=== PATIENT | female | born 1935 | race Caucasian/White ===

== ENCOUNTER 2019-10-08 12:09 | Inpatient (IN) | payer MEDICARE ==
[~2019-10-08] VITALS: Ht 62 cm; Wt 51.6 kg
[2019-10-08] MEDS ORDERED: MEMA10TA57 PO (12:42)
[2019-10-08] MEDS ORDERED: PANT40TA3 PO (12:42)
[2019-10-08] MEDS ORDERED: MELO-170 PO (12:42)
[2019-10-08] MEDS ORDERED: PROP60TA17 PO (12:42)
[2019-10-08] MEDS ORDERED: VENL150T PO (12:42)
[2019-10-08] MEDS ORDERED: CYCL10TA9 PO (12:42)
[2019-10-08] MEDS ORDERED: ASPI-983 PO (12:42)
[2019-10-08] MEDS ORDERED: HYDR-4226 PO (12:42)
[2019-10-08] MEDS ORDERED: TRAM50TA3 PO (12:42)
[2019-10-08] MEDS ORDERED: DCS100C PO (12:42)
[2019-10-08] MEDS ORDERED: LISI-552 PO (12:42)
--- NOTE | 2019-10-08 12:43 | NUR ---
ENTERED MED REC USING THE [facility] DISCHARGE SUMMARY I WILL INTERVIEW THE PT AFTER THE MEDS HAVE BEEN CONTINUED Addendum: 10/11/19 at 1552 by CINDY AYALA CPhT SPOKE WITH THE PT AND WENT THRU THE EXT MED HISTORY TO COMPLETE THE MED REC MEDS THAT ARE NEW TO THE PT (THAT ARE NOW TAKEN REMOVED FROM THE MED REC) ASPIRIN 81MG CYCLOBENZAPRINE 10MG DOCUSATE 100MG NORCO 5/325MG MOBIC 7.5MG PANTOPRAZOLE 40MG TRAMADOL 50MG MEDICATIONS THAT HAVE BEEN ADDED: DICYCLOMINE 10MG- ON THE EXT MED HISTORY IT SAYS " 1 TAB QID" HOWEVER THE PT SAYS SHE JUST TAKES IT BID OTC MEDS THAT HAVE BEEN ADDED: MTV FISH OIL SENNA S TYLENOL
[2019-10-08] MEDS ORDERED: FLEET ENEMA ADULT 1 EA BTL PR PRN (12:45)
[2019-10-08] MEDS ORDERED: guaiFENesin/CODEINE (ROBITUSSIN AC) 10ML UDC PO PRN (12:45)
[2019-10-08] MEDS ORDERED: LACTULOSE SYRUP 10GM/15ML (ENULOSE) 30ML UDC PO PRN (12:45)
[2019-10-08] MEDS ORDERED: ALPRAZolam 0.25 MG (XANAX) TAB PO PRN (12:45)
[2019-10-08] MEDS ORDERED: diphenhydrAMINE 25 MG TAB (BENADRYL) PO PRN (12:45)
[2019-10-08] MEDS ORDERED: LOPERAMIDE 2 MG (IMODIUM) TABLET PO PRN (12:45)
[2019-10-08] MEDS ORDERED: DOCUSATE SODIUM 100 MG (COLACE) CAP PO PRN (12:45)
[2019-10-08] MEDS ORDERED: ONDANSETRON 4 MG (ZOFRAN) ORAL DISSOLVE TAB PO PRN (12:45)
--- NOTE | 2019-10-08 13:10 | NUR ---
Olvinjon Nixon admitted to room 229-1, with an admitting diagnosis of Right Total Knee Replacement, on 10/08/19 from [facility] via private vehicle, accompanied by family. Therapy staff assisted patient from private vehicle. MEME SHIPLEY introduced to surroundings, call light, bed controls, phone, TV, temperature control, lights, meal times, smoking policy, visitor policy, side rail policy, bathrooms and showers. Patient Rights given to patient in the handbook.MEME SHIPLEY verbalizes understanding that [facility] is not responsible for the loss or damage to any personal effects or valuables that are kept in the patients possession during their hospitalization. The following Patient Care Plans were discussed with the Patient and family: Discharge Planning, Impaired Mobility, Falls, Total Knee Replacement. MEME SHIPLEY verbalizes understanding of Interdisciplinary Patient Education. Patient and/or family were informed about the Rapid Response Team and its purpose. Patient received Patient Rights Booklet, which includes Privacy Act Statement and Data Collection Information Summary.
--- NOTE | 2019-10-08 13:36 | Physical Therapy Evaluation ---
PT Evaluation-General Medical Diagnosis Admission Date Oct 08, 2019 at 13:05 Medical Diagnosis: left TKA Onset Date: Oct 06, 2019 Therapy Diagnosis Therapy Diagnosis: Impaired mobility Referral Physician: Dr. Mendiola Reason for Referral: Evaluation/Treatment Medical History Pertinent Medical History: Diverticulitis, GERD, HTN, OA Additional Medical History dementia, burris's palsy, depression, anxiety, anemia, prolapsed rectum Reviewed History: Yes Social History Home: Multilevel (Paiten lives on 1 floor only) Current Living Status: Spouse Entry Into Home: Stairs Without Railing PT Steps Into Home: 2 Patient does not use steps inside home. 2 steps in front of the home with not rail. I step at the back door with no rail. Prior Prior Level of Function SCALE: Activities may be completed with or without assistive devices. 4-Lyrnbnlhlw-fzjzqph completes the activity by him/herself with no assistance from a helper. 5-Set-up or Clean-up Assistance-helper sets up or cleans up; patient completes activity. [place] assists only prior to or following the activity. 4-Supervision or Touching Assistance-helper provides verbal cues and/or touching/steadying and/or contact guard assistance as patient completes activity. Assistance may be provided throughout the activity or intermittently. 3-Partial/Moderate Assistance-helper does LESS THAN HALF the effort. [place] lifts, holds or supports trunk or limbs, but provides less than half the effort. 2-Substantial/Maximal Assistance-helper does MORE THAN HALF the effort. [place] lifts or holds trunk or limbs and provides more than half the effort. 7-Mkpazhezf-omnghh does ALL the effort. Patient does none of the effort to complete the activity. Or, the assistance of 2 or more helpers is required for the patient to complete the activity. If activity was not attempted, code reason: 7-Patient Refused. 9-Not Applicable-not attempted and the patient did not perform the activity before the current illness, exacerbation or injury. 10-Not Attempted due to Environmental Limitations-(lack of equipment, weather restraints, etc.). 88-Not Attempted due to Medical Conditions or Safety Concerns. Bed Mobility: 5 Transfers (B,C,W/C): 5 Gait: 5 Stairs: 4 (SBA) Indoor Mobility (Ambulation): Needed Some Help Stairs: Needed Some Help PT Evaluation-Current Subjective Patient in 8/10 in L knee with all movement. AROM L knee is 17 deg from full extension, and 81 deg of flexion. Pt/Family Goals return to home with spouse. Objective Patient Orientation: Person, Confused (about date of operation), Place, Eyes Open family in room with Patient ROM/Strength Strength Lower Extremities gross strength for 4/5 except for L knee extension was 3/5, left hip flexion was 3/5 and L foot plantar flexion was 3+/5 Sensory Vision: Functional Hearing: Functional Hand Dominance: Right Sensation Right Lower Extremit: Intact Sensation Left Lower Extremity: Impaired (knee down ) Transfers Roll Left to Right (QC): 4 (sba) Sit to Lying (QC): 3 (asisted with less then 50% of help) Lying to Sitting/Side of Bed(Q: 3 Sit to Stand (QC): 4 (CGA) Chair/Izd-xy-Gmewq Xfer(QC): 4 (CGA) Car Transfer (QC): 3 Gait Does the Patient Walk?: Yes Mode of Locomotion: Walk Anticipated Mode of Locomotion: Walk Walk 10 feet (QC): 4 Walk 50 ft with 2 Turns(QC): 4 (CGA) Walk 150 ft (QC): 4 (CGA) Walking 10ft/uneven surface-QC: 4 (CGA) Distance: 150 Gait Assistive Device: FWW Comments/Gait Description Slow, antalgic, but steady, no LOB Wheelchair Training Does the Pt Use a Wheelchair?: No Stairs 1 Step (curb) (QC): 4 (CGA) 4 Steps (QC): 88 12 Steps (QC): 88 Walking Assistive Device: Walker Cues for proper foot placement Balance Sitting Static: Normal Sitting Dynamic: Normal Standing Static: Fair Standing Dynamic: Fair Picking up an Object (QC): 88 Treatment Balance, Gait, strength, transfers, ambulation Assessment/Needs Patient ambulated well but with pain in the L knee. Rehab Potential: Good PT Short Term Goals Short Term Goals Time Frame: Oct 15, 2019 Roll Left & Right: 5 Sit to lyin Lying to sitting on side of be: 4 Sit to stand: 4 (SBA) Chair/rhs-ha-ffukx transfer: 4 (SBA) Car transfer: 4 (SBA) Walk 10 feet: 4 (SBA) Walk 50 feet with two turns: 4 (SBA) Walk 150 feet: 4 (SBA) 1 step (curb): 4 (SBA) PT Derrick Worker Well Service Goals Derrick Worker Well Service Goals PT Group Home Goals Time Frame: Oct 29, 2019 Roll Left & Right (QC): 5 Sit to Lying (QC): 5 Lying-Sitting on Side/Bed(QC): 5 Sit to Stand (QC): 5 Car Transfer (QC): 5 Does the Patient Walk: Yes Walk 10 feet (QC): 5 Walk 50ft with 2 Turns (QC): 5 Walk 150 ft (QC): 5 Walking 10ft on Uneven Surface: 5 1 Step (curb) (QC): 5 4 Steps (QC): 5 PT Plan Problem List Problem List: Activity Tolerance, Functional Strength, Safety, Balance, Gait, Transfer, Bed Mobility, ROM Treatment/Plan Treatment Plan: Continue Plan of Care Treatment Plan: Bed Mobility, Education, Functional Activity Amos, Functional Strength, Group Therapy, Gait, Safety, Therapeutic Exercise, Transfers Treatment Duration: Oct 29, 2019 Frequency: At least 5 of 7 days/Wk (IRF) Estimated Hrs Per Day: 1.5 hours per day Patient and/or Family Agrees t: Yes Safety Risks/Education Patient Education: Gait Training, Transfer Techniques, Steps, Correct Positioning, Disease Process, Safety Issues Teaching Recipient: Patient, Family Teaching Methods: Demonstration, Discussion, Audiovisual Response to Teaching: Verbalize Understanding, Return Demonstration, Reinforcement Needed Discharge Recommendations Plan Patient will perform bed mobility and transfer training, balance and endurance training, functional strengthening, stair training, gait training, and education, to improve functional mobility and independence at home. Therapy Discharge Recommendati: Home & Family Time/GCodes Time In: 1305 Time Out: 1325 Total Billed Treatment Time: 20 Total Billed Treatment 1 visit SHANNA GODINEZ PT Oct 08, 2019 13:36
--- NOTE | 2019-10-08 14:00 | Occupational Therapy Eval ---
OT Evaluation-General/PLF Medical Diagnosis Admission Date Oct 08, 2019 at 13:05 Medical Diagnosis: Right to knee Onset Date: Oct 06, 2019 Therapy Diagnosis Therapy Diagnosis: decreased self care skills Referral Physician: Dr. Mendiola Medical History Pertinent Medical History: Diverticulitis, GERD, HTN, OA Additional Medical History dementia, burris's palsy, depression, anxiety, anemia, prolapsed rectum Current History Pt s/p left TKA Reviewed History: Yes Social History Home: Single Level Current Living Status: Spouse Entry Into Home: Stairs Without Railing Steps Into Home: 2 ADL-Prior Level of Function SCALE: Activities may be completed with or without assistive devices. 4-Jvaxaupeki-ofldirm completes the activity by him/herself with no assistance from a helper. 5-Set-up or Clean-up Assistance-helper sets up or cleans up; patient completes activity. [place] assists only prior to or following the activity. 4-Supervision or Touching Assistance-helper provides verbal cues and/or touching/steadying and/or contact guard assistance as patient completes activity. Assistance may be provided throughout the activity or intermittently. 3-Partial/Moderate Assistance-helper does LESS THAN HALF the effort. [place] lifts, holds or supports trunk or limbs, but provides less than half the effort. 2-Substantial/Maximal Assistance-helper does MORE THAN HALF the effort. [place] lifts or holds trunk or limbs and provides more than half the effort. 9-Sphzppiue-suriph does ALL the effort. Patient does none of the effort to complete the activity. Or, the assistance of 2 or more helpers is required for the patient to complete the activity. If activity was not attempted, code reason: 7-Patient Refused. 9-Not Applicable-not attempted and the patient did not perform the activity before the current illness, exacerbation or injury. 10-Not Attempted due to Environmental Limitations-(lack of equipment, weather restraints, etc.). 88-Not Attempted due to Medical Conditions or Safety Concerns. ADL PLOF Comments Independent prior to surgery per pt and family Self Care: Independent DME/Equipment: Bath Chair, Grab Bars, Shower Drive Self: Yes OT Current Status Subjective Pt sitting in chair, agrees to therapy. Pt reports fatigue and pain of 8/10 in left LE. Mental Status/Objective Patient Orientation: Person, Situation Current Glasses/Contacts: Yes Hearing Aids: Yes Dentures/Partials: No Hand Dominance: Right Upper Extremity ROM Grossly WFL Upper Extremity Coordination Fair Upper Extremity Sensation Intact per pt report ADL-Treatment ADL-Current Pt participated in UE assessment while seated in chair. Pt performed sit to stand and transfer with CGA using FWW, skilled cues for safety. Education provided regarding role of OT, plan of care, and ARU expectations. Pt sitting in chair with TSE present after session. Education OT Patient Education: Rehab process Teaching Recipient: Patient, Family Teaching Methods: Discussion OT Engagement Specialist Goals Engagement Specialist Goals Time Frame: Oct 29, 2019 Eating (QC): 6 Oral Hygiene (QC): 6 Toileting Hygiene (QC): 6 Shower/Bathe Self (QC): 5 Upper Body Dressing (QC): 6 Lower Body Dressing (QC): 5 On/Off Footwear (QC): 6 Additional Goals: 1-Demonstrate ADL Tasks, 2-Verbalize Understanding, 3- ImproveStrength/Amos 1=Demonstrate adherence to instructed precautions during ADL tasks. 2=Patient will verbalize/demonstrate understanding of assistive devices/modifications for ADL. 3=Patient will improve strength/tolerance for activity to enable patient to perform ADL's. OT Education/Plan Problem List/Assessment Assessment: Decreased Activ Tolerance, Decreased UE Strength, Dependent Transfers, Impaired I ADL's, Impaired Self-Care Skills Pt s/p left TKA with decreased mobility, ADL functioning, strength, and activity tolerance. Pt to benefit from skilled OT intervention for ADL training, transfers, strengthening, and home safety education to increase level of independence and allow safe discharge plan. Discharge Recommendations Plan/Recommendations: Continue POC Treatment Plan/Plan of Care Patient would benefit from OT for education, treatment and training to promote independence in ADL's, mobility, safety and/or upper extremity function for ADL's. Plan of Care: ADL Retraining, Functional Mobility, Group Exercise/Act as Ind, UE Funct Exercise/Act Treatment Duration: Oct 29, 2019 Frequency: At least 5 of 7 days/Wk (IRF) Estimated Hrs Per Day: 1.5 hours per day Rehab Potential: Fair Time/GCodes Start Time: 13:30 Stop Time: 13:45 Total Time Billed (hr/min): 15 Billed Treatment Time 1 visit, EVL(15minutes) RY MELGOZA OT Oct 08, 2019 14:00
[2019-10-08 15:11] VITALS: BP 124/77
--- NOTE | 2019-10-08 15:12 | Physical Therapy Daily Note ---
PT Daily Note-Current Subjective Pt sitting in recliner upon arrival. Pt agrees to PT/OT co-treat. Pain Pain Description: Tightness, Sharp Mental Status Patient Orientation: Person, Confused, Situation Attachments: Polar Pack, Other-See Comments (CPM) Transfers SCALE: Activities may be completed with or without assistive devices. 0-Pcfeicqotn-drmebrr completes the activity by him/herself with no assistance from a helper. 5-Set-up or Clean-up Assistance-helper sets up or cleans up; patient completes activity. [place] assists only prior to or following the activity. 4-Supervision or Touching Assistance-helper provides verbal cues and/or touching/steadying and/or contact guard assistance as patient completes acti vity. Assistance may be provided throughout the activity or intermittently. 3-Partial/Moderate Assistance-helper does LESS THAN HALF the effort. [place] lifts, holds or supports trunk or limbs, but provides less than half the effort. 2-Substantial/Maximal Assistance-helper does MORE THAN HALF the effort. [place] lifts or holds trunk or limbs and provides more than half the effort. 8-Nyunidhmc-zepscm does ALL the effort. Patient does none of the effort to complete the activity. Or, the assistance of 2 or more helpers is required for the patient to complete the activity. If activity was not attempted, code reason: 7-Patient Refused. 9-Not Applicable-not attempted and the patient did not perform the activity before the current illness, exacerbation or injury. 10-Not Attempted due to Environmental Limitations-(lack of equipment, weather restraints, etc.). 88-Not Attempted due to Medical Conditions or Safety Concerns. Sit to Stand (QC): 4 Toilet Transfer (QC): 4 Weight Bearing Right Lower Extremity: Right Full Weight Bearing Left Lower Extremity: Left Full Weight Bearing Gait Training Does the Patient Walk?: Yes Distance: 50' Walk 10 feet (QC): 4 Walk 50 ft with 2 Turns(QC): 4 Gait Persons Needed: 1 Gait Assistive Device: FWW Pt needs VC to stay closer to FWW. Wheelchair Training Does the Pt Use a Wheelchair?: No Treatments Co-treat with PT skills of 2 clinicians due to increased needs of mobility, decreased activity tolerance and cognitive issues. OT working on ADLs, UE positioning with functional transfers and skilled instructions during functional tasks. PT working on functional transfers, LE strengthening and mobility. Pt ambulated to bathroom needing verbal cues for hand placement and assist for balance. Transferred to toilet with CGA and verbal cues for safety. Pt did not call for assistance when finished with toileting, unsteadiness noted, toilet alarm placed. CGA with clothing manipulation and cleansed self sitting on toilet. CGA and verbal cues for shower transfer. SBA for bathing and verbal cues to sit for safety. Pt able to dry self, crossing LE's to dry feet. After set up, pt completed upper/lower body dressing with cues for safety, CGA in standing to hike pants over hips. Pt required multiple breaks due to increased fatigue and pain. Pt then stood at sink to complete oral care with CGA. Pt ambulated out to ARU kitchen to work on side stepping, unsteadiness. Pt ambulated back to room and transferred into bed with SBA. After session, pt lyi ng in bed with call light/phone in reach. Safety measures in place. All needs met in room. Assessment Current Status: Fair Progress Pt is limited by confusion especially with sequencing and safety. PT Short Term Goals Short Term Goals Time Frame: Oct 15, 2019 Roll Left & Right: 5 Sit to lyin Lying to sitting on side of be: 4 Sit to stand: 4 (SBA) Chair/xdg-od-qebxw transfer: 4 (SBA) Car transfer: 4 (SBA) Walk 10 feet: 4 (SBA) Walk 50 feet with two turns: 4 (SBA) Walk 150 feet: 4 (SBA) 1 step (curb): 4 (SBA) PT Malted Milk Supervisor Goals Malted Milk Supervisor Goals PT Skilled Nursing Goals Time Frame: Oct 29, 2019 Roll Left & Right (QC): 5 Sit to Lying (QC): 5 Lying-Sitting on Side/Bed(QC): 5 Sit to Stand (QC): 5 Does the Patient Walk: Yes Walk 10 feet (QC): 5 Walk 50ft with 2 Turns (QC): 5 Walk 150 ft (QC): 5 1 Step (curb) (QC): 5 PT Plan Problem List Problem List: Activity Tolerance, Functional Strength, Safety, Balance, Gait, Transfer Treatment/Plan Treatment Plan: Continue Plan of Care Treatment Plan: Bed Mobility, Concurrent Therapy, Education, Functional Activity Amos, Functional Strength, Group Therapy, Gait, Safety, Therapeutic Exercise, Transfers Treatment Duration: Oct 29, 2019 Frequency: At least 5 of 7 days/Wk (IRF) Estimated Hrs Per Day: 1.5 hours per day Patient and/or Family Agrees t: Yes Safety Risks/Education Patient Education: Gait Training, Transfer Techniques, Correct Positioning, Safety Issues Teaching Recipient: Patient Teaching Methods: Discussion Response to Teaching: Reinforcement Needed Time/GCodes Time In: 1345 Time Out: 1500 Total Billed Treatment Time: 75 Total Billed Treatment 1, GT (20m) & FA x4 (55m) Co-treat w/OT for 75m OVIMARCELO العراقي HOG RINGER Oct 08, 2019 15:12
--- NOTE | 2019-10-08 15:22 | Occupational Ther Daily Note ---
OT Current Status-Daily Note Subjective Pt alert, sitting in recliner. TSE/L took over care from OTR/L. Pt agrees to therapy. C/o pain throughout therapy, did not rate. Reported to nrsg that pt requested pain meds. Mental Status/Objective Patient Orientation: Person, Confused, Situation ADL-Treatment Co-treat with PT skills of 2 clinicians due to increased needs of mobility, decreased activity tolerance and cognitive issues. OT working on ADLs, UE positioning with functional transfers and skilled instructions during functional tasks. PT working on functional transfers, LE strengthening and mobility. Pt ambulated to bathroom needing verbal cues for hand placement and assist for balance. Transferred to toilet with CGA and verbal cues for safety. Pt did not call for assistance when finished with toileting, unsteadiness noted, toilet alarm placed. CGA with clothing manipulation and cleansed self sitting on toilet. CGA and verbal cues for shower transfer. SBA for bathing and verbal cues to sit for safety. Pt able to dry self, crossing LE's to dry feet. After set up, pt completed upper/lower body dressing with cues for safety, CGA in standing to hike pants over hips. Pt required multiple breaks due to increased fatigue and pain. Pt then stood at sink to complete oral care with CGA. Pt a mbulated out to [facility] kitchen to work on side stepping, unsteadiness. Pt ambulated back to room and transferred into bed with SBA. After session, pt lying in bed with call light/phone in reach. Safety measures in place. All needs met in room. Therapy Code Descriptions/Definitions Functional [place] Measure: 0=Not Assessed/NA 4=Minimal Assistance 1=Total Assistance 5=Supervision or Setup 2=Maximal Assistance 6=Modified [place] 3=Moderate Assistance 7=Complete IndependenceSCALE: Activities may be completed with or without assistive devices. 6-Kxmcuxhami-fiwqpxu completes the activity by him/herself with no assistance from a helper. 5-Set-up or Clean-up Assistance-helper sets up or cleans up; patient completes activity. [place] assists only prior to or following the activity. 4-Supervision or Touching Assistance-helper provides verbal cues and/or touching/steadying and/or contact guard assistance as patient completes activity. Assistance may be provided throughout the activity or intermittently. 3-Partial/Moderate Assistance-helper does LESS THAN HALF the effort. [place] lifts, holds or supports trunk or limbs, but provides less than half the effort. 2-Substantial/Maximal Assistance-helper does MORE THAN HALF the effort. [place] lifts or holds trunk or limbs and provides more than half the effort. 8-Hxzmmppox-iratnu does ALL the effort. Patient does none of the effort to complete the activity. Or, the assistance of 2 or more helpers is required for the patient to complete the activity. If activity was not attempted, code reason: 7-Patient Refused. 9-Not Applicable-not attempted and the patient did not perform the activity before the current illness, exacerbation or injury. 10-Not Attempted due to Environmental Limitations-(lack of equipment, weather restraints, etc.). 88-Not Attempted due to Medical Conditions or Safety Concerns. OT Long-Term Goals Drywall Finishing Foreman Goals Time Frame: Oct 29, 2019 Eating (QC): 6 Oral Hygiene (QC): 6 Toileting Hygiene (QC): 6 Shower/Bathe Self (QC): 5 Upper Body Dressing (QC): 6 Lower Body Dressing (QC): 5 On/Off Footwear (QC): 6 Additional Goals: 1-Demonstrate ADL Tasks, 2-Verbalize Understanding, 3- ImproveStrength/Amos 1=Demonstrate adherence to instructed precautions during ADL tasks. 2=Patient will verbalize/demonstrate understanding of assistive devices/modifications for ADL. 3=Patient will improve strength/tolerance for activity to enable patient to perform ADL's. OT Education/Plan Problem List/Assessment Assessment: Decreased Activ Tolerance, Decreased Safety Aware, Decreased UE Strength, Impaired Cognition, Impaired Coordination, Impaired Funct Balance, Impaired I ADL's, Impaired Self-Care Skills Pt s/p left TKA with decreased mobility, ADL functioning, strength, and activity tolerance. Pt to benefit from skilled OT intervention for ADL training, transfers, strengthening, and home safety education to increase level of independence and allow safe discharge plan. Discharge Recommendations Plan/Recommendations: Continue POC Treatment Plan/Plan of Care Patient would benefit from OT for education, treatment and training to promote independence in ADL's, mobility, safety and/or upper extremity function for ADL's. Plan of Care: ADL Retraining, Functional Mobility, Group Exercise/Act as Ind, UE Funct Exercise/Act Treatment Duration: Oct 29, 2019 Frequency: At least 5 of 7 days/Wk (IRF) Estimated Hrs Per Day: 1.5 hours per day Rehab Potential: Good Time/GCodes Start Time: 13:45 Stop Time: 15:00 Total Time Billed (hr/min): 75 Billed Treatment Time 1 visit-ADL 4 (60 min) FA 1 (15 min) TAYLOR DUARTE Oct 08, 2019 15:22
[2019-10-08 17:00] VITALS: BP 168/78
[2019-10-08] MEDS: HYDROcodone/APAP 5 MG/325 MG (LORTAB) TAB PO PRN (17:17)
[2019-10-08] MEDS: VENlafaxine XR 75 MG (EFFEXOR XR) CAP PO SCH (17:19)
--- NOTE | 2019-10-08 17:26 | NUR ---
Patient somewhat impulsive at times. Able to get up per self. Bed Alarm, Chair Alarm, toilet seat alarm in place. Requested Tele Sitter for patient safety. Discussed with patient and daughter, both in agreement of tele sitter. Patient explains that she has forgotten a lot and has Dementia. Alert to Person, Time, and Place at this time.
[2019-10-08 18:00] VITALS: BP 124/77
[2019-10-08] MEDS: polyethylene glycoL POWDER 17 GM (MIRALAX) PACK PO SCH (20:38)
[2019-10-08] MEDS: MELOXICAM 7.5 MG (MOBIC) TABLET PO SCH (20:38)
[2019-10-08] MEDS: MEMANTINE 10 MG (NAMENDA) TABLET PO SCH (20:38)
[2019-10-08] MEDS: DOCUSATE SODIUM 100 MG (COLACE) CAP PO SCH (20:38)
[2019-10-08] MEDS: SENNA W/DOCUSATE (SENOKOT S) TABLET PO SCH (20:38)
[2019-10-08] MEDS ORDERED: NON-FORMULARY MEDICATION 1 EA EA (Venlafaxine HCl (Venlafaxine HCl ER) 150 MG) PO SCH (21:00)
[2019-10-08] MEDS ORDERED: DOCUSATE SODIUM 100 MG (COLACE) CAP PO SCH (21:00)
--- NOTE | 2019-10-08 21:38 | PM&R Post Admission Assessment ---
PM&R HP Date of Visit: Oct 08, 2019 Time of Visit: 18:00 History of Present Illness CC: Debility following left knee replacement POD # 2 with slow recovery due to PD and memory deficit HPI: This is an 85yoWF who is very hard of hearing, dx with dementia in the past and has Parkinson's who presents after an uncomplicated left knee replacement surgery by Dr. Maguire at [facility]. She is in need of recovery with intensive therapy in order to return home to her . Her labs and vitals remain stable except for mild elevated BP. Overall she is doing much better but she needs to gain confidence considering the Parkinson's has slowed her recovery. Daughter is at bedside and helps with history. Patient sees CANVAS BASTER under Dr Ceron at [facility] in the [facility]. Constipation was discussed and we will initiate meds to help resolve that issue. Confusion will take cues and prompts from nursing and therapist. Past Mflfvun-Tfvxpp-Rydfss Hx Past Med/Social Hx: Reviewed Nursing Past Med/Soc Hx, Reviewed and Corrections made Patient Social History Marrital Status: Employed/Student: retired Alcohol Use: Denies Use Recreational Drug Use: No Smoking Status: Never a Smoker Physical Abuse Screen: No Sexual Abuse: No Recent Foreign Travel: No Contact w/other who traveled: No Recent Hopitalizations: No Recent Infectious Disease Expo: No Immunizations Up To Date Pediatric: Yes Date of Influenza Vaccine: Apr 27, 2019 Seasonal Allergies Seasonal Allergies: No Past Medical History Surgeries: Orthopedic Currently Using CPAP: Yes (uses at times) Currently Using BIPAP: No Cardiac: Hypertension Neurological: Dementia, Parkinson's Disease Sexually Transmitted Disease: No HIV/AIDS: No Female Reproductive Disorders: Denies Genitourinary: Bladder Infection Gastrointestinal: Gastroesophageal Reflux, Chronic Constipation Musculoskeletal: Arthritis, Chronic Back Pain Hearing Impairment: Bilateral Hearing Aide Psychosocial: Anxiety, Depression History of Blood Disorders: No Adverse Reaction to Blood Christina: No Family History Alzheimer's disease 19 MOTHER, Onset:50's - 60 Cardiovascular disease G8 BROTHER Prior Level of Function Bed Mobility: 5 Transfers: 5 Gait: 5 Stairs: 4 (SBA) Indoor Mobility (Ambulation): Needed Some Help Stairs: Needed Some Help Self Care: Independent Drive Self: Yes Current Level of Fuctioning Roll Left to Right: 4 (sba) Sit to Lyin (asisted with less then 50% of help) Lying to Sitting/Side of Bed: 3 Sit to Stand: 4 Chair/Rrl-ox-Tnkhj Xfer: 4 (CGA) Car Transfer: 3 Does the Patient Walk: Yes Mode of Locomotion: Walk Anticipated Mode of Locomotion: Walk Walk 10 feet: 4 Walk 50 ft with 2 Turns: 4 Walk 150 ft: 4 (CGA) Walking 10ft on uneven surface: 4 (CGA) Gait Assistive Device: FWW Does the Pt Use a Wheelchair: No 1 Step (curb): 4 (CGA) 4 Steps: 88 Walking Assistive Device: Walker 12 Steps: 88 Picking up an Object: 88 PM&R Allergy/Meds/Data Review Allergies Coded Allergies: No Allergy Information Available (Unverified , 10/08/19) Home Medications Scheduled Aspirin (Aspirin EC), 81 MG PO DAILY, (Reported) Docusate Sodium (Dok), 100 MG PO HS, (Reported) Lisinopril (Lisinopril), 20 MG PO DAILY, (Reported) Meloxicam (Mobic), 7.5 MG PO BID, (Reported) Memantine HCl (Memantine HCl), 10 MG PO BID, (Reported) Pantoprazole Sodium (Pantoprazole Sodium), 40 MG PO DAILY, (Reported) Propranolol HCl (Propranolol HCl), 60 MG PO DAILY, (Reported) Venlafaxine HCl (Venlafaxine HCl ER), 150 MG PO BID, (Reported) Scheduled PRN Cyclobenzaprine HCl (Cyclobenzaprine HCl), 10 MG PO Q8H PRN for MUSCLE SPASMS, (Reported) Hydrocodone/Acetaminophen (Hydrocodone/Acetaminophen 5 MG/325 MG TAB), 2 TAB PO Q4H PRN for PAIN-MODERATE (5-7), (Reported) Tramadol HCl (Tramadol HCl), 50 MG PO Q6H PRN for PAIN-MODERATE (5-7), (Reported) Current Medications Current Medications Reviewed Review of Systems Constitutional: see HPI, dizziness, weakness Musculoskeletal: joint pain, muscle pain, muscle stiffness, muscle cramps Skin: no symptoms reported Psychiatric/Neurological: Anxiety, Depressed, Emotional Problems Physical Exam Physical Exam Vital Signs Vital Signs - First Documented 10/08/19 15:11 Temp 36.6 Pulse 67 Resp 18 B/P (MAP) 124/77 Pulse Ox 98 O2 Delivery Room Air Capillary Refill : Height, Weight, BMI Height: '" Weight: lbs. oz. kg; 138.65 BMI Method: General Appearance: No Apparent Distress, WD/WN, Chronically ill Eyes: Bilateral Eye Normal Inspection, Bilateral Eye PERRL HEENT: PERRL/EOMI, Normal ENT Inspection, Pharynx Normal Neck: Full Range of Motion, Normal Inspection, Non Tender, Supple, Carotid Bruit Respiratory: Chest Non Tender, Lungs Clear, Normal Breath Sounds, No Accessory Muscle Use, No Respiratory Distress Cardiovascular: Regular Rate, Rhythm, No Edema, No Gallop, No JVD, No Murmur, Normal Peripheral Pulses Gastrointestinal: Normal Bowel Sounds, No Organomegaly, No Pulsatile Mass, Non Tender, Soft Back: Normal Inspection, No CVA Tenderness, No Vertebral Tenderness Extremity: Normal Capillary Refill, Normal Inspection, Normal Range of Motion (left leg), Non Tender, No Calf Tenderness, No Pedal Edema Neurologic/Psychiatric: Alert, Oriented x3, No Motor/Sensory Deficits, Normal Mood/Affect, bilingual elementary school teacher II-XII Norm as Tested, Disoriented (subtle poor recall), Motor Weakness (generalized lower extremities) Skin: Normal Color, Warm/Dry Lymphatic: No Adenopathy PM&R Medical Assessment & Plan REHAB/MEDICAL ASSESSMENT AND PLAN: REHAB IMPAIRMENT GROUP: Left total knee replacement with slow recovery from PD and dementia and advanced age ETIOLOGIC DIAGNOSIS: Left total knee replacement with slow recovery from PD and dementia and advanced age The comorbidities that impact the patients function and/or functional outcome by: PD causes "freezing" of muscles, poor recall from memory deficit, elevated BP and advanced age REHAB PLAN: The patient is being admitted to our comprehensive inpatient rehabilitation facility and can tolerate the intensity of service consisting of at least: 180 minutes of therapy a day, 5 out of 7 days a week Rehab treatment will consist of: PT OT ST will focus on regaining independent ADL's in order to return home with family and will take cues and prompts to help with cognitive deficit The patient/family has a good understanding of our discharge process and will benefit from an interdisciplinary inpatient rehabilitation program. The patient has potential to make improvement and is in need of at least two of the following multidisciplinary therapies including but not limited to physical, occupational, speech, and prosthetics and orthotics. Additionally the patient will need services from respiratory, nutritional services, wound care, psychology, etc. (Customize this to each patient). Given the patients complex condition and risk of further medical complications, rehabilitation services cannot be safely or effectively provided at a lower level of care such as a long-term facility. BARRIERS TO DISCHARGE: Dementia and poor reserve and frail status with advanced age ESTIMATED LOS: 7 days DISPOSITION: Home with HH RELEVANT CHANGES SINCE PREADMISSION SCREENING: I have compared the patients medical and functional status at the time of the preadmission screening and there are: no changes PROGNOSIS: Good REHABILITATION GOALS: 1.PT OT ST will focus on regaining independent ADL's in order to return home with family and will take cues and prompts to help with cognitive deficit All the above goals were reviewed with the patient and he/she is in agreement. By signing this document, I acknowledge that I have personally performed a full physical examination on this patient within 24 hours of admission to this inpatient rehabilitation facility and have determined the patient to be able to tolerate the above course of treatment at an intensive level for a reasonable period of time. I will be completing a detailed individualized Plan of Care for this patient by day #4 of the patients stay based upon the Preadmission Screen, the Post-Admission Evaluation, and the therapy evaluations. Admission Dx/Comorbidities: (1) Status post left knee replacement ICD Codes: Z96.652 - Presence of left artificial knee joint (2) Parkinson disease ICD Codes: G20 - Parkinson's disease (3) Dementia ICD Codes: F03.90 - Unspecified dementia without behavioral disturbance (4) Hypertension ICD Codes: I10 - Essential (primary) hypertension (5) Constipation ICD Codes: K59.00 - Constipation, unspecified (6) Advanced age ICD Codes: R54 - Age-related physical debility Assessment/Plan Assessment and Plan Assess & Plan/Chief Complaint Assessment: s/p left knee replacement POD # 2 Dementia PD Constipation HTN Plan: IRF protocol Monitor for sundowning Check labs per protocol BM CECILIA Galindo DO Oct 08, 2019 21:38
[2019-10-08] MEDS ORDERED: risperiDONE 0.25 MG (RisperDAL) TAB PO PRN (21:45)
[2019-10-08] MEDS ORDERED: HALOPERIDOL 5 MG/ML (HALDOL) AMP IM PRN (21:45)
[2019-10-09] MEDS: HYDROcodone/APAP 5 MG/325 MG (LORTAB) TAB PO PRN ×4 (00:27→18:54)
[2019-10-09 06:00] VITALS: BP 174/71
[2019-10-09] MEDS: VENlafaxine XR 75 MG (EFFEXOR XR) CAP PO SCH ×2 (06:08→16:58)
[2019-10-09 06:38] LABS: BASOPHILS # (AUTO) 0.1 10^3/uL (0.0-0.1); BASOPHILS % (AUTO) 1 % (0-10); EOSINOPHILS # (AUTO) 0.6 10^3/uL (0.0-0.3); EOSINOPHILS % (AUTO) 6 % (0-10); HEMATOCRIT 34 % (35-52); HEMOGLOBIN 11.3 G/DL (11.5-16.0); LYMPHOCYTES # (AUTO) 1.8 X 10^3 (1.0-4.0); LYMPHOCYTES % (AUTO) 19 % (12-44); MEAN CORPUSCULAR HEMOGLOBIN 33 PG (25-34); MEAN CORPUSCULAR HGB CONC 33 G/DL (32-36); MEAN CORPUSCULAR VOLUME 98 FL (80-99); MONOCYTES # (AUTO) 1.4 X 10^3 (0.0-1.0); MONOCYTES % (AUTO) 14 % (0-12); NEUTROPHILS # (AUTO) 5.9 X 10^3 (1.8-7.8); NEUTROPHILS % (AUTO) 61 % (42-75); PLATELET COUNT 319 10^3/uL (130-400); RED CELL DISTRIBUTION WIDTH 12.9 % (10.0-14.5); WHITE BLOOD COUNT 9.8 10^3/uL (4.3-11.0)
[2019-10-09 06:56] LABS: ALANINE AMINOTRANSFERASE 7 U/L (0-55); ALBUMIN 3.8 GM/DL (3.2-4.5); ALKALINE PHOSPHATASE 100 U/L (40-136); BILIRUBIN,TOTAL 0.4 MG/DL (0.1-1.0); BUN/CREATININE RATIO 18; CALCIUM 8.9 MG/DL (8.5-10.1); CARBON DIOXIDE 27 MMOL/L (21-32); CHLORIDE 99 MMOL/L (98-107); CREATININE SERUM 0.72 MG/DL (0.60-1.30); GFR ESTIMATED > 60; GLUCOSE 83 MG/DL (70-105); SODIUM 135 MMOL/L (135-145); TOTAL PROTEIN 6.2 GM/DL (6.4-8.2)
[2019-10-09] MEDS: MELOXICAM 7.5 MG (MOBIC) TABLET PO SCH ×2 (08:07→20:26)
[2019-10-09] MEDS: PANTOPRAZOLE 40 MG (PROTONIX) TAB PO SCH (08:08)
[2019-10-09] MEDS: MEMANTINE 10 MG (NAMENDA) TABLET PO SCH ×2 (08:08→20:26)
[2019-10-09] MEDS: lisINopril 20 MG (PRINIVIL) TABLET PO SCH (08:08)
[2019-10-09] MEDS: SENNA W/DOCUSATE (SENOKOT S) TABLET PO SCH ×2 (08:08→20:26)
[2019-10-09] MEDS: PROPRANOLOL 20 MG (INDERAL) TABLET PO SCH (08:09)
[2019-10-09] MEDS: polyethylene glycoL POWDER 17 GM (MIRALAX) PACK PO SCH ×2 (08:09→19:40)
[2019-10-09] MEDS: ASPIRIN E.C. 81 MG (ECOTRIN) TAB PO SCH (08:09)
[2019-10-09 08:11] VITALS: BP 108/66
[2019-10-09] MEDS ORDERED: NON-FORMULARY MEDICATION 1 EA EA (Propranolol HCl 60 MG) PO SCH (09:00)
--- NOTE | 2019-10-09 11:06 | PM&R Progress Note ---
Subjective HPI/CC On Admission Date Seen by Provider: Oct 09, 2019 Time Seen by Provider: 11:15 Subjective/Events-last exam No major confusion noted Memory loss evident Pain is pretty well controlled No BM yet so will give suppository No agitation Checked meds and labs Conferred with RN Reviewed therapy notes Review of Systems Musculoskeletal: leg pain Neurological: Confusion Objective Exam Vital Signs Vital Signs Date Time Temp Pulse Resp B/P (MAP) Pulse Ox O2 Delivery O2 Flow Rate FiO2 10/09/19 08:41 Room Air 10/09/19 08:11 81 108/66 (80) 10/09/19 06:00 36.4 16 97 Capillary Refill : Less Than 3 SecondsLess Than 3 Seconds General Appearance: No Apparent Distress, WD/WN, Chronically ill HEENT: PERRL/EOMI, Normal ENT Inspection, Pharynx Normal Neck: Full Range of Motion, Normal Inspection, Non Tender, Supple, Carotid Bruit Respiratory: Chest Non Tender, Lungs Clear, Normal Breath Sounds, No Accessory Muscle Use, No Respiratory Distress Cardiovascular: Regular Rate, Rhythm, No Edema, No Gallop, No JVD, No Murmur, Normal Peripheral Pulses Gastrointestinal: Normal Bowel Sounds, No Organomegaly, No Pulsatile Mass, Non Tender, Soft Back: Normal Inspection, No CVA Tenderness, No Vertebral Tenderness Extremity: Normal Capillary Refill, Normal Inspection, Normal Range of Motion (left leg), Non Tender, No Calf Tenderness, No Pedal Edema Neurologic/Psychiatric: Alert, Oriented x3, No Motor/Sensory Deficits, Normal Mood/Affect, 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 FIM Transfers Therapy Code Descriptions/Definitions Functional [place] Measure: 0=Not Assessed/NA 4=Minimal Assistance 1=Total Assistance 5=Supervision or Setup 2=Maximal Assistance 6=Modified [place] 3=Moderate Assistance 7=Complete IndependenceSCALE: Activities may be completed with or without assistive devices. 3-Ujnycsdvxt-adqvmvd completes the activity by him/herself with no assistance from a helper. 5-Set-up or Clean-up Assistance-helper sets up or cleans up; patient completes activity. [place] assists only prior to or following the activity. 4-Supervision or Touching Assistance-helper provides verbal cues and/or touching/steadying and/or contact guard assistance as patient completes activity. Assistance may be provided throughout the activity or intermittently. 3-Partial/Moderate Assistance-helper does LESS THAN HALF the effort. [place] lif ts, holds or supports trunk or limbs, but provides less than half the effort. 2-Substantial/Maximal Assistance-helper does MORE THAN HALF the effort. [place] lifts or holds trunk or limbs and provides more than half the effort. 9-Ydcyzuhfy-stczrl does ALL the effort. Patient does none of the effort to complete the activity. Or, the assistance of 2 or more helpers is required for the patient to complete the activity. If activity was not attempted, code reason: 7-Patient Refused. 9-Not Applicable-not attempted and the patient did not perform the activity before the current illness, exacerbation or injury. 10-Not Attempted due to Environmental Limitations-(lack of equipment, weather restraints, etc.). 88-Not Attempted due to Medical Conditions or Safety Concerns. Roll Left to Right (QC): 4 (sba) Sit to Lying (QC): 3 (asisted with less then 50% of help) Sit to Stand (QC): 4 Chair/Rkh-be-Xqixh Xfer(QC): 4 (CGA) Car Transfer (QC): 3 Gait Training Does the Patient Walk?: Yes Distance: 50' Walk 10 feet (QC): 4 Walk 50 ft with 2 Turns(QC): 4 Walk 150 ft (QC): 4 (CGA) Walking 10ft/uneven surface-QC: 4 (CGA) Gait Persons Needed: 1 Gait Assistive Device: FWW Wheelchair Training Does the Pt Use a Wheelchair?: No Stair Training 1 Step (curb) (QC): 4 (CGA) 4 Steps (QC): 88 12 Steps (QC): 88 Balance Picking up an Object (QC): 88 Assessment/Plan Assessment and Plan Assess & Plan/Chief Complaint Assessment: s/p left knee replacement POD # 3 Dementia PD Constipation giving supp HTN Plan: IRF protocol Monitor for sundowning Checked labs per protocol BM regimen (1) Status post left knee replacement (2) Parkinson disease (3) Dementia (4) Hypertension (5) Constipation (6) Advanced age CECILIA CONTRERAS DO Oct 09, 2019 11:06
--- NOTE | 2019-10-09 11:07 | Individualized Plan of Care ---
Individualized Plan of Care Rehab Nursing IPOC Order Admission Date Oct 08, 2019 at 13:05 Current Orders Orders Admission Order(Inpt,Obs,Sdc) (10/08/19 12:45) Vital Signs: Per Unit Policy ( 08,16,00 (10/08/19 12:45) Gold San 09,21 (10/08/19 12:45) Sequential Compression Device Q4H (10/08/19 12:45) Bank Representative-Inpt Rehab Con (10/08/19 12:45) Rehab Nursing Orders-Ipoc (10/08/19 12:45) Physical Therapy Rehab Orders (10/08/19 12:45) Occupational Therapy Rehab Ord (10/08/19 12:45) Speech Therapy Rehab Orders (10/08/19 12:45) Cbc With Automated Diff (10/09/19 06:00) Comprehensive Metabolic Panel (10/09/19 06:00) General/Regular (10/08/19 Dinner) Intake & Output 06,14,22 (10/08/19 12:45) Precautions (Aru) (10/08/19 12:45) Weekly Weight WEEK (10/08/19 12:45) Rehab-Intensity Of Therapy (10/08/19 12:45) Initiate Admission Nursing Pro .admission (10/08/19 12:45) Alprazolam Tablet (Xanax Tablet) (10/08/19 12:45) Calcium Carbonate Chew Tablet (Antacid C (10/08/19 12:45) Diphenhydramine Tablet (Benadryl Tablet) (10/08/19 12:45) Docusate Sodium Capsule (Colace Capsule) (10/08/19 21:00) Docusate Sodium Capsule (Colace Capsule) (10/08/19 12:45) Bisacodyl Suppository (Dulcolax Supposit (10/08/19 12:45) Lactulose Oral Solution (Enulose Oral So (10/08/19 12:45) Na Phos/Na Biphos Enema (Fleet Enema Jase (10/08/19 12:45) Guaifenesin/Codeine Syrup (Robitussin Ac (10/08/19 12:45) Loperamide Tablet (Imodium Tablet) (10/08/19 12:45) Melatonin Tablet (Melatonin Tablet) (10/08/19 12:45) Polyethylene Glycol Powder Pkt (Miralax (10/08/19 21:00) Ondansetron Oral Dissolve Tab (Zofran (10/08/19 12:45) Senna S Tablet (Senokot S Tablet) (10/08/19 21:00) Initiate Admission Nursing Pro .admission (10/08/19 12:45) Patient Visit (10/08/19 ) Gait Training, Ea 15 Min (10/08/19 ) Functional Activities, Ea 15 (10/08/19 ) Aspirin Enteric Coated Tablet (Ecotrin T (10/09/19 09:00) Cyclobenzaprine Tablet (Flexeril Tablet) (10/08/19 15:15) Docusate Sodium Capsule (Colace Capsule) (10/08/19 21:00) Hydrocodone/Apap 5/325 Tablet (Lortab 5 (10/08/19 15:15) Lisinopril Tablet (Zestril Tablet) (10/09/19 09:00) Meloxicam Tablet (Mobic Tablet) (10/08/19 21:00) Memantine Tablet (Namenda Tablet) (10/08/19 21:00) Pantoprazole Tablet (Protonix Tablet) (10/09/19 09:00) Tramadol Tablet (Ultram Tablet) (10/08/19 15:15) (Nf) Propranolol Hcl (10/09/19 09:00) (Nf) Venlafaxine Hcl (Venlafaxine Hcl Er (10/08/19 21:00) Patient Visit (10/08/19 ) Gait Training, Ea 15 Min (10/08/19 ) Functional Activities, Ea 15 (10/08/19 ) Patient Visit (10/08/19 ) Pt Eval Moderate Complexity (10/08/19 ) Venlafaxine Xr Capsule (Effexor Xr Capsu (10/08/19 17:00) Propranolol Tablet (Inderal Tablet) (10/09/19 09:00) Haloperidol Injection (Haldol Injectio (10/08/19 21:45) Risperidone Tablet (Risperdal Tablet) (10/08/19 21:45) Patient Visit (10/09/19 ) Gait Training, Ea 15 Min (10/09/19 ) Exercise Therap, Ea 15 Min (10/09/19 ) Patient Visit (10/09/19 ) Speech Sound Lang Comp (10/09/19 ) Rehab Nursing Orders: Ongoing Assess. of Cognitive Status, Ongoing Assess. of Function Status, Bladder Management, Bladder Scan, Bladder Training, Bowel Management, Bowel Training, Disease Management & Educaiton, DVT Prophylaxis, Fall Prevention, Fluid/Electrolyte/Nutrition Mgmt, Infection Prevention, Medication Management & Education, Management of Risks & Complications, Nutrition Management, Pain Management, Patient/Family Support, Safety Management Intensity of Therapy to be met Patient to be seen: Min.3h per day/5 of 7d PT IPOC Problem List: Activity Tolerance, Functional Strength, Safety, Balance, Gait, Transfer Treatment Plan: Continue Plan of Care Bed Mobility, Education, Functional Activity Amos, Functional Strength, Group Therapy, Gait, Safety, Therapeutic Exercise, Transfers Treatment Duration: Oct 29, 2019 Frequency: At least 5 of 7 days/Wk (IRF) Estimated Hrs Per Day: 1.5 hours per day OT IPOC Problems: Decreased Activ Tolerance, Decreased Safety Aware, Decreased UE Strength, Impaired Cognition, Impaired Coordination, Impaired Funct Balance, Impaired I ADL's, Impaired Self-Care Skills OT Treatment, Training and Edu: Yes OT Problems Pt s/p left TKA with decreased mobility, ADL functioning, strength, and activity tolerance. Pt to benefit from skilled OT intervention for ADL training, transfers, strengthening, and home safety education to increase level of i ndependence and allow safe discharge plan. Plan of Care: ADL Retraining, Functional Mobility, Group Exercise/Act as Ind, UE Funct Exercise/Act Treatment Duration: Oct 29, 2019 Frequency: At least 5 of 7 days/Wk (IRF) Estimated Hrs Per Day: 1.[address] IPOC Speech Therapy Treatment Plan: Continue Plan of Care Treatment Duration: Oct 09, 2019 Frequency: Modified Program (IRF) Estimated Hrs Per Day: Other Bank Representative/Case Mgmt Bank Representative/Case Managemen: Discharge Planning Dietitian/Double End [place] Operator Dietitian/Double End [place] Operator to monitor nutritional status and make changes and/or recommendations as needed and work with speech pathology on dietary upgrades as the occur. Physician IPOC Medical Issues being managed closely and that require the 24 hour availability of a physician: Recent knee replacement and advanced age and PD and severe constipation will require close monitoring for delirium and falls Medical Issues: Bowel/Bladder Function, DVT Prophylaxis, Falls Precautions, Fluid/Electrolyte/Nutrition Balance, Infection Protection, Pain Management Brief Synthesis of Preadmission Screen, Post-Admission Evaluation, and Therapy Evaluations: PT OT ST will all focus on regaining ADL independence and ambulatory skills with fall risk prevention Medical Prognosis: Good Anticipated Length of Stay: 7 days CECILIA CONTRERAS DO Oct 09, 2019 11:07
--- NOTE | 2019-10-09 11:26 | ST Cognitive Linguistic Eval ---
Speech Evaluation-General Medical Diagnosis left TKA Onset Date: Oct 06, 2019 Therapy Diagnosis Therapy Diagnosis: Cognitive-communication Referral Referring Physician: Dr. Mendiola Medical History Pertinent Medical History: Diverticulitis, GERD, HTN, OA Reviewed History: Yes Social History Current Living Status: Spouse Speech PLF-Current Status Prior Level of Function Patient lived at home with her where she reports she still did her own cooking and house keeping. Subjective Patient was pleasant and cooperative with the cognitive assessment. Language Eval: Auditory Comprehends Simple Yes/No Ques: Functional Indent/Objects Multiple Fuentes: Functional Ident/Pics in Multiple Fuentes: Functional Follows 1-Step Commands: Mild Follows Complex Directions: Moderate Follows General Conversations: Mild Language Eval: Verbal Language Completes Spontaneous Greeting: Functional Produces Auto, Serial Info: Functional Imitates Simple Words/Phrases: Functional Word Finding: Mild Requests Basic Needs: Functional States Basic Personal Info: Mild Expresses Complex Ideas: Moderate Objective Cognitive Domain Attention: WNL Memory: Moderate Problem Solving: Mild Executive Functions: Mild Visuospatial Skills: WNL Composite Severity Rating: Moderate Clock Drawing Severity Rating: Moderate Objective Formal/Standardized Tests [facility] Status ([facility]) Results 17/30, Moderate Dementia range of function Oral Motor/Speech Production Within Normal Limits Impression The patient is a pleasant 84 year old female who was admitted to the ARU s/p knee replacement. The patient was given the [facility] with a score of 17/30 obtained. The patient states she knows she has dementia, however she is taking medication and is in hopes per her neurologist that she will not advance. The patient is noted to read a lot of books which were present in her room. The patient qualifies for services. Therapy will focus on safety awareness and independence in order to return home safely. Speech Patient Assess Expression of Ideas/Wants: Frequently (2) Understanding Verbal Content: Usually Understands (3) Brief Interview-Mental Status: Yes Repetition of Three Words: Three (3) Temporal Orientation: Year: Correct (3) Temporal Orientation: Month: Accurate within 5 days(2) Temporal Orientation: Day: Correct (1) Recall : Wear to say "Sock": No, could not recall (0) Recall : Color: No, could not recall (0) Recall : Bed: No, could not recall (0) Memory/Recall Ability: Current season, That he or she is in a hsp/hsp unit Speech Short Term Goals Short Term Goals Short Term Goals 1) The patient will complete memory tasks related to her daily needs at 80% or greater with minimal cues. 2) The patient will complete safety awareness tasks related to her daily needs at 80% or greater with minimal cues. 3) The patient will complete problem solving tasks related to her daily needs at 80% or greater with minimal cues. Speech [facility] [employer] Project Manager Goals Patient will improve cognitive communication in order to complete daily tasks with minimal assistance. Speech-Plan Patient/Family Goals Patient/Family Goals: Patient plans on returning home with her upon rehab discharge. Treatment Plan Speech Therapy Treatment Plan: Continue Plan of Care Frequency: 5 times per week Estimated Hrs Per Day: .5 hour per day Rehab Potential: Good Barriers to Learning: Patient has moderate dementia range of function. Safety Risks/Education Teaching Recipient: Patient Teaching Methods: Discussion Response to Teaching: Verbalize Understanding Education Topics Provided: Safety within her room and communication of wants/needs. Time Speech Therapy Time In: 10:45 Speech Therapy Time Out: 11:00 Total Billed Time: 15 Billed Treatment Time 1, ZHANG Cardenas Oct 09, 2019 11:26
--- NOTE | 2019-10-09 12:21 | Physical Therapy Daily Note ---
PT Daily Note-Current Subjective Pt agreeable to PT session, states looking forward to walking and walker earlier with nursing Pain Numeric Pain Scale: 0-No Pain Comment: at rest Appearance Pt sitting up in recliner before and after therapy session with call light, phone and bedside table within reach. Requested for nursing to refill pt's polar pack with ice for pt to use Mental Status Patient Orientation: Person, Place, Time, Eyes Open, Situation Transfers SCALE: Activities may be completed with or without assistive devices. 3-Yuawsuiibu-xbtlhfy completes the activity by him/herself with no assistance from a helper. 5-Set-up or Clean-up Assistance-helper sets up or cleans up; patient completes activity. Wilton assists only prior to or following the activity. 4-Supervision or Touching Assistance-helper provides verbal cues and/or touching/steadying and/or contact guard assistance as patient completes activity. Assistance may be provided throughout the activity or intermittently. 3-Partial/Moderate Assistance-helper does LESS THAN HALF the effort. Wilton l ifts, holds or supports trunk or limbs, but provides less than half the effort. 2-Substantial/Maximal Assistance-helper does MORE THAN HALF the effort. Wilton lifts or holds trunk or limbs and provides more than half the effort. 3-Tbkyojbeq-kjprrh does ALL the effort. Patient does none of the effort to complete the activity. Or, the assistance of 2 or more helpers is required for t he patient to complete the activity. If activity was not attempted, code reason: 7-Patient Refused. 9-Not Applicable-not attempted and the patient did not perform the activity before the current illness, exacerbation or injury. 10-Not Attempted due to Environmental Limitations-(lack of equipment, weather restraints, etc.). 88-Not Attempted due to Medical Conditions or Safety Concerns. Sit to Stand (QC): 4 Weight Bearing Right Lower Extremity: Right Full Weight Bearing Left Lower Extremity: Left Full Weight Bearing Gait Training Does the Patient Walk?: Yes Distance: 200 Walk 10 feet (QC): 4 Walk 50 ft with 2 Turns(QC): 4 Walk 150 ft (QC): 4 Gait Persons Needed: 1 Gait Assistive Device: FWW slow antalgic gait, lacks extension LLE, begins with step to gait pattern de creased WB LLE but able to improve with skilled instruction provided several times throughout session Exercises Supine Ex: Heel Slides (knee flex ext stretches x10 with 5 sec holds) Seated Therapy Exercises: Sit to stand (5), Long arc quads (10), Kicking activity (25), Hamstring Curls (10) Treatments education, safety, strength, ROM, transfers, gait, activity tolerance, functional mobility Assessment Current Status: Good Progress PT Short Term Goals Short Term Goals Time Frame: Oct 15, 2019 Roll Left & Right: 5 Sit to lyin Lying to sitting on side of be: 4 Sit to stand: 4 (SBA) Chair/yve-ga-wqfph transfer: 4 (SBA) Car transfer: 4 (SBA) Walk 10 feet: 4 (SBA) Walk 50 feet with two turns: 4 (SBA) Walk 150 feet: 4 (SBA) 1 step (curb): 4 (SBA) PT Director Behavioral Health Goals Mcc Goals PT Director Behavioral Health Goals Time Frame: Oct 29, 2019 Roll Left & Right (QC): 5 Sit to Lying (QC): 5 Lying-Sitting on Side/Bed(QC): 5 Sit to Stand (QC): 5 Car Transfer (QC): 5 Does the Patient Walk: Yes Walk 10 feet (QC): 5 Walk 50ft with 2 Turns (QC): 5 Walk 150 ft (QC): 5 Walking 10ft on Uneven Surface: 5 1 Step (curb) (QC): 5 4 Steps (QC): 5 PT Plan Treatment/Plan Treatment Plan: Continue Plan of Care Treatment Plan: Bed Mobility, Education, Functional Activity Amos, Functional Strength, Group Therapy, Gait, Safety, Therapeutic Exercise, Transfers Treatment Duration: Oct 29, 2019 Frequency: At least 5 of 7 days/Wk (IRF) Estimated Hrs Per Day: 1.5 hours per day Patient and/or Family Agrees t: Yes Safety Risks/Education Patient Education: Gait Training, Transfer Techniques, Reviewed Precautions, Reviewed Use of Ice, Correct Positioning, Disease Process, Safety Issues Teaching Recipient: Patient Teaching Methods: Demonstration, Discussion Response to Teaching: Verbalize Understanding, Return Demonstration, Reinforcement Needed Time/GCodes Time In: 1025 Time Out: 1049 Total Billed Treatment Time: 24 Total Billed Treatment 1 visit, GT x1 unit, EX x1 unit BARRIE,SUSAN SUPERVISOR [employer] Oct 09, 2019 12:21
[2019-10-09] MEDS: BISACODYL 10 MG SUPP (DULCOLAX) PR PRN (13:44)
--- NOTE | 2019-10-09 15:05 | NUR ---
MODERATE RESULTS FROM SUPPOSITORY.
[2019-10-09 16:00] VITALS: BP 124/70
[2019-10-09] MEDS: DOCUSATE SODIUM 100 MG (COLACE) CAP PO SCH (19:40)
[2019-10-10] MEDS: HYDROcodone/APAP 5 MG/325 MG (LORTAB) TAB PO PRN ×4 (01:27→20:29)
[2019-10-10 06:05] VITALS: BP 135/75
[2019-10-10] MEDS: VENlafaxine XR 75 MG (EFFEXOR XR) CAP PO SCH ×2 (06:23→16:28)
--- OUTSIDE RECORDS SUMMARY | 2019-10-10 08:28 | XMS REPORT ---
Discharge Summary 2.1 Created on: MEME SHIPLEY : 1935 Sex: Female Author Author MEME VILLEGAS Organization Unknown Address [address] [place], [place] [id number] Care Team Providers Care Frame Sample And Pattern Supervisor Name Role Phone CARRIE Du MD Attending YAZMIN DAVID CRNA SUPERVISOR EDUCATION ELOINA MARILIN [employer] [facility] Functional Status No Data Found Immunization Immunization Date Status Additional Notes Code Code System influenza, split (incl. purified surface antigen) 04/26/2009 Completed 15 CVX pneumococcal polysaccharide PPV23 Completed 33 CVX typhoid, unspecified formulation 3 Completed 91 CVX pneumococcal, unspecified formulation 05/11/2018 Completed 109 CVX Pneumococcal conjugate PCV 13 06/24/2017 Completed 133 CVX Influenza, high dose seasonal 08/10/2012 Completed 135 CVX Influenza, seasonal, injectable 05/11/2018 Completed 141 CVX influenza, injectable, quadrivalent 06/24/2017 Completed 158 CVX influenza, injectable, quadrivalent 05/29/2018 Completed 158 CVX Mental Status No Data Found Results No Data Found Social History Type Status Start Date End Date Code Code System Smoking History Never smoker (Never Smoked ) 546226171 SNOMED-CT Smoking History Unknown if ever smoked 738736809 SNOMED-CT Vital Signs Vital Sign Value Unit Pe Ell Value Pe Ell Unit Date/Time Recent/Initial? Code Cod e System Body Mass Index 23.05 kg /m2 09/02/2018 13:16 Initial 00385-2 LOINC Body Surface Area 1.51 m2 09/02/2018 13:16 Initial 3140-1 LOINC Height 152.4000 cm 60.00 in 09/02/2018 13:16 Init ial 8302-2 LOINC Weight 53.50 kg 118.00 lbs 09/02/2018 13:16 Ini tial 90946-9 LOINC Assessment You had the following problems: HYPERTENSION DIVERTICULITIS CHRONIC BACK PAIN DEPRESSION CONSTIPATION HYPONATREMIA Hospital Discharge Instructions Should you have any questions prior to discharge, please contact a member of your healthcare team. If you have left the hospital and have any questions, please contact your primary care physician. Reason For Referral No Data Found Hospital Course You were admitted to [facility] on 09/03/2018 06:32 with a principal diagnosis of Hemorrhage of anus and rectum You were discharged from [facility] on 09/03/2018 08:31 Medications Medication Start Date En d Date Route Frequency Dose Code Code System MiraLAX 17GM/1Dose Oral Powder for Solution 06/11/2018 Unknown ORAL NEEDED E VERY 8 HR 17 GRAM [id number] RxNorm Docusate Sodium 100MG Oral Capsule, Liquid Filled 06/11/2018 Unknown BY MOUTH TWO NAHID ES A DAY 100 MILLIGRAMS [id number] RxNorm traMADol HCl 100MG Oral Tablet, Extended Release 06/11/2018 Unknown ORAL TWO TIMES A DAY 100 MILLIGRAMS [id number] RxNorm Pantoprazole Sodium 40MG Oral Tablet, Enteric Coated 06/11/2018 Unknown ORAL DAILY 40 MILLIGRAMS [id number] RxNorm Procedures Procedure Name Date Stat us Code Code System Colonoscopy w/biopsy single/multiple 09/03/2018 completed 72650 CPT-4 Implants No Data Found Problems Problem Start Date Resol shira Date Status Code Code System HYPERTENSION active 32745959 SNOMED-CT DIVERTICULITIS active 119795822 SNOMED-CT CHRONIC BACK PAIN active 910954352 SNOMED-CT DEPRESSION active 54478772 SNOMED-CT CONSTIPATION active 15706651 SNOMED-CT HYPONATREMIA active 06538988 SNOMED-CT HISTORY OF HYSTERECTOMY 06/11/2018 resolved 005438717 SNOME D-CT HYPONATREMIA 07/27/2017 resolved 41217440 SNOMED-CT HISTORY OF RIGHT TOTAL KNEE REPLACEMENT 06/11/2018 resolved [id number] SNOMED-CT 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 850323079 SNOMED-CT TARDIVE DYSKINESIA resolved 198673377 SNOME D-CT GI BLEEDING 06/11/2018 resolved 95039536 SNOMED-CT HISTORY OF COLECTOMY 1 08/11/2017 resolved 360594556 SNOME D-CT UPPER GI BLEEDING 05/28 resolved 46603494 SNOMED -CT HYPOTENSION 06/11/2018 resolved 50239048 SNOMED-CT SYNCOPE 06/11/2018 resolved 873876528 SNOMED-CT PEPTIC ULCERATION 05/28 resolved 43213697 SNOMED -CT TOTAL LEFT HIP-JOINT REPLACEMENT 06/11/2018 resolved 676664185577 SNOMED-CT Allergies Allergy Substance Reaction Severity Start Date Concern Status Code Code System SULFA (sulfonamide) Mi ld to Moderate Active [id number] NDF-RT REGLAN Mild to Moderate Active 9230 RxNorm Plan of Treatment No Data Found Encounters No Data Found Goals No Data Found Discharge Medications No Data Found Discharge Diagnosis Discharge Diagnosis Diagnosis Code Start Date Hemorrhage of anus and rectum K625 09/03/2018 Health Concerns Section No Data Found
--- OUTSIDE RECORDS SUMMARY | 2019-10-10 08:29 | XMS REPORT ---
Author Author Mathew Pearce [facility] Address [address] [place], [place] [id number] Care Team Providers Care [employer] Land[employer] Technician Name Role Phone Jessica Pearce PCP Jessica Pearce PreferredProvider Allergies and Adverse Reactions Name Reaction Notes Latex Reglan SULFA (SULFONAMIDES) ciprofloxacin HCl muscle aches Plan of Treatment Planned Activity Comments Planned Date Planned Time Plan/Goal Transfer care 05/06/2018 2:00 PM [facility] Crohn's Prognostic test 08/06/2016 12:00 AM [facility] Crohn's Prognostic test 08/06/2016 12:00 AM [facility] Crohn's Prognostic test 08/06/2016 12:00 AM [facility] Crohn's Prognostic test 08/06/2016 12:00 AM Clostridium difficile 10/24/2016 12:00 AM Hip Complete Min 2Views - [place] 01/23/2017 12:0 0 AM THYROID PANEL. 06/09/2017 12:00 AM THYROID PANEL. 06/09/2017 12:00 AM THYROID PANEL. 06/09/2017 12:00 AM Thyroid antibody panel 06/09/2017 12:00 AM URINALYSIS ROUTINE C&S IF IND 08/19/2018 12:00 AM Iron deficient anemia Medications Active Name Start Date Estimated Completion Date SIG Co mments Miralax 17 gram oral powder in packet 03/23/2018 take 1 packet (17 gram) mixed with 8 oz. water, juice, soda, coffee or tea by oral route once daily cyanocobalamin (vitamin B-12) 1,000 mcg/mL injection solution inject 1 milliliter (1,000 mcg) by subcutaneous route once a month Benadryl 25 mg oral capsule take 1 capsule (25 mg) by oral route every 6 hours as needed dicyclomine 10 mg oral capsule t nicki 1 capsule (10 mg) by oral route 4 times per day Proctofoam HC 1-1 % rectal foam 11/27/2018 insert 1 applicatorful by rectal route 2 times a day pantoprazole 40 mg oral tablet,delayed release (DR/EC) 11/27/2018 TAKE 1 TABLET BY MOUTH ONCE DAILY DOK 100MG CAP 12/22/2018 TAKE 1 CAPSULE BY MOUTH TWICE DAILY Vitamin D3 1,000 unit oral capsule 01/01/2019 take 1 capsule by oral route daily Namenda 10 mg oral tablet 01/26/2019 01/21/2020 take 1 tablet (10 mg) by oral route 2 times per day for 90 days dicyclomine 10 mg oral capsule 04/05/2019 TAKE 1 CAP TAYLOR BY MOUTH 4 TIMES DAILY Hemmorex-HC 25 mg rectal suppository 04/26/2019 insert 1 suppository (25 mg) by rectal route 2 times per day fluticasone propionate 50 mcg/actuation nasal spray,suspension 1 08/04/2018 spray 1 - 2 sprays (50 - 100 mcg) in each nostril by intranasal route once daily as needed lisinopril 20 mg oral tablet 07/15/2019 11/12/2019 mary ellen e 1 tablet (20 mg) by oral route once daily for 30 days venlafaxine 150 mg oral capsule,extended release 24hr 07/15/2019 04/10/2020 take 1 capsule (150 mg) by oral route once daily for 90 days propranolol 60 mg oral capsule,extended release 24 hr 08/16/2019 TAKE 1 CAPSULE BY MOUTH ONCE DAILY FOR 30 DAYS Name Start Date Expiration Date SIG Comments Westhroid 130 mg oral tablet mary ellen e 1 tablet (130 mg) by oral route once daily before breakfast temazepam 15 mg oral capsule 02/18/2017 04/19/2017 mary ellen e 1 capsule (15 mg) by oral route once daily at bedtime as needed clonazepam 0.5 mg oral tablet ta ke 1/2 tablet (0.5 mg) by oral route 4 times per day prn penicillin V potassium 500 mg oral tablet 01/27/2018 018 take 1 tablet (500 mg) by oral route 2 times per day for 7 days amoxicillin 500 mg oral tablet 05/14/2018 T nicki 2 tabs by mouth BID for 10 days ciprofloxacin HCl 500 mg oral tablet 05/29/2018 06/05/2018 take 1 tablet (500 mg) by oral route 2 times per day for 7 days venlafaxine 150 mg oral tablet extended release 24hr 06/17/2018 07/17/2018 take 1 tablet (150 mg) by oral route once daily in the morning at the same time each day with food for 30 days docusate sodium 100 mg oral capsule 07/29/2018 10/27/2018 take 1 capsule (100 mg) by oral route 2 times per day for 30 days propranolol 60 mg oral capsule,extended release 24 hr 08/06/2018 02/02/2019 take 1 capsule (60 mg) by oral route once daily for 30 days fluticasone 50 mcg/actuation nasal spray,suspension spray 1 spray (50 mcg) in each nostril by intranasal route once daily tramadol 100 mg oral tablet extended release 24 hr 08/25/2018 11/23/2018 take 1 tablet (100 mg) by oral route BID amoxicillin 500 mg oral tablet 11/17/2018 11/27/2018 t nicki 1 tablet (500 mg) by oral route 3 times per day for 10 days Tessalon Perles 100 mg oral capsule 11/17/2018 11/27/2018 take 1 capsule (100 mg) by oral route 3 times per day as needed for cough for 10 days montelukast 10 mg oral tablet 01/21/2019 07/20/2019 ta ke 1 tablet (10 mg) by oral route once daily in the evening for 30 days amoxicillin 500 mg oral capsule 01/21/2019 01/31/2019 take 1 capsule (500 mg) by oral route every 8 hours for 10 days ciprofloxacin HCl 250 mg oral tablet 04/08/2019 04/15/2019 take 1 tablet (250 mg) by oral route every 12 hours for 7 days bupropion HCl 100 mg oral tablet sustained-release 12 hr 019 Take 1 tab by mouth once daily x 30 days amoxicillin 500 mg oral tablet 06/04/2019 06/14/2019 T nicki 1 tab by mouth every 8 hours ciprofloxacin HCl 250 mg oral tablet 09/16/2019 09/21/2019 take 1 tablet (250 mg) by oral route every 12 hours for 5 days Discontinued Name Start Date Discontinued Date SIG Comments Zocor 20 mg oral tablet 05/20/2017 take 1 t ablet (20 mg) by oral route once daily in the evening Lomotil 2.5-0.025 mg oral tablet 05/20/2017 take 1 tablet by oral route 4 times a day Zofran (as hydrochloride) 4 mg oral tablet 05/20 take 1 tablet by oral route every 4 hours as needed Vitamin B-12 1,000 mcg/mL injection solution inject 1 milliliter (1,000 mcg) by intramuscular route once a month Celexa 20 mg oral tablet 08/29/2017 take 1 tablet (20 mg) by oral route once daily propranolol 60 mg oral capsule,extended release 24 hr 05/20/2017 take 1 capsule by oral route daily hydrochlorothiazide 25 mg oral tablet 08/29/2017 take 1 tablet (25 mg) by oral route once daily doxazosin 1 mg oral tablet 08/29/2017 take 1 tablet (1 mg) by oral route once daily progesterone micronized oral 100 mg oral capsule 08/29/2017 Take 150 mg at bedtime daily Carafate 1 gram oral tablet 05/20/2017 take 1 tablet (1 gram) by oral route 4 times per day on an empty stomach 1 hour before meals and at bedtime diclofenac sodium 1 % topical gel 01/24/2017 05/20/2017 apply 4 gram to the affected area(s) by topical route 4 times per day venlafaxine 75 mg oral tablet 05/06/2017 08/29/2017 TA KE 1 TABLET BY MOUTH TWICE DAILY donepezil 10 mg oral tablet 08/29/2017 take 1 tablet (10 mg) by oral route once daily in the evening simvastatin 20 mg oral tablet 08/29/2017 ta ke 1 tablet (20 mg) by oral route once daily in the evening amoxicillin 500 mg oral tablet 06/10/2017 06/24/2017 T nicki one tablet by mouth TID for 10 days Protonix 40 mg oral tablet,delayed release (DR/EC) 08/29/2017 08/19/2018 take 1 tablet (40 mg) by oral route once daily for 30 days amoxicillin 500 mg oral tablet 09/12/2017 10/07/2017 T nicki one tablet by mouth BID for 10 days Medrol (Jose) 4 mg oral tablets,dose pack 01/21/2018 02/06/2018 take as directed Dulcolax (bisacodyl) 5 mg oral tablet,delayed release (DR/EC) 06/17/2018 take 1 tablet (5 mg) by oral route once daily changed medication in ER visit diclofenac sodium 1 % topical gel 03/23/2018 07/29/2018 apply 4 gram to the affected area(s) by topical route 4 times per day Namenda 10 mg oral tablet 04/28/2018 05/14/2018 take 1 tablet by oral route daily for 90 days Prescribed a different dose from neurolo gist venlafaxine 150 mg oral tablet extended release 24hr 04/28/2018 06/17/2018 take 1 tablet (150 mg) by oral route once daily in the morning at the same time each day with food for 90 days dose changed in ER visit dicyclomine 10 mg oral capsule 04/28/2018 06/17/2018 t nicki 1 capsule (10 mg) by oral route 4 times per day for 30 days dose change Takes medication for shaking 05/14/2018 does not rem ember the name of it memantine 10 mg oral tablet 06/17/2018 take 1 tablet (10 mg) by oral route 2 times per day dosage is different from ER tramadol 50 mg oral tablet 06/06/2018 06/17/2018 take 1 tab every 8-12 hours as needed for pain dose change dicyclomine 10 mg oral capsule 08/19/2018 t nicki 1 capsule (10 mg) by oral route 3 times per day Tylenol 325 mg oral tablet 08/19/2018 take 1 - 2 tablets (325 - 650 mg) by oral route every 4-6 hours as needed Namzaric 7-10 mg oral capsule,sprinkle,ER 24hr take 1 capsule by oral route once daily with a meal Zofran 4 mg oral tablet 07/29/2018 1 tablet PRN Q6H Medrol (Jose) 4 mg oral tablets,dose pack 08/19/2018 08/26/2018 take as directed gabapentin 300 mg oral capsule 11/06/2018 01/01/2019 T nicki 1 cap by mouth at bedtime pt states she feels foggy after taking i t Problem List Description Status Onset Hyperlipidemia Active Hypertension Active Hypothyroidism Active Irritable bowel syndrome Active Anxiety Active Depression Active Hypothyroid Active 06/25/2017 Cystocele, midline Active 02/01/2018 Lumbar spondylolysis Active 03/23/2018 Constipation Active 03/23/2018 Vital Signs Date Time BP-Sys(mm[Hg] BP-Blanquita(mm[Hg]) HR(bpm) RR(rpm) Temp WT HT HC BMI BSA BMI Percentile O2 Sat(%) 09/23/2019 10:42:00 AM 130 mm[Hg] 84 mm[Hg] 67 {beats}/min 14 rpm 97.5 F 117 lbs 96 % 09/16/2019 10:29:00 AM 122 mm[Hg] 68 mm[Hg] 64 {beats}/min 16 rpm 98.1 F 99 % 08/24/2019 11:39:00 AM 126 mm[Hg] 80 mm[Hg] 97 {beats}/min 20 rpm 97.2 F 118 lbs 60 in 23.0451 kg/m2 1.5053 m2 96 % 08/16/2019 10:13:00 AM 124 mm[Hg] 74 mm[Hg] 71 {beats}/min 97.3 F 120 lbs 96 % 07/15/2019 11:03:00 AM 146 mm[Hg] 86 mm[Hg] 79 {beats}/min 97.7 F 119 lbs 60 in 23.2404 kg/m2 1.5116 m2 97 % 06/04/2019 10:59:00 AM 130 mm[Hg] 84 mm[Hg] 67 {beats}/min 12 rpm 97.7 F 121.5 lbs 98 % 05/21/2019 11:04:00 AM 144 mm[Hg] 78 mm[Hg] 77 {beats}/min 18 rpm 97.7 F 119 lbs 97 % 05/07/2019 10:57:00 AM 150 mm[Hg] 76 mm[Hg] 77 {beats}/min 12 rpm 98.1 F 119 lbs 97 % 04/26/2019 10:13:00 AM 150 mm[Hg] 86 mm[Hg] 87 {beats}/min 16 rpm 97.7 F 118 lbs 60 in 23.0451 kg/m2 1.5053 m2 97 % 04/16/2019 10:51:00 AM 130 mm[Hg] 84 mm[Hg] 82 {beats}/min 12 rpm 97.7 F 121.562 lbs 60 in 23.74 kg/m2 1.53 m2 96 % 04/08/2019 9:54:00 AM 114 mm[Hg] 80 mm[Hg] 76 {beats}/min 12 rpm 97.9 F 110.562 lbs 60 in 21.5925 kg/m2 1.4571 m2 96 % 03/15/2019 2:04:00 PM 120 mm[Hg] 80 mm[Hg] 88 {beats}/min 12 rpm 97.9 F 114.312 lbs 98 % 03/09/2019 2:49:00 PM 130 mm[Hg] 90 mm[Hg] 91 {beats}/min 12 rpm 97.9 F 116.25 lbs 60 in 22.7033 kg/m2 1.4941 m2 97 % 01/21/2019 10:33:00 AM 120 mm[Hg] 82 mm[Hg] 69 {beats}/min 14 rpm 97.7 F 116.562 lbs 97 % 01/01/2019 1:26:00 PM 112 mm[Hg] 83 mm[Hg] 63 {beats}/min 12 rpm 98.1 F 119.5 lbs 98 % 12/22/2018 1:54:00 PM 136 mm[Hg] 80 mm[Hg] 65 {beats}/min 20 rpm 97.9 F 117 lbs 60 in 22.8498 kg/m2 1.4989 m2 96 % 11/17/2018 2:41:00 PM 120 mm[Hg] 78 mm[Hg] 73 {beats}/min 14 rpm 97.5 F 116.5 lbs 97 % 11/02/2018 11:44:00 AM 134 mm[Hg] 80 mm[Hg] 68 {beats}/min 20 rpm 97.9 F 113.25 lbs 60 in 22.1174 kg/m2 1.4747 m2 99 % 09/21/2018 2:47:00 PM 152 mm[Hg] 86 mm[Hg] 78 {beats}/min 20 rpm 97.9 F 120 lbs 60 in 23.44 kg/m2 1.52 m2 97 % 09/09/2018 12:23:00 PM 184 mm[Hg] 104 mm[Hg] 92 {beats}/min 20 rpm 97.9 F 124 lbs 60 in 24.22 kg/m2 1.54 m2 94 % 08/26/2018 2:10:00 PM 138 mm[Hg] 84 mm[Hg] 62 {beats}/min 16 rpm 97.5 F 121 lbs 60 in 23.6309 kg/m2 1.5243 m2 98 % 08/19/2018 11:20:00 AM 124 mm[Hg] 70 mm[Hg] 54 {beats}/min 20 rpm 97.7 F 119 lbs 60 in 23.24 kg/m2 1.51 m2 97 % 07/29/2018 1:37:00 PM 130 mm[Hg] 72 mm[Hg] 81 {beats}/min 18 rpm 97.9 F 124.25 lbs 60 in 24.2657 kg/m2 1.5446 m2 95 % 06/17/2018 12:00:00 PM 122 mm[Hg] 78 mm[Hg] 64 {beats}/min 18 rpm 97.9 F 120 lbs 96 % 05/29/2018 9:45:00 AM 144 mm[Hg] 76 mm[Hg] 79 {beats}/min 18 rpm 98.2 F 123.375 lbs 60 in 24.0948 kg/m2 1.5392 m2 97 % 05/14/2018 11:32:00 AM 130 mm[Hg] 68 mm[Hg] 66 {beats}/min 20 rpm 97.9 F 122.5 lbs 60 in 23.92 kg/m2 1.53 m2 98 % 05/01/2018 11:35:00 AM 124 mm[Hg] 60 mm[Hg] 79 {beats}/min 18 rpm 98.1 F 120.375 lbs 60 in 23.5089 kg/m2 1.5204 m2 96 % 04/11/2018 11:07:00 AM 122 mm[Hg] 78 mm[Hg] 78 {beats}/min 20 rpm 97.5 F 125 lbs 60 in 24.41 kg/m2 1.55 m2 98 % 03/23/2018 9:50:00 AM 116 mm[Hg] 70 mm[Hg] 78 {beats}/min 20 rpm 96.9 F 120 lbs 60 in 23.4357 kg/m2 1.518 m2 94 % 03/03/2018 1:57:00 PM 114 mm[Hg] 66 mm[Hg] 85 {beats}/min 18 rpm 98.6 F 121.375 lbs 60 in 23.70 kg/m2 1.53 m2 97 % 02/19/2018 10:47:00 AM 110 mm[Hg] 60 mm[Hg] 84 {beats}/min 98.1 F 120 lbs 60 in 23.4357 kg/m2 1.518 m2 2018 9:56:00 AM 115 mm[Hg] 60 mm[Hg] 88 {beats}/min 98.1 F 11 7 lbs 60 in 22.85 kg/m2 1.50 m2 01/27/2018 3:54:00 PM 130 mm[Hg] 76 mm[Hg] 88 {beats}/min 20 rpm 97.3 F 124 lbs 60 in 24.2168 kg/m2 1.5431 m2 01/22/2018 3:07:00 PM 130 mm[Hg] 80 mm[Hg] 90 {beats}/min 98 F 122 l bs 60 in 23.83 kg/m2 1.53 m2 96 % 01/21/2018 1:57:00 PM 122 mm[Hg] 78 mm[Hg] 88 {beats}/min 20 rpm 97.7 F 125 lbs 64 in 21.456 kg/m2 1.6001 m2 98 % 11/04/2017 3:00:00 PM 140 mm[Hg] 90 mm[Hg] 103 {beats}/min 20 rpm 98.7 F 124 lbs 64 in 21.28 kg/m2 1.59 m2 93 % 10/07/2017 2:54:00 PM 142 mm[Hg] 86 mm[Hg] 102 {beats}/min 22 rpm 97.8 F 121 lbs 64 in 20.7694 kg/m2 1.5743 m2 99 % 09/12/2017 2:48:00 PM 142 mm[Hg] 90 mm[Hg] 90 {beats}/min 20 rpm 98.1 F 125 lbs 64 in 21.46 kg/m2 1.60 m2 99 % 08/29/2017 9:59:00 AM 114 mm[Hg] 78 mm[Hg] 84 {beats}/min 22 rpm 98.4 F 126 lbs 64 in 21.6276 kg/m2 1.6065 m2 98 % 06/24/2017 9:57:00 AM 120 mm[Hg] 70 mm[Hg] 80 {beats}/min 18 rpm 98.1 F 122 lbs 64 in 20.94 kg/m2 1.58 m2 98 % 06/10/2017 5:02:00 PM 132 mm[Hg] 76 mm[Hg] 88 {beats}/min 22 rpm 98.1 F 122.25 lbs 64 in 20.9839 kg/m2 1.5824 m2 95 % 05/20/2017 11:40:00 AM 132 mm[Hg] 80 mm[Hg] 90 {beats}/min 20 rpm 97.8 F 127 lbs 61 in 24.00 kg/m2 1.57 m2 98 % 02/18/2017 11:36:00 AM 126 mm[Hg] 80 mm[Hg] 68 {beats}/min 20 rpm 98.1 F 127 lbs 64 in 21.7993 kg/m2 1.6128 m2 94 % 01/24/2017 5:37:00 PM 138 mm[Hg] 86 mm[Hg] 90 {beats}/min 20 rpm 98.6 F 124.25 lbs 64 in 21.33 kg/m2 1.60 m2 96 % 01/14/2017 10:58:00 AM 132 mm[Hg] 80 mm[Hg] 86 {beats}/min 18 rpm 98.5 F 128.25 lbs 64 in 22.0138 kg/m2 1.6208 m2 96 % 10/31/2016 10:04:00 AM 118 mm[Hg] 74 mm[Hg] 74 {beats}/min 17 rpm 97.6 F 123 lbs 64 in 21.11 kg/m2 1.59 m2 99 % 10/24/2016 5:17:00 PM 122 mm[Hg] 84 mm[Hg] 104 {beats}/min 20 rpm 98.4 F 122 lbs 64 in 20.941 kg/m2 1.5808 m2 96 % 09/11/2016 12:13:00 PM 160 mm[Hg] 98 mm[Hg] 86 {beats}/min 20 rpm 118 lbs 64 in 20.25 kg/m2 1.55 m2 08/07/2016 12:56:00 PM 130 mm[Hg] 78 mm[Hg] 88 {beats}/min 24 rpm 115 lbs 64 in 19.7395 kg/m2 1.5348 m2 04/24/2016 6:21:00 PM 112 mm[Hg] 70 mm[Hg] 96 {beats}/min 98.1 F 11 9 lbs 64 in 20.43 kg/m2 1.56 m2 98 % 01/11/2015 8:08:00 AM 122 mm[Hg] 76 mm[Hg] 75 {beats}/min 20 rpm 99.2 F 122 lbs 64 in 20.941 kg/m2 1.5808 m2 96 % Social History Name Description Comments Tobacco Never smoker History of Procedures Date Ordered Description Order Status 04/24/2016 12:00 AM COMPLETE CBC W/AUTO DIFF WBC Reviewed 04/24/2016 12:00 AM COMPREHEN METABOLIC PANEL Reviewed 04/24/2016 12:00 AM URNLS DIP STICK/TABLET RGNT AUTO W/O JYOTI ROSCOPY Reviewed 04/24/2016 12:00 AM ASSAY OF AMYLASE Reviewed 04/24/2016 12:00 AM ASSAY OF LIPASE Reviewed 04/24/2016 12:00 AM ASSAY OF FREE THYROXINE Reviewed 04/24/2016 12:00 AM ASSAY THYROID STIM HORMONE Reviewed 10/31/2016 12:00 AM POLYSOM 6/> YRS 4/> OLIVIA Reviewed 10/24/2016 12:00 AM LEUKOCYTE ASSESSMENT FECAL Reviewed 10/24/2016 12:00 AM OCCULT BLD FECES 1-3 TESTS Reviewed 01/14/2017 12:00 AM THERAPEUTIC PROPHYLACTIC/DX INJECTION HOWARD BQ/IM Reviewed 01/14/2017 12:00 AM Decadron 8mg Injection, [facility] Medicare Rev iewed 01/14/2017 12:00 AM Depo-Medrol 80mg Injection, [facility] Medicare Reviewed 05/20/2017 12:00 AM COMPLETE CBC W/AUTO DIFF WBC Returned 05/20/2017 12:00 AM COMPREHEN METABOLIC PANEL Returned 05/20/2017 12:00 AM VITAMIN B-12 Returned 05/20/2017 12:00 AM ASSAY OF FOLIC ACID SERUM Returned 05/20/2017 12:00 AM VITAMIN D 25 HYDROXY Returned 05/20/2017 12:00 AM ASSAY THYROID STIM HORMONE Returned 05/20/2017 12:00 AM COLLECTION VENOUS BLOOD VENIPUNCTURE Rev iewed 06/24/2017 12:00 AM METABOLIC PANEL TOTAL CA Returned 06/24/2017 12:00 AM ASSAY THYROID STIM HORMONE Returned 06/24/2017 12:00 AM INFLUENZA VAC 4 VALENT PRSRV FREE 3 YRS PLUS IM Reviewed 06/24/2017 12:00 AM PNEUMOCOCCAL VACC 13 JESUS IM Reviewed 08/29/2017 12:00 AM COMPLETE CBC W/AUTO DIFF WBC Returned 08/29/2017 12:00 AM COMPREHEN METABOLIC PANEL Returned 08/29/2017 12:00 AM LIPID PANEL Returned 08/29/2017 12:00 AM ASSAY THYROID STIM HORMONE Returned 10/07/2017 4:03 PM URINALYSIS AUTO W/O SCOPE Reviewed 10/07/2017 12:00 AM METABOLIC PANEL TOTAL CA Returned 10/07/2017 12:00 AM COMPLETE CBC W/AUTO DIFF WBC Returned 10/07/2017 12:00 AM ASSAY OF IRON Returned 10/07/2017 12:00 AM IRON BINDING TEST Returned 10/07/2017 12:00 AM ASSAY OF TRANSFERRIN Returned 10/07/2017 12:00 AM VITAMIN B-12 Returned 10/07/2017 12:00 AM ASSAY OF FOLIC ACID SERUM Returned 10/07/2017 12:00 AM CHEST X-RAY 2VW FRONTAL&LATL Returned 10/07/2017 12:00 AM ELECTROCARDIOGRAM TRACING Reviewed 10/08/2017 12:00 AM FECES CULTURE AEROBIC BACT Returned 01/21/2018 2:57 PM URINALYSIS AUTO W/O SCOPE Reviewed 01/21/2018 12:00 AM X-RAY EXAM OF ABDOMEN Returned 01/21/2018 12:00 AM URINE CULTURE/COLONY COUNT Returned 02/19/2018 12:00 AM INSERT PESSARY/OTHER DEVICE Reviewed 03/23/2018 12:00 AM COMPREHEN METABOLIC PANEL Returned 03/23/2018 12:00 AM COMPLETE CBC W/AUTO DIFF WBC Returned 03/23/2018 12:00 AM ASSAY OF IRON Returned 03/23/2018 12:00 AM IRON BINDING TEST Returned 03/23/2018 12:00 AM ASSAY OF TRANSFERRIN Returned 03/23/2018 12:00 AM ASSAY OF FERRITIN Returned 05/29/2018 12:00 AM PNEUMOCOCCAL VACC 23 JESUS IM Reviewed 05/29/2018 12:00 AM [facility] MEDICARE - flu vaccine administratio n Reviewed 05/29/2018 12:00 AM [facility] MEDICARE - pneumonia vaccine adminis tration Reviewed 05/29/2018 12:00 AM INFLUENZA VACCINE SPLT PRSRV FREE INC AN TIGEN IM Reviewed 06/17/2018 12:00 AM METABOLIC PANEL TOTAL CA Returned 06/24/2018 12:00 AM Physical Therapy Consult Reviewed 07/29/2018 2:34 PM URINALYSIS AUTO W/O SCOPE Reviewed 07/29/2018 12:00 AM METABOLIC PANEL TOTAL CA Returned 08/19/2018 1:28 PM URINALYSIS AUTO W/O SCOPE Reviewed 08/19/2018 12:00 AM COMPREHEN METABOLIC PANEL Returned 08/19/2018 12:00 AM ASSAY THYROID STIM HORMONE Returned 08/19/2018 12:00 AM COMPLETE CBC W/AUTO DIFF WBC Returned 08/19/2018 12:00 AM VITAMIN D 25 HYDROXY Returned 08/19/2018 12:00 AM VITAMIN B-12 Returned 08/19/2018 12:00 AM ASSAY OF FOLIC ACID SERUM Returned 08/26/2018 12:[address] ABD & PELV W/CONTRAST Returned 11/02/2018 12:00 AM COMPLETE CBC W/AUTO DIFF WBC Returned 11/02/2018 12:00 AM METABOLIC PANEL TOTAL CA Returned 11/02/2018 12:00 AM ASSAY OF IRON Returned 11/02/2018 12:00 AM IRON BINDING TEST Returned 11/02/2018 12:00 AM ASSAY OF TRANSFERRIN Returned 03/03/2019 12:00 AM COMPLETE CBC W/AUTO DIFF WBC Returned 03/03/2019 12:00 AM COMPREHEN METABOLIC PANEL Returned 03/03/2019 12:00 AM ASSAY OF IRON Returned 03/03/2019 12:00 AM IRON BINDING TEST Returned 03/03/2019 12:00 AM ASSAY OF TRANSFERRIN Returned 03/04/2019 12:00 AM COLLECTION VENOUS BLOOD VENIPUNCTURE Rev iewed 03/09/2019 12:00 AM THERAPEUTIC PROPHYLACTIC/DX INJECTION HOWARD BQ/IM Reviewed 03/09/2019 12:00 AM Depo Medrol 40mg Injection, [facility] Medicare Reviewed 03/09/2019 12:00 AM Decadron 4mg Injection, [facility] Medicare Rev iewed 03/09/2019 12:00 AM ZC HIP W PELVIS UNILATERAL 2 OR 3 VIEW R eviewed 03/15/2019 12:00 AM IADNA-DNA/RNA PROBE TQ 07-21 Reviewed 04/08/2019 12:00 AM URINE BACTERIA CULTURE Reviewed 04/08/2019 10:13 AM URINALYSIS AUTO W/O SCOPE Reviewed 04/16/2019 11:04 AM URINALYSIS AUTO W/O SCOPE Reviewed 05/07/2019 12:00 AM COLLECTION VENOUS BLOOD VENIPUNCTURE Rev iewed 05/07/2019 12:00 AM COMPLETE CBC W/AUTO DIFF WBC Reviewed 05/07/2019 12:00 AM COMPREHEN METABOLIC PANEL Reviewed 05/21/2019 12:00 AM [facility] MEDICARE - flu vaccine administratio n Reviewed 05/21/2019 12:00 AM INFLUENZA VACCINE SPLT PRSRV FREE INC AN TIGEN IM Reviewed 08/16/2019 12:00 AM COMPREHEN METABOLIC PANEL Returned 08/16/2019 12:00 AM ASSAY OF LIPASE Returned 08/16/2019 12:00 AM ELECTROPHORETIC TEST Returned 09/16/2019 10:56 AM URINALYSIS AUTO W/O SCOPE Reviewed 09/23/2019 11:13 AM URINALYSIS AUTO W/O SCOPE Reviewed Results Summary Date and Description Results 04/24/2016 7:06 PM GLUCOSE 74.0 mg/dLSODIUM 136 .0 mmol/LPOTASSIUM 2.80 mmol/LCHLORIDE 88.0 mmol/LCO2 36.0 mmol/LBUN 27.0 mg/dLCREATININE 1.40 mg/dLSGOT/AST 18.0 IU/LSGPT/ALT 14.0 IU/LALK PHOS 85.0 IU/LTOTAL PROTEIN 6.90 g/dLALBUMIN 4.0 g/dLTOTAL BILI 0.10 mg/dLCALCIUM 8.50 mg/dLAGE 81 GFR NonAA 36 GFR AA 44 eGFR 36 eGFR AA* 44 LIPASE 21.0 U/LAMYLASE 46 IU/LWBC 16.0 RBC 4.18 HGB 13.20 g/dLHCT 40.40 %MCV 97.0 fLMCH 31.60 pgMCHC 32.70 g/dLRDW SD 49 RDW CV 13.50 %MPV 8.20 fLPLT 396 NRBC# 0.00 NRBC% 0.0 %NEUT 74.20 %%LYMP 12.80 %%MONO 10.10 %%EOS 1.90 %%BASO 0.60 %#NEUT 11.85 #LYMP 2.05 #MONO 1.62 #EOS 0.30 #BASO 0.09 MANUAL DIFF NOT IND TSH 0.230 uIU/mLFREE T4 0.85 04/24/2016 7:10 PM COLOR YELLOW APPEARANCE ROSENDO R SPEC GRAV <=1.005 pH 7.0 PROTEIN NEGATIVE GLUCOSE NEGATIVE mg/dLKETONE NEGATIVE BILIRUBIN NEGATIVE BLOOD TRACE- LYSED NITRITE NEGATIVE LEUK SCREEN NEGATIVE MICRO INDICATED? SEE BELOW WBC/HPF RARE RBC/HPF 0-5 CASTS/LPF NEGATIVE /LPFCRYSTALS NEGATIVE MUCOUS THRDS NEGATIVE BACTERIA 1+ EPITH CELLS 2++ SQUAMOUS /HPFTRICHOMONAS NEGATIVE YEAST NEGATIVE CULT SET UP? NO 10/25/2016 8:05 AM OCC BLD STOOL NEGATIVE WBC S TOOL NO WBC SEEN 10/07/2017 4:03 PM Glucose Ur-sCnc neg Bilirub Ur Ql Strip neg Ketones Ur Ql Strip neg Sp Gr Ur Qn 1.010 Hgb Ur Ql Strip neg pH Ur-LsCnc 5.5 Prot Ur Ql Strip neg Urobilinogen Ur-mCnc 0.2 Nitrite Ur Ql Strip neg WBC Est Ur Ql Strip neg 01/21/2018 2:57 PM Glucose Ur-sCnc neg Bilirub Ur Ql neg Ketones Ur Ql Strip neg Sp Gr Ur Qn <=1.005 Hgb Ur Ql Strip neg pH Ur-LsCnc 6.0 Prot Ur Ql Strip neg Urobilinogen Ur-mCnc 0.2 Nitrite Ur Ql Strip neg WBC # Ur neg 07/29/2018 2:34 PM Glucose Ur-sCnc neg Bilirub Ur Ql neg Ketones Ur Ql Strip neg Sp Gr Ur Qn 1.010 Hgb Ur Ql Strip trace-lysed pH Ur-LsCnc 7.0 Prot Ur Ql Strip neg Urobilinogen Ur-mCnc 0.2 Nitrite Ur Ql Strip neg WBC # Ur neg 08/19/2018 1:28 PM Clarity Ur Cloudy Urine-[place] r Pale yellow Glucose Ur-sCnc neg Bilirub Ur Ql neg Ketones Ur Ql Strip neg Sp Gr Ur Qn 1.015 Hgb Ur Ql Strip Trace pH Ur-LsCnc 7.0 Prot Ur Ql Strip Neg Urobilinogen Ur-mCnc 0.2 Nitrite Ur Ql Strip Neg WBC # Ur Trace 03/15/2019 1:25 PM Campylobacter Not Detected C difficile A/B Not Detected Plesiomonas shigell Not Detected Salmonella Not Detected Vibrio Not Detected Vibrio cholerae Not Detected Yersinia enterocoli Not Detected Enteroaggreg E coli Not Detected Enteropathog E coli Not Detected Enterotoxigen E coli Not Detected Shiga-like E coli Not Detected E coli O157 Not Detected Shigella/Enter Ecoli Not Detected Cryptosporidium Not Detected Cyclospora cayetanen Not Detected Entamoeba histolytic Not Detected Giardia lamblia Not Detected Adenovirus F 40/41 Not Detected Astrovirus Not Detected Norovirus GI/GII Not Detected Rotavirus A Not Detected Sapovirus Not Detected 04/08/2019 10:13 AM Clarity Ur slightly cloudy U rine-Color yellow Glucose Ur-sCnc negative Bilirub Ur Ql negative Ketones Ur Ql Strip negative Sp Gr Ur Qn 1.015 Hgb Ur Ql Strip trace pH Ur-LsCnc 6.5 Prot Ur Ql Strip negative Urobilinogen Ur- mCnc 0.2 Nitrite Ur Ql Strip positive WBC # Ur small 04/16/2019 11:04 AM Clarity Ur cloudy Urine-[place] r light yellow Glucose Ur-sCnc negative Bilirub Ur Ql negative Ketones Ur Ql Strip negative Sp Gr Ur Qn 1.015 Hgb Ur Ql Strip trace pH Ur-LsCnc 7.0 Prot Ur Ql Strip negative Urobilinogen Ur- mCnc 0.2 Nitrite Ur Ql Strip negative WBC # Ur negative 05/07/2019 11:28 AM WBC 8.6 RBC 4.03 HGB 13.60 g /dLHCT 40.90 %MCV 102.0 fLMCH 33.70 pgMCHC 33.30 g/dLRDW SD 50 fLRDW CV 13.40 %MPV 8.70 fLPLT 378 x10E3/uLNRBC# 0.00 NRBC% 0.0 %NEUT 70.2 %LYMP 10.9 %MONO 12.2 %EOS 5.4 %BASO 1.0 #NEUT 6.06 #LYMP 0.94 #MONO 1.05 #EOS 0.47 #BASO 0.09 MANUAL DIFF NOT IND GLUCOSE 83 SODIUM 136 POTASSIUM 4.6 CHLORIDE 100.0 mmol/LCO2 25 BUN 11.0 mg/dLCREATININE 0.670 mg/dLSGOT/AST 19 SGPT/ALT 15 ALK PHOS 101 TOTAL PROTEIN 6.7 ALBUMIN 4.3 TOTAL BILI 0.3 CALCIUM 9.30 mg/dLAGE 84 GFR NonAA 84 GFR AA 102 eGFR 84 mL/min/1.73meGFR AA* >60 mL/min/1.73m 09/16/2019 10:56 AM Clarity Ur cloudy Urine-[place] r yellow Glucose Ur-sCnc negative Bilirub Ur Ql negative Ketones Ur Ql Strip negative Sp Gr Ur Qn 1.015 Hgb Ur Ql Strip trace pH Ur-LsCnc 7.0 Prot Ur Ql Strip negative Urobilinogen Ur-mCnc 0.2 Nitrite Ur Ql Strip positive WBC # Ur small 09/23/2019 11:13 AM Clarity Ur clear Urine-Color yellow Glucose Ur-sCnc negative Bilirub Ur Ql negative Ketones Ur Ql Strip negative Sp Gr Ur Qn 1.010 Hgb Ur Ql Strip trace pH Ur-LsCnc 6.5 Prot Ur Ql Strip negative Urobilinogen Ur-mCnc 0.2 Nitrite Ur Ql Strip negative WBC # Ur negative History Of Immunizations Name Date Admin Mfg Name Mfg Code Trade Name Lot# Route Inj Vis Given Vis Pub CVX Pneumococcal 06/24/2017 Orovc-Dkaqkg-IvjzqitAmanda WAL PREVNAR 13 [id number] Intramuscular Left Deltoid 06/24/2017 05/28/2015 133 Influenza 06/24/2017 GlaxoSmithKline SKB Flulaval quadrivalent 4 [id number] Intramuscular Right Deltoid 06/24/2017 03/03/2015 158 Pneumococcal 05/29/2018 [employer]ck [employer] MSD PNEUMOVAX 23 [id number] In tramuscular Right Deltoid 05/29/2018 07/28/2019 33 Influenza 05/29/2018 sanofi pasteur PMC FLUZONE-HIGH DOSE [id number] Int ramuscular Left Deltoid 05/29/2018 07/28/2019 158 Influenza 05/21/2019 sanofi pasteur PMC FLUZONE-HIGH DOSE [id number] In tramuscular Left Deltoid 05/21/2019 07/28/2019 135 History of Past Illness Name Date of Onset Comments Irritable bowel syndrome Hyperlipidemia Hypothyroidism Hypertension Diverticulitis Of Colon Anxiety Depression arthritis Heartburn Hemorrhoid Gastric Ulcer Mild obstructive sleep apnea Hypothyroid 06/25/2017 Alzheimer's dementia Cystocele, midline 02/01/2018 Lumbar spondylolysis 03/23/2018 Constipation 03/23/2018 Abdominal pain, epigastric Jan 11 2015 1:47PM Dyspepsia Jan 11 2015 1:47PM Diarrhea Jan 11 2015 1:47PM Acute gastritis Feb 22 2015 12:06PM Follow-up examination after endoscopy Feb 22 2015 12:06PM Gastric Ulcer, Acute Feb 22 2015 12:06PM Hernia, Hiatal Feb 22 2015 12:06PM Diarrhea Oct 04 2015 11:58AM Fatigue, unspecified type Apr 24 2016 6:26PM Generalized abdominal pain Apr 24 2016 6:26PM Diarrhea Aug 06 2016 5:11PM Epigastric pain Aug 07 2016 12:57PM Diarrhea in adult patient Aug 07 2016 12:57PM Diarrhea Sep 11 2016 12:13PM Diarrhea, unspecified type Oct 24 2016 5:21PM Daytime sleepiness Oct 31 2016 10:07AM Snoring Oct 31 2016 10:07AM Obstructive sleep apnea Oct 31 2016 10:07AM Obstructive sleep apnea Nov 26 2016 11:18AM Hip pain Jan 14 2017 11:01AM Daytime sleepiness Jan 14 2017 11:01AM Snoring Jan 14 2017 11:01AM Obstructive sleep apnea Jan 14 2017 11:01AM Pain of right hip joint Jan 23 2017 11:25AM Pain of right hip joint Jan 24 2017 5:41PM Daytime sleepiness Jan 24 2017 5:41PM Snoring Jan 24 2017 5:41PM Obstructive sleep apnea Jan 24 2017 5:41PM Dyspnea Feb 18 2017 11:39AM Anxiety Feb 18 2017 11:39AM Depression Feb 18 2017 11:39AM Sleep disturbance Feb 18 2017 11:39AM Memory changes May 20 2017 11:43AM Fatigue May 20 2017 11:43AM Fluid retention May 20 2017 11:43AM Hypertension May 20 2017 11:43AM Hyperthyroidism May 21 2017 10:48AM Acute recurrent maxillary sinusitis Jun 10 2017 5:05PM Acute recurrent maxillary sinusitis Jun 24 2017 10:00AM Hypothyroid Jun 24 2017 10:00AM Hypertension Jun 24 2017 10:00AM Encounter for vaccination Jun 24 2017 10:00AM Hypothyroid Aug 29 2017 10:02AM Anemia Aug 29 2017 10:02AM Hyperlipidemia Aug 29 2017 10:02AM Hypertension Aug 29 2017 10:02AM Dental infection Sep 12 2017 2:50PM Depression Sep 12 2017 2:50PM Fatigue Oct 07 2017 2:58PM Anemia Oct 07 2017 2:58PM Diarrhea Oct 07 2017 2:58PM B12 deficiency Oct 07 2017 2:58PM Cough Oct 07 2017 2:58PM Hypothyroid Oct 07 2017 2:58PM Hyperlipidemia Oct 07 2017 2:58PM Hypertension Oct 07 2017 2:58PM Depression Oct 07 2017 2:58PM Iron deficiency anemia due to chronic blood loss Nov 04 2017 3:01PM Constipation Jan 21 2018 2:00PM Urinary frequency Jan 21 2018 2:00PM Cystocele, midline Jan 21 2018 2:00PM Degenerative disc disease at L5-S1 level Jan 21 2018 2:00PM Hemorrhoid Jan 21 2018 2:00PM Cystocele, midline Jan 22 2018 3:14PM Constipation, slow transit Jan 29 2018 3:55PM Vaginal vault prolapse 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 2018 10:00A M Cystocele, midline 2018 10:00AM Cystocele Feb 19 2018 10:49AM Pelvic floor relaxation Feb 19 2018 10:49AM Cystocele, midline Mar 03 2018 2:00PM Rectocele Mar 03 2018 2:00PM Vaginal vault prolapse 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 Mar 03 2018 2:00P M Anemia Mar 23 2018 9:53AM Iron deficiency Mar 23 2018 9:53AM Hypertension Mar 23 2018 9:53AM Lumbar spondylolysis Mar 23 2018 9:53AM Constipation Mar 23 2018 9:53AM Mild cognitive impairment Apr 11 2018 11:10AM Memory difficulties Apr 11 2018 11:10AM Depression Apr 11 2018 11:10AM Acute maxillary sinusitis, recurrence not specified May 14 11:38AM Mild cognitive impairment May 01 2018 11:39AM Memory difficulties May 01 2018 11:39AM Depression May 01 2018 11:39AM Flu Vaccine May 29 2018 11:46AM Pneumonia vaccine May 29 2018 11:46AM Sinus infection May 29 2018 9:50AM Hyponatremia Jun 17 2018 12:05PM Low back pain Jun 17 2018 12:05PM Weakness Jun 17 2018 12:05PM Hypertension Jul 29 2018 1:39PM Mild cognitive impairment Jul 29 2018 1:39PM Memory difficulties Jul 29 2018 1:39PM Depression Jul 29 2018 1:39PM Urinary frequency Jul 29 2018 1:39PM Slow transit constipation Jul 29 2018 1:39PM Fatigue Aug 19 2018 11:24AM Osteoporosis Aug 19 2018 11:24AM Urinary frequency Aug 19 2018 11:24AM Hypertension Aug 19 2018 11:24AM Mild cognitive impairment Aug 19 2018 11:24AM Depression Aug 19 2018 11:24AM Slow transit constipation Aug 19 2018 11:24AM Joint pain Aug 19 2018 11:24AM Rectal bleeding Aug 26 2018 2:34PM Constipation, unspecified constipation type Aug 26 2018 2:3 4PM History of intestinal bypass Aug 26 2018 2:34PM Rectal polyp Sep 21 2018 2:48PM Fatigue Nov 02 2018 11:46AM Anemia Nov 02 2018 11:46AM Neuropathic pain Nov 02 2018 11:46AM Lumbar stenosis Nov 02 2018 11:46AM Rectal polyp Sep 09 2018 12:24PM Fatigue Nov 17 2018 2:43PM Neuropathic pain Nov 17 2018 2:43PM Lumbar stenosis Nov 17 2018 2:43PM Depression Nov 17 2018 2:43PM Respiratory infection Nov 17 2018 2:43PM Cough Nov 17 2018 2:43PM Fatigue Jan 01 2019 1:28PM Neuropathic pain Jan 01 2019 1:28PM Lumbar stenosis Jan 01 2019 1:28PM Anxiety Jan 01 2019 1:28PM Allergic rhinitis Jan 01 2019 1:28PM Rectal prolapse Dec 22 2018 1:55PM Allergic rhinitis Jan 21 2019 10:35AM Sinusitis Jan 21 2019 10:35AM Fatigue Mar 03 2019 3:36PM Anemia Mar 03 2019 3:36PM Fatigue Mar 04 2019 8:36AM Anemia Mar 04 2019 8:36AM Right hip pain Mar 09 2019 2:51PM Right hip pain Mar 09 2019 4:15PM Diarrhea Mar 15 2019 2:05PM Dysuria Apr 08 2019 10:13AM Lower abdominal pain Apr 08 2019 10:13AM Pyuria Apr 08 2019 10:13AM Hematuria Apr 08 2019 10:13AM Cystitis, Acute Apr 08 2019 9:56AM Hypertension Apr 16 2019 10:54AM Fatigue Apr 16 2019 10:54AM Fatigue May 07 2019 1:09PM Diarrhea May 07 2019 1:09PM Diarrhea May 07 2019 11:04AM Depression May 07 2019 11:04AM Rectal prolapse Apr 26 2019 10:13AM Flu Vaccine May 21 2019 12:03PM Depression May 21 2019 11:08AM Depression Jun 04 2019 11:01AM Sinusitis Jun 04 2019 11:01AM Allergic rhinitis Jun 04 2019 11:01AM Depression Jul 15 2019 11:16AM Depression Aug 16 2019 10:16AM Dyspepsia Aug 16 2019 10:16AM Irritable bowel syndrome Aug 16 2019 10:16AM GERD (gastroesophageal reflux disease) Aug 16 2019 10:16AM Dementia Aug 16 2019 10:16AM Cystitis, Acute Sep 16 2019 10:30AM Rectal prolapse Aug 24 2019 11:40AM UTI (urinary tract infection) Sep 23 2019 10:43AM Payers Insurance Name Company Name Plan Name Plan Number Policy Number [employer] Group Number Start Date Medicare RHC Medicare RHC [id number] N/ A [facility] [id number] N/ A Medicare Part A Medicare Part A [id number] N/A Medicare Part A Medicare - Lab/Xray [id number] N/A Medicare RHC Medicare RHC [id number] N/ A Medicare Part B Medicare Of [place] [id number] N/A History of Encounters Visit Date Visit Type Provider 09/23/2019 Office visit Jessica MANDEL RN 09/16/2019 Office visit Jessica MANDEL RN 08/24/2019 Office visit Matheus Ceron MD 08/16/2019 Office visit Jessica MANDEL RN 07/15/2019 Office visit Jessica MANDEL RN 06/04/2019 Office visit Jessica MANDEL RN 05/21/2019 Office visit Jessica MANDEL RN 05/07/2019 Office visit Jessica MANDEL RN 04/26/2019 Office visit Matheus Ceron MD 04/16/2019 Office visit Jessica MANDEL RN 04/08/2019 Office visit Jessica MANDEL RN 03/15/2019 Office visit Jessica MANDEL RN 03/09/2019 Office visit Jessica MANDEL RN 03/04/2019 Laboratory Jessica MANDEL RN 01/21/2019 Office visit Jessica MANDEL RN 01/01/2019 Office visit Jessica MANDEL RN 12/22/2018 Office visit Matheus Ceron MD 11/17/2018 Office visit Jessica MANDEL RN 11/02/2018 Office visit Jessica MANDEL RN 09/21/2018 Office visit Matheus Ceron MD 09/09/2018 Office visit Matheus Ceron MD 09/03/2018 Surgery Matheus Ceron MD 08/26/2018 Office visit Matheus Ceron MD 08/19/2018 Office visit Jessica MANDEL RN 07/29/2018 Office visit Jessica MANDEL RN 06/17/2018 Office visit Jessica MANDEL RN 06/11/2018 Hospital Frederick Ware MD 05/29/2018 Office visit Jessica MANDEL RN 05/14/2018 Office visit Jessica MANDEL RN 05/01/2018 Office visit Jessica MANDEL RN 04/11/2018 Office visit Jessica MANDEL RN 03/23/2018 Office visit Jessica MANDEL RN 03/03/2018 Office visit Venancio Ventura 02/19/2018 Office visit Rosalinda yanes APRN 2018 Office visit Rosalinda yanes [employer]ER 01/27/2018 Procedures Matheus Ceron MD 01/22/2018 Office visit Rosalinda yanes LINEN GRADER 01/21/2018 Office visit Jessica MANDEL RN 11/04/2017 Office visit Matheus Ceron MD 10/07/2017 Office visit Jessica MANDEL RN 09/12/2017 Office visit Jessica MANDEL RN 08/29/2017 Office visit Jessica MANDEL RN 08/19/2017 Hospital Dena Rhodes MD 08/19/2017 Hospital Matheus Ceron MD 06/24/2017 Office visit Jessica MANDEL RN 06/10/2017 Office visit Jessica MANDEL RN 05/20/2017 Office visit Jessica MANDEL RN 02/18/2017 Office visit Jessica MANDEL RN 01/24/2017 Office visit Jessica MANDEL RN 01/14/2017 Office visit Jessica MANDEL RN 10/31/2016 Office visit Jessica MANDEL RN 10/24/2016 Office visit Jessica MANDEL RN 09/10/2016 Office visit Matheus Ceron MD 08/06/2016 Office visit Matheus Ceron MD 04/24/2016 Office visit Ben Archie APR N 10/03/2015 Office visit Matheus Ceron MD 02/21/2015 Office visit Matheus Ceron MD 02/09/2015 Hospital Matheus Ceron MD 01/10/2015 Office visit Matheus Ceron MD 11/28/2014 [facility] Dena Rhodes MD 07/30/2010 [facility] Dena Rhodes MD 05/28/2010 [facility] Dena Rhodes MD
--- OUTSIDE RECORDS SUMMARY | 2019-10-10 08:29 | XMS REPORT ---
Author Author [facility] Medic al StaffMEME Organization [facility] Address [address] [place], [place] [id number] Phone [phone] Summary purpose CCDA Sent to [facility] Chief Complaint and Reason for Visit No authorized Reason for Visit (Admitting Diagnosis) is available for this visit . Problem list No authorized problems tracked for continuity of care are available for this vis it. Encounters No authorized problems tracked for encounter diagnoses are available for this vi sit. Medications No medications recorded for this patient visit Allergies, adverse reactions, alerts No allergy information is available for this patient. Immunizations No immunizations recorded for this patient visit Relevant diagnostic tests and/or laboratory data RESULTS Chemistry Group [id number]:26:00 Result Normal Range Units Ferritin 31.01 25-300 ng/ml Iron 135 50-175 ug/dl TIBC 305 280-380 ug/dl % Saturation 44 15-50 % Transferrin 244 174-382 mg/dl Special Chemistry [id number]:26:00 Result Normal Range Units Ferritin 31.01 25-300 ng/ml Vitamin B12 H > 2000 200-1000 pg/ml Folate 16.8 1.5-24.0 ng/ml History of procedures Procedure Code Code Type Description Date Performed Performing Physician 82204 CPT-4 BLOOD FOLIC ACID SERUM 04-19-2016 NATALEE KODAK MERCADO 57782 CPT-4 VITAMIN B-12 04-19-2016 CED MERCADO 98904 CPT-4 ASSAY OF FERRITIN 04-19-2016 CED KN IGHT 79662 CPT-4 ASSAY OF IRON 04-19-2016 CED MERCADO 75453 CPT-4 ASSAY OF TRANSFERRIN 04-19-2016 CED MERCADO Functional status No functional or cognitive status observations are available for this visit. Vital signs No authorized vital signs are available for this visit. Social history No Social History or smoking status observations were recorded for this visit. ( Unknown if ever smoked.) Treatment Plan No treatment plan text is available for this visit. Hospital discharge instructions No discharge instruction text is available for this visit.
--- OUTSIDE RECORDS SUMMARY | 2019-10-10 08:29 | XMS REPORT ---
Discharge Summary 2.1 Created on: MEME SHIPLEY : 1935 Sex: Female Author Author MEME VILLEGAS Organization Unknown Address [address] [facility] [address] [place], [place] [phone] Care Team Providers Care Corking Machine Operator Name Role Phone Xwatchlist ALPA Everett MD [facility]ending [facility] [employer]1 ELOINA GASTON APRN [facility] Functional Status No Data Found Immunization [...] CVX Mental Status No Data Found Results CORTISOL ACTH STIMULATION - Collect Date /Time: 06/11/2018 06:53 [facility] [employer] ID: [id number] [address] [facility] [address], [place], [place], [id number] LOINC: Test Value Unit Reference Range Code Code System Cortisol Baseline 7.0 ug /dL 13889-6 LOINC Cortisol Stimulated 09940-5 LOINC COMPREHENSIVE METABOLIC PANEL - Collect Date/Time: 06/11/2018 06:53 [employer] ID: [id number] [address] [facility] [address], [place], [place], [id number] [facility] [employer] ID: [id number] [address], [place], [place], [address] LOINC: 60190-6 Test Value Unit Reference Range Code Code System GLUCOSE 90 MG/DL L=70 H=100 2345-7 LOINC SODIUM 133 MEQ/L L=135 H=148 2951-2 LOINC POTASSIUM 3.6 MEQ/L L=3.5 H=5.3 2823-3 LOINC CHLORIDE 99 MEQ/L L=96 H=110 2075-0 LOINC CO2 25 MEQ/L L=22 H=29 2028-9 LOINC BUN 7 MG/DL L=8 H=22 3094-0 LOINC CREATININE 0.7 MG/DL L=0.6 H=1.6 2160-0 LOINC SGOT/AST 20 IU/L L=10 H=40 1920-8 LOINC SGPT/ALT 12 IU/L L=8 H=54 1742-6 LOINC ALK PHOS 94 IU/L L=35 H=115 6768-6 LOINC TOTAL PROTEIN 6.2 G/DL L=5.5 H=8.5 2885-2 LOINC ALBUMIN 3.7 G/DL L=3.1 H=5.4 1751-7 LOINC TOTAL BILI 0.5 MG/DL L=0.0 H=1.5 1975-2 LOINC CALCIUM 9.2 MG/DL L=8.2 H=10.6 14449-4 LOINC AGE 83 yrs GFR NonAA 80 GFR AA 97 eGFR 80 mL/min/1.7 eGFR AA* >60 TSH - Collect Date/Time: 06/11/2018 00:0 2 [facility] LAUNDERER HAND [employer] ID: [id number] [address], [place], [place], [address] [employer] ID: [id number] [address] [facility] [address], [place], [place], [id number] LOINC: Test Value Unit Reference Range Code Code System TSH 2.76 mIU/L L=0.35 H=4.94 06147-6 LOINC SODIUM UR RANDOM - Collect Date/Time: 23:36 [facility] [employer] [facility] ID: [id number] [address] [facility] [address], [place], [place], [address] [employer] ID: [id number] [address] [facility] [address], [place], [place], [id number] LOINC: Test Value Unit Reference Range Code Code System NA UR RANDOM 125 MEQ/L 2955-3 LOINC POTASSIUM UR RANDOM - Collect Date/Time: 06/10/2018 23:36 [facility] [employer] [facility] ID: [id number] [address] [facility] [address], [place], [place], [address] [employer] ID: [id number] [address] [facility] [address], [place], [place], [address] LOINC: Test Value Unit Reference Range Code Code System POTASSIUM UR RANDOM 39.50 MEQ/L 2828-2 LOINC C REACTIVE PROTEIN - Collect Date/Time: 06/10/2018 22:30 [employer] ID: [id number] [address] [facility] [address], [place], [place], [phone] [facility] [employer] [facility] ID: [id number] [address] [facility] [address], [place], [address] LOINC: Test Value Unit Reference Range Code Code System C REACTIVE PROTEIN < 0.5 MG/DL L=0.0 H=1.0 1988-5 LOINC LACTIC ACID - Collect Date/Time: 018 22:30 [facility] [employer] ID: [id number] [address] [facility] [address], [place], [place], [address] [employer] ID: [id number] [address] [facility] [address] [place], [place], [address] LOINC: Test Value Unit Reference Range Code Code System LACTIC ACID 1.2 mmol/L L=0.5 H=1.6 2524-7 LOINC COMPREHENSIVE METABOLIC PANEL - Collect Date/Time: 06/10/2018 22:30 [facility] ID: [id number] [address] [facility] [address] [place], [place], [address] [facility] ID: [id number] [address] [facility] [address] [place], [place], [address] LOINC: Test Value Unit Reference Range Code Code System GLUCOSE 121 MG/DL L=70 H=100 2345-7 LOINC SODIUM 124 MEQ/L L=135 H=148 2951-2 LOINC POTASSIUM 4.1 MEQ/L L=3.5 H=5.3 2823-3 LOINC CHLORIDE 89 MEQ/L L=96 H=110 2075-0 LOINC CO2 25 MEQ/L L=22 H=29 2028-9 LOINC BUN 9 MG/DL L=8 H=22 3094-0 LOINC CREATININE 0.7 MG/DL L=0.6 H=1.6 2160-0 LOINC SGOT/AST 20 IU/L L=10 H=40 1920-8 LOINC SGPT/ALT 11 IU/L L=8 H=54 1742-6 LOINC ALK PHOS 119 IU/L L=35 H=115 6768-6 LOINC TOTAL PROTEIN 7.1 G/DL L=5.5 H=8.5 2885-2 LOINC ALBUMIN 4.2 G/DL L=3.1 H=5.4 1751-7 LOINC TOTAL BILI 0.5 MG/DL L=0.0 H=1.5 1975-2 LOINC CALCIUM 9.4 MG/DL L=8.2 H=10.6 99508-0 LOINC AGE 83 yrs GFR NonAA 80 GFR AA 97 eGFR 80 mL/min/1.7 eGFR AA* >60 CBC W/ AUTO DIFF (RFLX MAN DIFF IF IND) - Collect Date/Time: 06/10/2018 22:30 [facility] LAUNDERER HAND [facility] ID: [id number] [address] [facility] [address], [place], [place], [id number] [facility] ID: [id number] [address] [facility] [address], [place], [place], [address] LOINC: Test Value Unit Reference Range Code Code System WBC 12.4 TH/CMM L=4.5 H=10.8 74848-1 LOINC RBC 4.28 ML/CMM L=4.20 H=5.40 789-8 LOINC HGB 14.1 G/DL L=12.0 H=16.0 718-7 LOINC HCT 40.9 % L=37.0 H=47.0 4544-3 LOINC MCV 96 FL L=81 H=99 MCH 32.9 PG L=27.0 H=33.0 MCHC 34.5 G/DL L=31.0 H=36.0 RDW SD 43 FL L=36 H=50 RDW CV 12.0 % L=0.0 H=14.8 MPV 8.5 FL L=9.3 H=12.5 PLT 331 TH/CMM L=130 H=440 777-3 LOINC NRBC# 0.00 TH/CMM L=0.00 H=0.00 NRBC% 0.0 /100WBC L=0.0 H=2.0 %NEUT 82.2 % %LYMP 9.0 % %MONO 5.3 % %EOS 2.4 % %BASO 0.8 % #NEUT 10.16 TH/CMM L=2.10 H=8.20 #LYMP 1.11 TH/CMM L=0.90 H=5.20 #MONO 0.65 TH/CMM L=0.16 H=1.00 #EOS 0.30 TH/CMM L=0.00 H=0.80 #BASO 0.10 TH/CMM L=0.00 H=0.20 MANUAL DIFF NOT IND UA ROUTINE C&S IF IND - Collect Date/Nahid e: 06/10/2018 21:07 [facility] ID: [id number] [address] [facility] [address], [place], [place], [address] [facility] LAUNDERER HAND [facility] ID: [id number] [address], [place], [place], [address] LOINC: Test Value Unit Reference Range Code Code System COLOR YELLOW NL: YELLOW APPEARANCE CLEAR NL: CLEAR SPEC GRAV 1.010 NL: 1.002 - 1.022 pH 7.5 N L: 5 - 9 PROTEIN NEGATIVE NL: NEGATIVE mg/dl GLUCOSE NEGATIVE NL: NEGATIVE mg/dl KETONE NEGATIVE NL: NEGATIVE mg/dl BILIRUBIN NEGATIVE NL: NEGATIVE BLOOD TRACE-INTACT NL: NEGATIVE NITRITE NEGATIVE NL: NEGATIVE LEUK SCREEN NEGATIVE NL: NEGATIVE MICRO INDICATED? SEE BELOW WBC/HPF NEGATIVE NL: NEGATIVE RBC/HPF RARE NL: NEGATIVE CASTS/LPF NEGATIVE NL: NEGATIVE CRYSTALS NEGATIVE NL: NEGATIVE MUCOUS THRDS NEGATIVE NL: NEGATIVE BACTERIA NEGATIVE NL: NEGATIVE EPITH CELLS FEW SQUAMOUS NL: NEGATIVE TRICHOMONAS NEGATIVE NL: NEGATIVE YEAST NEGATIVE NL: NEGATIVE CULT SET UP? NO ABDOMEN ACUTE SERIES - Completed: 2017 21:30 LOINC: EXAMINATION:ABDOMEN ACUTE SERIESREASON F OR EXAM:Abdominal Pain;Constipation;Nausea/Vomiting COMPARISON:01/21/2018 and 10/07/2017FINDINGS:The cardiac silhouette is normal in size.The thoracic aorta is tortuous with calcified atherosclerotic plaque.No consolidation, pleural effusion, or sizable pneumothorax. No bowel dilation or abnormal bowel gas pattern.Moderate colonic fecal burden.Cholecystectomy clips.Caudal lumbar hardware. Left hip arthroplasty changes.IMPRESSION:No acute abdominal radiographic findings.Reviewed and Electronically Signed by: Noemí Michael Date/Time: 06/11/2018 8:27 AMJob ID#: [id number] Social History Type Status Start Date End Date Code Code System Smoking History Never smoker (Never Smoked ) 884740976 SNOMED-CT Smoking History Unknown if ever smoked 536530413 SNOMED-CT Vital Signs Vital Sign Value Unit Stephens Value Stephens Unit Date/Time Recent/Initial? Code Cod e System Body Mass Index 23.59 kg /m2 06/11/2018 02:57 Inital 25474-6 LOINC Systolic Blood Pressure 136 mm[Hg] 06/11/2018 11:00 Most Recent 8480-6 LOINC Diastolic Blood Pressure 72 mm[Hg] 06/11/2018 11:00 Most Recent 8462-4 LOINC Systolic Blood Pressure 139 mm[Hg] 06/11/2018 02:25 Inital 8480-6 LOINC Diastolic Blood Pressure 59 mm[Hg] 06/11/2018 02:25 Inital 8462-4 LOINC Body Surface Area 1.52 m2 06/11/2018 02:57 Inital 3140-1 LOINC Height 152.4000 cm 60.00 in 06/11/2018 02:57 Init al 8302-2 LOINC O2 Saturation 99 % 06/11/2018 11:00 Most Recent 50228-6 LOINC O2 Saturation 98 % 06/11/2018 02:25 Inita l 56131-4 INC Pulse 74.0 /min 06/11/2018 11:00 Most Recent 8867-4 INC Pulse 80.0 /min 06/11/2018 02:25 Inita l 8867-4 LOINC Respiration 18 /min 06/11/2018 11:00 Most Recent 9279-1 LOINC Respiration 18 /min 06/11/2018 02:25 Inita l 9279-1 LOINC Temperature 36.5 Luly 97.7 F 06/11/2018 11:00 Most Recent 8310-5 LOINC Temperature 36.3 Luly 97.3 F 06/11/2018 02:25 Inita l 8310-5 LOINC Weight 54.794 kg 120.80 lbs 06/11/2018 02:57 Ini thea 71888-9 LOINC Assessment You had the following problems: HYPERTENSION DIVERTICULITIS CHRONIC BACK PAIN DEPRESSION CONSTIPATION HYPONATREMIA Hospital Discharge Instructions Should you have any questions prior to discharge, please contact a member of your healthcare team. If you have left the hospital and have any questions, please contact your primary care physician. PRIMARY CARE PROVIDER: MARILIN DUVALL HOME MEDICATION INSTRUCTIONS: Verbal jeffreyes understanding of instructions. HOME MEDS RETURNED TO PATIENT: N/A. HOME DIET: As tolerated. ACTIVITY INSTRUCTIONS(list limitations): Activity as Tolerated. SCRIPTS WRITTEN BY DOCTOR GIVEN TO PATIENT? SCRIPTS ELECTRONICALLY SENT: ZOFRAN, DOCUSATE, MIRALAX FOLLOW UP APPOINTMENT: ELOINA ON May AT 1130 AM INSTRUCTIONS GIVEN AND DISCHARGE TO: Patient. CONTACT PHYSICIAN IF YOU EXPERIENCE ANY: Nausea/Vomiting, fever, Shortness of Breath, pain, dizziness, ANYTHING ABNORMAL OR CONCERNING SPECIAL INSTRUCTIONS: DISCHARGE: TO HOME DISCONTINUE IV SITE DIAGNOSIS: HYPONATREMIA, CONSTIPATION GOALS: IMPROVED BOWEL REGIMEN, CONTINUE ON MEDICATIONS, WATCH FOR NEURO CHANGES, SIGNS OF HYPONATREMIA SEE YOUR PCP IN ONE WEEK: APPT MADE ON 06/17/18 11:30 A.M. INSTRUCTIONS GIVEN BY (TYPE IN NAME AND DATE) Ana Laura CROOKS RN Reason For Referral No Data Found Hospital Course You were admitted to [facility] on 06/11/2018 10:42 with a principal diagnosis of Dehydration You were discharged from [facility] on 06/11/2018 15:30 Medications Medication Start Date En d Date Route Frequency Dose Code Code System Zofran 4MG Oral Tablet, Disintegrating 06/11/2018 Unknown BY MOUTH NEED ED EVERY 6 HR 1 TABLET 616506 RxNorm MiraLAX 17GM/1Dose Oral Powder for Solution 06/11/2018 Unknown ORAL NEEDED E VERY 8 HR 17 GRAM 122894 RxNorm Docusate Sodium 100MG Oral Capsule, Liquid Filled 06/11/2018 Unknown BY MOUTH TWO NAHID ES A DAY 100 MILLIGRAMS 0184039 RxNorm traMADol HCl 100MG Oral Tablet, Extended Release 06/11/2018 Unknown ORAL TWO TIMES A DAY 100 MILLIGRAMS 836356 RxNorm Venlafaxine HCl 75MG Oral Capsule, Extended Release 06/11/2018 Unknown ORAL DAILY 75 MILLIGRAMS 073081 RxN orm Tylenol 325MG Oral Tablet 06/11/2018 Unknown ORAL NEEDED EVERY 4 HR 325 MILLIGRAMS 968011 Rx Norm Pantoprazole Sodium 40MG Oral Tablet, Enteric Coated 06/11/2018 Unknown ORAL DAILY 40 MILLIGRAMS 316049 RxNorm Namzaric 7MG-10MG Oral Capsule, Extended Release 06/11/2018 Unknown ORAL DAILY WITH A MEAL 1 unit(s) 2167622 RxNorm Lisinopril 20MG Oral Tablet 06/11/2018 Unknown ORAL DAILY 20 MILLIGRAMS 090126 RxNorm Bentyl 10MG Oral Capsule 06/11/2018 Unknown ORAL THREE TIMES A DAY 1 0 MILLIGRAMS 575597 RxNorm Procedures Procedure Name Date Stat us Code Code System Replacement of right knee joint completed 168117509 SNOMED CT History of left hip replacement completed 4862466137927414 SNOMED CT Colectomy completed 45044739 SNOMED CT Cholecystectomy comple dari 98812947 SNOMED CT Hysterectomy completed 206084695 SNOMED CT Lumbar spinal fusion c ompleted 03919077 SNOMED CT Implants No Data Found Problems Problem Start Date Resol shira Date Status Code Code System HYPERTENSION active 00858041 SNOMED-CT DIVERTICULITIS active 222039134 SNOMED-CT CHRONIC BACK PAIN active 261977182 SNOMED-CT DEPRESSION active 85976021 SNOMED-CT CONSTIPATION active 62447016 SNOMED-CT HYPONATREMIA active 12707328 SNOMED-CT HISTORY OF HYSTERECTOMY 06/11/2018 resolved 656063930 SNOME D-CT HYPONATREMIA 07/27/2017 resolved 36308783 SNOMED-CT HISTORY OF RIGHT TOTAL KNEE REPLACEMENT 06/11/2018 resolved 7355630136476884 SNOMED-CT 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 420009652 SNOMED-CT TARDIVE DYSKINESIA resolved 449427682 SNOME D-CT GI BLEEDING 06/11/2018 resolved 55706596 SNOMED-CT HISTORY OF COLECTOMY 1 08/11/2017 resolved 801183547 SNOME D-CT UPPER GI BLEEDING 05/28 resolved 06229065 SNOMED -CT HYPOTENSION 06/11/2018 resolved 38780453 SNOMED-CT SYNCOPE 06/11/2018 resolved 699589200 SNOMED-CT PEPTIC ULCERATION 05/28 resolved 97419511 SNOMED -CT TOTAL LEFT HIP-JOINT REPLACEMENT 06/11/2018 resolved 006313609681 SNOMED-CT Allergies Allergy Substance Reaction Severity Start Date Concern Status Code Code System SULFA (sulfonamide) Mi ld to Moderate Active RxNorm REGLAN Mild to Moderate Active 9230 RxNorm Plan of Treatment No Data Found Encounters No Data Found Goals No Data Found Discharge Medications No Data Found Discharge Diagnosis Discharge Diagnosis Diagnosis Code Start Date Dehydration E860 018 Health Concerns Section No Data Found
--- OUTSIDE RECORDS SUMMARY | 2019-10-10 08:29 | XMS REPORT ---
Author Author [facility] Medic al Staff, MEME Justice Organization [facility] Address [address] [place], [place] [address] Phone [phone] Summary purpose CCDA Sent to [facility] Chief Complaint and Reason for Visit No [...] visit Relevant diagnostic tests and/or laboratory data No authorized results are available for this patient visit History of procedures Procedure Code Code Type Description Date Performed Performing Physician 44170 CPT-4 COMPREHEN METABOLIC PANEL 11-26-2016 CED MERCADO 65525 CPT-4 URINALYSIS, AUTO W/SCOPE 11-26-2016 D AVIA MERCADO 05753 CPT-4 ASSAY THYROID STIM HORMONE 11-26-2016 CED MERCADO 32027 CPT-4 LIPID PANEL 11-26-2016 CED MERCADO 01123 CPT-4 COMPLETE CBC W/AUTO DIFF WBC 11-26-2016 CED MERCADO 09692 CPT-4 ASSAY OF FREE THYROXINE 11-26-2016 DA VIA MERCADO Functional status No functional or cognitive [...]
--- OUTSIDE RECORDS SUMMARY | 2019-10-10 08:29 | XMS REPORT ---
Patient Summary 2.1 Created on: MEME SHIPLEY : 1935 Sex: Female Author Author MEME FRIEDMAN Organization Unknown Address [address] [place], [place] [address] Care Team Providers Care Wire Twisting Machine Operator Name Role Phone Watchlist ALPA Everett MD Attending EDWARD AKIL ER Erdoc1 ELOINA GASTON APRN [facility] Functional Status [...] CVX Mental Status No Data Found Results COMPREHENSIVE METABOLIC PANEL - Collect Date/Time: 06/11/2018 06:53 [facility] Parking HEALTH ID: [id number] [address], [place], [place], [phone] [facility] ID: [id number] [address], [place], [place], [id number] LOINC: 49548-0 Test Value Unit Reference Range Code Code [...] 1975-2 LOINC CALCIUM 9.2 MG/DL L=8.2 H=10.6 26098-5 LOINC AGE 83 yrs GFR NonAA 80 GFR AA 97 eGFR 80 mL/min/1.7 eGFR AA* >60 TSH - Collect Date/Time: 06/11/2018 00:0 2 [facility] Tag'By ID: [id number] [address], [place], [place], [address] [facility] ID: [id number] [address], [place], [place], [id number] LOINC: Test Value Unit Reference Range Code Code System TSH 2.76 mIU/L L=0.35 H=4.94 31915-4 LOINC SODIUM UR RANDOM - Collect Date/Time: 23:36 [facility] ID: [id number] [address], [place], [place], [id number] [facility] Tag'By ID: [id number] [address], [place], [place], [phone] LOINC: Test Value Unit Reference Range Code Code System NA UR RANDOM 125 MEQ/L 2955-3 LOINC POTASSIUM UR RANDOM - Collect Date/Time: 06/10/2018 23:36 [facility] ID: [id number] [address], [place], [place], [phone] [facility] ID: [id number] [address], [place], [place], [id number] LOINC: Test Value Unit Reference Range Code Code System POTASSIUM UR RANDOM 39.50 MEQ/L 2828-2 LOINC C REACTIVE PROTEIN - Collect Date/Time: 06/10/2018 22:30 [facility] ID: [id number] [address], [place], [place], [id number] [facility] ID: [id number] [address], [place], [place], [id number] LOINC: Test Value Unit Reference Range Code Code System C REACTIVE PROTEIN < 0.5 MG/DL L=0.0 H=1.0 1988-5 LOINC COMPREHENSIVE METABOLIC PANEL - Collect Date/Time: 06/10/2018 22:30 [facility] ID: [id number] [address], [place], [place], [id number] [facility] ID: [id number] [address], [place], [place], [phone] LOINC: Test Value Unit Reference Range Code [...] 1975-2 LOINC CALCIUM 9.4 MG/DL L=8.2 H=10.6 00309-3 LOINC AGE 83 yrs GFR NonAA 80 GFR AA 97 eGFR 80 mL/min/1.7 eGFR AA* >60 CBC W/ AUTO DIFF (RFLX MAN DIFF IF IND) - Collect Date/Time: 06/10/2018 22:30 [facility] ID: [id number] [address], [place], [place], [id number] [facility] Tag'By ID: [id number] [address], [place], [place], [address] LOINC: Test Value Unit Reference Range Code Code System WBC 12.4 TH/CMM L=4.5 H=10.8 31736-8 LOINC RBC 4.28 ML/CMM L=4.20 H=5.40 789-8 [...] TH/CMM L=0.00 H=0.20 MANUAL DIFF NOT IND LACTIC ACID - Collect Date/Time: 018 22:30 [facility] ID: [id number] [address], [place], [place], [address] [facility] ID: [id number] [address], [place], [place], [phone] LOINC: Test Value Unit Reference Range Code Code System LACTIC ACID 1.2 mmol/L L=0.5 H=1.6 2524-7 LOINC UA ROUTINE C&S IF IND - Collect Date/Nahid e: 06/10/2018 21:07 [facility] [employer] ID: [id number] [address], [place], [place], [id number] [facility] ID: [id number] [address], [place], [id number] LOINC: Test Value Unit Reference Range Code [...] Noemí Michael Date/Time: 06/11/2018 8:27 AMJob ID#: [id number] Social History Type Status Start Date End Date Code Code System Smoking History Never smoker (Never Smoked ) 900513410 SNOMED-CT Smoking History Unknown if ever smoked 256691250 SNOMED-CT Vital Signs Vital Sign Value Unit [place] Value [place] Unit Date/Time Recent/Initial? Code Cod e System Body Mass Index 23.59 kg /m2 06/11/2018 02:57 Inital 67122-4 LOINC Systolic Blood Pressure 136 mm[Hg] 06/11/2018 11:00 Most Recent 8480-6 LOINC Diastolic Blood Pressure 72 mm[Hg] 06/11/2018 11:00 Most Recent 8462-4 LOINC Systolic Blood Pressure 139 mm[Hg] 06/11/2018 02:25 Inital 8480-6 INC Diastolic Blood Pressure 59 mm[Hg] 06/11/2018 02:25 Inital 8462-4 [facility] Body Surface Area 1.52 m2 06/11/2018 02:57 Inital 3140-1 INC Height 152.4000 cm 60.00 in 06/11/2018 02:57 Init al 8302-2 [facility] O2 Saturation 99 % 06/11/2018 11:00 Most Recent 15249-0 [facility] O2 Saturation 98 % 06/11/2018 02:25 Inita l 08790-3 [facility] Pulse 74.0 /min 06/11/2018 11:00 Most Recent 8867-4 [facility] Pulse 80.0 /min 06/11/2018 02:25 [facility] [place] 8867-4 [facility] Respiration 18 /min 06/11/2018 11:00 Most Recent 9279-1 [facility] Respiration 18 /min 06/11/2018 02:25 [facility] 9279-1 [facility] Temperature 36.5 Luly 97.7 F 06/11/2018 11:00 Most Recent 8310-5 [facility] Temperature 36.3 Luly 97.3 F 06/11/2018 02:[facility] Weight 54.794 kg 120.80 lbs 06/11/2018 02:57 Ini [place]a 65233-5 [facility] Medications Medication Start Date En d Date Route Frequency Dose Code Code System Zofran 4MG Oral Tablet, Disintegrating 06/11/2018 Unknown BY MOUTH NEED ED EVERY 6 HR 1 TABLET 656990 RxNorm MiraLAX 17GM/1Dose Oral Powder for Solution 06/11/2018 Unknown ORAL NEEDED E VERY 8 HR 17 GRAM 159798 RxNorm Docusate Sodium 100MG Oral Capsule, Liquid Filled 06/11/2018 Unknown BY MOUTH TWO NAHID ES A DAY 100 MILLIGRAMS 2428310 RxNorm traMADol HCl 100MG Oral Tablet, Extended Release 06/11/2018 Unknown ORAL TWO TIMES A DAY 100 MILLIGRAMS 668513 RxNorm Venlafaxine HCl 75MG Oral Capsule, Extended Release 06/11/2018 Unknown ORAL DAILY 75 MILLIGRAMS 774852 RxN orm Tylenol 325MG Oral Tablet 06/11/2018 Unknown ORAL NEEDED EVERY 4 HR 325 MILLIGRAMS 894843 Rx Norm Pantoprazole Sodium 40MG Oral Tablet, Enteric Coated 06/11/2018 Unknown ORAL DAILY 40 MILLIGRAMS 913496 RxNorm Namzaric 7MG-10MG Oral Capsule, Extended Release 06/11/2018 Unknown ORAL DAILY WITH A MEAL 1 unit(s) 6289887 RxNorm Lisinopril 20MG Oral Tablet 06/11/2018 Unknown ORAL DAILY 20 MILLIGRAMS 455075 RxNorm Bentyl 10MG Oral Capsule 06/11/2018 Unknown ORAL THREE TIMES A DAY 1 0 MILLIGRAMS 996255 RxNorm Assessment You had the following problems: HYPERTENSION DIVERTICULITIS CHRONIC BACK PAIN DEPRESSION CONSTIPATION HYPONATREMIA Hospital Discharge Instructions Should you have any questions prior to discharge, please contact a member of your healthcare team. If you have left the hospital and have any questions, please contact your primary care physician. Reason For Referral No Data Found Procedures Procedure Name Date Stat us Code Code System Replacement of right knee joint completed 413684062 SNOMED CT History of left hip replacement completed 4648544815933242 SNOMED CT Colectomy completed 60965358 SNOMED CT Cholecystectomy comple dari 38026156 SNOMED CT Hysterectomy completed 112771951 SNOMED CT Lumbar spinal fusion c ompleted 14550811 SNOMED CT Implants No Data Found Problems Problem Start Date Resol shira Date Status Code Code System HYPERTENSION active 55040703 SNOMED-CT DIVERTICULITIS active 622946469 SNOMED-CT CHRONIC BACK PAIN active 346754649 SNOMED-CT DEPRESSION active 13744722 SNOMED-CT CONSTIPATION active 62735670 SNOMED-CT HYPONATREMIA active 46436182 SNOMED-CT HISTORY OF HYSTERECTOMY 06/11/2018 resolved 834013211 SNOME D-CT HYPONATREMIA 07/27/2017 resolved 17872011 SNOMED-CT HISTORY OF RIGHT TOTAL KNEE REPLACEMENT 06/11/2018 resolved 5675871029045405 SNOMED-CT 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 870484707 SNOMED-CT TARDIVE DYSKINESIA resolved 774842180 SNOME D-CT GI BLEEDING 06/11/2018 resolved 07039586 SNOMED-CT HISTORY OF COLECTOMY 1 08/11/2017 resolved 412895198 SNOME D-CT UPPER GI BLEEDING 05/28 resolved 84616710 SNOMED -CT HYPOTENSION 06/11/2018 resolved 17377063 SNOMED-CT SYNCOPE 06/11/2018 resolved 410534707 SNOMED-CT PEPTIC ULCERATION 05/28 resolved 24038458 SNOMED -CT TOTAL LEFT HIP-JOINT REPLACEMENT 06/11/2018 resolved 909936606330 SNOMED-CT Allergies Allergy Substance Reaction Severity Start Date Concern Status Code Code System SULFA (sulfonamide) Mi ld to Moderate Active RxNorm REGLAN Mild to Moderate Active 9230 RxNorm Plan of Treatment No Data Found Encounters No Data Found Goals No Data Found Health Concerns Section No Data Found
--- OUTSIDE RECORDS SUMMARY | 2019-10-10 08:29 | XMS REPORT ---
Author Author [facility] Medic al Staff, MEME Justice Organization [facility] Address [address] [place], [place] [address] Phone [phone] Summary purpose CCDA Sent to [facility] Chief Complaint and Reason for Visit [...] Relevant diagnostic tests and/or laboratory data RESULTS CBC 17-05-069051:42:00 Result Normal Range Units WBC 9.16 4.60-10.20 x 103/uL RBC L 3.76 4.04-6.13 x 106/uL Hemoglobin L 12.0 12.2-18.1 g/dl Hematocrit L 36.9 37.7-53.7 % MCV H 98.1 80.0-97.0 FL MCH H 31.9 27.0-31.2 pg MCHC 32.5 31.8-35.4 g/dl RDW 14.3 11.6-14.8 % Platelets 385 142-424 x 103/uL MPV L 8.9 9.4-12.4 FL Manual Diff Not Indicated Neutrophil % 61.2 37-80 % Neutrophils 5.61 2.0-6.9 x 103/ uL Lymphocyte % 17.8 10-50 % Lymphocytes 1.63 0.6-3.4 x 103/ uL Monocyte % H 14.5 0-12 % Monocytes H 1.33 0.0-1.0 x 103/uL Eosinophil % 5.5 0-7 % Eosinophils 0.50 0-0.7 x 103/ uL Basophil % 1.0 0-2 % Basophils 0.09 0.0-0.1 x 103/uL Chemistry Group [id number]:00 Result Normal Range Units Glucose L 69 70-99 mg/dl BUN 16 7-26 mg/dl Creatinine 0.9 0.6-1.3 mg/dl Sodium 137 136-145 mmol/L Potassium 3.9 3.5-5.1 mmol/L Chloride 100 98-107 mmol/L CO2 H 33 22-29 mmol/L BUN/Creatinine Ratio 18 7-25 Ratio Calcium 8.8 8.4-10.2 mg/dl Protein Total L 6.1 6.4-8.3 g/dl Albumin L 3.2 3.5-5.0 g/dl A/G Ratio L 1.1 1.2-2.2 Ratio AST 17 5-34 U/L ALT 12 0-55 U/L ALP 76 40-150 U/L Bilirubin Total 0.2 0.2-1.2 mg/d l Osmolality 264 261-280 mOsm/kg Globulin 2.9 2.4-3.5 g/dl Triglycerides 80 0-149 mg/dl Cholesterol 180 0-199 mg/dl HDL 57 40-60 mg/dl LDL 107 0-130 mg/dl VLDL 16 0-21 mg/dl TSH 1.65 0.35-4.94 uIU/mL History of procedures Procedure Code Code Type Description Date Performed Performing Physician 76059 CPT-4 COMPLETE CBC W/AUTO DIFF WBC 04-17-2016 CED MERCADO 52448 CPT-4 COMPREHEN METABOLIC PANEL 04-17-2016 CED MERCADO 45902 CPT-4 ASSAY THYROID STIM HORMONE 04-17-2016 CED MERCADO 69766 CPT-4 LIPID PANEL 04-17-2016 CED MERCADO Functional status No functional or [...]
--- OUTSIDE RECORDS SUMMARY | 2019-10-10 08:30 | XMS REPORT ---
Author Author Mathew Pearce [facility] Address [address] [place], [place] [address] Care Team Providers Care Manager Corporate Name Role Phone Jessica Pearce PCP Jessica Pearce PreferredProvider Allergies and Adverse Reactions Name Reaction Notes Latex Reglan SULFA (SULFONAMIDES) Plan of Treatment Planned Activity Comments Planned Date Planned Time Plan/Goal Transfer care 05/06/2018 2:00 PM [facility] Crohn's Prognostic test 08/06/2016 12:00 AM [facility] Crohn's Prognostic test 08/06/2016 12:00 AM [facility] Crohn's Prognostic test 08/06/2016 12:00 AM [facility] Crohn's Prognostic test 08/06/2016 12:00 AM Clostridium difficile 10/24/2016 12:00 AM Hip Complete Min 2Views - [place] 01/23/2017 12:0 0 AM THYROID PANEL. 06/09/2017 [...] BY MOUTH ONCE DAILY FOR 30 DAYS ciprofloxacin HCl 250 mg oral tablet 09/16/2019 09/21/2019 take 1 tablet (250 mg) by oral route every 12 hours for 5 days Name Start Date Expiration Date SIG Comments [...] 1 tab by mouth every 8 hours Discontinued Name Start Date Discontinued Date SIG [...] hours as needed Namzaric 7-10 mg oral capsule,demetriainkle,ER 24hr take 1 capsule by oral route [...] HC BMI BSA BMI Percentile O2 Sat(%) 09/16/2019 10:29:00 AM 122 mm[Hg] 68 mm[Hg] [...] {beats}/min 97.7 F 119 lbs 60 in 23.24 kg/m2 1.51 m2 97 % 06/04/2019 10:59:00 AM 130 [...] Reviewed 01/14/2017 12:00 AM Decadron 8mg Injection, [facility] Medicare Rev iewed 01/14/2017 12:00 AM Depo-Medrol 80mg Injection, [facility] Medicare Reviewed 05/20/2017 12:00 AM COMPLETE CBC [...] 23 JESUS IM Reviewed 05/29/2018 12:00 AM [facility] MEDICARE - flu vaccine administratio n Reviewed 05/29/2018 12:00 AM [facility] MEDICARE - pneumonia vaccine adminis tration Reviewed [...] 03/09/2019 12:00 AM Depo Medrol 40mg Injection, [facility] Medicare Reviewed 03/09/2019 12:00 AM Decadron 4mg Injection, [facility] Medicare Rev iewed 03/09/2019 12:00 AM ZC HIP W PELVIS UNILATERAL 2 OR 3 VIEW R eviewed 03/15/2019 12:00 AM IADNA-DNA/RNA PROBE TQ 12- Reviewed 04/08/2019 12:00 AM URINE BACTERIA CULTURE Reviewed 04/08/2019 10:13 AM URINALYSIS AUTO W/O SCOPE Reviewed 04/16/2019 11:04 AM URINALYSIS AUTO W/O SCOPE Reviewed 05/07/2019 12:00 AM COLLECTION VENOUS BLOOD VENIPUNCTURE Rev iewed 05/07/2019 12:00 AM COMPLETE CBC W/AUTO DIFF WBC Reviewed 05/07/2019 12:00 AM COMPREHEN METABOLIC PANEL Reviewed 05/21/2019 12:00 AM RHC MEDICARE - flu vaccine administratio n Reviewed 05/21/2019 12:00 AM INFLUENZA VACCINE SPLT PRSRV FREE INC AN TIGEN IM Reviewed 08/16/2019 12:00 AM COMPREHEN METABOLIC PANEL Returned 08/16/2019 12:00 AM ASSAY OF LIPASE Returned 08/16/2019 12:00 AM ELECTROPHORETIC TEST Returned 09/16/2019 10:56 AM URINALYSIS AUTO W/O SCOPE Reviewed Results [...] neg 08/19/2018 1:28 PM Clarity Ur Cloudy Urine-[place] r Pale yellow Glucose Ur-sCnc neg Bilirub [...] small 04/16/2019 11:04 AM Clarity Ur cloudy Urine-[place] r light yellow Glucose Ur-sCnc negative Bilirub [...] mL/min/1.73m 09/16/2019 10:56 AM Clarity Ur cloudy Urine-[place] r yellow Glucose Ur-sCnc negative Bilirub Ur Ql negative Ketones Ur Ql Strip negative Sp Gr Ur Qn 1.015 Hgb Ur Ql Strip trace pH Ur-LsCnc 7.0 Prot Ur Ql Strip negative Urobilinogen Ur-mCnc 0.2 Nitrite Ur Ql Strip positive WBC # Ur small History Of Immunizations Name Date Admin Mfg Name Mf Code Trade Name Lot# Route Inj Vis Given Vis Pub CVX Pneumococcal 06/24/2017 Ckaws-Cnllwt-Jnhgafp-Amanda WAL PREVNAR 13 [id number] Intramuscular Left Deltoid 06/24/2017 05/28/2015 133 Influenza 06/24/2017 GlaxoSmithKline SKB Flulaval quadrivalent 4 [id number] Intramuscular Right Deltoid 06/24/2017 03/03/2015 158 Pneumococcal 05/29/2018 Merck & Co., Inc. MSD PNEUMOVAX 23 [id number] In tramuscular Right Deltoid 05/29/2018 07/28/2019 33 Influenza 05/29/2018 sanofi pasteur PMC FLUZONE-HIGH DOSE [id number] Int ramuscular Left Deltoid 05/29/2018 07/28/2019 158 Influenza 05/21/2019 [facility] FLUZONE-HIGH DOSE [id number] In tramuscular Left Deltoid 05/21/2019 07/28/2019 135 [...] 10:30AM Rectal prolapse Aug 24 2019 11:40AM Payers Insurance Name Company Name Plan Name Plan Number Policy Number Yung cy Group Number Start Date Medicare RHC Medicare RH [id number] N/ A BCBS Bcbs [facility] [id number] N/ A Medicare Part A Medicare Part A [id number] N/A Medicare Part A Medicare - Lab/Xray [id number] N/A Medicare RHC Medicare RH [id number] N/ A Medicare Part B Medicare Of [place] [id number] N/A History of Encounters Visit Date Visit Type Provider 09/16/2019 Office visit Jessica MANDEL RN 08/24/2019 [...] Matheus Ceron MD 08/19/2018 Office visit Jessica Pearce AP RN 07/29/2018 Office visit Jessica Pearce AP RN 06/17/2018 Office visit Jessica Pearce AP RN 06/11/2018 [facility] Frederick Ware MD 05/29/2018 Office visit Jessica Ramses AP RN 05/14/2018 Office visit Jessica Pearce AP RN 05/01/2018 Office visit Jessica Ramses AP RN 04/11/2018 Office visit Jessica Ramses AP RN 03/23/2018 Office visit Jessica Ramses AP RN 03/03/2018 Office visit Venancio Ventura 02/19/2018 Office visit Rosalinda yanes CREDIT RISK OFFICER 2018 Office visit Rosalinda yanes CREDIT RISK OFFICER 01/27/2018 Procedures Matheus Ceron MD 01/22/2018 Office visit Rosalinda yanes CREDIT RISK OFFICER 01/21/2018 Office visit Jessica MANDEL RN 11/04/2017 Office visit Matheus Ceron MD 10/07/2017 Office visit Jessica Pearce AP RN 09/12/2017 Office visit Jessica Pearce AP RN 08/29/2017 Office visit Jessica Pearce AP RN 08/19/2017 Hospital Dena Rhodes MD 08/19/2017 [facility] Matheus Ceron MD 06/24/2017 Office visit Jessica Pearce AP RN 06/10/2017 Office visit Jessica Pearce AP RN 05/20/2017 Office visit Jessica Pearce AP RN 02/18/2017 Office visit Jessica Pearce AP RN 01/24/2017 Office visit Jessica Pearce AP RN 01/14/2017 Office visit Jessica Pearce AP RN 10/31/2016 Office visit Jessica Pearce AP RN 10/24/2016 Office visit Jessica Pearce AP RN 09/10/2016 Office visit Matheus Ceron MD 08/06/2016 Office visit Matheus Ceron MD 04/24/2016 Office visit Ben Almanza APR N 10/03/2015 Office visit Matheus Ceron MD 02/21/2015 Office visit Matheus Ceron MD 02/09/2015 Hospital Matheus Ceron MD 01/10/2015 Office visit Matheus Ceron MD 11/28/2014 [facility] Dena Rhodes MD 07/30/2010 [facility] Dena Rhodes MD 05/28/2010 [facility] Dena Rhodes MD
--- OUTSIDE RECORDS SUMMARY | 2019-10-10 08:31 | XMS REPORT ---
Author Author Mathew Pearce [facility] Address [address] [place], [place] [address] Care Team Providers Care Manager Of Purchasing Name Role Phone Jessica Pearce PCP Jessica [...] 12:00 AM Hip Complete Min 2Views - [place] 01/23/2017 12:0 0 AM THYROID PANEL. 06/09/2017 [...] Reviewed 01/14/2017 12:00 AM Decadron 8mg Injection, [facility] Medicare Rev iewed 01/14/2017 12:00 AM Depo-Medrol 80mg Injection, [facility] Medicare Reviewed 05/20/2017 12:00 AM COMPLETE [...] 23 JESUS IM Reviewed 05/29/2018 12:00 AM [facility] MEDICARE - flu vaccine administratio n Reviewed 05/29/2018 12:00 AM [facility] MEDICARE - pneumonia vaccine adminis tration [...] 03/09/2019 12:00 AM Depo Medrol 40mg Injection, [facility] Medicare Reviewed 03/09/2019 12:00 AM Decadron 4mg Injection, [facility] Medicare Rev iewed 03/09/2019 12:00 AM [...] neg 08/19/2018 1:28 PM Clarity Ur Cloudy Urine-[place] r Pale yellow Glucose Ur-sCnc neg Bilirub [...] small 04/16/2019 11:04 AM Clarity Ur cloudy Urine-[place] r light yellow Glucose Ur-sCnc negative Bilirub [...] 102 eGFR 84 mL/min/1.73meGFR AA* >60 mL/min/1.73m History Of Immunizations Name Date Admin Mfg Name Mfg Code Trade Name Lot# Route Inj Vis Given Vis Pub CVX Pneumococcal 06/24/2017 Peg-Amanda WAL PREVNAR 13 [id number] Intramuscular Left Deltoid 06/24/2017 05/28/2015 133 Influenza 06/24/2017 GlaxoSmithKline SKB Flulaval quadrivalent 4 [id number] Intramuscular Right Deltoid 06/24/2017 03/03/2015 158 Pneumococcal 05/29/2018 Merck & Co., Inc. MSD PNEUMOVAX 23 [id number] In tramuscular Right Deltoid 05/29/2018 07/28/2019 33 Influenza 05/29/2018 sanofi pasteur PMC FLUZONE-HIGH DOSE [id number] Int ramuscular Left Deltoid 05/29/2018 07/28/2019 158 Influenza 05/21/2019 sanofi pasteur PMC FLUZONE-HIGH DOSE [id number] In tramuscular Left Deltoid 05/21/2019 07/28/2019 135 [...] 2019 10:16AM Dementia Aug 16 2019 10:16AM Payers Insurance Name Company Name Plan Name Plan Number Policy Number Yung cy Group Number Start Date Medicare RHC Medicare RHC [id number] N/ A [id number] N/ A Medicare Part A Medicare Part A [id number] N/A Medicare Part A Medicare - Lab/Xray [id number] N/A Medicare RHC Medicare RHC [id number] N/ A Medicare Part B Medicare Of [place] [id number] N/A History of Encounters Visit Date Visit [...] Jessica MANDEL RN 04/11/2018 Office visit Jessica Pearce AP RN 03/23/2018 Office visit Jessica Pearce AP RN 03/03/2018 Office visit Venancio Ventura 02/19/2018 Office visit Rosalinda Rootraiza n ADMINISTRATIVE SALES ASSISTANT 2018 Office visit Rosalinda Riley Caryn n ADMINISTRATIVE SALES ASSISTANT 01/27/2018 Procedures Matheus Ceron MD 01/22/2018 Office visit Rosalinda Riley Caryn n ADMINISTRATIVE SALES ASSISTANT 01/21/2018 Office visit Jessica Pearce AP RN 11/04/2017 Office visit Matheus Ceron MD [...] 01/10/2015 Office visit Matheus Ceron MD 11/28/2014 Hospital Dena Rhodes MD 07/30/2010 Hospital Dena Rhodes MD 05/28/2010 Hospital Dena Rhodes MD
--- OUTSIDE RECORDS SUMMARY | 2019-10-10 08:31 | XMS REPORT ---
Author Author Mathew Pearce [facility] Address [address] [place], [place] [id number] Care Team Providers Care Doctor Of Medicine Name Role Phone Jessica Pearce PCP Jessica [...] 12:00 AM Hip Complete Min 2Views - [place] 01/23/2017 12:0 0 AM THYROID PANEL. 06/09/2017 [...] Decadron 8mg Injection, [facility] Medicare Rev iewed 01/14/2017 12:00 AM Depo-Medrol 80mg Injection, [facility] Medicare Reviewed 05/20/2017 12:00 AM COMPLETE CBC [...] 05/29/2018 12:00 AM [facility] MEDICARE - flu vaccine administratio n Reviewed 05/29/2018 12:00 AM [facility] MEDICARE - pneumonia vaccine adminis tration Reviewed [...] Medrol 40mg Injection, [facility] Medicare Reviewed 03/09/2019 12:00 AM Decadron 4mg Injection, [facility] Medicare Rev iewed 03/09/2019 12:00 AM ZC [...] neg 08/19/2018 1:28 PM Clarity Ur Cloudy Urine-[place] r Pale yellow Glucose Ur-sCnc neg Bilirub [...] small 04/16/2019 11:04 AM Clarity Ur cloudy Urine-[place] r light yellow Glucose Ur-sCnc negative Bilirub [...] mL/min/1.73m 09/16/2019 10:56 AM Clarity Ur cloudy Urine-[place] r yellow Glucose Ur-sCnc negative Bilirub Ur [...] Vis Given Vis Pub CVX Pneumococcal 06/24/2017 Vbres-Sfdlee-Ibcxemg-Amanda WAL PREVNAR 13 [id number] Intramuscular Left Deltoid 06/24/2017 05/28/2015 133 Influenza 06/24/2017 GlaxoSmithKline SKB Flulaval quadrivalent 4 [id number] Intramuscular Right Deltoid 06/24/2017 03/03/2015 158 Pneumococcal 05/29/2018 Merck & Co., Inc. MSD PNEUMOVAX 23 [id number] In tramuscular Right Deltoid 05/29/2018 07/28/2019 33 Influenza 05/29/2018 sanofi pasteur PMC FLUZONE-HIGH DOSE [id number] Int ramuscular Left Deltoid 05/29/2018 07/28/2019 158 Influenza 05/21/[address] [facility] FLUZONE-HIGH DOSE [id number] In tramuscular Left Deltoid 05/21/2019 07/28/2019 135 [...] 10:16AM Cystitis, Acute Sep 16 2019 10:30AM Payers Insurance Name Company Name Plan Name Plan Number Policy Number Yung cy Group Number Start Date Medicare RHC Medicare RHC [id number] N/ A [id number] N/ A Medicare Part A Medicare Part A [id number] N/A Medicare Part A Medicare - Lab/Xray [id number] N/A Medicare RHC Medicare RHC [id number] N/ A Medicare Part B Medicare Of [place] [id number] N/A History of Encounters Visit Date Visit [...] Matheus Ceron MD 08/19/2018 Office visit Jessica Ramses AP RN 07/29/2018 Office visit Jessica Ramses AP RN 06/17/2018 Office visit Jessica Ramses AP RN 06/11/2018 [facility] Frederick Ware MD 05/29/2018 Office visit Jessica Ramses AP RN 05/14/2018 Office visit Jessica Ramses AP RN 05/01/2018 Office visit Jessica Ramses AP RN 04/11/2018 Office visit Jessica Ramses AP RN 03/23/2018 Office visit Jessica Ramses AP RN 03/03/2018 Office visit Venancio Ventura 02/19/2018 Office visit Rosalinda yanes M1A1 TANK CREWMAN 2018 Office visit Rosalinda yanes M1A1 TANK CREWMAN 01/27/2018 Procedures Matheus Ceron MD 01/22/2018 Office visit Rosalinda yanes M1A1 TANK CREWMAN 01/21/2018 Office visit Jessica Pearce AP RN 11/04/2017 Office visit Matheus Ceron MD 10/07/2017 Office visit Jessica Ramses AP RN 09/12/2017 Office visit Jessica Ramses AP RN 08/29/2017 Office visit Jessica Pearce AP RN 08/19/2017 Hospital Dena Rhodes MD 08/19/2017 [facility] Matheus Ceron MD 06/24/2017 Office visit Jessica Ramses AP RN 06/10/2017 Office visit Jessica Ramses AP RN 05/20/2017 Office visit Jessica Ramses AP RN 02/18/2017 Office visit Jessica Ramses AP RN 01/24/2017 Office visit Jessica Ramses AP RN 01/14/2017 Office visit Jessica Ramses AP RN 10/31/2016 Office visit Jessica Ramses AP RN 10/24/2016 Office visit Jessica Pearce AP RN 09/10/2016 Office visit Matheus Ceron MD 08/06/2016 Office visit Matheus Ceron MD 04/24/2016 Office visit Ben Almanza APR N 10/03/2015 Office visit Matheus Ceron MD 02/21/2015 Office visit Matheus Ceron MD 02/09/2015 Hospital Matheus Ceron MD 01/10/2015 Office visit Matheus Ceron MD 11/28/2014 [facility] Dena Rhodes MD 07/30/2010 [facility] Dena Rhodes MD 05/28/2010 [facility] Dena Rhodes MD
--- OUTSIDE RECORDS SUMMARY | 2019-10-10 08:32 | XMS REPORT ---
Author Author Mathew Pearce [facility] Address [address] [place], [place] [address] Care Team Providers Care Doll Surgeon Name Role Phone Jessica Pearce PCP Jessica [...] 12:00 AM Hip Complete Min 2Views - [place] 01/23/2017 12:0 0 AM THYROID PANEL. 06/09/2017 12:00 AM THYROID PANEL. 06/09/2017 12:00 AM THYROID PANEL. 06/09/2017 12:00 AM Thyroid antibody panel 06/09/2017 12:00 AM EKG. 10/07/2017 12:00 AM URINALYSIS ROUTINE C&S IF IND 08/19/2018 12:00 AM Urine culture and sensitivity 04/08/2019 12:00 AM Iron deficient anemia Medications Active [...] TAKE 1 TABLET BY MOUTH ONCE DAILY venlafaxine 150 mg oral capsule,extended release 24hr 12/02/2018 08/29/2019 take 1 capsule (150 mg) by oral route once daily for 90 days DOK 100MG CAP 12/22/2018 TAKE 1 CAPSULE BY MOUTH TWICE DAILY lisinopril 10 mg oral tablet 12/23/2018 TAKE ONE TAB LET BY MOUTH ONCE DAILY Vitamin D3 1,000 unit oral capsule 01/01/2019 take 1 capsule by oral route daily montelukast 10 mg oral tablet 01/21/2019 07/20/2019 ta ke 1 tablet (10 mg) by oral route once daily in the evening for 30 days Namenda 10 mg oral tablet 01/26/2019 01/21/2020 take 1 tablet (10 mg) by oral route 2 times per day for 90 days dicyclomine 10 mg oral capsule 04/05/2019 TAKE 1 CAP TAYLOR BY MOUTH 4 TIMES DAILY ciprofloxacin HCl 250 mg oral tablet 04/08/2019 04/15/2019 take 1 tablet (250 mg) by oral route every 12 hours for 7 days Name Start Date Expiration Date SIG [...] as needed for cough for 10 days amoxicillin 500 mg oral capsule 01/21/2019 01/31/2019 take 1 capsule (500 mg) by oral route every 8 hours for 10 days Discontinued Name Start Date Discontinued Date [...] HC BMI BSA BMI Percentile O2 Sat(%) 04/08/2019 9:54:00 AM 114 mm[Hg] 80 mm[Hg] [...] Reviewed 01/14/2017 12:00 AM Decadron 8mg Injection, [facility] Medicare Rev iewed 01/14/2017 12:00 AM Depo-Medrol 80mg Injection, [facility] Medicare Reviewed 05/20/2017 12:00 AM COMPLETE CBC [...] 12:00 AM CHEST X-RAY 2VW FRONTAL&LATL Returned 10/08/2017 12:00 AM FECES CULTURE AEROBIC BACT [...] 23 JESUS IM Reviewed 05/29/2018 12:00 AM [facility] MEDICARE - flu vaccine administratio n Reviewed 05/29/2018 12:00 AM [facility] MEDICARE - pneumonia vaccine adminis tration Reviewed [...] 03/09/2019 12:00 AM Depo Medrol 40mg Injection, [facility] Medicare Reviewed 03/09/2019 12:00 AM Decadron 4mg Injection, [facility] Medicare Rev iewed 03/09/2019 12:00 AM ZC HIP W PELVIS UNILATERAL 2 OR 3 VIEW R eturned 03/15/2019 12:00 AM IADNA-DNA/RNA PROBE TQ 07-21 Returned 04/08/2019 10:13 AM URINALYSIS AUTO W/O SCOPE Reviewed Results [...] neg 08/19/2018 1:28 PM Clarity Ur Cloudy Urine-[place] r Pale yellow Glucose Ur-sCnc neg Bilirub Ur Ql neg Ketones Ur Ql Strip neg Sp Gr Ur Qn 1.015 Hgb Ur Ql Strip Trace pH Ur-LsCnc 7.0 Prot Ur Ql Strip Neg Urobilinogen Ur-mCnc 0.2 Nitrite Ur Ql Strip Neg WBC # Ur Trace 04/08/2019 10:13 AM Clarity Ur slightly cloudy [...] Vis Given Vis Pub CVX Pneumococcal 06/24/2017 Monica CHAUDHARY PREVNAR 13 [id number] Intramuscular Left Deltoid 06/24/2017 05/28/2015 133 Influenza 06/24/2017 GlaxoSmithKline SKB Flulaval quadrivalent 4 HP3Y Intramuscular Right Deltoid 06/24/2017 03/03/2015 158 Pneumococcal 05/29/2018 Merck & Co., Inc. MSD PNEUMOVAX 23 [id number] In tramuscular Right Deltoid 05/29/2018 07/28/2019 33 Influenza 05/29/2018 sanofi [facility] FLUZONE-HIGH DOSE [id number] Int ramuscular Left Deltoid 05/29/2018 07/28/2019 158 History of Past Illness Name Date of [...] 10:13AM Cystitis, Acute Apr 08 2019 9:56AM Payers Insurance Name Company Name Plan Name Plan Number Policy Number Yung cy Group Number Start Date Medicare RHC Medicare RH [id number] N/ [id number] N/ A Medicare Part A Medicare Part A [id number] N/A Medicare Part A Medicare - Lab/Xray [id number] N/A Medicare RHC Medicare RHC [id number] N/ A Medicare Part B Medicare Of [place] [id number] N/A History of Encounters Visit Date Visit Type Provider 04/08/2019 Office visit Jessica MANDEL RN 03/15/2019 [...] visit Venancio Ventura 02/19/2018 Office visit Rosalinda Riley Caryn yanes INSOLE AND HEEL STIFFENER 2018 Office visit Rosalinda M. Caryn n INSOLE AND HEEL STIFFENER 01/27/2018 Procedures Matheus Ceron MD 01/22/2018 Office visit Rosalinda TrumanHoracio yanes INSOLE AND HEEL STIFFENER 01/21/2018 Office visit Jessica MANDEL RN 11/04/2017 [...]
--- OUTSIDE RECORDS SUMMARY | 2019-10-10 08:32 | XMS REPORT ---
Author Author Mathew Ceron [facility] Address [address] [place], [place] [address] Care Team Providers Care Cutting Machine Tender Decorative Name Role Phone Matheus Ceron PCP Jessica Pearce PreferredProvider Allergies and Adverse [...] 12:00 AM Hip Complete Min 2Views - [place] 01/23/2017 12:0 0 AM THYROID PANEL. 06/09/2017 [...] hours as needed Namzaric 7-10 mg oral capsule,mildred,ER 24hr take 1 capsule by oral route [...] HC BMI BSA BMI Percentile O2 Sat(%) 08/24/2019 11:39:00 AM 126 mm[Hg] 80 mm[Hg] [...] iewed 01/14/2017 12:00 AM Depo-Medrol 80mg Injection, [facility] Medicare Reviewed 05/20/2017 12:00 AM COMPLETE CBC [...] 23 JESUS IM Reviewed 05/29/2018 12:00 AM [facility] MEDICARE - flu vaccine administratio n Reviewed 05/29/2018 12:00 AM [facility] MEDICARE - pneumonia vaccine adminis tration Reviewed [...] 03/09/2019 12:00 AM Depo Medrol 40mg Injection, [facility] Medicare Reviewed 03/09/2019 12:00 AM Decadron 4mg Injection, [facility] Medicare Rev iewed 03/09/2019 12:00 AM ZC [...] Returned 08/16/2019 12:00 AM ELECTROPHORETIC TEST Returned Results Summary Date and Description Results 04/24/2016 [...] neg 08/19/2018 1:28 PM Clarity Ur Cloudy Urine-[place] r Pale yellow Glucose Ur-sCnc neg Bilirub [...] small 04/16/2019 11:04 AM Clarity Ur cloudy Urine-[place] r light yellow Glucose Ur-sCnc negative Bilirub [...] CVX Pneumococcal 06/24/2017 Peg-Amanda WAL PREVNAR 13 [id number] Intramuscular Left Deltoid 06/24/2017 05/28/2015 133 Influenza 06/24/2017 GlaxoSmithKline SKB Flulaval quadrivalent 4 HP3Y Intramuscular Right Deltoid 06/24/2017 03/03/2015 158 Pneumococcal 05/29/2018 Merck & Co., Inc. MSD PNEUMOVAX 23 [id number] In tramuscular Right Deltoid 05/29/2018 07/28/2019 33 Influenza 05/29/2018 sanofi pasteur PMC FLUZONE-HIGH DOSE [id number] Int ramuscular Left Deltoid 05/29/2018 07/28/2019 158 Influenza 05/21/2019 sanofi pasteur PMC FLUZONE-HIGH DOSE [id number] In tramuscular Left Deltoid 05/21/2019 07/28/2019 135 [...] Yung cy Group Number Start Date Medicare [facility] Medicare [facility] [id number] N/ A BCBS Bcbs [facility] [id number] N/ A Medicare Part A Medicare Part A [id number] N/A Medicare Part A Medicare - Lab/Xray [id number] N/A Medicare RHC Medicare RHC [id number] N/ A Medicare Part B Medicare Of [place] [id number] N/A History of Encounters Visit Date Visit Type Provider 08/24/2019 Office visit Matheus Ceron MD 08/16/2019 [...] 06/17/2018 Office visit Jessica MANDEL RN 06/11/2018 [facility] Frederick Ware MD 05/29/2018 Office visit Jessica MANDEL RN 05/14/2018 Office visit Jessica MANDEL RN 05/01/2018 Office visit Jessica MANDEL RN 04/11/2018 Office visit Jessica MANDEL RN 03/23/2018 Office visit Jessica MANDEL RN 03/03/2018 Office visit Venancio Ventura 02/19/2018 Office visit Rosalinda yanes APRN 2018 Office visit Rosalinda yanes APRN 01/27/2018 Procedures Matheus Ceron MD 01/22/2018 Office visit Rosalinda Riley Caryn yanes GAS WELDER 01/21/2018 Office visit Jessica MANDEL RN 11/04/2017 Office visit Matheus Ceron MD 10/07/2017 Office visit Jessica Pearce AP RN 09/12/2017 Office visit Jessica Pearce AP RN 08/29/2017 Office visit Jessica Pearce AP RN 08/19/2017 Hospital Dena Rhodes MD 08/19/2017 Hospital Matheus Ceron MD 06/24/2017 Office visit Jessica Pearce AP RN 06/10/2017 Office visit Jessica Pearce AP RN 05/20/2017 Office visit Jessica Pearec AP RN 02/18/2017 Office visit Jessica Pearce AP RN 01/24/2017 Office visit Jessica Pearce AP RN 01/14/2017 Office visit Jessica Pearce AP RN 10/31/2016 Office visit Jessica Pearce AP RN 10/24/2016 Office visit Jessica MANDEL RN [...]
--- OUTSIDE RECORDS SUMMARY | 2019-10-10 08:33 | XMS REPORT ---
Author Author Mathew Pearce [facility] Address [address] [place], [place] [id number] Care Team Providers Care Director Of Conservation Name Role Phone Jessica Pearce PCP Jessica [...] 12:00 AM Hip Complete Min 2Views - [place] 01/23/2017 12:0 0 AM THYROID PANEL. [...] CAP TAYLOR BY MOUTH 4 TIMES DAILY Name Start Date Expiration Date SIG Comments [...] Reviewed 01/14/2017 12:00 AM Decadron 8mg Injection, [facility] Medicare Rev iewed 01/14/2017 12:00 AM Depo-Medrol 80mg Injection, [facility] Medicare Reviewed 05/20/2017 12:00 AM COMPLETE CBC [...] 23 JESUS IM Reviewed 05/29/2018 12:00 AM [facility] MEDICARE - flu vaccine administratio n Reviewed 05/29/2018 12:00 AM [facility] MEDICARE - pneumonia vaccine adminis tration Reviewed [...] 03/09/2019 12:00 AM Depo Medrol 40mg Injection, [facility] Medicare Reviewed 03/09/2019 12:00 AM Decadron 4mg Injection, [facility] Medicare Rev iewed 03/09/2019 12:00 AM ZC [...] Given Vis Pub CVX Pneumococcal 06/24/2017 Monica CHÁVEZNAR 13 [id number] Intramuscular Left Deltoid 06/24/2017 05/28/2015 133 Influenza 06/24/2017 GlaxoSmithKline SKB Flulaval quadrivalent 4 HP3Y Intramuscular Right Deltoid 06/24/2017 03/03/2015 158 Pneumococcal 05/29/2018 Merck & Co., Inc. MSD PNEUMOVAX 23 [id number] In tramuscular Right Deltoid 05/29/2018 07/28/2019 33 Influenza 05/29/2018 sanofi [facility] FLUZONE-HIGH DOSE [id number] Int ramuscular Left Deltoid 05/29/2018 07/28/2019 158 [...] 2019 10:13AM Hematuria Apr 08 2019 10:13AM Payers Insurance Name Company Name Plan Name Plan Number Policy Number Yung cy Group Number Start Date Medicare RHC Medicare RHC [id number] N/ A [facility] [id number] N/ A Medicare Part A Medicare Part A [id number] N/A Medicare Part A Medicare - Lab/Xray [id number] N/A Medicare RHC Medicare RH [id number] N/ A Medicare Part B Medicare Of [place] [id number] N/A History of Encounters Visit Date Visit [...] yanes APRN 2018 Office visit Rosalinda yanes SCRATCH FINISHER 01/27/2018 Procedures Matheus Ceron MD 01/22/2018 Office visit Rosalinda Rootraiza n SCRATCH FINISHER 01/21/2018 Office visit Jessica MANDEL RN 11/04/2017 Office visit Matheus Ceron MD 10/07/2017 Office visit Jessica Pearce AP RN 09/12/2017 Office visit Jessica Pearce AP RN 08/29/2017 Office visit Jessica Pearce AP RN 08/19/2017 Hospital Dena Rhodes MD 08/19/2017 [facility] Matheus Ceron MD 06/24/2017 Office visit Jessica Pearce AP RN 06/10/2017 Office visit Jessica Pearce AP RN 05/20/2017 Office visit Jessica Pearce AP RN 02/18/2017 Office visit Jessica Pearce AP RN 01/24/2017 Office visit Jessica Pearce AP RN 01/14/2017 Office visit Jessica Pearce AP RN 10/31/2016 Office visit Jessica MANDEL RN [...]
--- OUTSIDE RECORDS SUMMARY | 2019-10-10 08:33 | XMS REPORT ---
Author Author Mathew Pearce [facility] Address [address] [place], [place] [phone] Care Team Providers Care Terminologist Name Role Phone Jessica Pearce PCP Jessica [...] 12:00 AM Hip Complete Min 2Views - [place] 01/23/2017 12:0 0 AM THYROID PANEL. 06/09/2017 [...] needed dicyclomine 10 mg oral capsule t nikci 1 capsule (10 mg) by oral route [...] iewed 01/14/2017 12:00 AM Depo-Medrol 80mg Injection, [facility] Medicare Reviewed 05/20/2017 12:00 AM COMPLETE CBC [...] 23 JESUS IM Reviewed 05/29/2018 12:00 AM [facility] MEDICARE - flu vaccine administratio n Reviewed 05/29/2018 12:00 AM [facility] MEDICARE - pneumonia vaccine adminis tration Reviewed [...] neg 08/19/2018 1:28 PM Clarity Ur Cloudy Urine-[place] r Pale yellow Glucose Ur-sCnc neg Bilirub [...] CVX Pneumococcal 06/24/2017 Monica CHAUDHARY PREVNAR 13 [id number] Intramuscular Left Deltoid 06/24/2017 05/28/2015 133 Influenza 06/24/2017 GlaxoSmithKline SKB Flulaval quadrivalent 4 HP3Y Intramuscular Right Deltoid 06/24/2017 03/03/2015 158 Pneumococcal 05/29/2018 Merck & Co., Inc. MSD PNEUMOVAX 23 [id number] In tramuscular Right Deltoid 05/29/2018 07/28/2019 33 Influenza 05/29/2018 sanofi [facility] FLUZONE-HIGH DOSE [id number] Int ramuscular Left Deltoid 05/29/2018 07/28/2019 158 [...] Number Start Date Medicare RHC Medicare RHC [id number] N/ A BCBS Bcbs [facility] [id number] N/ A Medicare Part A Medicare Part A [id number] N/A Medicare Part A Medicare - Lab/Xray [id number] N/A Medicare RHC Medicare RHC [id number] N/ A Medicare Part B Medicare Of [place] [id number] N/A History of Encounters Visit Date Visit [...] [place] 02/19/2018 Office visit Rosalinda Riley Caryn n ASSOCIATE PROFESSOR OF ENGLISH 2018 Office visit Rosalinda Riley Caryn n ASSOCIATE PROFESSOR OF ENGLISH 01/27/2018 Procedures Matheus Ceron MD 01/22/2018 Office visit Rosalinda Riley Caryn n ASSOCIATE PROFESSOR OF ENGLISH 01/21/2018 Office visit Jessica MANDEL RN 11/04/2017 Office visit Matheus Ceron MD 10/07/2017 Office visit Jessica MANDEL RN 09/12/2017 Office visit Jessica Pearce AP [...]
--- OUTSIDE RECORDS SUMMARY | 2019-10-10 08:34 | XMS REPORT ---
Author Author Mathew Pearce [facility] Address [address] [place], [place] [id number] Care Team Providers Care Facility Service Associate Name Role Phone Jessica Pearce PCP Jessica [...] 12:00 AM Hip Complete Min 2Views - [place] 01/23/2017 12:0 0 AM THYROID PANEL. 06/09/2017 [...] 2 times per day for 90 days Name Start Date Expiration Date SIG [...] HC BMI BSA BMI Percentile O2 Sat(%) 03/15/2019 2:04:00 PM 120 mmHg 80 mmHg 88 bpm 12 rpm 97.9 F 114.312 lbs 98 % 03/09/2019 2:49:00 PM 130 mmHg 90 mmHg 91 bpm 12 rpm 97.9 F 116.25 lbs 60 i n 22.7033 kg/m 1.4941 m 97 % 01/21/2019 10:33:00 AM 120 mmHg 82 mmHg 69 bpm 14 rpm 97.7 F 116.562 lbs 97 % 01/01/2019 1:26:00 PM 112 mmHg 83 mmHg 63 bpm 12 rpm 98.1 F 119.5 lbs 98 % 12/22/2018 1:54:00 PM 136 mmHg 80 mmHg 65 bpm 20 rpm 97.9 F 117 lbs 60 in 22.8498 kg/m 1.4989 m 96 % 11/17/2018 2:41:00 PM 120 mmHg 78 mmHg 73 bpm 14 rpm 97.5 F 116.5 lbs 97 % 11/02/2018 11:44:00 AM 134 mmHg 80 mmHg 68 bpm 20 rpm 97.9 F 113.25 lbs 60 i n 22.1174 kg/m 1.4747 m 99 % 09/21/2018 2:47:00 PM 152 mmHg 86 mmHg 78 bpm 20 rpm 97.9 F 120 lbs 60 in 23.44 kg/m2 1.52 m2 97 % 09/09/2018 12:23:00 PM 184 mmHg 104 mmHg 92 bpm 20 rpm 97.9 F 124 lbs 60 in 24.22 kg/m2 1.54 m2 94 % 08/26/2018 2:10:00 PM 138 mmHg 84 mmHg 62 bpm 16 rpm 97.5 F 121 lbs 60 in 23.6309 kg/m 1.5243 m 98 % 08/19/2018 11:20:00 AM 124 mmHg 70 mmHg 54 bpm 20 rpm 97.7 F 119 lbs 60 in 23.24 kg/m2 1.51 m2 97 % 07/29/2018 1:37:00 PM 130 mmHg 72 mmHg 81 bpm 18 rpm 97.9 F 124.25 lbs 60 in 24.2657 kg/m 1.5446 m 95 % 06/17/2018 12:00:00 PM 122 mmHg 78 mmHg 64 bpm 18 rpm 97.9 F 120 lbs 96 % 05/29/2018 9:45:00 AM 144 mmHg 76 mmHg 79 bpm 18 rpm 98.2 F 123.375 lbs 60 in 24.0948 kg/m 1.5392 m 97 % 05/14/2018 11:32:00 AM 130 mmHg 68 mmHg 66 bpm 20 rpm 97.9 F 122.5 lbs 60 in 23.92 kg/m2 1.53 m2 98 % 05/01/2018 11:35:00 AM 124 mmHg 60 mmHg 79 bpm 18 rpm 98.1 F 120.375 lbs 60 in 23.5089 kg/m 1.5204 m 96 % 04/11/2018 11:07:00 AM 122 mmHg 78 mmHg 78 bpm 20 rpm 97.5 F 125 lbs 60 in 24.41 kg/m2 1.55 m2 98 % 03/23/2018 9:50:00 AM 116 mmHg 70 mmHg 78 bpm 20 rpm 96.9 F 120 lbs 60 in 23.4357 kg/m 1.518 m 94 % 03/03/2018 1:57:00 PM 114 mmHg 66 mmHg 85 bpm 18 rpm 98.6 F 121.375 lbs 60 i n 23.70 kg/m2 1.53 m2 97 % 02/19/2018 10:47:00 AM 110 mmHg 60 mmHg 84 bpm 98.1 F 120 lbs 60 in 23.4357 kg/m 1.518 m 2018 9:56:00 AM 115 mmHg 60 mmHg 88 bpm 98.1 F 117 lbs 60 in 22.85 kg/m2 1.50 m2 01/27/2018 3:54:00 PM 130 mmHg 76 mmHg 88 bpm 20 rpm 97.3 F 124 lbs 60 in 24.2168 kg/m 1.5431 m 01/22/2018 3:07:00 PM 130 mmHg 80 mmHg 90 bpm 98 F 122 lbs 60 in 23.83 kg/m2 1.53 m2 96 % 01/21/2018 1:57:00 PM 122 mmHg 78 mmHg 88 bpm 20 rpm 97.7 F 125 lbs 64 in 21.456 kg/m 1.6001 m 98 % 11/04/2017 3:00:00 PM 140 mmHg 90 mmHg 103 bpm 20 rpm 98.7 F 124 lbs 64 in 21.28 kg/m2 1.59 m2 93 % 10/07/2017 2:54:00 PM 142 mmHg 86 mmHg 102 bpm 22 rpm 97.8 F 121 lbs 64 in 20.7694 kg/m 1.5743 m 99 % 09/12/2017 2:48:00 PM 142 mmHg 90 mmHg 90 bpm 20 rpm 98.1 F 125 lbs 64 in 21.46 kg/m2 1.60 m2 99 % 08/29/2017 9:59:00 AM 114 mmHg 78 mmHg 84 bpm 22 rpm 98.4 F 126 lbs 64 in 21.6276 kg/m 1.6065 m 98 % 06/24/2017 9:57:00 AM 120 mmHg 70 mmHg 80 bpm 18 rpm 98.1 F 122 lbs 64 in 20.94 kg/m2 1.58 m2 98 % 06/10/2017 5:02:00 PM 132 mmHg 76 mmHg 88 bpm 22 rpm 98.1 F 122.25 lbs 64 in 20.9839 kg/m 1.5824 m 95 % 05/20/2017 11:40:00 AM 132 mmHg 80 mmHg 90 bpm 20 rpm 97.8 F 127 lbs 61 in 24.00 kg/m2 1.57 m2 98 % 02/18/2017 11:36:00 AM 126 mmHg 80 mmHg 68 bpm 20 rpm 98.1 F 127 lbs 64 in 21.7993 kg/m 1.6128 m 94 % 01/24/2017 5:37:00 PM 138 mmHg 86 mmHg 90 bpm 20 rpm 98.6 F 124.25 lbs 64 i n 21.33 kg/m2 1.60 m2 96 % 01/14/2017 10:58:00 AM 132 mmHg 80 mmHg 86 bpm 18 rpm 98.5 F 128.25 lbs 64 in 22.0138 kg/m 1.6208 m 96 % 10/31/2016 10:04:00 AM 118 mmHg 74 mmHg 74 bpm 17 rpm 97.6 F 123 lbs 64 in 21.11 kg/m2 1.59 m2 99 % 10/24/2016 5:17:00 PM 122 mmHg 84 mmHg 104 bpm 20 rpm 98.4 F 122 lbs 64 in 20.941 kg/m 1.5808 m 96 % 09/11/2016 12:13:00 PM 160 mmHg 98 mmHg 86 bpm 20 rpm 118 lbs 64 in 20.25 kg/m2 1.55 m2 08/07/2016 12:56:00 PM 130 mmHg 78 mmHg 88 bpm 24 rpm 115 lbs 64 in 19.7395 kg/m 1.5348 m 04/24/2016 6:21:00 PM 112 mmHg 70 mmHg 96 bpm 98.1 F 119 lbs 64 in 20.43 kg/m2 1.56 m2 98 % 01/11/2015 8:08:00 AM 122 mmHg 76 mmHg 75 bpm 20 rpm 99.2 F 122 lbs 64 in 20.941 kg/m 1.5808 m 96 % Social History Name Description Comments [...] Reviewed 01/14/2017 12:00 AM Decadron 8mg Injection, [facility] Medicare Rev iewed 01/14/2017 12:00 AM Depo-Medrol [...] 23 JESUS IM Reviewed 05/29/2018 12:00 AM [facility] MEDICARE - flu vaccine administratio n Reviewed 05/29/2018 12:00 AM [facility] MEDICARE - pneumonia vaccine adminis tration Reviewed [...] Reviewed 03/09/2019 12:00 AM Decadron 4mg Injection, [facility] Medicare Rev iewed 03/15/2019 12:00 AM IADNA-DNA/RNA PROBE TQ 12- Returned 03/09/2019 12:00 AM ZC HIP W PELVIS UNILATERAL 2 OR 3 VIEW R eturned Results Summary Date and Description Results 04/24/2016 [...] neg 08/19/2018 1:28 PM Clarity Ur Cloudy Urine-[place] r Pale yellow Glucose Ur-sCnc neg Bilirub Ur Ql neg Ketones Ur Ql Strip neg Sp Gr Ur Qn 1.015 Hgb Ur Ql Strip Trace pH Ur-LsCnc 7.0 Prot Ur Ql Strip Neg Urobilinogen Ur-mCnc 0.2 Nitrite Ur Ql Strip Neg WBC # Ur Trace History Of Immunizations Name Date Admin Mfg Name Mfg Code Trade Name Lot# Route Inj Vis Given Vis Pub CVX Pneumococcal 06/24/2017 Monica WAL PREVNAR 13 [id number] Intramuscular Left Deltoid 06/24/2017 05/28/2015 133 Influenza 06/24/2017 GlaxoSmithKline SKB Flulaval quadrivalent 4 HP3Y Intramuscular Right Deltoid 06/24/2017 03/03/2015 158 Pneumococcal 05/29/2018 Merck [employer] Inc. MSD PNEUMOVAX 23 [id number] In tramuscular Right Deltoid 05/29/2018 07/28/2019 33 Influenza 05/29/2018 [facility] FLUZONE-HIGH DOSE [id number] Int ramuscular Left Deltoid 05/29/2018 07/28/2019 158 [...] 2019 4:15PM Diarrhea Mar 15 2019 2:05PM Payers Insurance Name Company Name Plan Name Plan Number Policy Number Yung cy Group Number Start Date Medicare RHC Medicare RHC [id number] N/ A [id number] N/ A Medicare Part A Medicare Part A [id number] N/A Medicare Part A Medicare - Lab/Xray [id number] N/A Medicare RHC Medicare RHC [id number] N/ A Medicare Part B Medicare Of [place] [id number] N/A History of Encounters Visit Date Visit Type Provider 03/15/2019 Office visit Jessica MANDEL RN 03/09/2019 [...] 06/17/2018 Office visit Jessica MANDEL RN 06/11/2018 [facility] Frederick Ware MD 05/29/2018 Office visit Jessica MANDEL RN 05/14/2018 Office visit Jessica MANDEL RN 05/01/2018 Office visit Jessica MANDEL RN 04/11/2018 Office visit Jessica MANDEL RN 03/23/2018 Office visit Jessica MANDEL RN 03/03/2018 Office visit Venancio Ventura 02/19/2018 Office visit Rosalinda yanes HIGHWAY MAINTENANCE CREW WORKER 2018 Office visit Rosalinda yanes HIGHWAY MAINTENANCE CREW WORKER 01/27/2018 Procedures Matheus Ceron MD 01/22/2018 Office visit Rosalinda yanes HIGHWAY MAINTENANCE CREW WORKER 01/21/2018 Office visit Jessica MANDEL RN 11/04/2017 [...] visit Matheus Ceron MD 02/21/2015 Office visit aMtheus Ceron MD 02/09/2015 Hospital Matheus Ceron MD 01/10/2015 Office visit Matheus Ceron MD 11/28/2014 Hospital Dena Rhodes MD 07/30/2010 [facility] Dena Rhodes MD 05/28/2010 Hospital Dena Rhodes MD
--- OUTSIDE RECORDS SUMMARY | 2019-10-10 08:34 | XMS REPORT ---
Author Author Mathew Pearce [facility] Address [address] [place], [place] [id number] Care Team Providers Care Real Estate Financial Analyst Name Role Phone Jessica Pearce PCP Jessica [...] 12:00 AM Hip Complete Min 2Views - [place] 01/23/2017 12:0 0 AM THYROID PANEL. 06/09/2017 [...] 12:00 AM IADNA-DNA/RNA PROBE TQ 07-21 Returned Results Summary Date and Description Results [...] neg 08/19/2018 1:28 PM Clarity Ur Cloudy Urine-[place] r Pale yellow Glucose Ur-sCnc neg Bilirub [...] CVX Pneumococcal 06/24/2017 Monica WAL PREVNAR 13 [id number] Intramuscular Left Deltoid 06/24/2017 05/28/2015 133 Influenza 06/24/2017 GlaxoSmithKline SKB Flulaval quadrivalent 4 HP3Y Intramuscular Right Deltoid 06/24/2017 03/03/2015 158 Pneumococcal 05/29/2018 [employer]ck [employer] Co[employer] MSD PNEUMOVAX 23 [id number] In tramuscular Right Deltoid 05/29/2018 07/28/2019 33 Influenza 05/29/2018 [facility] FLUZONE-HIGH DOSE [id number] Int ramuscular Left Deltoid 05/29/2018 07/28/2019 158 [...] Number Start Date Medicare RHC Medicare RHC [id number] N/ A [id number] N/ A Medicare Part A Medicare Part A [id number] N/A Medicare Part A Medicare - Lab/Xray [id number] N/A Medicare RHC Medicare RHC [id number] N/ A Medicare Part B Medicare Of [place] [id number] N/A History of Encounters Visit Date Visit Type Provider 03/15/2019 Office visit Jessica MANDEL RN 03/09/2019 Office visit Jessica MANDEL RN 03/04/2019 Laboratory Jessica MANDEL RN 01/21/2019 Office visit Jessica MANDEL RN 01/01/2019 Office visit Jessica MANDEL RN 12/22/2018 Office visit Matheus Ceron MD 11/17/2018 Office visit Jessica MADNEL RN 11/02/2018 Office visit Jessica MANDEL RN 09/21/2018 Office visit Matheus Ceron MD 09/09/2018 Office visit Matheus Ceron MD 09/03/2018 Surgery Matheus Ceron MD 08/26/2018 Office visit Matheus Ceron MD 08/19/2018 Office visit Jessica MANDEL RN 07/29/2018 Office visit Jessica MANDEL RN 06/17/2018 Office visit Jessica MANDEL RN 06/11/2018 [facility] Frederick Ware MD 05/29/2018 Office visit Jessica MANDEL RN 05/14/2018 Office visit Jessica MANDEL RN 05/01/2018 Office visit Jessica MANDEL RN 04/11/2018 Office visit Jessica MANDEL RN 03/23/2018 Office visit Jessica MANDEL RN 03/03/2018 Office visit Venancio Ventura 02/19/2018 Office visit Rosalinda yanes CRUSHER TENDER 2018 Office visit Rosalinda yanes CRUSHER TENDER 01/27/2018 Procedures Matheus Ceron MD 01/22/2018 Office visit Rosalinda yanes CRUSHER TENDER 01/21/2018 Office visit Jessica MANDEL RN 11/04/2017 [...] MD 11/28/2014 Hospital Dena Rhodes MD 07/30/2010 [facility] Dena Rhodes MD 05/28/2010 Hospital Dena Rhodes MD
--- OUTSIDE RECORDS SUMMARY | 2019-10-10 08:35 | XMS REPORT ---
Author Author Mathew Pearce [facility] Address [address] [place], [place] [address] Care Team Providers Care Box Builder Name Role Phone Jessica Pearce PCP Jessica [...] 12:00 AM Hip Complete Min 2Views - [place] 01/23/2017 12:0 0 AM THYROID PANEL. 06/09/2017 12:00 AM THYROID PANEL. 06/09/2017 12:00 AM THYROID PANEL. 06/09/2017 12:00 AM Thyroid antibody panel 06/09/2017 12:00 AM EKG. 10/07/2017 12:00 AM URINALYSIS ROUTINE C&S IF IND 08/19/2018 12:00 AM ZC HIP W PELVIS UNILATERAL 2 OR 3 VIEW 03/09/2019 12 :00 AM Iron deficient anemia Medications Active Name [...] HC BMI BSA BMI Percentile O2 Sat(%) 03/09/2019 2:49:00 PM 130 mmHg 90 mmHg [...] AM THERAPEUTIC PROPHYLACTIC/DX INJECTION HOWARD BQ/IM Reviewed Results Summary Date and Description Results [...] neg 08/19/2018 1:28 PM Clarity Ur Cloudy Urine-[place] r Pale yellow Glucose Ur-sCnc neg Bilirub [...] CVX Pneumococcal 06/24/2017 Monica WAL PREVNAR 13 [id number] Intramuscular Left Deltoid 06/24/2017 05/28/2015 133 Influenza 06/24/2017 GlaxoSmithKline SKB Flulaval quadrivalent 4 HP3Y Intramuscular Right Deltoid 06/24/2017 03/03/2015 158 Pneumococcal 05/29/2018 [employer] Co[employer] MSD PNEUMOVAX 23 [id number] In tramuscular Right Deltoid 05/29/2018 07/28/2019 33 Influenza 05/29/2018 sanofi pasteur PMC FLUZONE-HIGH DOSE [id number] Int ramuscular Left Deltoid 05/29/2018 07/28/2019 158 [...] Right hip pain Mar 09 2019 4:15PM Payers Insurance Name Company Name Plan Name Plan Number Policy Number Yung cy Group Number Start Date Medicare RHC Medicare RHC [id number] N/ [facility] [id number] N/ A Medicare Part A Medicare Part A [id number] N/A Medicare Part A Medicare - Lab/Xray [id number] N/A Medicare RHC Medicare RHC [id number] N/ A Medicare Part B Medicare Of [place] [id number] N/A History of Encounters Visit Date Visit Type Provider 03/09/2019 Office visit Jessica MANDEL RN 03/04/2019 [...] Venancio Ventura 02/19/2018 Office visit Rosalinda yanes REPAIR SERVICE DISPATCHER 2018 Office visit Rosalinda yanes APRN 01/27/2018 Procedures Matheus Ceron MD 01/22/2018 Office visit Rosalinda yanes REPAIR SERVICE DISPATCHER 01/21/2018 Office visit Jessica MANDEL RN 11/04/2017 Office visit Matheus Ceron MD 10/07/2017 Office visit Jessica MANDEL RN 09/12/2017 Office visit Jessica MANDEL RN 08/29/2017 Office visit Jessica MANDEL RN 08/19/2017 Hospital Dena Rhodes MD 08/19/2017 Hospital Matheus Ceron MD 06/24/2017 Office visit Jessica MANDEL RN 06/10/2017 Office visit Jessica Pearce AP RN 05/20/2017 Office visit Jessica Pearce AP RN 02/18/2017 Office visit Jessica MANDEL RN 01/24/2017 Office visit Jessica MANDEL RN 01/14/2017 Office visit Jessica MANDEL RN 10/31/2016 Office visit Jessica Pearce AP RN 10/24/2016 Office visit Jessica MANDEL RN 09/10/2016 Office visit Matheus Ceron MD 08/06/2016 Office visit Matheus Ceron MD 04/24/2016 Office visit Ben Almanza APR N 10/03/2015 Office visit Matheus Ceron MD 02/21/2015 Office visit Matheus Ceron MD 02/09/2015 [facility] Matheus Ceron MD 01/10/2015 Office visit Matheus Ceron MD 11/28/2014 [facility] Dena Rhodes MD 07/30/2010 [facility] Dena Rhodes MD 05/28/2010 [facility] Dena Rhodes MD
--- OUTSIDE RECORDS SUMMARY | 2019-10-10 08:35 | XMS REPORT ---
Author Author Mathew Pearce [facility] Address [address] [place], [place] [address] Care Team Providers Care Desk Editor Name Role Phone Jessica Pearce PCP Jessica [...] 12:00 AM Hip Complete Min 2Views - [place] 01/23/2017 12:0 0 AM THYROID PANEL. 06/09/2017 [...] neg 08/19/2018 1:28 PM Clarity Ur Cloudy Urine-[place] r Pale yellow Glucose Ur-sCnc neg Bilirub [...] CVX Pneumococcal 06/24/2017 Monica WAL PREVNAR 13 [id number] Intramuscular Left Deltoid 06/24/2017 05/28/2015 133 Influenza 06/24/2017 GlaxoSmithKline SKB Flulaval quadrivalent 4 HP3Y Intramuscular Right Deltoid 06/24/2017 03/03/2015 158 Pneumococcal 05/29/2018 [employer]ck [employer] Co[employer]. MSD PNEUMOVAX 23 [id number] In tramuscular Right Deltoid 05/29/2018 07/28/2019 33 Influenza 05/29/2018 sanofi pasteur PMC FLUZONE-HIGH DOSE [id number] Int ramuscular Left Deltoid 05/29/2018 07/28/2019 158 [...] Number Start Date Medicare RHC Medicare RHC [id number] N/ [facility] [id number] N/ A Medicare Part A Medicare Part A [id number] N/A Medicare Part A Medicare - Lab/Xray [id number] N/A Medicare RHC Medicare RHC [id number] N/ A Medicare Part B Medicare Of [place] [id number] N/A History of Encounters Visit Date Visit [...] Venancio Ventura 02/19/2018 Office visit Rosalinda yanes SEED AND FERTILIZER SPECIALIST 2018 Office visit Rosalinda yanes APRN 01/27/2018 Procedures Matheus Ceron MD 01/22/2018 Office visit Rosalinda yanes SEED AND FERTILIZER SPECIALIST 01/21/2018 Office visit Jessica MANDEL RN 11/04/2017 Office visit Matheus Ceron MD 10/07/2017 Office visit Jessica MANDEL RN 09/12/2017 Office visit Jessica MANDEL RN 08/29/2017 Office visit Jessica MANDEL RN 08/19/2017 Hospital Dena Rhodes MD 08/19/2017 Hospital Matheus Ceron MD 06/24/2017 Office visit Jessica MANDEL RN 06/10/2017 Office visit Jessica Pearce AP RN 05/20/2017 Office visit Jessica Perace AP RN 02/18/2017 Office visit Jessica MANDEL [...] 02/21/2015 Office visit Matheus Ceron MD 02/09/2015 [facility] Matheus Ceron MD 01/10/2015 Office visit Matheus Ceron MD 11/28/2014 [facility] Dena Rhodes MD 07/30/2010 [facility] Dena Rhodes MD 05/28/2010 [facility] Dena Rhodes MD
--- OUTSIDE RECORDS SUMMARY | 2019-10-10 08:36 | XMS REPORT ---
Author Author Mathew Pearce [facility] Address [address] [place], [place] [address] Care Team Providers Care Dragger Out Name Role Phone Jessica Pearce PCP Jessica [...] 12:00 AM Hip Complete Min 2Views - [place] 01/23/2017 12:0 0 AM THYROID PANEL. 06/09/2017 12:00 AM THYROID PANEL. 06/09/2017 12:00 AM THYROID PANEL. 06/09/2017 12:00 AM Thyroid antibody panel 06/09/2017 12:00 AM EKG. 10/07/2017 12:00 AM URINALYSIS ROUTINE C&S IF IND 08/19/2018 12:00 AM CBC W/ AUTO DIFF (RFLX MAN DIFF IF IND). 03/03/2019 12:00 AM CMP 03/03/2019 12:00 AM IRON PANEL 03/03/2019 12:00 AM IRON PANEL 03/03/2019 12:00 AM IRON PANEL 03/03/2019 12:00 AM Iron deficient anemia Medications Active [...] Active 03/23/2018 Vital Signs Date Time BP-Sys(mm[Hg] BP-Blnaquita(mm[Hg]) HR(bpm) RR(rpm) Temp WT HT HC BMI BSA BMI Percentile O2 Sat(%) 01/21/2019 10:33:00 AM 120 mmHg 82 mmHg [...] Reviewed 01/14/2017 12:00 AM Decadron 8mg Injection, [facility] Medicare Rev iewed 01/14/2017 12:00 AM Depo-Medrol 80mg Injection, [facility] Medicare Reviewed 05/20/2017 12:00 AM COMPLETE [...] 11/02/2018 12:00 AM ASSAY OF TRANSFERRIN Returned 03/04/2019 12:00 AM COLLECTION VENOUS BLOOD VENIPUNCTURE Rev iewed Results Summary Date and Description Results 04/24/2016 [...] neg 08/19/2018 1:28 PM Clarity Ur Cloudy Urine-[place] r Pale yellow Glucose Ur-sCnc neg Bilirub [...] CVX Pneumococcal 06/24/2017 Peg-Amanda WAL PREVNAR 13 [id number] Intramuscular Left Deltoid 06/24/2017 05/28/2015 133 Influenza 06/24/2017 GlaxoSmithKline SKB Flulaval quadrivalent 4 HP3Y Intramuscular Right Deltoid 06/24/2017 03/03/2015 158 Pneumococcal 05/29/2018 Merck & Co[employer] Inc[employer] MSD PNEUMOVAX 23 [id number] In tramuscular Right Deltoid 05/29/2018 07/28/2019 33 Influenza 05/29/2018 sanofi pasteur [facility] FLUZONE-HIGH DOSE [id number] Int ramuscular Left Deltoid 05/29/2018 07/28/2019 158 [...] 2019 8:36AM Anemia Mar 04 2019 8:36AM Payers Insurance Name Company Name Plan Name Plan Number Policy Number Yung cy Group Number Start Date Medicare RHC Medicare RHC [id number] N/ [id number] N/ A Medicare Part A Medicare Part A [id number] N/A Medicare Part A Medicare - Lab/Xray [id number] N/A Medicare RHC Medicare RHC [id number] N/ A Medicare Part B Medicare Of [place] [id number] N/A History of Encounters Visit Date Visit Type Provider 03/04/2019 Laboratory Jessica MANDEL RN 01/21/2019 Office [...] 06/17/2018 Office visit Jessica MANDEL RN 06/11/2018 [facility] Frederick Ware MD 05/29/2018 Office visit Jessica MANDEL RN 05/14/2018 Office visit Jessica Ramses AP RN 05/01/2018 Office visit Jessica Ramses AP RN 04/11/2018 Office visit Jessica Ramses AP RN 03/23/2018 Office visit Jessica Ramses AP RN 03/03/2018 Office visit Venancio Ventura 02/19/2018 Office visit Rosalinda MHoracio Rubin n GLUING MACHINE OPERATOR 2018 Office visit Rosalinda TrumanHoracio Rubin n GLUING MACHINE OPERATOR 01/27/2018 Procedures Matheus Ceron MD 01/22/2018 Office visit Rosalinda MHoracio Rubin n GLUING MACHINE OPERATOR 01/21/2018 Office visit Jessica Pearce AP RN 11/04/2017 Office visit Matheus Ceron MD 10/07/2017 Office visit Jessica Ramses AP RN 09/12/2017 Office visit Jessica Pearce [...]
--- OUTSIDE RECORDS SUMMARY | 2019-10-10 08:36 | XMS REPORT ---
Author Author Mathew Pearce [facility] Address [address] [place], [place] [id number] Care Team Providers Care Behavioral Health Case Manager Name Role Phone Jessica Pearce PCP Jessica [...] Reviewed 01/14/2017 12:00 AM Decadron 8mg Injection, [facility] Medicare Rev iewed 01/14/2017 12:00 AM Depo-Medrol 80mg Injection, [facility] Medicare Reviewed 05/20/2017 12:00 AM COMPLETE CBC [...] neg 08/19/2018 1:28 PM Clarity Ur Cloudy Urine-[place] r Pale yellow Glucose Ur-sCnc neg Bilirub [...] CVX Pneumococcal 06/24/2017 Peg-Amanda WAL PREVNAR 13 [id number] Intramuscular Left Deltoid 06/24/2017 05/28/2015 133 Influenza 06/24/2017 GlaxoSmithK[employer] SKB Flulaval quadrivalent 4 HP3Y Intramuscular Right Deltoid 06/24/2017 03/03/2015 158 Pneumococcal 05/29/2018 [employer] MSD PNEUMOVAX 23 [id number] In tramuscular Right Deltoid 05/29/2018 07/28/2019 33 Influenza 05/29/2018 sanofi pasteur [facility] FLUZONE-HIGH DOSE [id number] Int ramuscular Left Deltoid 05/29/2018 07/28/2019 158 [...] Number Start Date Medicare RHC Medicare RHC [id number] N/ [facility] [place] [id number] N/ A Medicare Part A Medicare Part A [id number] N/A Medicare Part A Medicare - Lab/Xray [id number] N/A Medicare RHC Medicare RHC [id number] N/ A Medicare Part B Medicare Of [place] [id number] N/A History of Encounters Visit Date Visit [...] 06/17/2018 Office visit Jessica MANDEL RN 06/11/2018 [facility] Frederick Ware MD 05/29/2018 Office visit Jessica MANDEL RN 05/14/2018 Office visit Jessica Ramses AP RN 05/01/2018 Office visit Jessica Ramses AP RN 04/11/2018 Office visit Jessica Ramses AP RN 03/23/2018 Office visit Jessica Rasmes AP RN 03/03/2018 Office visit Venancio Ventura 02/19/2018 Office visit Rosalinda MHoracio Rubin n TECHNICAL SALES ENGINEER 2018 Office visit Rosalinda TrumanHoracio Rubin n TECHNICAL SALES ENGINEER 01/27/2018 Procedures Matheus Ceron MD 01/22/2018 Office visit Rosalinda MHoracio Rubin n TECHNICAL SALES ENGINEER 01/21/2018 Office visit Jessica Pearce AP RN [...]
--- OUTSIDE RECORDS SUMMARY | 2019-10-10 08:37 | XMS REPORT ---
Author Author Mathew Pearce [facility] Address [address] [place], [place] [id number] Care Team Providers Care Airways Control Specialist Name Role Phone Jessica Pearce PCP Jessica [...] 12:00 AM Hip Complete Min 2Views - [place] 01/23/2017 12:0 0 AM THYROID PANEL. 06/09/2017 [...] or tea by oral route once daily propranolol 60 mg oral capsule,extended release 24 hr 08/06/2018 02/02/2019 take 1 capsule (60 mg) by oral route once daily for 30 days cyanocobalamin (vitamin B-12) 1,000 mcg/mL injection solution [...] route every 8 hours for 10 days Namenda 10 mg oral tablet 01/26/2019 [...] 2 times per day for 30 days fluticasone 50 mcg/actuation nasal [...] as needed for cough for 10 days Discontinued Name Start Date [...] Reviewed 01/14/2017 12:00 AM Decadron 8mg Injection, RHC Medicare Rev iewed 01/14/2017 12:00 AM Depo-Medrol [...] vaccine administratio n Reviewed 05/29/2018 12:00 AM [facility] MEDICARE - pneumonia vaccine adminis tration Reviewed [...] 11/02/2018 12:00 AM ASSAY OF TRANSFERRIN Returned Results Summary Date and Description Results [...] neg 08/19/2018 1:28 PM Clarity Ur Cloudy Urine-[place] r Pale yellow Glucose Ur-sCnc neg Bilirub [...] CVX Pneumococcal 06/24/2017 Monica WAL PREVNAR 13 [id number] Intramuscular Left Deltoid 06/24/2017 05/28/2015 133 Influenza 06/24/2017 GlaxoSmithKline SKB Flulaval quadrivalent 4 HP3Y Intramuscular Right Deltoid 06/24/2017 03/03/2015 158 Pneumococcal 05/29/2018 Merck & Co., Inc. MSD PNEUMOVAX 23 [id number] In tramuscular Right Deltoid 05/29/2018 07/28/2019 33 Influenza 05/29/2018 sanofi pasteur PMC FLUZONE-HIGH DOSE [id number] Int ramuscular Left Deltoid 05/29/2018 07/28/2019 158 [...] 2019 10:35AM Sinusitis Jan 21 2019 10:35AM Payers Insurance Name Company Name Plan Name Plan Number Policy Number Yung cy Group Number Start Date Medicare RHC Medicare RH [id number] N/ A [facility] [id number] N/ A Medicare Part A Medicare Part A [id number] N/A Medicare Part A Medicare - Lab/Xray [id number] N/A Medicare RHC Medicare RHC [id number] N/ A Medicare Part B Medicare Of [place] [id number] N/A History of Encounters Visit Date Visit Type Provider 01/21/2019 Office visit Jessica MANDEL RN 01/01/2019 [...] 06/17/2018 Office visit Jessica MANDEL RN 06/11/2018 [facility] Frederick Ware MD 05/29/2018 Office visit Jessica MANDEL RN 05/14/2018 Office visit Jessica MANDEL RN 05/01/2018 Office visit Jessica MANDEL RN 04/11/2018 Office visit Jessica MANDEL RN 03/23/2018 Office visit Jessica MANDEL RN 03/03/2018 Office visit Venancio Ventura 02/19/2018 Office visit Rosalinda yanes APRN 2018 Office visit Rosalinda yanes APRN 01/27/2018 Procedures Matheus Ceron MD 01/22/2018 Office visit Rosalinda Riley Caryn n SUPERCALENDER OPERATOR HELPER 01/21/2018 Office visit Jessica MANDEL RN 11/04/2017 Office visit Matheus Ceron MD 10/07/2017 Office visit Jessica Pearce AP RN 09/12/2017 Office visit Jessica Pearce AP RN 08/29/2017 Office visit Jessica Pearce AP RN 08/19/2017 Hospital Dena Rhodes MD 08/19/2017 [facility] Matheus Ceron MD 06/24/2017 Office visit Jessica [...]
--- OUTSIDE RECORDS SUMMARY | 2019-10-10 08:37 | XMS REPORT ---
Author Author Mathew Pearce [facility] Address [address] [place], [place] [id number] Care Team Providers Care Slag Mixer Name Role Phone Jessica Pearce PCP Jessica [...] Reviewed 01/14/2017 12:00 AM Decadron 8mg Injection, [facility] Medicare Rev iewed 01/14/2017 12:00 AM Depo-Medrol 80mg Injection, [facility] Medicare Reviewed 05/20/2017 12:00 AM COMPLETE CBC [...] neg 08/19/2018 1:28 PM Clarity Ur Cloudy Urine-[place] r Pale yellow Glucose Ur-sCnc neg Bilirub [...] CVX Pneumococcal 06/24/2017 Monica WAL PREVNAR 13 [id number] Intramuscular Left Deltoid 06/24/2017 05/28/2015 133 Influenza 06/24/2017 GlaxoSmithKline SKB Flulaval quadrivalent 4 HP3Y Intramuscular Right Deltoid 06/24/2017 03/03/2015 158 Pneumococcal 05/29/2018 Merck & Co., Inc. MSD PNEUMOVAX 23 [id number] In tramuscular Right Deltoid 05/29/2018 07/28/2019 33 Influenza 05/29/2018 sanofi [facility] FLUZONE-HIGH DOSE [id number] Int ramuscular Left Deltoid 05/29/2018 07/28/2019 158 [...] 2019 3:36PM Anemia Mar 03 2019 3:36PM Payers Insurance Name Company Name Plan Name Plan Number Policy Number Yung cy Group Number Start Date Medicare RHC Medicare RHC [id number] N/ A [id number] N/ A Medicare Part A Medicare Part A [id number] N/A Medicare Part A Medicare - Lab/Xray [id number] N/A Medicare RHC Medicare RHC [id number] N/ A Medicare Part B Medicare Of [place] [id number] N/A History of Encounters Visit Date Visit [...] 06/17/2018 Office visit Jessica MANDEL RN 06/11/2018 [facility] Frederick Ware MD 05/29/2018 Office visit Jessica MANDEL RN 05/14/2018 Office visit Jessica MANDEL RN 05/01/2018 Office visit Jessica MANDEL RN 04/11/2018 Office visit Jessica MANDEL RN 03/23/2018 Office visit Jessica Pearce AP RN 03/03/2018 Office visit Venancio Ventura 02/19/2018 Office visit Rosalinda Riley Caryn n PAYABLE PROCESSOR 2018 Office visit Rosalinda Riley Caryn n PAYABLE PROCESSOR 01/27/2018 Procedures Matheus Ceron MD 01/22/2018 Office visit Rosalinda MHoracio Rubin n PAYABLE PROCESSOR 01/21/2018 Office visit Jessica MANDEL RN 11/04/2017 [...]
--- OUTSIDE RECORDS SUMMARY | 2019-10-10 08:38 | XMS REPORT ---
Author Author Mathew Pearce [facility] Address [address] [place], [place] [id number] Care Team Providers Care Mineral Ore Processing Labourer Name Role Phone Jessica Pearce PCP Jessica [...] 12:00 AM Hip Complete Min 2Views - [place] 01/23/2017 12:0 0 AM THYROID PANEL. 06/09/2017 [...] mcg) by subcutaneous route once a month Namenda 10 mg oral tablet take 1 tablet (10 mg) by oral route 2 times per day Benadryl 25 mg oral capsule take 1 [...] take 1 capsule by oral route daily Name Start Date Expiration Date SIG Comments [...] hours as needed Namzaric 7-10 mg oral capsulemildred,ER 24hr take 1 capsule by oral route [...] HC BMI BSA BMI Percentile O2 Sat(%) 01/01/2019 1:26:00 PM 112 mmHg 83 mmHg [...] iewed 01/14/2017 12:00 AM Depo-Medrol 80mg Injection, [facility] Medicare Reviewed 05/20/2017 12:00 AM COMPLETE CBC [...] neg 08/19/2018 1:28 PM Clarity Ur Cloudy Urine-[place] r Pale yellow Glucose Ur-sCnc neg Bilirub [...] Pub CVX Pneumococcal 06/24/2017 Monica CHÁVEZNAR 13 [id number] Intramuscular Left Deltoid 06/24/2017 05/28/2015 133 Influenza 06/24/2017 GlaxoSmithKline SKB Flulaval quadrivalent 4 HP3Y Intramuscular Right Deltoid 06/24/2017 03/03/2015 158 Pneumococcal 05/29/2018 Merck & Co., Inc. MSD PNEUMOVAX 23 [id number] In tramuscular Right Deltoid 05/29/2018 07/28/2019 33 Influenza 05/29/2018 sanofi [facility] FLUZONE-HIGH DOSE [id number] Int ramuscular Left Deltoid 05/29/2018 07/28/2019 158 [...] 1:28PM Rectal prolapse Dec 22 2018 1:55PM Payers Insurance Name Company Name Plan Name Plan Number Policy Number Yung cy Group Number Start Date Medicare RHC Medicare RHC [id number] N/ [id number] N/ A Medicare Part A Medicare Part A [id number] N/A Medicare Part A Medicare - Lab/Xray [id number] N/A Medicare RHC Medicare RHC [id number] N/ A Medicare Part B Medicare Of [place] [id number] N/A History of Encounters Visit Date Visit Type Provider 01/01/2019 Office visit Jessica MANDEL RN 12/22/2018 [...] Venancio Ventura 02/19/2018 Office visit Rosalinda yanes JOB HAND 2018 Office visit Rosalinda yanes JOB HAND 01/27/2018 Procedures Matheus Ceron MD 01/22/2018 Office visit Rosalinda yanes JOB HAND 01/21/2018 Office visit Jessica MANDEL RN 11/04/2017 [...] Matheus Ceron MD 08/06/2016 Office visit Matheus Creon MD 04/24/2016 Office visit Ben Almanza APR N 10/03/2015 Office visit Matheus Ceron MD 02/21/2015 Office visit Matheus Ceron MD 02/09/2015 Hospital Matheus Ceron MD 01/10/2015 Office visit Matheus Ceron MD 11/28/2014 Hospital Dena Rhodes MD 07/30/2010 Hospital Dena Rhodes MD 05/28/2010 [facility] Dena Rhodes MD
--- OUTSIDE RECORDS SUMMARY | 2019-10-10 08:38 | XMS REPORT ---
Author Author Mathew Pearce [facility] Address [address] [place], [place] [id number] Care Team Providers Care Watch Engineer Name Role Phone Jessica Pearce PCP Jessica [...] 12:00 AM Hip Complete Min 2Views - [place] 01/23/2017 12:0 0 AM THYROID PANEL. 06/09/2017 [...] neg 08/19/2018 1:28 PM Clarity Ur Cloudy Urine-[place] r Pale yellow Glucose Ur-sCnc neg Bilirub [...] Pub CVX Pneumococcal 06/24/2017 Monica CHÁVEZNAR 13 [id number] Intramuscular Left Deltoid 06/24/2017 05/28/2015 133 Influenza 06/24/2017 GlaxoSmithKline SKB Flulaval quadrivalent 4 HP3Y Intramuscular Right Deltoid 06/24/2017 03/03/2015 158 Pneumococcal 05/29/2018 Merck & Co., Inc. MSD PNEUMOVAX 23 [id number] In tramuscular Right Deltoid 05/29/2018 07/28/2019 33 Influenza 05/29/2018 [facility] FLUZONE-HIGH DOSE [id number] Int ramuscular Left Deltoid 05/29/2018 07/28/2019 158 [...] 1:28PM Allergic rhinitis Jan 01 2019 1:28PM Payers Insurance Name Company Name Plan Name Plan Number Policy Number Yung cy Group Number Start Date Medicare RHC Medicare RHC [id number] N/ A BCBS [facility] [id number] N/ A Medicare Part A Medicare Part A [id number] N/A Medicare Part A Medicare - Lab/Xray [id number] N/A Medicare RHC Medicare RHC [id number] N/ A Medicare Part B Medicare Of [place] [id number] N/A History of Encounters Visit Date Visit [...] Venancio Ventura 02/19/2018 Office visit Rosalinda yanes OXIDE FURNACE TENDER 2018 Office visit Rosalinda yanes OXIDE FURNACE TENDER 01/27/2018 Procedures Matheus Ceron MD 01/22/2018 Office visit Rosalinda yanes OXIDE FURNACE TENDER 01/21/2018 Office visit Jessica MANDEL RN [...] 02/21/2015 Office visit Matheus Ceron MD 02/09/2015 [facility] Matheus Ceron MD 01/10/2015 Office visit Matheus Ceron MD 11/28/2014 Hospital Dena Rhodes MD 07/30/2010 Hospital Dena hRodes MD 05/28/2010 [facility] Dena Rhodes MD
--- OUTSIDE RECORDS SUMMARY | 2019-10-10 08:39 | XMS REPORT ---
Author Author Mathew Pearce [facility] Address [address] [place], [place] [id number] Care Team Providers Care Bulk Receiver Name Role Phone Jessica Pearce PCP Jessica [...] Date Estimated Completion Date SIG Co mments pantoprazole 40 mg oral tablet,delayed release (DR/EC) 03/11/2018 TAKE ONE TABLET BY MOUTH ONCE DAILY Miralax 17 gram oral powder in packet 03/23/2018 take 1 packet (17 gram) mixed with 8 oz. water, juice, soda, coffee or tea by oral route once daily lisinopril 10 mg oral tablet 06/25/2018 TAKE ONE TAB LET BY MOUTH ONCE DAILY propranolol 60 mg oral capsule,extended release 24 hr 08/06/2018 02/02/2019 take 1 capsule (60 mg) by oral route once daily for 30 days fluticasone 50 mcg/actuation nasal spray,suspension spray 1 spray (50 mcg) in each nostril by intranasal route once daily tramadol 100 mg oral tablet extended release 24 hr 08/25/2018 11/23/2018 take 1 tablet (100 mg) by oral route BID cyanocobalamin (vitamin B-12) 1,000 mcg/mL injection solution inject 1 milliliter (1,000 mcg) by subcutaneous route once a month Proctofoam HC 1-1 % rectal foam 09/21/2018 insert 1 applicatorful by rectal route 2 times a day venlafaxine 150 mg oral capsule,extended release 24hr take 1 capsule (150 mg) by oral route once daily Namenda 10 mg oral tablet take 1 tablet (10 mg) by oral route 2 times per day Benadryl 25 mg oral capsule take 1 capsule (25 mg) by oral route every 6 hours as needed dicyclomine 10 mg oral capsule t nicki 1 capsule (10 mg) by oral route 4 times per day gabapentin 300 mg oral capsule 11/06/2018 01/05/2019 T nicki 1 cap by mouth at bedtime amoxicillin 500 mg oral tablet 11/17/2018 11/27/2018 t nicki 1 tablet (500 mg) by oral route 3 times per day for 10 days Tessalon Perles 100 mg oral capsule 11/17/2018 11/27/2018 take 1 capsule (100 mg) by oral route 3 times per day as needed for cough for 10 days Name Start Date Expiration Date SIG [...] 2 times per day for 30 days Discontinued Name Start Date Discontinued Date [...] tablets,dose pack 08/19/2018 08/26/2018 take as directed Problem List Description Status Onset Hyperlipidemia Active Hypertension Active Hypothyroidism Active Irritable bowel syndrome Active Anxiety Active Depression Active Hypothyroid Active 06/25/2017 Cystocele, midline Active 02/01/2018 Lumbar spondylolysis Active 03/23/2018 Constipation Active 03/23/2018 Vital Signs Date Time BP-Sys(mm[Hg] BP-Blanquita(mm[Hg]) HR(bpm) RR(rpm) Temp WT HT HC BMI BSA BMI Percentile O2 Sat(%) 11/17/2018 2:41:00 PM 120 mmHg 78 mmHg [...] Reviewed 01/14/2017 12:00 AM Decadron 8mg Injection, [facility] Medicare Rev iewed 01/14/2017 12:00 AM Depo-Medrol 80mg Injection, [facility] Medicare Reviewed 05/20/2017 12:00 AM COMPLETE [...] 23 JESUS IM Reviewed 05/29/2018 12:00 AM [facility] MEDICARE - flu vaccine administratio n Reviewed 05/29/2018 12:00 AM [facility] MEDICARE - pneumonia vaccine adminis tration [...] neg 08/19/2018 1:28 PM Clarity Ur Cloudy Urine-[place] r Pale yellow Glucose Ur-sCnc neg Bilirub [...] CVX Pneumococcal 06/24/2017 Peg-Amanda WAL PREVNAR 13 [id number] Intramuscular Left Deltoid 06/24/2017 05/28/2015 133 Influenza 06/24/2017 GlaxoSmithKline SKB Flulaval quadrivalent 4 HP3Y Intramuscular Right Deltoid 06/24/2017 03/03/2015 158 Pneumococcal 05/29/2018 Merck & Co., Inc. MSD PNEUMOVAX 23 [id number] In tramuscular Right Deltoid 05/29/2018 07/28/2018 33 Influenza 05/29/2018 [facility] FLUZONE-HIGH DOSE [id number] Int ramuscular Left Deltoid 05/29/2018 07/28/2018 158 History of Past Illness Name Date [...] 2018 2:43PM Cough Nov 17 2018 2:43PM Payers Insurance Name Company Name Plan Name Plan Number Policy Number Yung cy Group Number Start Date Medicare RHC Medicare RHC [id number] N/ A [facility] [id number] N/ A Medicare Part A Medicare Part A [id number] N/A Medicare Part A Medicare - Lab/Xray [id number] N/A Medicare RHC Medicare RHC [id number] N/ A Medicare Part B Medicare Of [place] [id number] N/A History of Encounters Visit Date Visit Type Provider 11/17/2018 Office visit Jessica MANDEL RN 11/02/2018 Office visit Jessica MANDEL RN 09/21/2018 Office visit Matheus Ceron MD 09/09/2018 Office visit Matheus Ceron MD 09/03/2018 Surgery Matheus Ceron MD 08/26/2018 Office visit Matheus Ceron MD 08/19/2018 Office visit Jessica MANDEL RN 07/29/2018 Office visit Jessica MANDEL RN 06/17/2018 Office visit Jessica MANDEL RN 06/11/2018 Hospital Frederick Ware MD 05/29/2018 Office visit Jessica Pearce AP RN 05/14/2018 Office visit Jessica Pearce AP RN 05/01/2018 Office visit Jessica Pearce AP RN 04/11/2018 Office visit Jessica Pearce AP RN 03/23/2018 Office visit Jessica Pearce AP RN 03/03/2018 Office visit Venancio Ventura 02/19/2018 Office visit Rosalinda Rubin n MANAGER APPLE 2018 Office visit Rosalinda Rubin n MANAGER APPLE 01/27/2018 Procedures Matheus Ceron MD 01/22/2018 Office visit Rosalinda Rubin n MANAGER APPLE 01/21/2018 Office visit Jessica Pearce AP RN [...]
--- OUTSIDE RECORDS SUMMARY | 2019-10-10 08:39 | XMS REPORT ---
Author Author Mathew Pearce [facility] Address [address] [place], [place] [address] Care Team Providers Care Fx Artist Name Role Phone Jessica Pearce PCP Jessica [...] nicki 1 cap by mouth at bedtime Name Start Date Expiration Date SIG Comments [...] HC BMI BSA BMI Percentile O2 Sat(%) 11/02/2018 11:44:00 AM 134 mmHg 80 mmHg [...] iewed 01/14/2017 12:00 AM Depo-Medrol 80mg Injection, [facility] Medicare Reviewed 05/20/2017 12:00 AM COMPLETE [...] 23 JESUS IM Reviewed 05/29/2018 12:00 AM [facility] MEDICARE - flu vaccine administratio n Reviewed 05/29/2018 12:00 AM [facility] MEDICARE - pneumonia vaccine adminis tration [...] neg 08/19/2018 1:28 PM Clarity Ur Cloudy Urine-[place] r Pale yellow Glucose Ur-sCnc neg Bilirub [...] CVX Pneumococcal 06/24/2017 Monica WAL PREVNAR 13 [id number] Intramuscular Left Deltoid 06/24/2017 05/28/2015 133 Influenza 06/24/2017 GlaxoSmithKline SKB Flulaval quadrivalent 4 HP3Y Intramuscular Right Deltoid 06/24/2017 03/03/2015 158 Pneumococcal 05/29/2018 Merck & Co., Inc. MSD PNEUMOVAX 23 [id number] In tramuscular Right Deltoid 05/29/2018 07/28/2018 33 Influenza 05/29/2018 sanofi pasteur PMC FLUZONE-HIGH DOSE [id number] Int ramuscular Left Deltoid 05/29/2018 07/28/2018 158 [...] 11:46AM Rectal polyp Sep 09 2018 12:24PM Payers Insurance Name Company Name Plan Name Plan Number Policy Number Yung cy Group Number Start Date Medicare RHC Medicare RHC [id number] N/ A [id number] N/ A Medicare Part A Medicare Part A [id number] N/A Medicare Part A Medicare - Lab/Xray [id number] N/A Medicare RHC Medicare RHC [id number] N/ A Medicare Part B Medicare Of [place] [id number] N/A History of Encounters Visit Date Visit Type Provider 11/02/2018 Office visit Jessica MANDEL RN 09/21/2018 Office visit Matheus Ceron MD 09/09/2018 Office visit Matheus Ceron MD 09/03/2018 Surgery Matheus Ceron MD 08/26/2018 Office visit Matheus Ceron MD 08/19/2018 Office visit Jessica MANDEL RN 07/29/2018 Office visit Jessica MANDEL RN 06/17/2018 Office visit Jessica MANDEL RN 06/11/2018 [facility] Frederick Ware MD 05/29/2018 Office visit Jessica MANDEL RN 05/14/2018 Office visit Jessica MANDEL RN 05/01/2018 Office visit Jessica MANDEL RN 04/11/2018 Office visit Jessica MANDEL RN 03/23/2018 Office visit Jessica MANDEL RN 03/03/2018 Office visit Venancio Ventura 02/19/2018 Office visit Rosalinda yanes LIGHT RAIL TRANSIT OPERATOR 2018 Office visit Rosalinda yanes LIGHT RAIL TRANSIT OPERATOR 01/27/2018 Procedures Matheus Ceron MD 01/22/2018 Office visit Rosalinda yanes LIGHT RAIL TRANSIT OPERATOR 01/21/2018 Office visit Jessica MANDEL RN 11/04/2017 Office visit Matheus Ceron MD 10/07/2017 Office visit Jessica Pearce AP RN 09/12/2017 Office visit Jessica Pearce AP RN 08/29/2017 Office visit Jessica MANDEL RN 08/19/2017 Hospital Dena Rhodes MD 08/19/2017 [facility] Matheus Ceron MD 06/24/2017 Office visit Jessica Pearce AP RN 06/10/2017 Office visit Jessica Pearce AP RN 05/20/2017 Office visit Jessica Pearce AP RN 02/18/2017 Office visit Jessica Pearce AP RN 01/24/2017 Office visit Jessica Pearce AP RN 01/14/2017 Office visit Jessica Pearce AP RN 10/31/2016 Office visit Jessica MANDEL RN 10/24/2016 Office visit Jessica Pearce AP [...]
--- OUTSIDE RECORDS SUMMARY | 2019-10-10 08:40 | XMS REPORT ---
Author Author Mathew Pearce [facility] Address [address] [place], [place] [address] Care Team Providers Care Lye Treater Name Role Phone Jessica Pearce PCP Jessica [...] iewed 01/14/2017 12:00 AM Depo-Medrol 80mg Injection, [facility] Medicare Reviewed 05/20/2017 12:00 AM COMPLETE CBC [...] 23 JESUS IM Reviewed 05/29/2018 12:00 AM [facility] MEDICARE - flu vaccine administratio n Reviewed 05/29/2018 12:00 AM [facility] MEDICARE - pneumonia vaccine adminis tration Reviewed [...] neg 08/19/2018 1:28 PM Clarity Ur Cloudy Urine-[place] r Pale yellow Glucose Ur-sCnc neg Bilirub [...] CVX Pneumococcal 06/24/2017 Monica WAL PREVNAR 13 [id number] Intramuscular Left Deltoid 06/24/2017 05/28/2015 133 Influenza 06/24/2017 GlaxoSmithKline SKB Flulaval quadrivalent 4 HP3Y Intramuscular Right Deltoid 06/24/2017 03/03/2015 158 Pneumococcal 05/29/2018 [employer]ck & Co., Inc. MSD PNEUMOVAX 23 [id number] In tramuscular Right Deltoid 05/29/2018 07/28/2018 33 Influenza 05/29/2018 sanofi pasteur PMC FLUZONE-HIGH DOSE [id number] Int ramuscular Left Deltoid 05/29/2018 07/28/2018 158 [...] 11:46AM Lumbar stenosis Nov 02 2018 11:46AM Payers Insurance Name Company Name Plan Name Plan Number Policy Number Yung cy Group Number Start Date Medicare RHC Medicare RHC [id number] N/ A [facility] [id number] N/ A Medicare Part A Medicare Part A [id number] N/A Medicare Part A Medicare - Lab/Xray [id number] N/A Medicare RHC Medicare RHC [id number] N/ A Medicare Part B Medicare Of [place] [id number] N/A History of Encounters Visit Date Visit Type Provider 11/02/2018 Office visit Jessica MANDEL RN 09/21/2018 Office visit Matheus Ceron MD 09/09/2018 Office visit Matheus Ceron MD 09/03/2018 Surgery Matheus Ceron MD 08/26/2018 Office visit Matheus Ceron MD 08/19/2018 Office visit Jessica MANDEL RN 07/29/2018 Office visit Jessica MANDEL RN 06/17/2018 Office visit Jessica MANDEL RN 06/11/2018 [facility] Frederick Ware MD 05/29/2018 Office visit Jessica MANDEL RN 05/14/2018 Office visit Jessica MANDEL RN 05/01/2018 Office visit Jessica MANDEL RN 04/11/2018 Office visit Jessica MANDEL RN 03/23/2018 Office visit Jessica MANDEL RN 03/03/2018 Office visit Venancio Ventura 02/19/2018 Office visit Rosalinda yanes ANALYTICAL CHEMIST 2018 Office visit Rosalinda yanes ANALYTICAL CHEMIST 01/27/2018 Procedures Matheus Ceron MD 01/22/2018 Office visit Rosalinda yanes ANALYTICAL CHEMIST 01/21/2018 Office visit Jessica MANDEL RN 11/04/2017 Office visit Matheus Ceron MD 10/07/2017 Office visit Jessica MANDEL RN 09/12/2017 Office visit Jessica Pearce AP RN 08/29/2017 Office visit Jessica MANDEL RN 08/19/2017 Hospital Dena Rhodes MD 08/19/2017 [facility] Matheus Ceron MD 06/24/2017 Office [...]
--- OUTSIDE RECORDS SUMMARY | 2019-10-10 08:41 | XMS REPORT ---
Author Author Mathew Ceron [facility] Address [address] [place], [place] [id number] Care Team Providers Care Web Producer Name Role Phone Matheus Ceron PCP Jessica [...] 12:00 AM Hip Complete Min 2Views - [place] 01/23/2017 12:0 0 AM THYROID PANEL. 06/09/2017 [...] ONE TAB LET BY MOUTH ONCE DAILY docusate sodium 100 mg oral capsule 07/29/2018 [...] by oral route 2 times per day Name Start Date Expiration Date SIG Comments [...] each day with food for 30 days Discontinued Name Start Date [...] HC BMI BSA BMI Percentile O2 Sat(%) 09/21/2018 2:47:00 PM 152 mmHg 86 mmHg 78 bpm 20 rpm 97.9 F 120 lbs 60 in 23.4357 kg/m 1.518 m 97 % 09/09/2018 12:23:00 PM 184 mmHg [...] AM CT ABD & PELV W/CONTRAST Returned Results Summary Date and Description Results [...] neg 08/19/2018 1:28 PM Clarity Ur Cloudy Urine-[place] r Pale yellow Glucose Ur-sCnc neg Bilirub [...] Vis Given Vis Pub CVX Pneumococcal 06/24/2017 Nefhq-Jqpzpj-ThxqssjJose R WAL PREVNAR 13 [id number] Intramuscular Left Deltoid 06/24/2017 05/28/2015 133 Influenza 06/24/2017 GlaxCastleOS SKB Flulaval quadrivalent 4 [id number] Intramuscular Right Deltoid 06/24/2017 03/03/2015 158 Pneumococcal 05/29/2018 Merck & Co., Inc. MSD PNEUMOVAX 23 [id number] In tramuscular Right Deltoid 05/29/2018 07/28/2018 33 Influenza 05/29/2018 sanofi pasteur PMC FLUZONE-HIGH DOSE [id number] Int ramuscular Left Deltoid 05/29/2018 07/28/2018 158 [...] 2:34PM Rectal polyp Sep 21 2018 2:48PM Payers Insurance Name Company Name Plan Name Plan Number Policy Number Yung cy Group Number Start Date Medicare RHC Medicare RHC [id number] N/ A [facility] [id number] N/ A Medicare Part A Medicare Part A [id number] N/A Medicare Part A Medicare - Lab/Xray [id number] N/A Medicare RHC Medicare RHC [id number] N/ A Medicare Part B Medicare Of [place] [id number] N/A History of Encounters Visit Date Visit Type Provider 09/21/2018 Office visit Matheus Ceron MD 09/09/2018 Office visit Matheus Ceron MD 09/03/2018 Surgery Matheus Ceron MD 08/26/2018 Office visit Matheus Ceron MD 08/19/2018 Office visit Jessica MANDEL RN 07/29/2018 Office visit Jessica Pearce AP RN 06/17/2018 Office visit Jessica Pearce AP RN 06/11/2018 Hospital Frederick Ware MD 05/29/2018 Office visit Jessica Pearce AP RN 05/14/2018 Office visit Jessicatrino Pearce AP RN 05/01/2018 Office visit Jessica Ramses AP RN 04/11/2018 Office visit Jessica Pearce AP RN 03/23/2018 Office visit Jessica Pearce AP RN 03/03/2018 Office visit Venancio Ventura 02/19/2018 Office visit Rosalinda yanes ASSEMBLY ADJUSTER 2018 Office visit Rosalinda yanes ASSEMBLY ADJUSTER 01/27/2018 Procedures Matheus Ceron MD 01/22/2018 Office visit Rosalinda yanes ASSEMBLY ADJUSTER 01/21/2018 Office visit Jessica Pearce AP RN 11/04/2017 Office visit Matheus Ceron MD 10/07/2017 Office visit Jessica Pearce AP RN 09/12/2017 Office visit Jessica Pearce AP RN 08/29/2017 Office visit Jessica Pearce AP RN 08/19/2017 Hospital Dena Rhodes MD 08/19/2017 Hospital Matheus Ceron MD 06/24/2017 Office visit Jessica Pearce AP RN 06/10/2017 Office visit Jessica Pearce AP RN 05/20/2017 Office visit Jessica Ramses AP RN 02/18/2017 Office visit Jessica Pearce AP RN 01/24/2017 Office visit Jessica Ramses AP RN 01/14/2017 Office visit Jessica Ramses AP RN 10/31/2016 Office visit Jessica Ramses AP RN 10/24/2016 Office visit Jessica Pearce AP RN 09/10/2016 Office visit Matheus Ceron MD 08/06/2016 Office visit Matheus Ceron MD 04/24/2016 Office visit Ben Almanza APR N 10/03/2015 Office visit Matheus Ceron MD 02/21/2015 Office visit Matheus Ceron MD 02/09/2015 [facility] Matheus Ceron MD 01/10/2015 Office visit Matheus Ceron MD 11/28/2014 [facility] Dena Rhodes MD 07/30/2010 [facility] Dena Rhodes MD 05/28/2010 [facility] Dena Rhodes MD
--- OUTSIDE RECORDS SUMMARY | 2019-10-10 08:41 | XMS REPORT ---
Author Author Mathew Pearce [facility] Address [address] [place], [place] [id number] Care Team Providers Care Billing Assistant Name Role Phone Jessica Pearce PCP Jessica [...] 06/09/2017 12:00 AM EKG. 10/07/2017 12:00 AM CMP 08/19/2018 12:00 AM TSH 08/19/2018 12:00 AM CBC W/ AUTO DIFF (RFLX MAN DIFF IF IND). 08/19/2018 12:00 AM VITAMIN D (25 HYDROXY) 08/19/2018 12:00 AM VITAMIN B12 & FOLATE 08/19/2018 12:00 AM VITAMIN B12 & FOLATE 08/19/2018 12:00 AM URINALYSIS ROUTINE C&S IF IND [...] or tea by oral route once daily tramadol 100 mg oral tablet extended release 24 hr take 1 tablet (100 mg) by oral route BID lisinopril 10 mg oral tablet 06/25/2018 TAKE ONE TAB LET BY MOUTH ONCE DAILY docusate sodium 100 mg oral capsule 07/29/2018 10/27/2018 take 1 capsule (100 mg) by oral route 2 times per day for 30 days cyanocobalamin (vitamin B-12) 1,000 mcg/mL injection solution 04/2019 inject 1 milliliter (1,000 mcg) by subcutaneous route once a month propranolol 60 mg oral capsule,extended release 24 hr 08/06/2018 02/02/2019 take 1 capsule (60 mg) by oral route once daily for 30 days Medrol (Jose) 4 mg oral tablets,dose pack 08/19/2018 take as directed fluticasone 50 mcg/actuation nasal spray,suspension spray 1 spray (50 mcg) in each nostril by intranasal route once daily Name Start Date Expiration Date SIG [...] oral tablet 07/29/2018 1 tablet PRN Q6H Problem List Description Status Onset Hyperlipidemia Active Hypertension Active Hypothyroidism Active Irritable bowel syndrome Active Anxiety Active Depression Active Hypothyroid Active 06/25/2017 Cystocele, midline Active 02/01/2018 Lumbar spondylolysis Active 03/23/2018 Constipation Active 03/23/2018 Vital Signs Date Time BP-Sys(mm[Hg] BP-Blanquita(mm[Hg]) HR(bpm) RR(rpm) Temp WT HT HC BMI BSA BMI Percentile O2 Sat(%) 08/19/2018 11:20:00 AM 124 mmHg 70 mmHg 54 bpm 20 rpm 97.7 F 119 lbs 60 in 23.2404 kg/m 1.5116 m 97 % 07/29/2018 1:37:00 PM 130 mmHg 72 mmHg 81 bpm 18 rpm 97.9 F 124.25 lbs 60 in 24.27 kg/m2 1.54 m2 95 % 06/17/2018 12:00:00 PM 122 mmHg [...] Reviewed 01/14/2017 12:00 AM Decadron 8mg Injection, [facility] Medicare Rev iewed 01/14/2017 12:00 AM Depo-Medrol 80mg Injection, [facility] Medicare Reviewed 05/20/2017 12:00 AM COMPLETE CBC [...] vaccine administratio n Reviewed 05/29/2018 12:00 AM [facility] MEDICARE - pneumonia vaccine adminis tration Reviewed 05/29/2018 12:00 AM INFLUENZA VACCINE SPLT PRSRV FREE INC AN TIGEN IM Reviewed 06/17/2018 12:00 AM METABOLIC PANEL TOTAL CA Returned 06/24/2018 12:00 AM Physical Therapy Consult Reviewed 07/29/2018 2:34 PM URINALYSIS AUTO W/O SCOPE Reviewed 07/29/2018 12:00 AM METABOLIC PANEL TOTAL CA Returned 08/19/2018 1:28 PM URINALYSIS AUTO W/O SCOPE Reviewed Results Summary [...] neg 08/19/2018 1:28 PM Clarity Ur Cloudy Urine-[place] r Pale yellow Glucose Ur-sCnc neg Bilirub [...] Vis Given Vis Pub CVX Pneumococcal 06/24/2017 Btwbl-Oytyei-Uizskpe-Praangeline WAL PREVNAR 13 [id number] Intramuscular Left Deltoid 06/24/2017 05/28/2015 133 Influenza 06/24/2017 GlaxoSmithKline SKB Flulaval quadrivalent 4 HP3Y Intramuscular Right Deltoid 06/24/2017 03/03/2015 158 Pneumococcal 05/29/2018 Merck & Co., Inc. MSD PNEUMOVAX 23 [id number] In tramuscular Right Deltoid 05/29/2018 07/28/2018 33 Influenza 05/29/2018 [facility] FLUZONE-HIGH DOSE [id number] Int ramuscular Left Deltoid 05/29/2018 07/28/2018 158 [...] 11:24AM Joint pain Aug 19 2018 11:24AM Payers Insurance Name Company Name Plan Name Plan Number Policy Number Yung cy Group Number Start Date Medicare RHC Medicare RHC [id number] N/ A [id number] N/ A Medicare Part A Medicare Part A [id number] N/A Medicare Part A Medicare - Lab/Xray [id number] N/A Medicare RHC Medicare RHC [id number] N/ A Medicare Part B Medicare Of [place] [id number] N/A History of Encounters Visit Date Visit Type Provider 08/19/2018 Office visit Jessica MANDEL RN 07/29/2018 Office visit Jessica MANDEL RN 06/17/2018 Office visit Jessica MANDEL RN 06/11/2018 [facility] Frederick Ware MD 05/29/2018 Office visit Jessica MANDEL RN 05/14/2018 Office visit Jessica MANDEL RN 05/01/2018 Office visit Jessica MANDEL RN 04/11/2018 Office visit Jessica MANDEL RN 03/23/2018 Office visit Jessica MANDEL RN 03/03/2018 Office visit Venancio Ventura 02/19/2018 Office visit Rosalinda yanes BARGE PILOT 2018 Office visit Rosalinda yanes BARGE PILOT 01/27/2018 Procedures Matheus Ceron MD 01/22/2018 Office visit Rosalinda yanes BARGE PILOT 01/21/2018 Office visit Jessica MANDEL RN 11/04/2017 Office visit Matheus Ceron MD 10/07/2017 Office visit Jessica MANDEL RN 09/12/2017 Office visit Jessica MANDEL RN 08/29/2017 Office visit Jessica MANDEL RN 08/19/2017 [facility] Dena Rhodes MD 08/19/2017 [facility] Matheus Ceron MD 06/24/2017 Office visit [...] 02/21/2015 Office visit Matheus Ceron MD 02/09/2015 [facility] Matheus Ceron MD 01/10/2015 Office visit Matheus Ceron MD 11/28/2014 Hospital Dena Rhodes MD 07/30/2010 Hospital Dena Rhodes MD 05/28/2010 Hospital Dena Rhodes MD
--- OUTSIDE RECORDS SUMMARY | 2019-10-10 08:41 | XMS REPORT ---
Author Author Mathew Ceron [facility] Address [address] [place], [place] [id number] Care Team Providers Care Call Out Clerk Name Role Phone Matheus Ceron PCP Jessica [...] 12:00 AM Hip Complete Min 2Views - [place] 01/23/2017 12:0 0 AM THYROID PANEL. 06/09/2017 [...] mcg) by subcutaneous route once a month Name Start Date Expiration Date SIG Comments [...] HC BMI BSA BMI Percentile O2 Sat(%) 08/26/2018 2:10:00 PM 138 mmHg 84 mmHg [...] neg 08/19/2018 1:28 PM Clarity Ur Cloudy Urine-[place] r Pale yellow Glucose Ur-sCnc neg Bilirub [...] CVX Pneumococcal 06/24/2017 Monica WAL PREVNAR 13 [id number] Intramuscular Left Deltoid 06/24/2017 05/28/2015 133 Influenza 06/24/2017 GlaxoSmithKline SKB Flulaval quadrivalent 4 HP3Y Intramuscular Right Deltoid 06/24/2017 03/03/2015 158 Pneumococcal 05/29/2018 Merck & Co., Inc. MSD PNEUMOVAX 23 [id number] In tramuscular Right Deltoid 05/29/2018 07/28/2018 33 Influenza 05/29/2018 [facility] FLUZONE-HIGH DOSE [id number] Int ramuscular Left Deltoid 05/29/2018 07/28/2018 158 [...] maxillary sinusitis, recurrence not specified May 14 018 11:38AM Mild cognitive impairment May 01 2018 [...] of intestinal bypass Aug 26 2018 2:34PM Payers Insurance Name Company Name Plan Name Plan Number Policy Number Yung cy Group Number Start Date Medicare RHC Medicare RHC [id number] N/ [id number] N/ A Medicare Part A Medicare Part A [id number] N/A Medicare Part A Medicare - Lab/Xray [id number] N/A Medicare RHC Medicare RHC [id number] N/ A Medicare Part B Medicare Of [place] [id number] N/A History of Encounters Visit Date Visit Type Provider 08/26/2018 Office visit Matheus Ceron MD 08/19/2018 Office visit Jessica MANDEL RN 07/29/2018 Office visit Jessica MANDEL RN 06/17/2018 Office visit Jessica MANDEL RN 06/11/2018 [facility] Frederick Ware MD 05/29/2018 Office visit Jessica MANDEL RN 05/14/2018 Office visit Jessica MANDEL RN 05/01/2018 Office visit Jessica MANDEL RN 04/11/2018 Office visit Jessica MANDEL RN 03/23/2018 Office visit Jessica MANDEL RN 03/03/2018 Office visit Venancio Ventura 02/19/2018 Office visit Rosalinda yanes APRN 2018 Office visit Rosalinda Riley Caryn n SUPERVISOR PRODUCTION 01/27/2018 Procedures Matheus Ceron MD 01/22/2018 Office visit Rosalinda Riley Caryn n SUPERVISOR PRODUCTION 01/21/2018 Office visit Jessica MANDEL RN 11/04/2017 Office visit Matheus Ceron MD 10/07/2017 Office visit Jessica MANDEL RN 09/12/2017 Office visit Jessica MANDEL RN 08/29/2017 Office visit Jessica MANDEL RN 08/19/2017 Hospital Dena Rhodes MD 08/19/2017 [facility] Matheus Ceron MD 06/24/2017 Office visit Jessica Pearce AP RN 06/10/2017 Office visit Jessica Pearce AP RN 05/20/2017 Office visit Jessica Pearce AP RN 02/18/2017 Office visit Jessica Pearce AP RN 01/24/2017 Office visit Jessica Pearce AP RN 01/14/2017 Office visit Jessica MANDEL RN [...]
--- OUTSIDE RECORDS SUMMARY | 2019-10-10 08:42 | XMS REPORT ---
Author Author Mathew Pearce [facility] Address [address] [place], [place] [phone] Care Team Providers Care Covering Machine Operator Helper Name Role Phone Jessica Pearce PCP Jessica [...] Reviewed 01/14/2017 12:00 AM Decadron 8mg Injection, [facility] Medicare Rev iewed 01/14/2017 12:00 AM Depo-Medrol 80mg Injection, [facility] Medicare Reviewed 05/20/2017 12:00 AM [...] vaccine administratio n Reviewed 05/29/2018 12:00 AM [facility] MEDICARE - pneumonia vaccine adminis tration Reviewed 05/29/2018 12:00 AM INFLUENZA VACCINE SPLT PRSRV FREE INC AN TIGEN IM Reviewed 06/17/2018 12:00 AM METABOLIC PANEL TOTAL CA Returned 06/24/2018 12:00 AM Physical Therapy Consult Reviewed 07/29/2018 2:34 PM URINALYSIS AUTO W/O SCOPE Reviewed 07/29/2018 12:00 AM METABOLIC PANEL TOTAL CA Returned Results Summary Date and Description Results [...] Ql Strip neg WBC # Ur neg History Of Immunizations Name Date Admin Mfg Name Mfg Code Trade Name Lot# Route Inj Vis Given Vis Pub CVX Pneumococcal 06/24/2017 Peg-Amanda WAL PREVNAR 13 [id number] Intramuscular Left Deltoid 06/24/2017 05/28/2015 133 Influenza 06/24/2017 GlaxoSmithKline SKB Flulaval quadrivalent 4 HP3Y Intramuscular Right Deltoid 06/24/2017 03/03/2015 158 Pneumococcal 05/29/2018 Merck & Co., Inc. MSD PNEUMOVAX 23 [id number] In tramuscular Right Deltoid 05/29/2018 07/28/2018 33 Influenza 05/29/2018 sanofi pasteur PMC FLUZONE-HIGH DOSE [id number] Int ramuscular Left Deltoid 05/29/2018 07/28/2018 158 [...] Number Start Date Medicare RHC Medicare RHC [id number] N/ A [id number] N/ A Medicare Part A Medicare Part A [id number] N/A Medicare Part A Medicare - Lab/Xray [id number] N/A Medicare RHC Medicare RHC [id number] N/ A Medicare Part B Medicare Of [place] [id number] N/A History of Encounters Visit Date Visit [...] Venancio Ventura 02/19/2018 Office visit Rosalinda yanes SHIPFITTER 2018 Office visit Rosalinda yanes SHIPFITTER 01/27/2018 Procedures Matheus Ceron MD 01/22/2018 Office visit Rosalinda yanes SHIPFITTER 01/21/2018 Office visit Jessica MANDEL RN 11/04/2017 Office visit Matheus Ceron MD 10/07/2017 Office visit Jessica MANDEL RN 09/12/2017 Office visit Jessica MANDEL RN 08/29/2017 Office visit Jessica AMNDEL RN 08/19/2017 Hospital Dena Rhodes MD 08/19/2017 [...] visit Matheus Ceron MD 04/24/2016 Office visit eBn Haynesran APR N 10/03/2015 Office visit Matheus Ceron MD 02/21/2015 Office visit Matheus Ceron MD 02/09/2015 Hospital Matheus Ceron MD 01/10/2015 Office visit Matheus Ceron MD 11/28/2014 Hospital Dena Rhodes MD 07/30/2010 [facility] Dena Rhodes MD 05/28/2010 [facility] Dena Rhodes MD
--- OUTSIDE RECORDS SUMMARY | 2019-10-10 08:42 | XMS REPORT ---
Author Author Mathew Pearce [facility] Address [address] [place], [place] [id number] Care Team Providers Care Optician Manager Name Role Phone Jessica Pearce PCP [...] 12:00 AM Hip Complete Min 2Views - [place] 01/23/2017 12:0 0 AM THYROID PANEL. 06/09/2017 12:00 AM THYROID PANEL. 06/09/2017 12:00 AM THYROID PANEL. 06/09/2017 12:00 AM Thyroid antibody panel 06/09/2017 12:00 AM EKG. 10/07/2017 12:00 AM BMP 07/29/2018 12:00 AM Iron deficient anemia Medications Active Name Start Date Estimated Completion Date SIG Co mments Protonix 40 mg oral tablet,delayed release (DR/EC) 08/29/2017 take 1 tablet (40 mg) by oral route once daily for 30 days pantoprazole 40 mg oral tablet,delayed release (DR/EC) [...] 60 mg oral capsule,extended release 24 hr take 1 capsule (60 mg) by oral route once daily dicyclomine 10 mg oral capsule t nicki 1 capsule (10 mg) by oral route 3 times per day tramadol 100 mg oral tablet extended release 24 hr take 1 tablet (100 mg) by oral route BID Tylenol 325 mg oral tablet take 1 - 2 tablets (325 - 650 mg) by oral route every 4-6 hours as needed lisinopril 10 mg oral tablet 06/25/2018 TAKE ONE TAB LET BY MOUTH ONCE DAILY docusate sodium 100 mg oral capsule 07/29/2018 10/27/2018 take 1 capsule (100 mg) by oral route 2 times per day for 30 days Name Start Date Expiration Date SIG [...] tablet by mouth TID for 10 days amoxicillin 500 mg oral tablet 09/12/2017 [...] hours as needed for pain dose change Namzaric 7-10 mg oral capsule,sprinkle,ER 24hr take [...] HC BMI BSA BMI Percentile O2 Sat(%) 07/29/2018 1:37:00 PM 130 mmHg 72 mmHg [...] Reviewed 01/14/2017 12:00 AM Decadron 8mg Injection, [facility] Medicare Rev iewed 01/14/2017 12:00 AM Depo-Medrol 80mg Injection, [facility] Medicare Reviewed 05/20/2017 12:00 [...] vaccine administratio n Reviewed 05/29/2018 12:00 AM [facility] MEDICARE - pneumonia vaccine adminis tration Reviewed 05/29/2018 12:00 AM INFLUENZA VACCINE SPLT PRSRV FREE INC AN TIGEN IM Reviewed 06/17/2018 12:00 AM METABOLIC PANEL TOTAL CA Returned 06/24/2018 12:00 AM Physical Therapy Consult Reviewed 07/29/2018 2:34 PM URINALYSIS AUTO W/O SCOPE Reviewed Results [...] CVX Pneumococcal 06/24/2017 Monica WAL PREVNAR 13 [id number] Intramuscular Left Deltoid 06/24/2017 05/28/2015 133 Influenza 06/24/2017 GlaxoSmithcliniq.lyine SKB Flulaval quadrivalent 4 HP3Y Intramuscular Right Deltoid 06/24/2017 03/03/2015 158 Pneumococcal 05/29/2018 Merck & Co., Inc. MSD PNEUMOVAX 23 [id number] In tramuscular Right Deltoid 05/29/2018 07/28/2018 33 Influenza 05/29/2018 sanofi pasteur PMC FLUZONE-HIGH DOSE [id number] Int ramuscular Left Deltoid 05/29/2018 07/28/2018 158 [...] for vaccination Jun 24 2017 10:00AM Hypothyroid b 2017 10:02AM Anemia Aug 29 2017 10:02AM [...] Slow transit constipation Jul 29 2018 1:39PM Payers Insurance Name Company Name Plan Name Plan Number Policy Number Yung cy Group Number Start Date Medicare RHC Medicare RHC [id number] N/ [id number] N/ A Medicare Part A Medicare Part A [id number] N/A Medicare Part A Medicare - Lab/Xray [id number] N/A Medicare RHC Medicare RHC [id number] N/ A Medicare Part B Medicare Of [place] [id number] N/A History of Encounters Visit Date Visit Type Provider 07/29/2018 Office visit Jessica MANDEL RN 06/17/2018 Office visit Jessica MANDEL RN 06/11/2018 [facility] Frederick Ware MD 05/29/2018 Office visit Jessica MANDEL RN 05/14/2018 Office visit Jessica MANDEL RN 05/01/2018 Office visit Jessica MANDEL RN 04/11/2018 Office visit Jessica MANDEL RN 03/23/2018 Office visit Jessica MANDEL RN 03/03/2018 Office visit Venancio Ventura 02/19/2018 Office visit Rosalinda yanes APRN 2018 Office visit Rosalinda yanes APRN 01/27/2018 Procedures Matheus Ceron MD 01/22/2018 Office visit Rosalinda Rubin n DRY WALL FINISHER 01/21/2018 Office visit Jessica MANDEL RN 11/04/2017 Office visit Matheus Ceron MD 10/07/2017 Office visit Jessica Pearce AP RN 09/12/2017 Office visit Jessica Pearce AP RN 08/29/2017 Office visit Jessica Pearce AP RN 08/19/2017 Hospital Dena Rhodes MD 08/19/2017 [facility] Matheus Ceron MD 06/24/2017 Office [...]
--- OUTSIDE RECORDS SUMMARY | 2019-10-10 08:43 | XMS REPORT ---
Author Author Mathew Pearce [facility] Address [address] [place], [place] [address] Care Team Providers Care Leadership Development Instructor Name Role Phone Jessica Pearce PCP Jessica [...] 06/09/2017 12:00 AM EKG. 10/07/2017 12:00 AM Iron deficient anemia Medications Active Name Start Date Estimated Completion Date SIG Co mments Protonix 40 mg oral tablet,delayed release (DR/EC) 08/29/2017 take 1 tablet (40 mg) by oral route once daily for 30 days pantoprazole 40 mg oral tablet,delayed release (DR/EC) 03/11/2018 TAKE ONE TABLET BY MOUTH ONCE DAILY diclofenac sodium 1 % topical gel 03/23/2018 apply 4 gram to the affected area(s) by topical route 4 times per day Miralax 17 gram oral powder in packet [...] a meal Zofran 4 mg oral tablet 1 tablet PRN Q6H docusate sodium 100 mg oral capsule take 1 capsule (100 mg) by oral route 2 times per day venlafaxine 150 mg oral tablet extended release 24hr 06/17/2018 07/17/2018 take 1 tablet (150 mg) by oral route once daily in the morning at the same time each day with food for 30 days lisinopril 10 mg oral tablet 06/25/2018 TAKE ONE TAB LET BY MOUTH ONCE DAILY Name Start Date Expiration Date SIG [...] 2 times per day for 7 days Discontinued Name Start Date Discontinued Date [...] once daily changed medication in ER visit Namenda 10 mg oral tablet 04/28/2018 05/14/2018 [...] hours as needed for pain dose change Problem List Description Status Onset Hyperlipidemia Active Hypertension Active Hypothyroidism Active Irritable bowel syndrome Active Anxiety Active Depression Active Hypothyroid Active 06/25/2017 Cystocele, midline Active 02/01/2018 Lumbar spondylolysis Active 03/23/2018 Constipation Active 03/23/2018 Vital Signs Date Time BP-Sys(mm[Hg] BP-Blanquita(mm[Hg]) HR(bpm) RR(rpm) Temp WT HT HC BMI BSA BMI Percentile O2 Sat(%) 06/17/2018 12:00:00 PM 122 mmHg 78 mmHg [...] 98.6 F 121.375 lbs 60 i n 23.7042 kg/m 1.53 m2 97 % 02/19/2018 10:47:00 AM 110 mmHg 60 mmHg 84 bpm 98.1 F 120 lbs 60 in 23.44 kg/m2 1.518 m 2018 9:56:00 AM 115 mmHg 60 mmHg 88 bpm 98.1 F 117 lbs 60 in 22.85 kg/m2 1.50 m2 01/27/2018 3:54:00 PM 130 mmHg 76 mmHg 88 bpm 20 rpm 97.3 F 124 lbs 60 in 24.22 kg/m2 1.5431 m 01/22/2018 3:07:00 PM 130 mmHg 80 mmHg 90 bpm 98 F 122 lbs 60 in 23.8262 kg/m 1.53 m2 96 % 01/21/2018 1:57:00 PM 122 mmHg 78 mmHg 88 bpm 20 rpm 97.7 F 125 lbs 64 in 21.46 kg/m2 1.6001 m 98 % 11/04/2017 3:00:00 PM 140 mmHg 90 mmHg 103 bpm 20 rpm 98.7 F 124 lbs 64 in 21.2843 kg/m 1.59 m2 93 % 10/07/2017 2:54:00 PM 142 mmHg 86 mmHg 102 bpm 22 rpm 97.8 F 121 lbs 64 in 20.77 kg/m2 1.5743 m 99 % 09/12/2017 2:48:00 PM 142 mmHg 90 mmHg 90 bpm 20 rpm 98.1 F 125 lbs 64 in 21.456 kg/m 1.60 m2 99 % 08/29/2017 9:59:00 AM 114 mmHg 78 mmHg 84 bpm 22 rpm 98.4 F 126 lbs 64 in 21.63 kg/m2 1.6065 m 98 % 06/24/2017 9:57:00 AM 120 mmHg 70 mmHg 80 bpm 18 rpm 98.1 F 122 lbs 64 in 20.941 kg/m 1.58 m2 98 % 06/10/2017 5:02:00 PM 132 mmHg 76 mmHg 88 bpm 22 rpm 98.1 F 122.25 lbs 64 in 20.98 kg/m2 1.5824 m 95 % 05/20/2017 11:40:00 AM 132 mmHg 80 mmHg 90 bpm 20 rpm 97.8 F 127 lbs 61 in 23.9962 kg/m 1.57 m2 98 % 02/18/2017 11:36:00 AM 126 mmHg 80 mmHg 68 bpm 20 rpm 98.1 F 127 lbs 64 in 21.80 kg/m2 1.6128 m 94 % 01/24/2017 5:37:00 PM 138 mmHg 86 mmHg 90 bpm 20 rpm 98.6 F 124.25 lbs 64 i n 21.3272 kg/m 1.60 m2 96 % 01/14/2017 10:58:00 AM 132 mmHg 80 mmHg 86 bpm 18 rpm 98.5 F 128.25 lbs 64 in 22.01 kg/m2 1.6208 m 96 % 10/31/2016 10:04:00 AM 118 mmHg 74 mmHg 74 bpm 17 rpm 97.6 F 123 lbs 64 in 21.1127 kg/m 1.59 m2 99 % 10/24/2016 5:17:00 PM 122 mmHg 84 mmHg 104 bpm 20 rpm 98.4 F 122 lbs 64 in 20.94 kg/m2 1.5808 m 96 % 09/11/2016 12:13:00 PM 160 mmHg 98 mmHg 86 bpm 20 rpm 118 lbs 64 in 20.2544 kg/m 1.55 m2 08/07/2016 12:56:00 PM 130 mmHg 78 mmHg 88 bpm 24 rpm 115 lbs 64 in 19.74 kg/m2 1.5348 m 04/24/2016 6:21:00 PM 112 mmHg 70 mmHg 96 bpm 98.1 F 119 lbs 64 in 20.4261 kg/m 1.56 m2 98 % 01/11/2015 8:08:00 AM 122 mmHg 76 mmHg 75 bpm 20 rpm 99.2 F 122 lbs 64 in 20.94 kg/m2 1.5808 m 96 % Social History Name [...] vaccine administratio n Reviewed 05/29/2018 12:00 AM [facility] MEDICARE - pneumonia vaccine adminis [...] neg History Of Immunizations Name Date Admin [facility] Name Mf Code Trade Name Lot# Route Inj Vis Given Vis Pub CVX Pneumococcal 06/24/2017 Peg-Amanda WAL PREVNAR 13 [id number] Intramuscular Left Deltoid 06/24/2017 05/28/2015 133 Influenza 06/24/2017 GlaxoSmithKline SKB Flulaval quadrivalent 4 [id number] Intramuscular Right Deltoid 06/24/2017 03/03/2015 158 Pneumococcal 05/29/2018 Merck & Co., Inc. MSD PNEUMOVAX 23 [id number] In tramuscular Right Deltoid 05/29/2018 07/28/2017 33 Influenza 05/29/2018 sanofi pasteur PMC FLUZONE-HIGH DOSE [id number] Int ramuscular Left Deltoid 05/29/2018 07/28/2017 158 History of Past Illness Name Date [...] 2018 12:05PM Weakness Jun 17 2018 12:05PM Payers Insurance Name Company Name Plan Name Plan Number Policy Number Yung cy Group Number Start Date Medicare RHC Medicare [facility] [id number] N/ [id number] N/ A Medicare Part A Medicare Part A [id number] N/A Medicare Part A Medicare - Lab/Xray [id number] N/A Medicare RHC Medicare RHC [id number] N/ A Medicare Part B Medicare Of [place] [id number] N/A History of Encounters Visit Date Visit Type Provider 06/17/2018 Office visit Jessica MANDEL RN 06/11/2018 [facility] MD 05/29/2018 Office visit Jessica MANDEL RN 05/14/2018 Office visit Jessica MANDEL RN 05/01/2018 Office visit Jessica MANDEL RN 04/11/2018 Office visit Jessica MANDEL RN 03/23/2018 Office visit Jessica MANDEL RN 03/03/2018 Office visit Venancio Ventura 02/19/2018 Office visit Rosalinda yanes CAREER SERVICES OFFICER 2018 Office visit Rosalinda yanes CAREER SERVICES OFFICER 01/27/2018 Procedures Matheus Ceron MD 01/22/2018 Office visit Rosalinda yanes CAREER SERVICES OFFICER 01/21/2018 Office visit Jessica MANDEL RN 11/04/2017 Office visit Matheus Ceron MD 10/07/2017 Office visit Jessica MANDEL RN 09/12/2017 Office visit Jessica MANDEL RN 08/29/2017 Office visit Jessica MANDEL RN 08/19/2017 [facility] Dena Rhodes MD 08/19/2017 [facility] Matheus Ceron MD 06/24/2017 Office visit [...] 02/21/2015 Office visit Matheus Ceron MD 02/09/2015 [facility] Ceron MD 01/10/2015 Office visit Matheus Ceron MD 11/28/2014 [facility] 07/30/2010 [facility] 05/28/2010 [facility] D[facility]
--- OUTSIDE RECORDS SUMMARY | 2019-10-10 08:43 | XMS REPORT ---
Author Author Mathew Pearce [facility] Address [address] [place], [place] [address] Care Team Providers Care Privacy Director Name Role Phone Jessica Pearce PCP Jessica [...] 12:00 AM Hip Complete Min 2Views - [place] 01/23/2017 12:0 0 AM THYROID PANEL. 06/09/2017 [...] 23 JESUS IM Reviewed 05/29/2018 12:00 AM [facility] MEDICARE - flu vaccine administratio n Reviewed 05/29/2018 12:00 AM [facility] MEDICARE - pneumonia vaccine adminis tration [...] neg History Of Immunizations Name Date Admin Mf Name Mf Code Trade Name Lot# Route Inj Vis Given Vis Pub CVX Pneumococcal 06/24/2017 Zsyjc-Cowkmg-Nlkymvs-Amanda WAL PREVNAR 13 [id number] Intramuscular Left Deltoid 06/24/2017 05/28/2015 133 Influenza 06/24/2017 GlaxoSmithKline SKB Flulaval quadrivalent 4 HP3Y Intramuscular Right Deltoid 06/24/2017 03/03/2015 158 Pneumococcal 05/29/2018 Merck & Co., Inc. MSD PNEUMOVAX 23 [id number] In tramuscular Right Deltoid 05/29/2018 07/28/2017 33 Influenza 05/29/2018 sanofi pasteur PMC FLUZONE-HIGH DOSE [id number] Int ramuscular Left Deltoid 05/29/2018 07/28/2017 158 [...] Group Number Start Date Medicare RHC Medicare [facility] [id number] N/ [id number] N/ A Medicare Part A Medicare Part A [id number] N/A Medicare Part A Medicare - Lab/Xray [id number] N/A Medicare RHC Medicare RHC [id number] N/ A Medicare Part B Medicare Of [place] [id number] N/A History of Encounters Visit Date Visit Type Provider 06/17/2018 Office visit Jessica MANDEL RN 06/11/2018 [facility] Frederick Ware MD 05/29/2018 Office visit Jessica MANDEL RN 05/14/2018 Office visit Jessica MANDEL RN 05/01/2018 Office visit Jessica MANDEL RN 04/11/2018 Office visit Jessica MANDEL RN 03/23/2018 Office visit Jessica MANDEL RN 03/03/2018 Office visit Venancio Ventura 02/19/2018 Office visit Rosalinda yanes JUNIOR ANALYST 2018 Office visit Rosalinda yanes JUNIOR ANALYST 01/27/2018 Procedures Matheus Ceron MD 01/22/2018 Office visit Rosalinda yanes JUNIOR ANALYST 01/21/2018 Office visit Jessica MANDEL RN 11/04/2017 Office visit Matheus Ceron MD 10/07/2017 Office visit Jessica MANDEL RN 09/12/2017 Office visit Jessica MANDEL RN 08/29/2017 Office visit Jessica MANDEL RN 08/19/2017 Hospital Dena Rhodes MD 08/19/2017 [facility] Matheus Ceron MD 06/24/2017 Office visit [...] 02/21/2015 Office visit Matheus Ceron MD 02/09/2015 [facility] Matheus Ceron MD 01/10/2015 Office visit Matheus Ceron MD 11/28/2014 Hospital Dena Rhodes MD 07/30/2010 [facility] Dena Rhodes MD 05/28/2010 [facility] Dena Rhodes MD
--- OUTSIDE RECORDS SUMMARY | 2019-10-10 08:43 | XMS REPORT ---
Author Author Mathew Pearce [facility] Address [address] [place], [place] [id number] Care Team Providers Care Coat Hanger Shaper Machine Operator Name Role Phone Jessica Pearce PCP Jessica [...] Date Estimated Completion Date SIG Co mments lisinopril 10 mg oral tablet 08/29/2017 mary ellen e 1 tablet (10 mg) by oral route once daily for 30 days Protonix 40 mg oral tablet,delayed release (DR/EC) 08/29/2017 take 1 tablet (40 mg) by oral route once daily for 30 days pantoprazole 40 mg oral tablet,delayed release (DR/EC) 03/11/2018 TAKE ONE TABLET BY MOUTH ONCE DAILY Dulcolax (bisacodyl) 5 mg oral tablet,delayed release (DR/EC) take 1 tablet (5 mg) by oral route once daily diclofenac sodium 1 % topical gel 03/23/2018 apply 4 gram to the affected area(s) by topical route 4 times per day Miralax 17 gram oral powder in packet 03/23/2018 take 1 packet (17 gram) mixed with 8 oz. water, juice, soda, coffee or tea by oral route once daily venlafaxine 150 mg oral tablet extended release 24hr 04/28/2018 01/23/2019 take 1 tablet (150 mg) by oral route once daily in the morning at the same time each day with food for 90 days dicyclomine 10 mg oral capsule 04/28/2018 10/25/2018 t nicki 1 capsule (10 mg) by oral route 4 times per day for 30 days cyanocobalamin (vitamin B-12) 1,000 mcg/mL injection solution inject 1 milliliter (1,000 mcg) by subcutaneous route once a month propranolol 60 mg oral capsule,extended release 24 hr take 1 capsule (60 mg) by oral route once daily memantine 10 mg oral tablet take 1 tablet (10 mg) by oral route 2 times per day tramadol 50 mg oral tablet 06/06/2018 09/04/2018 take 1 tab every 8-12 hours as needed for pain Name Start Date Expiration Date SIG Comments [...] tablets,dose pack 01/21/2018 02/06/2018 take as directed Namenda 10 mg oral tablet 04/28/2018 05/14/2018 take 1 tablet by oral route daily for 90 days Prescribed a different dose from neurolo gist Takes medication for shaking 05/14/2018 does not rem ember the name of it Problem List Description Status Onset Hyperlipidemia Active Hypertension Active Hypothyroidism Active Irritable bowel syndrome Active Anxiety Active Depression Active Hypothyroid Active 06/25/2017 Cystocele, midline Active 02/01/2018 Lumbar spondylolysis Active 03/23/2018 Constipation Active 03/23/2018 Vital Signs Date Time BP-Sys(mm[Hg] BP-Blanquita(mm[Hg]) HR(bpm) RR(rpm) Temp WT HT HC BMI BSA BMI Percentile O2 Sat(%) 05/29/2018 9:45:00 AM 144 mmHg 76 mmHg [...] PRSRV FREE INC AN TIGEN IM Reviewed Results Summary Date and Description Results [...] CVX Pneumococcal 06/24/2017 Monica WAL PREVNAR 13 [id number] Intramuscular Left Deltoid 06/24/2017 05/28/2015 133 Influenza 06/24/2017 GlaxAmicrobe SKB Flulaval quadrivalent 4 HP3Y Intramuscular Right Deltoid 06/24/2017 03/03/2015 158 Pneumococcal 05/29/2018 Merck & Co., Inc. MSD PNEUMOVAX 23 [id number] In tramuscular Right Deltoid 05/29/2018 07/28/2018 33 Influenza 05/29/2018 sanofi pasteur PMC FLUZONE-HIGH DOSE [id number] Int ramuscular Left Deltoid 05/29/2018 07/28/2018 158 [...] 11:46AM Sinus infection May 29 2018 9:50AM Payers Insurance Name Company Name Plan Name Plan Number Policy Number Yung cy Group Number Start Date Medicare RHC Medicare RHC [id number] N/ [id number] N/ A Medicare Part A Medicare Part A [id number] N/A Medicare Part A Medicare - Lab/Xray [id number] N/A Medicare RHC Medicare RHC [id number] N/ A Medicare Part B Medicare Of [place] [id number] N/A History of Encounters Visit Date Visit Type Provider 05/29/2018 Office visit Jessica MANDEL RN 05/14/2018 Office visit Jessica MANDEL RN 05/01/2018 Office visit Jesscia MANDEL RN 04/11/2018 Office visit Jessica MANDEL RN 03/23/2018 Office visit Jessica MANDEL RN 03/03/2018 Office visit Venancio Ventura 02/19/2018 Office visit Rosalinda yanes CINDER CRUSHER OPERATOR 2018 Office visit Rosalinda yanes CINDER CRUSHER OPERATOR 01/27/2018 Procedures Matheus Ceron MD 01/22/2018 Office visit Rosalinda yanes CINDER CRUSHER OPERATOR 01/21/2018 Office visit Jessica MANDEL RN [...] 02/21/2015 Office visit Matheus Ceron MD 02/09/2015 [facility] Matheus Ceron MD 01/10/2015 Office visit Matheus Ceron MD 11/28/2014 Hospital Dena Rhodes MD 07/30/2010 Hospital Dena Rhodes MD 05/28/2010 Hospital Dena Rhodes MD
--- OUTSIDE RECORDS SUMMARY | 2019-10-10 08:44 | XMS REPORT ---
Author Author Mathew Pearce [facility] Address [address] [place], [place] [address] Care Team Providers Care Hand Washer Name Role Phone Jessica Pearce PCP Jessica [...] 4 times per day for 30 days tramadol 50 mg oral tablet 04/28/2018 07/27/2018 take 1 tab every 8-12 hours as needed for pain cyanocobalamin (vitamin B-12) 1,000 mcg/mL injection solution inject 1 milliliter (1,000 mcg) by subcutaneous route once a month propranolol 60 mg oral capsule,extended release 24 hr take 1 capsule (60 mg) by oral route once daily memantine 10 mg oral tablet take 1 tablet (10 mg) by oral route 2 times per day ciprofloxacin HCl 500 mg oral tablet 05/29/2018 06/05/2018 take 1 tablet (500 mg) by oral route 2 times per day for 7 days Name Start Date Expiration [...] tabs by mouth BID for 10 days Discontinued Name Start Date [...] CVX Pneumococcal 06/24/2017 Monica WAL PREVNAR 13 [id number] Intramuscular Left Deltoid 06/24/2017 05/28/2015 133 Influenza 06/24/2017 GlaxI Do Venues SKB Flulaval quadrivalent 4 HP3Y Intramuscular Right Deltoid 06/24/2017 03/03/2015 158 Pneumococcal 05/29/2018 Merck & Co., Inc. MSD PNEUMOVAX 23 [id number] In tramuscular Right Deltoid 05/29/2018 07/28/2018 33 Influenza 05/29/2018 sanofi pasteur PMC FLUZONE-HIGH DOSE [id number] Int ramuscular Left Deltoid 05/29/2018 07/28/2018 158 [...] 11:46AM Pneumonia vaccine May 29 2018 11:46AM Payers Insurance Name Company Name Plan Name Plan Number Policy Number Yung cy Group Number Start Date Medicare RHC Medicare RHC [id number] N/ [id number] N/ A Medicare Part A Medicare Part A [id number] N/A Medicare Part A Medicare - Lab/Xray [id number] N/A Medicare RHC Medicare RHC [id number] N/ A Medicare Part B Medicare Of [place] [id number] N/A History of Encounters Visit Date Visit Type Provider 05/29/2018 Office visit Jessica MANDEL RN 05/14/2018 Office visit Jessica MANDEL RN 05/01/2018 Office visit Jessica MANDEL RN 04/11/2018 Office visit Jessica MANDEL RN 03/23/2018 Office visit Jessica MANDEL RN 03/03/2018 Office visit Venancio Ventura 02/19/2018 Office visit Rosalinda yanes VOCATIONAL REHABILITATION TECHNICIAN 2018 Office visit Rosalinda yanes VOCATIONAL REHABILITATION TECHNICIAN 01/27/2018 Procedures Matheus Ceron MD 01/22/2018 Office visit Rosalinda yanes VOCATIONAL REHABILITATION TECHNICIAN 01/21/2018 Office visit Jessica MANDEL RN 11/04/2017 [...] 02/21/2015 Office visit Matheus Ceron MD 02/09/2015 [facility] Matheus Ceron MD 01/10/2015 Office visit Matheus Ceron MD 11/28/2014 Hospital Dena Rhodes MD 07/30/2010 Hospital Dena Rhodes MD 05/28/2010 Hospital Dena Rhodes MD
--- OUTSIDE RECORDS SUMMARY | 2019-10-10 08:44 | XMS REPORT ---
Author Author Mathew Pearce [facility] Address [address] [place], [place] [address] Care Team Providers Care Clam Shovel Operator Name Role Phone Jessica Pearce PCP [...] 12:00 AM Hip Complete Min 2Views - [place] 01/23/2017 12:0 0 AM THYROID PANEL. 06/09/2017 12:00 AM THYROID PANEL. 06/09/2017 12:00 AM THYROID PANEL. 06/09/2017 12:00 AM Thyroid antibody panel 06/09/2017 12:00 AM EKG. 10/07/2017 12:00 AM PNEUMOVAX 23 05/29/2018 12:00 AM High-Dose Flu vaccine 65 yrs & older, Qu adrivalent, Preservative-free - RHC Medicare 05/29/2018 12:00 AM Iron deficient anemia Medications Active [...] Reviewed 01/14/2017 12:00 AM Decadron 8mg Injection, [facility] Medicare Rev iewed 01/14/2017 12:00 AM Depo-Medrol 80mg Injection, [facility] Medicare Reviewed 05/20/2017 12:00 AM COMPLETE [...] ASSAY OF FERRITIN Returned 05/29/2018 12:00 AM [facility] MEDICARE - flu vaccine administratio n Reviewed 05/29/2018 12:00 AM [facility] MEDICARE - pneumonia vaccine adminis tration Reviewed Results Summary Date and Description Results [...] CVX Pneumococcal 06/24/2017 Monica WAL PREVNAR 13 [id number] Intramuscular Left Deltoid 06/24/2017 05/28/2015 133 Influenza 06/24/2017 GlaxoSmithKline SKB Flulaval quadrivalent 4 HP3Y Intramuscular Right Deltoid 06/24/2017 03/03/2015 158 History of Past Illness Name Date [...] Number Start Date Medicare RHC Medicare RHC [id number] N/ [id number] N/ A Medicare Part A Medicare Part A [id number] N/A Medicare Part A Medicare - Lab/Xray [id number] N/A Medicare RHC Medicare RHC [id number] N/ A Medicare Part B Medicare Of [place] [id number] N/A History of Encounters Visit Date Visit Type Provider 05/29/2018 Office visit Jessica MANDEL RN 05/14/2018 Office visit Jessica MANDEL RN 05/01/2018 Office visit Jessica MANDEL RN 04/11/2018 Office visit Jessica MANDEL RN 03/23/2018 Office visit Jessica MANDEL RN 03/03/2018 Office visit Venancio Ventura 02/19/2018 Office visit Rosalinda yaens MANUSCRIPTS CURATOR 2018 Office visit Rosalinda yanes MANUSCRIPTS CURATOR 01/27/2018 Procedures Matheus Ceron MD 01/22/2018 Office visit Rosalinda yanes MANUSCRIPTS CURATOR 01/21/2018 Office visit Jessica MANDEL RN 11/04/2017 Office visit Matheus Ceron MD 10/07/2017 Office visit Jessica MANDEL RN 09/12/2017 Office visit Jessica MANDEL RN 08/29/2017 Office visit Jessica MANDEL RN 08/19/2017 [facility] Dena Rhodes MD 08/19/2017 [facility] Matheus Ceron MD 06/24/2017 Office visit Jessica MANDEL RN 06/10/2017 Office visit Jessica MANDEL RN 05/20/2017 Office visit Jessica MANDEL RN 02/18/2017 Office visit Jessica MANDEL RN 01/24/2017 Office visit Jessica MANDEL RN 01/14/2017 Office visit Jessica MANDEL RN 10/31/2016 Office visit Jessica MANDEL RN 10/24/2016 Office visit Jessica MANDEL RN 09/10/2016 Office visit Matheus eCron MD 08/06/2016 Office visit Matheus Ceron MD 04/24/2016 Office visit Ben Almanza APR N 10/03/2015 Office visit Matheus Ceron MD 02/21/2015 Office visit Matheus Ceron MD 02/09/2015 Hospital Matheus Ceron MD 01/10/2015 Office visit Matheus Ceron MD 11/28/2014 Hospital Dena Rhodes MD 07/30/2010 Hospital Dena Rhodes MD 05/28/2010 Hospital Dena Rhodes MD
--- OUTSIDE RECORDS SUMMARY | 2019-10-10 08:44 | XMS REPORT ---
Author Author Mathew Pearce [facility] Address [address] [place], [place] [address] Care Team Providers Care Tankman Name Role Phone Jessica Pearce PCP Jessica [...] mcg) by subcutaneous route once a month amoxicillin 500 mg oral tablet 05/14/2018 T nicki 2 tabs by mouth BID for 10 days propranolol 60 mg oral capsule,extended release [...] HC BMI BSA BMI Percentile O2 Sat(%) 05/14/2018 11:32:00 AM 130 mmHg 68 mmHg 66 bpm 20 rpm 97.9 F 122.5 lbs 60 in 23.9239 kg/m 1.5337 m 98 % 05/01/2018 11:35:00 AM 124 mmHg 60 mmHg 79 bpm 18 rpm 98.1 F 120.375 lbs 60 in 23.51 kg/m2 1.52 m2 96 % 04/11/2018 11:07:00 AM 122 mmHg 78 mmHg 78 bpm 20 rpm 97.5 F 125 lbs 60 in 24.41 kg/m2 1.5493 m 98 % 03/23/2018 9:50:00 AM 116 mmHg [...] 03/23/2018 12:00 AM ASSAY OF FERRITIN Returned Results Summary Date and Description Results [...] CVX Pneumococcal 06/24/2017 Monica WAL PREVNAR 13 [id number] Intramuscular Left Deltoid 06/24/2017 05/28/2015 133 Influenza [...] 2018 11:39AM Depression May 01 2018 11:39AM Payers Insurance Name Company Name Plan Name Plan Number Policy Number Yung cy Group Number Start Date Medicare [facility] Medicare [facility] [id number] N/ A BCBS [facility] [id number] N/ A Medicare Part A Medicare Part A [id number] N/A Medicare Part A Medicare - Lab/Xray [id number] N/A Medicare RHC Medicare RHC [id number] N/ A Medicare Part B Medicare Of [place] [id number] N/A History of Encounters Visit Date Visit Type Provider 05/14/2018 Office visit Jessica MANDEL RN 05/01/2018 Office visit Jessica MANDEL RN 04/11/2018 Office visit Jessica MANDEL RN 03/23/2018 Office visit Jessica MANDEL RN 03/03/2018 Office visit Venancio Ventura 02/19/2018 Office visit Rosalinda Rubin n HAT BINDER 2018 Office visit Rosalinda yanes HAT BINDER 01/27/2018 Procedures Matheus Ceron MD 01/22/2018 Office visit Rosalinda yanes HAT BINDER 01/21/2018 Office visit Jessica MANDEL RN 11/04/2017 Office visit Matheus Ceron MD 10/07/2017 Office visit Jessica MANDEL RN 09/12/2017 Office visit Jessica MANDEL RN 08/29/2017 Office visit Jessica MANDLE RN 08/19/2017 Hospital Dena Rhodes MD 08/19/2017 Hospital Matheus Ceron MD 06/24/2017 Office visit Jessica MANDEL RN 06/10/2017 Office visit Jessica MANDEL RN 05/20/2017 Office visit Jessica Pearce AP RN 02/18/2017 Office visit Jessica MANDEL RN 01/24/2017 Office visit Jessica MANDEL RN 01/14/2017 Office visit Jessica Pearce AP RN 10/31/2016 Office visit Jessica MANDEL RN 10/24/2016 Office visit Jessica MANDEL RN 09/10/2016 Office visit Matheus Ceron MD 08/06/2016 Office visit Matheus Ceron MD 04/24/2016 Office visit Ben Almanza APR N 10/03/2015 Office visit Matheus Ceron MD 02/21/2015 Office visit Mtaheus Ceron MD 02/09/2015 Hospital Matheus Ceron MD 01/10/2015 Office visit Matheus Ceron MD 11/28/2014 Hospital Dena Rhodes MD 07/30/2010 Hospital Dena Rhodes MD 05/28/2010 Hospital Dena Rhodes MD
--- OUTSIDE RECORDS SUMMARY | 2019-10-10 08:45 | XMS REPORT ---
Author Author Mathew Pearce [facility] Address [address] [place], [place] [id number] Care Team Providers Care Floor Mechanic Name Role Phone Jessica Pearce PCP Jessica Pearce PreferredProvider Allergies and Adverse Reactions Name Reaction Notes Latex Reglan SULFA (SULFONAMIDES) Plan of Treatment Planned Activity Comments Planned Date Planned Time Plan/Goal [facility] Crohn's Prognostic test 08/06/2016 12:00 AM [facility] Cro[facility] Prognostic test 08/06/2016 12:00 AM [facility] Prognostic test 08/06/2016 12:00 AM [facility] Prognostic test 08/06/2016 12:00 AM Clostridium difficile 10/24/2016 12:00 AM Hip Complete Min 2Views - [place] 01/23/2017 12:0 0 AM THYROID PANEL. 06/09/2017 12:00 AM THYROID PANEL. 06/09/2017 12:00 AM THYROID PANEL. 06/09/2017 12:00 AM Thyroid antibody panel 06/09/2017 12:00 AM EKG. 10/07/2017 12:00 AM Iron deficient anemia Medications Active Name Start Date Estimated Completion Date SIG Co mments Bentyl 10 mg oral capsule 05/05/2017 take 1 capsule by oral route 4 times a day for 30 days clonazepam 0.5 mg oral tablet ta ke 1/2 tablet (0.5 mg) by oral route 4 times per day prn Namenda 10 mg oral tablet take 1 tablet b y oral route daily venlafaxine 150 mg oral tablet extended release 24hr take 1 tablet (150 mg) by oral route once daily in the morning at the same time each day with food lisinopril 10 mg oral tablet 08/29/2017 mary ellen e 1 tablet (10 mg) by oral route once daily for 30 days Protonix 40 mg oral tablet,delayed release (DR/EC) 08/29/2017 take 1 tablet (40 mg) by oral route once daily for 30 days tramadol 50 mg oral tablet 02/07/2018 take 1 tablet by oral route 3 times a day as needed pantoprazole 40 mg oral tablet,delayed release (DR/EC) [...] or tea by oral route once daily Name Start Date Expiration Date SIG Comments Westhroid 130 mg oral tablet mary ellen e 1 tablet (130 mg) by oral route once daily before breakfast temazepam 15 mg oral capsule 02/18/2017 04/19/2017 mary ellen e 1 capsule (15 mg) by oral route once daily at bedtime as needed penicillin V potassium 500 mg oral tablet [...] tablets,dose pack 01/21/2018 02/06/2018 take as directed Problem List Description Status Onset Hyperlipidemia Active Hypertension Active Hypothyroidism Active Irritable bowel syndrome Active Anxiety Active Depression Active Hypothyroid Active 06/25/2017 Cystocele, midline Active 02/01/2018 Lumbar spondylolysis Active 03/23/2018 Constipation Active 03/23/2018 Vital Signs Date Time BP-Sys(mm[Hg] BP-Blanquita(mm[Hg]) HR(bpm) RR(rpm) Temp WT HT HC BMI BSA BMI Percentile O2 Sat(%) 03/23/2018 9:50:00 AM 116 mmHg 70 mmHg [...] CVX Pneumococcal 06/24/2017 Monica [facility] 13 [id number] Intramuscular Left Deltoid 06/24/2017 05/28/2015 133 Influenza [...] Dental infection Sep 12 2017 2:50PM Depression b 2017 2:50PM Fatigue Oct 07 2017 2:58PM [...] 2018 9:53AM Constipation Mar 23 2018 9:53AM Payers Insurance Name Company Name Plan Name Plan Number Policy Number Yung cy Group Number Start Date Medicare RH Medicare RHC [id number] N/ A BCBS Bcbs [facility] [id number] N/ A Medicare Part A Medicare Part A [id number] N/A Medicare Part A Medicare - Lab/Xray [id number] N/A Medicare RHC Medicare RHC [id number] N/ A Medicare Part B Medicare Of [place] [id number] N/A History of Encounters Visit Date Visit Type Provider 03/23/2018 Office visit Jessica MANDEL RN 03/03/2018 Office visit Venancio Ventura 02/19/2018 Office visit Rosalinda yanes APRN 2018 Office visit Rosalinda yanes APRN 01/27/2018 Procedures Matheus Ceron MD 01/22/2018 Office visit Rosalinda yanes HOME MISSION WORKER 01/21/2018 Office visit Jessica MANDEL RN 11/04/2017 Office visit Matheus Ceron MD 10/07/2017 Office visit Jessica MANDEL RN 09/12/2017 Office visit Jessica MANDEL RN 08/29/2017 Office visit Jessica MANDEL RN 08/19/2017 [facility] Dena Rhoeds MD 08/19/2017 [facility] Matheus Ceron MD 06/24/2017 Office visit [...] 02/21/2015 Office visit Matheus Ceron MD 02/09/2015 [facility] Matheus Ceron MD 01/10/2015 Office visit Matheus Ceron MD 11/28/2014 [facility] Dena Rhodes MD 07/30/2010 [facility] Dena Rhodes MD 05/28/2010 [facility] Dena Rhodes MD
--- OUTSIDE RECORDS SUMMARY | 2019-10-10 08:45 | XMS REPORT ---
Author Author Mathew Pearce [facility] Address [address] [place], [place] [address] Care Team Providers Care Maintenance Shop Manager Name Role Phone Jessica Pearce PCP Jessica Pearce PreferredProvider Allergies and Adverse Reactions Name Reaction Notes Latex Reglan SULFA (SULFONAMIDES) Plan of Treatment Planned Activity Comments Planned Date Planned Time Plan/Goal Transfer care [facility] Cro[facility] Prognostic test 08/06/2016 12:00 AM [facility] Prognostic test 08/06/2016 12:00 AM [facility] Prognostic test 08/06/2016 12:00 AM [facility] Cro[facility] Prognostic test 08/06/2016 12:00 AM Clostridium difficile 10/24/2016 12:00 AM Hip Complete Min 2Views - [place] 01/23/2017 12:0 0 AM THYROID PANEL. 06/09/2017 [...] tea by oral route once daily tramadol 50 mg oral tablet 03/26/2018 take 1 tablet by oral route 3 times a day as needed Name Start Date Expiration Date SIG Comments [...] HC BMI BSA BMI Percentile O2 Sat(%) 04/11/2018 11:07:00 AM 122 mmHg 78 mmHg 78 bpm 20 rpm 97.5 F 125 lbs 60 in 24.4121 kg/m 1.5493 m 98 % 03/23/2018 9:50:00 AM 116 mmHg 70 mmHg 78 bpm 20 rpm 96.9 F 120 lbs 60 in 23.44 kg/m2 1.52 m2 94 % 03/03/2018 1:57:00 PM 114 mmHg 66 mmHg 85 bpm 18 rpm 98.6 F 121.375 lbs 60 i n 23.7042 kg/m 1.5267 m 97 % 02/19/2018 10:47:00 AM 110 mmHg 60 mmHg 84 bpm 98.1 F 120 lbs 60 in 23.44 kg/m2 1.52 m2 2018 9:56:00 AM 115 mmHg 60 mmHg 88 bpm 98.1 F 117 lbs 60 in 22.8498 kg/m 1.4989 m 01/27/2018 3:54:00 PM 130 mmHg 76 mmHg 88 bpm 20 rpm 97.3 F 124 lbs 60 in 24.22 kg/m2 1.54 m2 01/22/2018 3:07:00 PM 130 mmHg 80 mmHg 90 bpm 98 F 122 lbs 60 in 23.8262 kg/m 1.5306 m 96 % 01/21/2018 1:57:00 PM 122 mmHg 78 mmHg 88 bpm 20 rpm 97.7 F 125 lbs 64 in 21.46 kg/m2 1.60 m2 98 % 11/04/2017 3:00:00 PM 140 mmHg [...] CVX Pneumococcal 06/24/2017 Monica [facility]AR 13 [id number] Intramuscular Left Deltoid 06/24/2017 05/28/2015 133 Influenza [...] 2018 11:10AM Depression Apr 11 2018 11:10AM Payers Insurance Name Company Name Plan Name Plan Number Policy Number Yung cy Group Number Start Date Medicare RHC Medicare RHC [id number] N/ A [id number] N/ A Medicare Part A Medicare Part A [id number] N/A Medicare Part A Medicare - Lab/Xray [id number] N/A Medicare RHC Medicare RHC [id number] N/ A Medicare Part B Medicare Of [place] [id number] N/A History of Encounters Visit Date Visit Type Provider 04/11/2018 Office visit Jessica MANDEL RN 03/23/2018 Office visit Jessica MANDEL RN 03/03/2018 Office visit Venancio Ventura 02/19/2018 Office visit Rosalinda yanes ELEMENTARY SCHOOL DIRECTOR 2018 Office visit Rosalinda yanes ELEMENTARY SCHOOL DIRECTOR 01/27/2018 Procedures Matheus Ceron MD 01/22/2018 Office visit Rosalinda yanes ELEMENTARY SCHOOL DIRECTOR 01/21/2018 Office visit Jessica MANDEL RN 11/04/2017 [...] Matheus Ceron MD 04/24/2016 Office visit Ben Haynesran APR N 10/03/2015 Office visit Matheus Ceron MD 02/21/2015 Office visit Matheus Ceron MD 02/09/2015 Hospital Matheus Ceron MD 01/10/2015 Office visit Matheus Ceron MD 11/28/2014 Hospital Dena Rhodes MD 07/30/2010 Hospital Dena Rhodes MD 05/28/2010 Hospital Dena Rhodes MD
--- OUTSIDE RECORDS SUMMARY | 2019-10-10 08:45 | XMS REPORT ---
Author Author Mathew Pearce [facility] Address [address] [place], [place] [address] Care Team Providers Care Press Room Supervisor Name Role Phone Jessica Pearce PCP Jessica [...] CVX Pneumococcal 06/24/2017 Monica [facility] PREV[facility]AR 13 [id number] Intramuscular Left Deltoid 06/24/2017 05/28/2015 133 Influenza [...] sinusitis, recurrence not specified May 14 11:38AM Payers Insurance Name Company Name Plan Name Plan Number Policy Number Yung cy Group Number Start Date Medicare RHC Medicare RHC [id number] N/ A [facility] [id number] N/ A Medicare Part A Medicare Part A [id number] N/A Medicare Part A Medicare - Lab/Xray [id number] N/A Medicare RHC Medicare RHC [id number] N/ A Medicare Part B Medicare Of [place] [id number] N/A History of Encounters Visit Date Visit Type Provider 05/14/2018 Office visit Jessica MANDEL RN 05/01/2018 Office visit Jessica MANDEL RN 04/11/2018 Office visit Jessica MANDEL RN 03/23/2018 Office visit Jessica Pearce AP RN 03/03/2018 Office visit Venancio Ventura 02/19/2018 Office visit Rosalinda Rubin n PELLET MACHINE OPERATOR 2018 Office visit Rosalinda Rubin n PELLET MACHINE OPERATOR 01/27/2018 Procedures Matheus Ceron MD 01/22/2018 Office visit Rosalinda Rubin n PELLET MACHINE OPERATOR 01/21/2018 Office visit Jessica MANDEL RN 11/04/2017 Office visit Matheus Ceron MD 10/07/2017 Office visit Jessica Pearce AP RN 09/12/2017 Office visit Jessica MANDEL RN 08/29/2017 Office visit Jessica MANDEL RN 08/19/2017 Hospital Dena Rhodes MD 08/19/2017 [facility] Matheus Ceron MD 06/24/2017 Office [...]
--- OUTSIDE RECORDS SUMMARY | 2019-10-10 08:46 | XMS REPORT ---
Author Author Mathew Sanchez [facility] Address [address] [place], [place] [address] Care Team Providers Care Supervisor Floor Assembly Name Role Phone Rosalinda Sanchez PCP Jessica Pearce PreferredProvider Allergies and Adverse [...] 12:00 AM Hip Complete Min 2Views - [place] 01/23/2017 12:0 0 AM THYROID PANEL. 06/09/2017 [...] Hypothyroid Active 06/25/2017 Cystocele, midline Active 02/01/2018 Vital Signs Date Time BP-Sys(mm[Hg] BP-Blanquita(mm[Hg]) HR(bpm) RR(rpm) Temp WT HT HC BMI BSA BMI Percentile O2 Sat(%) 02/19/2018 10:47:00 AM 110 mmHg 60 mmHg [...] Reviewed 01/14/2017 12:00 AM Decadron 8mg Injection, [facility] Medicare Rev iewed 01/14/2017 12:00 AM Depo-Medrol 80mg Injection, [facility] Medicare Reviewed 05/20/2017 12:00 AM COMPLETE [...] 01/21/2018 12:00 AM URINE CULTURE/COLONY COUNT Returned Results Summary Date and Description Results [...] Vis Given Vis Pub CVX Pneumococcal 06/24/2017 Peg-Praangeline WAL PREVNAR 13 [id number] Intramuscular Left Deltoid 06/24/2017 05/28/2015 133 Influenza 06/24/2017 [employer] SKB Flulaval quadrivalent 4 [id number] Intramuscular Right Deltoid 06/24/2017 03/03/2015 158 History of Past Illness Name Date of Onset Comments Irritable bowel syndrome Hyperlipidemia Hypothyroidism Hypertension Diverticulitis Of Colon Anxiety Depression arthritis Heartburn Hemorrhoid Gastric Ulcer Mild obstructive sleep apnea Hypothyroid 06/25/2017 Alzheimer's dementia Cystocele, midline 02/01/2018 Abdominal pain, epigastric Jan 11 2015 1:47PM [...] Pelvic floor relaxation Feb 19 2018 10:49AM Payers Insurance Name Company Name Plan Name Plan Number Policy Number Yung cy Group Number Start Date Medicare RHC Medicare RHC [id number] N/A [id number] N/ A Medicare Part A Medicare Part A [id number] N/A Medicare Part A Medicare - Lab/Xray [id number] N/A Medicare Part B Medicare Of [place] [id number] N/A History of Encounters Visit Date Visit Type Provider 02/19/2018 Office visit Rosalinda yanes APRN 2018 Office visit Rosalinda yanes CLAIM REPRESENTATIVE 01/27/2018 Procedures Matheus Ceron MD 01/22/2018 Office visit Rosalinda yanes CLAIM REPRESENTATIVE 01/21/2018 Office visit Jessica MANDEL RN 11/04/2017 [...]
--- OUTSIDE RECORDS SUMMARY | 2019-10-10 08:46 | XMS REPORT ---
Author Author Mathew Pearce [facility] Address [address] [place], [place] [address] Care Team Providers Care Technical Internship Name Role Phone Jessica Pearce PCP Unavailable Blex, Meggin Unavailable Unavailable Allergies and Adverse Reactions Name Reaction Notes Latex Reglan SULFA (SULFONAMIDES) Plan of Treatment Planned Activity Comments Planned Date Planned Time Plan/Goal [facility] Crohn's Prognostic test 08/06/2016 12:00 AM [facility] Cro[facility]'s Prognostic test 08/06/2016 12:00 AM [facility] Cro[facility] Prognostic test 08/06/2016 12:00 AM [facility] Cro[facility] Prognostic test 08/06/2016 12:00 AM Clostridium difficile 10/24/2016 12:00 AM Sleep recording 10/31/2016 12:00 AM Medications Active Name Start Date Estimated Completion Date SIG Co mments Zocor 20 mg oral tablet take 1 t ablet (20 mg) by oral route once daily in the evening Lomotil 2.5-0.025 mg oral tablet take 1 t ablet by oral route 4 times a day tramadol 50 mg oral tablet take 1 tablet by oral route 3 times a day as needed Zofran (as hydrochloride) 4 mg oral tablet take 1 tablet by oral route every 4 hours as needed Vitamin B-12 1,000 mcg/mL injection solution inject 1 milliliter (1,000 mcg) by intramuscular route once a month Celexa 20 mg oral tablet take 1 tablet (2 0 mg) by oral route once daily lisinopril 20 mg oral tablet take 1 table t (20 mg) by oral route once daily propranolol 60 mg oral capsule,extended release 24 hr take 1 capsule by oral route daily Westhroid 130 mg oral tablet mary ellen e 1 tablet (130 mg) by oral route once daily before breakfast hydrochlorothiazide 25 mg oral tablet take 1 tablet (25 mg) by oral route once daily venlafaxine 75 mg oral tablet take 1 tabl et by oral route daily doxazosin 1 mg oral tablet take 1 tablet (1 mg) by oral route once daily progesterone micronized oral 100 mg oral capsule Take 150 mg at bedtime daily Carafate 1 gram oral tablet take 1 tablet (1 gram) by oral route 4 times per day on an empty stomach 1 hour before meals and at bedtime Bentyl 10 mg oral capsule 08/07/2016 02/03/2017 take 1 capsule by oral route 4 times a day for 30 days Protonix 40 mg oral tablet,delayed release (DR/EC) 08/07/2016 02/03/2017 take 1 tablet (40 mg) by oral route once daily for 30 days Problem List Description Status Onset Hyperlipidemia Active Hypertension Active Hypothyroidism Active Irritable bowel syndrome Active Anxiety Active Depression Active Vital Signs Date Time BP-Sys(mm[Hg] BP-Blanquita(mm[Hg]) HR(bpm) RR(rpm) Temp WT HT HC BMI BSA BMI Percentile O2 Sat(%) 10/31/2016 10:04:00 AM 118 mmHg 74 mmHg [...] 12:00 AM ASSAY THYROID STIM HORMONE Reviewed 10/24/2016 12:00 AM LEUKOCYTE ASSESSMENT FECAL Returned 10/24/2016 12:00 AM OCCULT BLD FECES 1-3 TESTS Returned Results Summary Data and Description Results 04/24/2016 7:06 PM GLUCOSE [...] NEGATIVE WBC S TOOL NO WBC SEEN History Of Immunizations Not available. History of Past Illness Name Date of Onset Comments Irritable bowel syndrome Hyperlipidemia Hypothyroidism Hypertension Diverticulitis Of Colon Anxiety Depression arthritis Heartburn Hemorrhoid Gastric Ulcer Abdominal pain, epigastric Jan 11 2015 1:47PM [...] 2016 12:57PM Diarrhea Sep 11 2016 12:13PM Diarrhea Oct 24 2016 5:21PM Daytime sleepiness Oct 31 2016 10:07AM Snoring Oct 31 2016 10:07AM Payers Insurance Name Company Name Plan Name Plan Number Policy Number Yung cy Group Number Start Date Medicare RHC Medicare RHC [id number] N/[id number] N/ A Medicare Part A Medicare Part A [id number] N/A Medicare Part A Medicare - Lab/Xray [id number] N/A Medicare Part B Medicare Of [place] [id number] N/A History of Encounters Visit Date Visit Type Provider 10/31/2016 Office visit Jessica MANDEL RN 10/24/2016 Office visit Jessica MANDEL RN 09/10/2016 Office visit Matheus Ceron MD 08/06/2016 Office visit Matheus Ceron MD 04/24/2016 Office visit Ben Almanza APR N 10/03/2015 Office visit Matheus Ceron MD 02/21/2015 Office visit Matheus Ceron MD 02/09/2015 [facility] Matheus Ceron MD 01/10/2015 Office visit Matheus Ceron MD 11/28/2014 [facility] Dena Rhodes MD 07/30/2010 Kierra Rhodes MD 05/28/2010 [facility] Dena Rhodes MD
--- OUTSIDE RECORDS SUMMARY | 2019-10-10 08:46 | XMS REPORT ---
Author Author Mathew Batista [facility] Address [address] [place], [place] [address] Care Team Providers Care Small Stock Facer Name Role Phone Venancio Batista PCP Jessica Pearce PreferredProvider Allergies and Adverse [...] 12:00 AM Hip Complete Min 2Views - [place] 01/23/2017 12:0 0 AM THYROID PANEL. 06/09/2017 [...] HC BMI BSA BMI Percentile O2 Sat(%) 03/03/2018 1:57:00 PM 114 mmHg 66 mmHg [...] lbs 64 in 21.456 kg/m 1.60 m2 98 % 11/04/2017 3:00:00 PM [...] Reviewed 01/14/2017 12:00 AM Decadron 8mg Injection, [facility] Medicare Rev iewed 01/14/2017 12:00 AM Depo-Medrol 80mg Injection, [facility] Medicare Reviewed 05/20/2017 12:00 AM COMPLETE CBC [...] 02/19/2018 12:00 AM INSERT PESSARY/OTHER DEVICE Reviewed Results Summary Date and Description Results [...] Vis Given Vis Pub CVX Pneumococcal 06/24/2017 Hchfe-Hrzcsm-Ifrgwfr-Praangeline WAL PREVNAR 13 [id number] Intramuscular Left Deltoid 06/24/2017 05/28/2015 133 Influenza [...] 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 Mar 03 2018 2:00P M Payers Insurance Name Company Name Plan Name Plan Number Policy Number Yung cy Group Number Start Date Medicare RHC Medicare RHC [id number] N/ [id number] N/ A Medicare Part A Medicare Part A [id number] N/A Medicare Part A Medicare - Lab/Xray [id number] N/A Medicare Part B Medicare Of [place] [id number] N/A History of Encounters Visit Date Visit Type Provider 03/03/2018 Office visit Venancio Ventura 02/19/2018 Office visit Rosalinda yanes TOWER SWITCH OPERATOR 2018 Office visit Rosalinda yanes TOWER SWITCH OPERATOR 01/27/2018 Procedures Matheus Ceron MD 01/22/2018 Office visit Rosalinda yanes TOWER SWITCH OPERATOR 01/21/2018 Office visit Jessica MANDEL RN 11/04/2017 Office visit Matheus Ceron MD 10/07/2017 Office visit Jessica MANDEL RN 09/12/2017 Office visit Jessica MANDEL RN 08/29/2017 Office visit Jessica MANDEL RN 08/19/2017 [facility] Dena Rhodes MD 08/19/2017 [facility] Matheus Ceron MD 06/24/2017 Office visit [...] 02/21/2015 Office visit Matheus Ceron MD 02/09/2015 [facility] Matheus Ceron MD 01/10/2015 Office visit Matheus Ceron MD 11/28/2014 [facility] Dena Rhodes MD 07/30/2010 [facility] Dena Rhodes MD 05/28/2010 [facility] Dena Rhodes MD
--- OUTSIDE RECORDS SUMMARY | 2019-10-10 08:46 | XMS REPORT ---
Author Author Mathew Sanchez [facility] Address [address] [place], [place] [address] Care Team Providers Care Global Vp Creative + Content Marketing Name Role Phone Rosalinda Sanchez PCP Jessica [...] 12:00 AM Hip Complete Min 2Views - [place] 01/23/2017 12:0 0 AM THYROID PANEL. 06/09/2017 [...] HC BMI BSA BMI Percentile O2 Sat(%) 2018 9:56:00 AM 115 mmHg 60 mmHg [...] CVX Pneumococcal 06/24/2017 Peg-Praangeline WAL PREVNAR 13 [id number] Intramuscular Left Deltoid 06/24/2017 05/28/2015 133 Influenza [...] 2018 10:00A M Cystocele, midline 2018 10:00AM Payers Insurance Name Company Name Plan Name Plan Number Policy Number Yung cy Group Number Start Date Medicare RHC Medicare RHC [id number] N/A BCBS Bcbs [facility] [id number] N/ A Medicare Part A Medicare Part A [id number] N/A Medicare Part A Medicare - Lab/Xray [id number] N/A Medicare Part B Medicare Of [place] [id number] N/A History of Encounters Visit Date Visit Type Provider 2018 Office visit Rosalinda yanes LINE MAINTENANCE 01/27/2018 Procedures Matheus Ceron MD 01/22/2018 Office visit Rosalinda yanes LINE MAINTENANCE 01/21/2018 Office visit Jessica MANDEL RN 11/04/2017 Office visit Matheus Ceron MD 10/07/2017 Office visit Jessica MANDEL RN 09/12/2017 Office visit Jessica MANDEL RN 08/29/2017 Office visit Jessica MANDEL RN 08/19/2017 [facility] Dena Rhodes MD 08/19/2017 [facility] Matheus Ceron MD 06/24/2017 Office visit [...] 02/21/2015 Office visit Matheus Ceron MD 02/09/2015 [facility] Matheus Ceron MD 01/10/2015 Office visit Matheus Ceron MD 11/28/2014 [facility] Dena Rhodes MD 07/30/2010 [facility] Dena Rhodes MD 05/28/2010 [facility] Dena Rhodes MD
--- OUTSIDE RECORDS SUMMARY | 2019-10-10 08:46 | XMS REPORT ---
Author Author Mathew Pearce [facility] Address [address] [place], [place] [address] Care Team Providers Care Mushroom Grower Name Role Phone Jessica Pearce PCP Unavailable [...] 12:00 AM Hip Complete Min 2Views - [place] 01/23/2017 12:0 0 AM Medications Active Name Start Date Estimated [...] 1 hour before meals and at bedtime temazepam 15 mg oral capsule 01/14/2017 02/13/2017 mary ellen e 1 capsule (15 mg) by oral route once daily at bedtime as needed tramadol 50 mg oral tablet 01/23/2017 take 1 tablet by oral route 3 times a day as needed diclofenac sodium 1 % topical gel 01/24/2017 apply 4 gram to the affected area(s) by topical route 4 times per day Name Start Date Expiration Date SIG Comments Bentyl 10 mg oral capsule 08/07/2016 02/03/2017 [...] HC BMI BSA BMI Percentile O2 Sat(%) 01/24/2017 5:37:00 PM 138 mmHg 86 mmHg [...] 12:00 AM POLYSOM 6/> YRS 4/> OLIVIA Returned 10/24/2016 12:00 AM LEUKOCYTE ASSESSMENT FECAL Reviewed 10/24/2016 12:00 AM OCCULT BLD FECES 1-3 TESTS Reviewed 01/14/2017 12:00 AM THERAPEUTIC PROPHYLACTIC/DX INJECTION HOWARD BQ/IM Reviewed 01/14/2017 12:00 AM Decadron 8mg Injection, [facility] Medicare Rev iewed 01/14/2017 12:00 AM Depo-Medrol 80mg Injection, [facility] Medicare Reviewed Results Summary Date and Description Results [...] Hemorrhoid Gastric Ulcer Mild obstructive sleep apnea Abdominal pain, epigastric Jan 11 2015 1:47PM [...] Obstructive sleep apnea Jan 24 2017 5:41PM Payers Insurance Name Company Name Plan Name Plan Number Policy Number Yung cy Group Number Start Date Medicare RHC Medicare RHC [id number] N/A [facility] [id number] N/ A Medicare Part A Medicare Part A [id number] N/A Medicare Part A Medicare - Lab/Xray [id number] N/A Medicare Part B Medicare Of [place] [id number] N/A History of Encounters Visit Date Visit Type Provider 01/24/2017 Office visit Jessica MANDEL RN 01/14/2017 Office visit Jessica MANDEL RN 10/31/2016 Office visit Jessica MANDEL RN 10/24/2016 Office visit Jessica MANDEL RN 09/10/2016 Office visit Matheus Ceron MD 08/06/2016 Office visit Matheus Ceron MD 04/24/2016 Office visit Ben Almanza APR N 10/03/2015 Office visit Matheus Ceron MD 02/21/2015 Office visit Matheus Ceron MD 02/09/2015 [facility] Matheus Ceron MD 01/10/2015 Office visit Matheus Ceron MD 11/28/2014 Hospital Dena Rhodes MD 07/30/2010 [facility] Dena Rhodes MD 05/28/2010 [facility] Dena Rhodes MD
--- OUTSIDE RECORDS SUMMARY | 2019-10-10 08:47 | XMS REPORT ---
Author Author Mathew Pearce [facility] Address [address] [place], [place] [id number] Care Team Providers Care Stonecutter Name Role Phone Jessica Pearce PCP Blex, Meggin Unavailable Unavailable Allergies and Adverse [...] 12:00 AM Hip Complete Min 2Views - [place] 01/23/2017 12:0 0 AM THYROID PANEL. 06/09/2017 12:00 AM THYROID PANEL. 06/09/2017 12:00 AM THYROID PANEL. 06/09/2017 12:00 AM Thyroid antibody panel 06/09/2017 12:00 AM Medications Active Name Start Date Estimated Completion Date SIG Co mments tramadol 50 mg oral tablet 01/23/2017 take 1 tablet by oral route 3 times a day as needed Bentyl 10 mg oral capsule 05/05/2017 take [...] days Protonix 40 mg oral tablet,delayed release (/EC) 08/29/2017 take 1 tablet (40 mg) by oral route once daily for 30 days amoxicillin 500 mg oral tablet 09/12/2017 T nicki one tablet by mouth BID for 10 days Name Start Date Expiration Date SIG Comments Westhroid 130 mg oral tablet mary ellen e 1 tablet (130 mg) by oral route once daily before breakfast temazepam 15 mg oral capsule 02/18/2017 04/19/2017 mary ellen e 1 capsule (15 mg) by oral route once daily at bedtime as needed Discontinued Name Start Date Discontinued Date SIG [...] tablet by mouth TID for 10 days Problem List Description Status Onset Hyperlipidemia Active Hypertension Active Hypothyroidism Active Irritable bowel syndrome Active Anxiety Active Depression Active Hypothyroid Active 06/25/2017 Vital Signs Date Time BP-Sys(mm[Hg] BP-Blanquita(mm[Hg]) HR(bpm) RR(rpm) Temp WT HT HC BMI BSA BMI Percentile O2 Sat(%) 09/12/2017 2:48:00 PM 142 mmHg 90 mmHg [...] Reviewed 01/14/2017 12:00 AM Decadron 8mg Injection, [facility] Medicare Rev iewed 01/14/2017 12:00 AM Depo-Medrol 80mg Injection, [facility] Medicare Reviewed 05/20/2017 12:00 AM COMPLETE [...] 12:00 AM ASSAY THYROID STIM HORMONE Returned Results Summary Date and Description Results [...] TOOL NO WBC SEEN History Of Immunizations Name Date Admin Mfg Name Mfg Code Trade Name Lot# Route Inj Vis Given Vis Pub CVX Pneumococcal 06/24/2017 Monica WAL Prevnar 13 [id number] Intramuscular Left Deltoid 06/24/2017 05/28/2015 133 Influenza 06/24/2017 GlaxoSmithKline SKB Flulaval Quadrivalent 4 [id number] Intramuscular Right Deltoid 06/24/2017 03/03/2015 158 History of Past Illness Name Date of Onset Comments Irritable bowel syndrome Hyperlipidemia Hypothyroidism Hypertension Diverticulitis Of Colon Anxiety Depression arthritis Heartburn Hemorrhoid Gastric Ulcer Mild obstructive sleep apnea Hypothyroid 06/25/2017 Alzheimer's dementia Abdominal pain, epigastric Jan 11 2015 1:47PM [...] 2017 10:02AM Hypertension Aug 29 2017 10:02AM Payers Insurance Name Company Name Plan Name Plan Number Policy Number Yung cy Group Number Start Date Medicare RHC Medicare RH [id number] N/[id number] N/ A Medicare Part A Medicare Part A [id number] N/A Medicare Part A Medicare - Lab/Xray [id number] N/A Medicare Part B Medicare Of [place] [id number] N/A History of Encounters Visit Date Visit Type Provider 09/12/2017 Office visit Jessica MANDEL RN 08/29/2017 Office visit Jessica MANDEL RN 08/19/2017 [facility] Dena Rhodes MD 08/19/2017 [facility] Matheus Ceron MD 06/24/2017 Office [...] 02/21/2015 Office visit Matheus Ceron MD 02/09/2015 [facility] Matheus Ceron MD 01/10/2015 Office visit Matheus Ceron MD 11/28/2014 [facility] Dena Rhodes MD 07/30/2010 [facility] Dena Rhodes MD 05/28/2010 [facility] Dena Rhodes MD
--- OUTSIDE RECORDS SUMMARY | 2019-10-10 08:47 | XMS REPORT ---
Author Author Mathew Pearce [facility] Address [address] [place], [place] [id number] Care Team Providers Care General Office Worker Name Role Phone Jsesica Pearce PCP Unavailable Blex, Meggin Unavailable Unavailable Allergies and Adverse Reactions Name Reaction Notes Latex Reglan SULFA (SULFONAMIDES) Plan of Treatment Planned Activity Comments Planned Date Planned Time Plan/Goal [facility] Crohn's Prognostic test 08/06/2016 12:00 AM [facility] Crohn's Prognostic test 08/06/2016 12:00 AM [facility] Crohn's Prognostic test 08/06/2016 12:00 AM [facility] Crohn's Prognostic test 08/06/2016 12:00 AM Clostridium difficile 10/24/2016 12:00 AM Medications Active Name Start Date [...] AM OCCULT BLD FECES 1-3 TESTS Reviewed Results Summary Data and Description Results 04/24/2016 [...] Obstructive sleep apnea Nov 26 2016 11:18AM Payers Insurance Name Company Name Plan Name Plan Number Policy Number Yung Group Number Start Date Medicare RHC Medicare RHC [id number] N/A [facility] [id number] N/ A Medicare Part A Medicare Part A [id number] N/A Medicare Part A Medicare - Lab/Xray [id number] N/A Medicare Part B Medicare Of [place] [id number] N/A History of Encounters Visit Date Visit Type Provider 10/31/2016 Office visit Jessica MANDEL RN 10/24/2016 Office visit Jessica MANDEL RN 09/10/2016 Office visit Matheus Ceron MD 08/06/2016 Office visit Matheus Ceron MD 04/24/2016 Office visit Ben Almanza APR N 10/03/2015 Office visit Matheus Ceron MD 02/21/2015 Office visit Matheus Ceron MD 02/09/2015 [facility] Matheus Ceron MD 01/10/2015 Office visit Matheus Ceron MD 11/28/2014 [facility] Dena Rhodes MD 07/30/2010 [facility] Dena Rhodes MD 05/28/2010 [facility] Dena Rhodes MD
--- OUTSIDE RECORDS SUMMARY | 2019-10-10 08:47 | XMS REPORT ---
Author Author Mathew MCLEOD Organization [facility] Address [address] [place], [place] [id number] Care Team Providers Care Shift Boss Name Role Phone SENG MCLEOD PCP Unavailable Allergies and Adverse Reactions Name Reaction Notes Latex Reglan SULFA (SULFONAMIDES) Plan of Treatment Not available. Medications Active Name Start Date Estimated Completion Date SIG Co mments Zocor oral tablet 20 mg take 1 t ablet (20 mg) by oral route once daily in the evening Lomotil oral tablet 2.5-0.025 mg take 1 t ablet by oral route 4 times a day tramadol oral tablet 50 mg take 1 tablet by oral route 3 times a day as needed Zofran (as hydrochloride) oral tablet 4 mg take 1 tablet by oral route every 4 hours as needed Vitamin B-12 injection solution 1,000 mcg/mL inject 1 milliliter (1,000 mcg) by intramuscular route once a month Celexa oral tablet 20 mg take 1 tablet (2 0 mg) by oral route once daily lisinopril oral tablet 20 mg take 1 table t (20 mg) by oral route once daily propranolol oral capsule,extended release 24 hr 60 mg take 1 capsule by oral route daily Westhroid oral tablet 130 mg mary ellen e 1 tablet (130 mg) by oral route once daily before breakfast Problem List Description Status Onset Hyperlipidemia Active Hypertension Active hypothyroidism Active Irritable bowel syndrome Active Vital Signs Date Time BP-Sys(mm[Hg] BP-Blanquita(mm[Hg]) HR(bpm) RR(rpm) Temp WT HT HC BMI BSA BMI Percentile O2 Sat(%) 01/11/2015 8:08:00 AM 122 mmHg 76 mmHg 75 bpm 20 rpm 99.2 F 122 lbs 64 in 20.94 kg/m2 1.58 m2 96 % Social History Name Description Comments Tobacco Never smoker History of Procedures Not available. Results Summary Not available. History Of Immunizations Not available. History of Past Illness Name Date of Onset Comments Irritable bowel syndrome Hyperlipidemia hypothyroidism Hypertension Diverticulitis Of Colon Abdominal pain, epigastric Jan 11 2015 1:47PM Dyspepsia Jan 11 2015 1:47PM Diarrhea Jan 11 2015 1:47PM Payers Insurance Name Company Name Plan Name Plan Number Policy Number Yung cy Group Number Start Date Medicare Part B Medicare Of [place] [id number] N/A [id number] N/ A History of Encounters Visit Date Visit Type Provider 01/10/2015 Office visit Matheus Ceron MD 07/30/2010 Hospital Dena Rhodes MD 05/28/2010 [facility] Dena Rhodes MD
--- OUTSIDE RECORDS SUMMARY | 2019-10-10 08:47 | XMS REPORT ---
Author Author Mathew Ceron [facility] Address [address] [place], [place] [address] Care Team Providers Care Clothes Drier Repairer Name Role Phone Matheus Ceron PCP Blex, Meggin Unavailable Unavailable Allergies and [...] 12:00 AM Hip Complete Min 2Views - [place] 01/23/2017 12:0 0 AM THYROID PANEL. 06/09/2017 [...] (Jose) 4 mg oral tablets,dose pack 01/21/2018 take as directed tramadol 50 mg oral tablet 01/21/2018 take 1 tablet by oral route 3 times a day as needed penicillin V potassium 500 mg [...] tablet by mouth BID for 10 days Problem List Description Status Onset Hyperlipidemia Active Hypertension Active Hypothyroidism Active Irritable bowel syndrome Active Anxiety Active Depression Active Hypothyroid Active 06/25/2017 Cystocele, midline Active 02/01/2018 Vital Signs Date Time BP-Sys(mm[Hg] BP-Blanquita(mm[Hg]) HR(bpm) RR(rpm) Temp WT HT HC BMI BSA BMI Percentile O2 Sat(%) 01/27/2018 3:54:00 PM 130 mmHg 76 mmHg [...] Vis Given Vis Pub CVX Pneumococcal 06/24/2017 Peg-Praxitrisha WAL PREVNAR 13 [id number] Intramuscular Left Deltoid 06/24/2017 05/28/2015 133 Influenza [...] Constipation, slow transit Jan 29 2018 3:55PM Payers Insurance Name Company Name Plan Name Plan Number Policy Number Yung cy Group Number Start Date Medicare RHC Medicare RHC [id number] N/A BCBS [facility] [id number] N/ A Medicare Part A Medicare Part A [id number] N/A Medicare Part A Medicare - Lab/Xray [id number] N/A Medicare Part B Medicare Of [place] [id number] N/A History of Encounters Visit Date Visit Type Provider 01/27/2018 Procedures Matheus Ceron MD 01/22/2018 Office visit Rosalinda yanes SANDSTONE SPLITTER 01/21/2018 Office visit Jessica MANDEL RN 11/04/2017 Office visit Matheus Ceron MD 10/07/2017 Office visit Jessica MANDEL RN 09/12/2017 Office visit Jessica MANDEL RN 08/29/2017 Office visit Jessica MANDEL RN 08/19/2017 Hospital Dena Rhodes MD 08/19/2017 [facility] Matheus Ceron MD 06/24/2017 Office visit Jessica MANDEL RN 06/10/2017 Office visit Jessica MANDEL RN 05/20/2017 Office visit Jessica Pearce AP RN 02/18/2017 Office visit Jessica Pearce AP RN 01/24/2017 Office visit Jessica Paerce AP RN 01/14/2017 Office visit Jessica MANDEL [...]
--- OUTSIDE RECORDS SUMMARY | 2019-10-10 08:47 | XMS REPORT ---
Author Author Dilshad [facility] Organization [facility] Address [address] [place], [place] [address] Care Team Providers Care Therapist Speech Name Role Phone PCP Unavailable Allergies and Adverse Reactions Name [...] oral route once daily before breakfast hydrochlorothiazide oral tablet 25 mg take 1 tablet (25 mg) by oral route once daily venlafaxine oral tablet 75 mg take 1 tabl et by oral route daily doxazosin oral tablet 1 mg take 1 tablet (1 mg) by oral route once daily progesterone micronized oral 100 mg oral capsule Take 150 mg at bedtime daily Bentyl oral capsule 10 mg take 1 capsule (10 mg) by oral route 3 times per day Protonix oral tablet,delayed release (DR/EC) 40 mg take 1 tablet (40 mg) by oral route once daily Carafate oral tablet 1 gram take 1 tablet (1 gram) by oral route 4 times per day on an empty stomach 1 hour before meals and at bedtime Problem List Description Status Onset Hyperlipidemia Active [...] 12:06PM Hernia, Hiatal Feb 22 2015 12:06PM Payers Insurance Name Company Name Plan Name Plan Number Policy Number Yung cy Group Number Start Date Medicare Part B Medicare Of [place] [id number] N/A [facility] [id number] N/ A History of Encounters Visit Date Visit Type Provider 02/21/2015 Office visit Matheus Ceron MD 02/09/2015 [facility] Matheus Ceron MD 01/10/2015 Office visit Matheus Ceron MD 07/30/2010 [facility] Dena Rhodes MD 05/28/2010 Kierra Rhodes MD
--- OUTSIDE RECORDS SUMMARY | 2019-10-10 08:47 | XMS REPORT ---
Author Author Mathew Ceron [facility] Address [address] [place], [place] [address] Care Team Providers Care Wellness Instructor Name Role Phone Matheus Ceron PCP Blex, [...] 12:00 AM Hip Complete Min 2Views - [place] 01/23/2017 12:0 0 AM THYROID PANEL. 06/09/2017 [...] oral route once daily for 30 days Name Start Date Expiration [...] HC BMI BSA BMI Percentile O2 Sat(%) 11/04/2017 3:00:00 PM 140 mmHg 90 mmHg 103 bpm 20 rpm 98.7 F 124 lbs 64 in 21.2843 kg/m 1.5937 m 93 % 10/07/2017 2:54:00 PM 142 mmHg 86 mmHg 102 bpm 22 rpm 97.8 F 121 lbs 64 in 20.77 kg/m2 1.57 m2 99 % 09/12/2017 2:48:00 PM 142 mmHg 90 mmHg 90 bpm 20 rpm 98.1 F 125 lbs 64 in 21.456 kg/m 1.6001 m 99 % 08/29/2017 9:59:00 AM 114 mmHg 78 mmHg 84 bpm 22 rpm 98.4 F 126 lbs 64 in 21.63 kg/m2 1.61 m2 98 % 06/24/2017 9:57:00 AM 120 mmHg 70 mmHg 80 bpm 18 rpm 98.1 F 122 lbs 64 in 20.941 kg/m 1.5808 m 98 % 06/10/2017 5:02:00 PM 132 mmHg 76 mmHg 88 bpm 22 rpm 98.1 F 122.25 lbs 64 in 20.98 kg/m2 1.58 m2 95 % 05/20/2017 11:40:00 AM 132 mmHg 80 mmHg 90 bpm 20 rpm 97.8 F 127 lbs 61 in 23.9962 kg/m 1.5746 m 98 % 02/18/2017 11:36:00 AM 126 mmHg 80 mmHg 68 bpm 20 rpm 98.1 F 127 lbs 64 in 21.80 kg/m2 1.61 m2 94 % 01/24/2017 5:37:00 PM 138 mmHg 86 mmHg 90 bpm 20 rpm 98.6 F 124.25 lbs 64 i n 21.3272 kg/m 1.5953 m 96 % 01/14/2017 10:58:00 AM 132 mmHg 80 mmHg 86 bpm 18 rpm 98.5 F 128.25 lbs 64 in 22.01 kg/m2 1.62 m2 96 % 10/31/2016 10:04:00 AM 118 mmHg 74 mmHg 74 bpm 17 rpm 97.6 F 123 lbs 64 in 21.1127 kg/m 1.5872 m 99 % 10/24/2016 5:17:00 PM 122 mmHg 84 mmHg 104 bpm 20 rpm 98.4 F 122 lbs 64 in 20.94 kg/m2 1.58 m2 96 % 09/11/2016 12:13:00 PM 160 mmHg 98 mmHg 86 bpm 20 rpm 118 lbs 64 in 20.2544 kg/m 1.5546 m 08/07/2016 12:56:00 PM 130 mmHg 78 mmHg 88 bpm 24 rpm 115 lbs 64 in 19.74 kg/m2 1.53 m2 04/24/2016 6:21:00 PM 112 mmHg 70 mmHg 96 bpm 98.1 F 119 lbs 64 in 20.4261 kg/m 1.5612 m 98 % 01/11/2015 8:08:00 AM 122 mmHg 76 mmHg 75 bpm 20 rpm 99.2 F 122 lbs 64 in 20.941 kg/m 1.58 m2 96 % Social History Name [...] 12:00 AM FECES CULTURE AEROBIC BACT Returned Results Summary Date and Description Results [...] neg WBC Est Ur Ql Strip neg History Of Immunizations Name Date Admin Mfg Name Mfg Code Trade Name Lot# Route Inj Vis Given Vis Pub CVX Pneumococcal 06/24/2017 Monica WAL PREVNAR 13 [id number] Intramuscular Left Deltoid 06/24/2017 05/28/2015 133 Influenza [...] chronic blood loss Nov 04 2017 3:01PM Payers Insurance Name Company Name Plan Name Plan Number Policy Number Yung cy Group Number Start Date Medicare RHC Medicare RHC [id number] N/A [facility] [id number] N/ A Medicare Part A Medicare Part A [id number] N/A Medicare Part A Medicare - Lab/Xray [id number] N/A Medicare Part B Medicare Of [place] [id number] N/A History of Encounters Visit Date Visit Type Provider 11/04/2017 Office visit Matheus Ceron MD 10/07/2017 Office visit Jessica MANDEL RN 09/12/2017 Office visit Jessica MANDEL RN 08/29/2017 Office visit Jessica MANDEL RN 08/19/2017 [facility] Dena Rhodes MD 08/19/2017 [facility] Matheus Ceron MD 06/24/2017 Office [...] MD 07/30/2010 Hospital Dena Rhodes MD 05/28/2010 [facility] Dena Rhodes MD
[2019-10-10] MEDS: SENNA W/DOCUSATE (SENOKOT S) TABLET PO SCH ×2 (08:48→20:28)
[2019-10-10] MEDS: MEMANTINE 10 MG (NAMENDA) TABLET PO SCH ×2 (08:48→20:28)
[2019-10-10] MEDS: lisINopril 20 MG (PRINIVIL) TABLET PO SCH (08:48)
[2019-10-10] MEDS: PROPRANOLOL 20 MG (INDERAL) TABLET PO SCH (08:48)
[2019-10-10] MEDS: PANTOPRAZOLE 40 MG (PROTONIX) TAB PO SCH (08:48)
[2019-10-10] MEDS: ASPIRIN E.C. 81 MG (ECOTRIN) TAB PO SCH (08:48)
--- OUTSIDE RECORDS SUMMARY | 2019-10-10 08:48 | XMS REPORT ---
Author Author Mathew Almanza [facility] Address [address] [place], [place] [address] Care Team Providers Care Commissions Manager Name Role Phone Ben Almanza PCP Allergies and Adverse Reactions Name Reaction Notes [...] capsule Take 150 mg at bedtime daily Protonix 40 mg oral tablet,delayed release (DR/EC) take 1 tablet (40 mg) by oral route once daily Carafate 1 gram oral tablet take 1 tablet (1 gram) by oral route 4 times per day on an empty stomach 1 hour before meals and at bedtime Name Start Date Expiration Date SIG Comments Bentyl 10 mg oral capsule 10/03/2015 01/01/2016 take 1 capsule by oral route 4 times a day for 30 days Problem List Description Status Onset Hyperlipidemia Active Hypertension Active Hypothyroidism Active Irritable bowel syndrome Active Anxiety Active Depression Active Vital Signs Date Time BP-Sys(mm[Hg] BP-Blanquita(mm[Hg]) HR(bpm) RR(rpm) Temp WT HT HC BMI BSA BMI Percentile O2 Sat(%) 04/24/2016 6:21:00 PM 112 mmHg 70 mmHg [...] AM COMPLETE CBC W/AUTO DIFF WBC Returned 04/24/2016 12:00 AM COMPREHEN METABOLIC PANEL Returned 04/24/2016 12:00 AM URNLS DIP STICK/TABLET RGNT AUTO W/O JYOTI ROSCOPY Returned 04/24/2016 12:00 AM ASSAY OF AMYLASE Returned 04/24/2016 12:00 AM ASSAY OF LIPASE Returned 04/24/2016 12:00 AM ASSAY OF FREE THYROXINE Returned 04/24/2016 12:00 AM ASSAY THYROID STIM HORMONE Returned Results Summary Data and Description Results 04/24/2016 7:06 PM GLUCOSE 74.0 mg/dLSODIUM 136 .0 mmol/LPOTASSIUM 2.80 mmol/LCHLORIDE 88.0 mmol/LCO2 36.0 mmol/LBUN 27.0 mg/dLCREATININE 1.40 mg/dLSGOT/AST 18.0 IU/LSGPT/ALT 14.0 IU/LALK PHOS 85.0 IU/LTOTAL PROTEIN 6.90 g/dLALBUMIN 4.0 g/dLTOTAL BILI 0.10 mg/dLCALCIUM 8.50 mg/dLeGFR 36 LIPASE 21.0 U/LAMYLASE 46 IU/LWBC 16.0 RBC 4.18 HGB 13.20 g/dLHCT 40.40 %MCV 97.0 fLMCH 31.60 pgMCHC 32.70 g/dLRDW CV 13.50 %MPV 8.20 fLPLT 396 %NEUT 74.20 %%LYMP 12.80 %%MONO 10.10 %%EOS 1.90 %%BASO 0.60 %#NEUT 11.85 #LYMP 2.05 #MONO 1.62 #EOS 0.30 #BASO 0.09 TSH 0.230 uIU/mL 04/24/2016 7:10 PM COLOR YELLOW APPEARANCE ROSENDO R SPEC GRAV <=1.005 pH 7.0 PROTEIN NEGATIVE GLUCOSE NEGATIVE mg/dLKETONE NEGATIVE BILIRUBIN NEGATIVE BLOOD TRACE- LYSED NITRITE NEGATIVE LEUK SCREEN NEGATIVE CASTS/LPF NEGATIVE /LPFCRYSTALS NEGATIVE MUCOUS THRDS NEGATIVE BACTERIA 1+ EPITH CELLS 2++ SQUAMOUS /HPFTRICHOMONAS NEGATIVE YEAST NEGATIVE History Of Immunizations Not available. History of [...] Generalized abdominal pain Apr 24 2016 6:26PM Payers Insurance Name Company Name Plan Name Plan Number Policy Number Yung cy Group Number Start Date Medicare Part A Medicare Part A [id number] N/A BCBS [facility] [id number] N/ A Medicare Part B Medicare Of [place] [id number] N/A Medicare Part A Medicare - Lab/Xray [id number] N/A History of Encounters Visit Date Visit Type Provider 04/24/2016 Office visit Ben Almanza APR N 10/03/2015 Office visit Matheus Ceron MD 02/21/2015 Office visit Matheus Ceron MD 02/09/2015 [facility] Matheus Ceron MD 01/10/2015 Office visit Matheus Ceron MD 11/28/2014 [facility] Dena Rhodes MD 07/30/2010 Kierra Rhodes MD 05/28/2010 [facility] Dena Rhodes MD
--- OUTSIDE RECORDS SUMMARY | 2019-10-10 08:48 | XMS REPORT ---
Author Author Mathew Pearce [facility] Address [address] [place], [place] [address] Care Team Providers Care Splitting Machine Operator Helper Name Role Phone Jessica Pearce PCP Blex, [...] 12:00 AM Hip Complete Min 2Views - [place] 01/23/2017 12:0 0 AM THYROID PANEL. 06/09/2017 [...] HC BMI BSA BMI Percentile O2 Sat(%) 08/29/2017 9:59:00 AM 114 mmHg 78 mmHg [...] Given Vis Pub CVX Pneumococcal 06/24/2017 Monica Gibson 13 [id number] Intramuscular Left Deltoid 06/24/2017 05/28/2015 133 Influenza [...] Number Start Date Medicare RHC Medicare RHC [id number] N/A [id number] N/ A Medicare Part A Medicare Part A [id number] N/A Medicare Part A Medicare - Lab/Xray [id number] N/A Medicare Part B Medicare Of [place] [id number] N/A History of Encounters Visit Date Visit Type Provider 08/29/2017 Office visit Jessica MANDEL RN 08/19/2017 [facility] Dena Rhodes MD 08/19/2017 [facility] Matheus Ceron MD 06/24/2017 Office visit Jessica [...] 02/21/2015 Office visit Matheus Ceron MD 02/09/2015 [facility] Matheus Ceron MD 01/10/2015 Office visit Matheus Ceron MD 11/28/2014 [facility] Dena Rhodes MD 07/30/2010 [facility] Dena Rhodes MD 05/28/2010 Kierra Rhodes MD
--- OUTSIDE RECORDS SUMMARY | 2019-10-10 08:48 | XMS REPORT ---
Author Author Mathew Pearce Organization [facility] Address [address] [place], [place] [address] Care Team Providers Care Manager Intelligence Name Role Phone Jessica Pearce PCP Blex, [...] 12:00 AM Hip Complete Min 2Views - [place] 01/23/2017 12:0 0 AM THYROID PANEL. 06/09/2017 12:00 AM THYROID PANEL. 06/09/2017 12:00 AM THYROID PANEL. 06/09/2017 12:00 AM Thyroid antibody panel 06/09/2017 12:00 AM EKG. 10/07/2017 12:00 AM ABDOMEN 2 VIEW DECUB/UPRIGHT 01/21/2018 12:00 AM Urine Culture. 01/21/2018 12:00 AM Iron deficient anemia Medications Active [...] HC BMI BSA BMI Percentile O2 Sat(%) 01/21/2018 1:57:00 PM 122 mmHg 78 mmHg [...] Reviewed 01/14/2017 12:00 AM Decadron 8mg Injection, [facility] Medicare Rev iewed 01/14/2017 12:00 AM Depo-Medrol 80mg Injection, [facility] Medicare Reviewed 05/20/2017 12:00 AM COMPLETE [...] 2:57 PM URINALYSIS AUTO W/O SCOPE Reviewed Results [...] CVX Pneumococcal 06/24/2017 Monica WAL PREVNAR 13 [id number] Intramuscular Left Deltoid 06/24/2017 05/28/2015 133 Influenza [...] 2018 2:00PM Hemorrhoid Jan 21 2018 2:00PM Payers Insurance Name Company Name Plan Name Plan Number Policy Number Yung Group Number Start Date Medicare RHC Medicare RHC [id number] N/A [facility] [id number] N/ A Medicare Part A Medicare Part A [id number] N/A Medicare Part A Medicare - Lab/Xray [id number] N/A Medicare Part B Medicare Of [place] [id number] N/A History of Encounters Visit Date Visit Type Provider 01/21/2018 Office visit Jessica MANDEL RN 11/04/2017 [...]
--- OUTSIDE RECORDS SUMMARY | 2019-10-10 08:48 | XMS REPORT ---
Author Author Mathew Pearce [facility] Address [address] [place], [place] [address] Care Team Providers Care Instruction Assistant Principal Name Role Phone Jessica Pearce PCP Unavailable Blex, Meggin Unavailable Unavailable Allergies and Adverse Reactions Name Reaction Notes Latex Reglan SULFA (SULFONAMIDES) Plan of Treatment Planned Activity Comments Planned Date Planned Time Plan/Goal [facility] Crohn's Prognostic test 08/06/2016 12:00 AM [facility] Cro[facility]'s Prognostic test 08/06/2016 12:00 AM [facility] Crohn's Prognostic test 08/06/2016 12:00 AM [facility] Crohn's Prognostic test 08/06/2016 12:00 AM Sleep recording 10/31/2016 12:00 AM Clostridium difficile 10/24/2016 12:00 AM [...] Obstructive sleep apnea Oct 31 2016 10:07AM Payers Insurance Name Company Name Plan Name Plan Number Policy Number Yung cy Group Number Start Date Medicare RHC Medicare RHC [id number] N/A [facility] [id number] N/ A Medicare Part A Medicare Part A [id number] N/A Medicare Part A Medicare - Lab/Xray [id number] N/A Medicare Part B Medicare Of [place] [id number] N/A History of Encounters Visit Date Visit Type Provider 10/31/2016 Office visit Jessica MANDEL RN 10/24/2016 Office visit Jessica MANDEL RN 09/10/2016 Office visit Matheus Ceron MD 08/06/2016 Office visit Matheus Ceron MD 04/24/2016 Office visit Ben Almanza APR N 10/03/2015 Office visit Matheus Ceron MD 02/21/2015 Office visit Matheus Ceron MD 02/09/2015 [facility] Matheus Ceron MD 01/10/2015 Office visit Matheus Ceron MD 11/28/2014 [facility] Dena Rhodes MD 07/30/2010 [facility] Dena Rhodes MD 05/28/2010 [facility] Dena Rhodes MD
--- OUTSIDE RECORDS SUMMARY | 2019-10-10 08:48 | XMS REPORT ---
Author Author Mathew Pearce [facility] Address [address] [place], [place] [address] Care Team Providers Care Staff Veterinarian Name Role Phone Jessica Pearce PCP Blex, [...] 12:00 AM Hip Complete Min 2Views - [place] 01/23/2017 12:0 0 AM THYROID PANEL. 06/09/2017 12:00 AM THYROID PANEL. 06/09/2017 12:00 AM THYROID PANEL. 06/09/2017 12:00 AM Thyroid antibody panel 06/09/2017 12:00 AM Medications Active Name Start Date Estimated Completion Date SIG Co mments Celexa 20 mg oral tablet take 1 tablet (2 0 mg) by oral route once daily lisinopril 20 mg oral tablet take 1 table t (20 mg) by oral route once daily Westhroid 130 mg oral tablet mary ellen e 1 tablet (130 mg) by oral route once daily before breakfast hydrochlorothiazide 25 mg oral tablet take 1 tablet (25 mg) by oral route once daily doxazosin 1 mg oral tablet take 1 tablet (1 mg) by oral route once daily progesterone micronized oral 100 mg oral capsule Take 150 mg at bedtime daily tramadol 50 mg oral tablet 01/23/2017 take 1 tablet by oral route 3 times a day as needed Bentyl 10 mg oral capsule 05/05/2017 take 1 capsule by oral route 4 times a day for 30 days venlafaxine 75 mg oral tablet 05/06/2017 09/03/2017 TA KE 1 TABLET BY MOUTH TWICE DAILY donepezil 10 mg oral tablet take 1 tablet (10 mg) by oral route once daily in the evening clonazepam 0.5 mg oral tablet ta ke 1/2 tablet (0.5 mg) by oral route 4 times per day prn simvastatin 20 mg oral tablet ta ke 1 tablet (20 mg) by oral route once daily in the evening Name Start Date Expiration Date SIG Comments Protonix 40 mg oral tablet,delayed release (DR/EC) 08/07/2016 02/03/2017 take 1 tablet (40 mg) by oral route once daily for 30 days temazepam 15 mg oral capsule 02/18/2017 04/19/2017 [...] mcg) by intramuscular route once a month propranolol 60 mg oral capsule,extended release 24 hr 05/20/2017 take 1 capsule by oral route daily Carafate 1 gram oral tablet 05/20/2017 take 1 tablet (1 gram) by oral route 4 times per day on an empty stomach 1 hour before meals and at bedtime diclofenac sodium 1 % topical gel 01/24/2017 05/20/2017 apply 4 gram to the affected area(s) by topical route 4 times per day amoxicillin 500 mg oral tablet 06/10/2017 06/24/2017 T nicki one tablet by mouth TID for 10 days Problem List Description Status Onset Hyperlipidemia Active Hypertension Active Hypothyroidism Active Irritable bowel syndrome Active Anxiety Active Depression Active Hypothyroid Active 06/25/2017 Vital Signs Date Time BP-Sys(mm[Hg] BP-Blanquita(mm[Hg]) HR(bpm) RR(rpm) Temp WT HT HC BMI BSA BMI Percentile O2 Sat(%) 06/24/2017 9:57:00 AM 120 mmHg 70 mmHg [...] iewed 01/14/2017 12:00 AM Depo-Medrol 80mg Injection, [facility] Medicare Reviewed 05/20/2017 12:00 AM COMPLETE [...] AM PNEUMOCOCCAL VACC 13 JESUS IM Reviewed Results Summary Date and Description [...] Vis Pub CVX Pneumococcal 06/24/2017 Peg-Amanda [facility] Prevnar 13 [id number] Intramuscular Left Deltoid 06/24/2017 05/28/2015 133 Influenza 06/24/2017 [employer] SKB Flulaval Quadrivalent 4 [id number] Intramuscular Right Deltoid 06/24/2017 03/03/2015 158 History of Past Illness Name Date of Onset Comments Irritable bowel syndrome Hyperlipidemia Hypothyroidism Hypertension Diverticulitis Of Colon Anxiety Depression arthritis Heartburn Hemorrhoid Gastric Ulcer Mild obstructive sleep apnea Hypothyroid 06/25/2017 Abdominal pain, epigastric Jan 11 2015 1:47PM [...] Encounter for vaccination Jun 24 2017 10:00AM Payers Insurance Name Company Name Plan Name Plan Number Policy Number Yung cy Group Number Start Date Medicare [facility] Medicare [facility] [id number] N/A [facility] [id number] N/ A Medicare Part A Medicare Part A [id number] N/A Medicare Part A Medicare - Lab/Xray [id number] N/A Medicare Part B Medicare Of [place] [id number] N/A History of Encounters Visit Date Visit Type Provider 06/24/2017 Office visit Jessica MANDEL RN 06/10/2017 [...] MD 11/28/2014 Hospital Dena Rhodes MD 07/30/2010 [facility] Dena Rhodes MD 05/28/2010 Hospital Dena Rhodes MD
--- OUTSIDE RECORDS SUMMARY | 2019-10-10 08:48 | XMS REPORT ---
Author Author Mathew Pearce [facility] Address [address] [place], [place] [address] Care Team Providers Care Licensed Mental Health Professional Name Role Phone Jessica Pearce PCP Unavailable [...] 12:00 AM Hip Complete Min 2Views - [place] 01/23/2017 12:0 0 AM VITAMIN D (25 HYDROXY) 05/20/2017 12:00 AM THYROID PANEL. 06/09/2017 12:00 AM [...] by topical route 4 times per day Problem List Description Status Onset Hyperlipidemia Active Hypertension Active Hypothyroidism Active Irritable bowel syndrome Active Anxiety Active Depression Active Vital Signs Date Time BP-Sys(mm[Hg] BP-Blanquita(mm[Hg]) HR(bpm) RR(rpm) Temp WT HT HC BMI BSA BMI Percentile O2 Sat(%) 05/20/2017 11:40:00 AM 132 mmHg 80 mmHg [...] 12:00 AM Decadron 8mg Injection, [facility] Medicare Rev iewed 01/14/2017 12:00 AM Depo-Medrol 80mg Injection, [facility] Medicare Reviewed 05/20/2017 12:00 AM COMPLETE CBC W/AUTO DIFF WBC Returned 05/20/2017 12:00 AM COMPREHEN METABOLIC PANEL Returned 05/20/2017 12:00 AM VITAMIN B-12 Returned 05/20/2017 12:00 AM ASSAY OF FOLIC ACID SERUM Returned 05/20/2017 12:00 AM ASSAY THYROID STIM [...] 2017 11:43AM Hyperthyroidism May 21 2017 10:48AM Payers Insurance Name Company Name Plan Name Plan Number Policy Number Yung cy Group Number Start Date Medicare RHC Medicare RHC [id number] N/A [facility] [id number] N/ A Medicare Part A Medicare Part A [id number] N/A Medicare Part A Medicare - Lab/Xray [id number] N/A Medicare Part B Medicare Of [place] [id number] N/A History of Encounters Visit Date Visit Type Provider 05/20/2017 Office visit Jessica MANDEL RN 02/18/2017 [...] MD 11/28/2014 Hospital Dena Rhodes MD 07/30/2010 [facility] Dena Rhodes MD 05/28/2010 Hospital Dena Rhodes MD
--- OUTSIDE RECORDS SUMMARY | 2019-10-10 08:49 | XMS REPORT ---
Author Author Mathew Pearce [facility] Address [address] [place], [place] [id number] Care Team Providers Care Retail Client Manager Name Role Phone Jessica Pearce PCP Unavailable [...] 30 days temazepam 15 mg oral capsule 01/14/2017 02/13/2017 mary ellen e 1 capsule (15 mg) by oral route once daily at bedtime as needed Problem List Description Status Onset Hyperlipidemia Active Hypertension Active Hypothyroidism Active Irritable bowel syndrome Active Anxiety Active Depression Active Vital Signs Date Time BP-Sys(mm[Hg] BP-Blanquita(mm[Hg]) HR(bpm) RR(rpm) Temp WT HT HC BMI BSA BMI Percentile O2 Sat(%) 01/14/2017 10:58:00 AM 132 mmHg 80 mmHg [...] Reviewed 01/14/2017 12:00 AM Decadron 8mg Injection, [facility] Medicare Rev iewed 01/14/2017 12:00 AM Depo-Medrol 80mg Injection, [facility] Medicare Reviewed Results Summary Date and Description [...] Obstructive sleep apnea Jan 14 2017 11:01AM Payers Insurance Name Company Name Plan Name Plan Number Policy Number Yung cy Group Number Start Date Medicare RHC Medicare [facility] [id number] N/A [facility] [id number] N/ A Medicare Part A Medicare Part A [id number] N/A Medicare Part A Medicare - Lab/Xray [id number] N/A Medicare Part B Medicare Of [place] [id number] N/A History of Encounters Visit Date Visit Type Provider 01/14/2017 Office visit Jessica MANDEL RN 10/31/2016 Office visit Jessica MANDEL RN 10/24/2016 Office visit Jessica MANDEL RN 09/10/2016 Office visit Matheus Ceron MD 08/06/2016 Office visit Matheus Ceron MD 04/24/2016 Office visit Ben Almanza APR N 10/03/2015 Office visit Matheus Ceron MD 02/21/2015 Office visit Matheus Ceron MD 02/09/2015 [facility] Matheus Ceron MD 01/10/2015 Office visit Matheus Ceron MD 11/28/2014 [facility] Dena Rhodes MD 07/30/2010 [facility] Dena Rhdoes MD 05/28/2010 [facility] Dena Rhodes MD
--- OUTSIDE RECORDS SUMMARY | 2019-10-10 08:49 | XMS REPORT ---
Author Author Mathew Pearce [facility] Address [address] [place], [place] [id number] Care Team Providers Care Equip Maint Eng Name Role Phone Jessica Pearce PCP Blex, [...] 12:00 AM Hip Complete Min 2Views - [place] 01/23/2017 12:0 0 AM THYROID PANEL. 06/09/2017 [...] Reviewed 01/14/2017 12:00 AM Decadron 8mg Injection, [facility] Medicare Rev iewed 01/14/2017 12:00 AM Depo-Medrol 80mg Injection, [facility] Medicare Reviewed 05/20/2017 12:00 AM COMPLETE [...] CVX Pneumococcal 06/24/2017 [facility] Prevnar 13 [id number] Intramuscular Left Deltoid 06/24/2017 05/28/2015 133 Influenza [...] 2017 2:50PM Depression Sep 12 2017 2:50PM Payers Insurance Name Company Name Plan Name Plan Number Policy Number Yung cy Group Number Start Date Medicare RHC Medicare RHC [id number] N/A [facility] [id number] N/ A Medicare Part A Medicare Part A [id number] N/A Medicare Part A Medicare - Lab/Xray [id number] N/A Medicare Part B Medicare Of [place] [id number] N/A History of Encounters Visit Date Visit Type Provider 09/12/2017 Office visit Jessica MANDEL RN 08/29/2017 Office visit Jessica MANDEL RN 08/19/2017 [facility] Dena Rhodes MD 08/19/2017 [facility] Matheus Ceron MD 06/24/2017 Office [...] 02/21/2015 Office visit Matheus Ceron MD 02/09/2015 [facility] Matheus Ceron MD 01/10/2015 Office visit Matheus Ceron MD 11/28/2014 [facility] Dena Rhodes MD 07/30/2010 [facility] Dena Rhodes MD 05/28/2010 [facility] Dena Rhodes MD
--- OUTSIDE RECORDS SUMMARY | 2019-10-10 08:49 | XMS REPORT ---
Author Author Mathew Pearce [facility] Address [address] [place], [place] [address] Care Team Providers Care Noodle Press Operator Name Role Phone Jessica Pearce PCP Unavailable [...] Number Start Date Medicare RHC Medicare RHC [id number] N/A [facility] [id number] N/ A Medicare Part A Medicare Part A [id number] N/A Medicare Part A Medicare - Lab/Xray [id number] N/A Medicare Part B Medicare [place] [id number] N/A History of Encounters Visit Date Visit Type Provider 10/31/2016 Office visit Jessica MANDEL RN 10/24/2016 Office visit Jessica MANDEL RN 09/10/2016 Office visit Matheus Ceron MD 08/06/2016 Office visit Matheus Ceron MD 04/24/2016 Office visit Ben Almanza APR N 10/03/2015 Office visit Matheus Ceron MD 02/21/2015 Office visit Matheus Ceron MD 02/09/2015 [facility] Matheus Ceron MD 01/10/2015 Office visit Matheus Ceron MD 11/28/2014 [facility] Dena Rhodes MD 07/30/2010 [facility] Dena Rhodes MD 05/28/2010 [facility] Dena Rhodes MD
--- OUTSIDE RECORDS SUMMARY | 2019-10-10 08:49 | XMS REPORT ---
Author Author Mathew Pearce Organization [facility] Address [address] [place], [place] [address] Care Team Providers Care Senior Principal Software Engineer Name Role Phone Jessica Pearce PCP Blex, [...] 12:00 AM Hip Complete Min 2Views - [place] 01/23/2017 12:0 0 AM THYROID PANEL. 06/09/2017 [...] HC BMI BSA BMI Percentile O2 Sat(%) 10/07/2017 2:54:00 PM 142 mmHg 86 mmHg [...] Reviewed 01/14/2017 12:00 AM Decadron 8mg Injection, [facility] Medicare Rev iewed 01/14/2017 12:00 AM Depo-Medrol 80mg Injection, [facility] Medicare Reviewed 05/20/2017 12:00 AM COMPLETE [...] Vis Given Vis Pub CVX Pneumococcal 06/24/2017 Epzhz-Ntfwym-Bgebqqh-Praxitrisha [facility] Prevnar 13 [id number] Intramuscular Left Deltoid 06/24/2017 05/28/2015 133 Influenza [...] 2017 2:58PM Depression Oct 07 2017 2:58PM Payers Insurance Name Company Name Plan Name Plan Number Policy Number Yung cy Group Number Start Date Medicare RHC Medicare RHC [id number] N/A [id number] N/ A Medicare Part A Medicare Part A [id number] N/A Medicare Part A Medicare - Lab/Xray [id number] N/A Medicare Part B Medicare [place] [id number] N/A History of Encounters Visit Date Visit Type Provider 10/07/2017 Office visit Jessica MANDEL RN 09/12/2017 Office visit Jessica MANDEL RN 08/29/2017 Office visit Jessica MANDEL RN 08/19/2017 [facility] Dena Rhodes MD 08/19/2017 [facility] Matheus Ceron MD 06/24/2017 Office visit [...]
--- OUTSIDE RECORDS SUMMARY | 2019-10-10 08:49 | XMS REPORT ---
Author Author Mathew Ceron [facility] Address [address] [place], [place] [address] Care Team Providers Care Business Administration Teacher Name Role Phone Matheus Ceron PCP Unavailable Allergies and Adverse Reactions Name Reaction Notes Latex Reglan SULFA (SULFONAMIDES) Plan of Treatment Planned Activity Comments Planned Date Planned Time Plan/Goal [facility] Crohn's Prognostic test 08/06/2016 12:00 AM [facility] Crohn's Prognostic test 08/06/2016 12:00 AM [facility] Crohn's Prognostic test 08/06/2016 12:00 AM [facility] Crohn's Prognostic test 08/06/2016 12:00 AM Medications Active Name Start Date [...] NEGATIVE YEAST NEGATIVE CULT SET UP? NO History Of Immunizations Not available. History of [...] 2016 6:26PM Diarrhea Aug 06 2016 5:11PM Payers Insurance Name Company Name Plan Name Plan Number Policy Number Yung cy Group Number Start Date Medicare Part A Medicare [facility] [id number] N/A [id number] N/ A Medicare Part A Medicare Part A [id number] N/A Medicare Part A Medicare - Lab/Xray [id number] N/A Medicare Part B Medicare Of [place] [id number] N/A History of Encounters Visit Date Visit Type Provider 08/06/2016 Office visit Matheus Ceron MD 04/24/2016 Office visit Ben Almanza APR N 10/03/2015 Office visit Matheus Ceron MD 02/21/2015 Office visit Matheus Ceron MD 02/09/2015 Hospital Matheus Ceron MD 01/10/2015 Office visit Matheus Ceron MD 11/28/2014 Hospital Dena Rhodes MD 07/30/2010 [facility] Dena Rhodes MD 05/28/2010 [facility] Dena Rhodes MD
--- OUTSIDE RECORDS SUMMARY | 2019-10-10 08:49 | XMS REPORT ---
Author Author Mathew Ceron [facility] Address [address] [place], [place] [address] Care Team Providers Care Primer Press Operator Name Role Phone Matheus Ceron PCP Unavailable [...] HC BMI BSA BMI Percentile O2 Sat(%) 09/11/2016 12:13:00 PM 160 mmHg 98 mmHg [...] 2016 12:57PM Diarrhea Sep 11 2016 12:13PM Payers Insurance Name Company Name Plan Name Plan Number Policy Number Yung cy Group Number Start Date Medicare RH Medicare RH [id number] N/A [facility] [id number] N/ A Medicare Part A Medicare Part A [id number] N/A Medicare Part A Medicare - Lab/Xray [id number] N/A Medicare Part B Medicare Of [place] [id number] N/A History of Encounters Visit Date Visit Type Provider 09/10/2016 Office visit Matheus Ceron MD 08/06/2016 Office visit Matheus Ceron MD 04/24/2016 Office visit Ben Almanza APR N 10/03/2015 Office visit Matheus Ceron MD 02/21/2015 Office visit Matheus Ceron MD 02/09/2015 Hospital Matheus Ceron MD 01/10/2015 Office visit Matheus Ceron MD 11/28/2014 Hospital Dena Rhodes MD 07/30/2010 [facility] Dena Rhodes MD 05/28/2010 [facility] Dena Rhodes MD
--- OUTSIDE RECORDS SUMMARY | 2019-10-10 08:50 | XMS REPORT ---
Author Author Mathew Pearce [facility] Address [address] [place], [place] [address] Care Team Providers Care Financial Investment Adviser Name Role Phone Jessica Pearce PCP Unavailable [...] Number Start Date Medicare RHC Medicare RHC [id number] N/[facility] [id number] N/ A Medicare Part A Medicare Part A [id number] N/A Medicare Part A Medicare - Lab/Xray [id number] N/A Medicare Part B Medicare Of [place] [id number] N/A History of Encounters Visit Date Visit [...] 01/10/2015 Office visit Matheus Ceron MD 11/28/2014 [facility] Dena Rhodes MD 07/30/2010 [facility] Dena Rhodes MD 05/28/2010 Kierra Rhodes MD
--- OUTSIDE RECORDS SUMMARY | 2019-10-10 08:50 | XMS REPORT ---
Author Author Mathew Pearce [facility] Address [address] [place], [place] [address] Care Team Providers Care Painter Touch Up Name Role Phone Jessica Pearce PCP Unavailable [...] 12:00 AM Hip Complete Min 2Views - [place] 01/23/2017 12:0 0 AM THYROID PANEL. 06/09/2017 [...] Number Start Date Medicare RHC Medicare RHC [id number] N/A [facility] [id number] N/ A Medicare Part A Medicare Part A [id number] N/A Medicare Part A Medicare - Lab/Xray [id number] N/A Medicare Part B Medicare Of [place] [id number] N/A History of Encounters Visit Date Visit [...] MD 11/28/2014 Hospital Dena Rhodes MD 07/30/2010 [facility] Dena Rhodes MD 05/28/2010 Hospital Dena Rhodes MD
--- OUTSIDE RECORDS SUMMARY | 2019-10-10 08:50 | XMS REPORT ---
Author Author Mathew Ceron [facility] Address [address] [place], [place] [address] Care Team Providers Care Draw Frame Tender Name Role Phone Matheus Ceron PCP Unavailable [...] HC BMI BSA BMI Percentile O2 Sat(%) 08/07/2016 12:56:00 PM 130 mmHg 78 mmHg [...] in adult patient Aug 07 2016 12:57PM Payers Insurance Name Company Name Plan Name Plan Number Policy Number Yung cy Group Number Start Date Medicare RHC Medicare RHC [id number] N/A [facility] [id number] N/ A Medicare Part A Medicare Part A [id number] N/A Medicare Part A Medicare - Lab/Xray [id number] N/A Medicare Part B Medicare Of [place] [id number] N/A History of Encounters Visit Date Visit Type Provider 08/06/2016 Office visit Matheus Ceron MD 04/24/2016 Office visit Ben Almanza APR N 10/03/2015 Office visit Matheus Ceron MD 02/21/2015 Office visit Matheus Ceron MD 02/09/2015 Hospital Matheus Ceron MD 01/10/2015 Office visit Matheus Ceron MD 11/28/2014 Hospital Dena Rhodes MD 07/30/2010 [facility] Dena Rhodes MD 05/28/2010 [facility] Dena Rhodes MD
--- OUTSIDE RECORDS SUMMARY | 2019-10-10 08:50 | XMS REPORT ---
Author Author Mathew Pearce [facility] Address [address] [place], [place] [address] Care Team Providers Care Senior Quality Assurance Analyst Name Role Phone Jessica Pearce PCP Unavailable [...] 12:00 AM Hip Complete Min 2Views - [place] 01/23/2017 12:0 0 AM Medications Active Name [...] 1 hour before meals and at bedtime tramadol 50 mg oral tablet 01/23/2017 take 1 tablet by oral route 3 times a day as needed diclofenac sodium 1 % topical gel 01/24/2017 apply 4 gram to the affected area(s) by topical route 4 times per day venlafaxine 75 mg oral tablet 02/18/2017 06/18/2017 ta ke 1 tablet by oral route BID temazepam 15 mg oral capsule 02/18/2017 04/19/2017 mary ellen e 1 capsule (15 mg) by oral route once daily at bedtime as needed Name Start Date Expiration Date [...] HC BMI BSA BMI Percentile O2 Sat(%) 02/18/2017 11:36:00 AM 126 mmHg 80 mmHg [...] Reviewed 01/14/2017 12:00 AM Decadron 8mg Injection, [facility] Medicare Rev iewed 01/14/2017 12:00 AM Depo-Medrol 80mg Injection, [facility] Medicare Reviewed Results Summary Date and Description [...] 11:39AM Sleep disturbance Feb 18 2017 11:39AM Payers Insurance Name Company Name Plan Name Plan Number Policy Number Yung cy Group Number Start Date Medicare RHC Medicare RH [id number] N/A [facility] [id number] N/ A Medicare Part A Medicare Part A [id number] N/A Medicare Part A Medicare - Lab/Xray [id number] N/A Medicare Part B Medicare Of [place] [id number] N/A History of Encounters Visit Date Visit Type Provider 02/18/2017 Office visit Jessica MANDEL RN 01/24/2017 Office visit Jessica MANDEL RN 01/14/2017 Office visit Jessica MANDEL RN 10/31/2016 Office visit Jessica MANDEL RN 10/24/2016 Office visit Jessica MANDEL RN 09/10/2016 Office visit Matheus Ceron MD 08/06/2016 Office visit Matheus Ceron MD 04/24/2016 Office visit Ben Almanza APR N 10/03/2015 Office visit Matheus Ceron MD 02/21/2015 Office visit Matheus Ceron MD 02/09/2015 [facility] Matheus Ceron MD 01/10/2015 Office visit Matheus Ceron MD 11/28/2014 [facility] Dena Rhodes MD 07/30/2010 [facility] Dena Rhodes MD 05/28/2010 [facility] Dena Rhodes MD
--- OUTSIDE RECORDS SUMMARY | 2019-10-10 08:50 | XMS REPORT | Continuity of Care Document ---
Demographics Preferred Language Unknown Marital Status Unknown Yazidism Affiliation Unknown Race Unknown Ethnic Group Unknown Author Organization Unknown Address Unknown Phone Unavailable Allergies Active Description Code Type Severity Reaction Onset Reported/Identified Relationship to Patient Clinical Status Yes No Known Environmental Allergies [id number] N/A N/A Yes No Known Food Allergies [id number] N/A N/A Yes REGLAN [id number] BRANDNAME N/A N/A Yes SULFA (sulfonamide) [id number] CLAS S N/A N/A Yes No Allergy Information Available [id number] Drug Allergy Unknown N/A 020 Medications There is no data. Problems Date Dx Coded Attending Type Code Diagnosis Diagnosed By 04/17/2016 CDE GREER I10 Essential (primary) hypertension 04/17/2016 CED GREER R53. 83 Other fatigue 04/19/2016 CED GREER D64. 9 Anemia, unspecified 11/26/2016 CED GREER I10 Essential (primary) hypertension 11/26/2016 CED GREER R41. 82 Altered mental status, unspecified 11/26/2016 CED GREER R42 Dizziness and giddiness 11/26/2016 CED GREER R51 Headache 11/26/2016 CED GREER R79. 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, lumbar region 06/11/2018 P D508 Other iron deficiency anemias 06/11/2018 P D508 Other iron deficiency anemias 06/11/2018 P D508 Other iron deficiency anemias 06/11/2018 P D508 Other iron deficiency anemias 06/11/2018 P D508 Other iron deficiency anemias 06/11/2018 P D508 Other iron deficiency anemias 06/30/2018 P D508 Other iron deficiency anemias 09/02/2018 P K623 Recta l prolapse 03/04/2019 P D649 Anemi a, unspecified 03/04/2019 S R5383 Othe r fatigue Procedures Code Description [place] [address] COMP REHEN METABOLIC PANEL JESS MCMAHON, CED Vinh 04/17/2016 20620 LIPI D PANEL MERCADOKENDAL MCMAHON, CED Vinh 04/17/2016 56043 ASSA Y THYROID STIM HORMONE MERCADOKENDAL MCMAHON, CED Vinh 04/17/2016 24097 COMP LETE CBC W/AUTO DIFF WBC JESS MCMAHON, CED Vinh 04/17/2016 90297 IDANIA MIN B-12 JESS MCMAHON, CED Vinh 04/19/2016 62513 ASSA Y OF FERRITIN JESS MCMAHON, CED Vinh 04/19/2016 99117 ASSA Y OF FOLIC ACID SERUM JESS MCMAHON, CED Vinh 04/19/2016 15371 ASSA Y OF IRON JESS MCMAHON, CED Vinh 04/19/2016 98727 ASSA Y OF TRANSFERRIN JESS MCMAHON, CED Vinh 04/19/2016 77609 COMP REHEN METABOLIC PANEL JESS MCMAHON, CED Vinh 11/26/2016 67197 LIPI D PANEL JESS MCMAHON, CED Vinh 11/26/2016 86261 URIN ALYSIS AUTO W/SCOPE JESS MCMAHON, CED Vinh 11/26/2016 14183 ASSA Y OF FREE THYROXINE JESS MCMAHON, CED Vinh 11/26/2016 17644 ASSA Y THYROID STIM HORMONE JESS MCMAHON, CED Vinh 11/26/2016 22241 COMP LETE CBC W/AUTO DIFF WBC JESS MCMAHON, CED Vinh 11/26/2016 Results Test Result Range COMPLETE BLOOD COUNT - 04/17/16 14:24 Platelet 385 10^3u 142-424 MPV 8.9 FL 9.4-12.4 Free[place] # 1.33 10^3u 0.0-1.0 RBC 3.76 10^6u 4.04-6.13 [place] % 14.5 % 0-12 RDW 14.3 % 11.6-14.8 Neut # 5.61 10^3u 2.0-6.9 Neut % 61.2 % 37-80 WBC 9.16 10^3u 4.60-10.20 MCV 98.1 FL 80.0-97.0 Baso # 0.09 10^3u 0.0-0.1 Baso % 1.0 % 0-2 Eos # 0.50 10^3u 0-0.7 Eos % 5.5 % 0-7 Lymph % 17.8 % 10-50 MCHC 32.5 G/DL 31.8-35.4 MCH 31.9 PG 27.0-31.2 Lymph # 1.63 10^3u 0.6-3.4 HGB 12.0 G/DL 12.2-18.1 HCT 36.9 % 37.7-53.7 CMP - 04/17/16 14:42 Osmo Calculated 264 MOSM 261-280 Sodium 137 MMOLL 136-145 T. Protein 6.1 G/DL 6.4-8.3 Potassium 3.9 MMOLL 3.5-5.1 T Bili 0.2 MG/DL 0.2-1.2 Calcium 8.8 MG/DL 8.4-10.2 BUN 16 MG/DL 7-26 Chloride 100 MMOLL 98-107 AST 17 U/L 5-34 ALT 12 U/L 0-55 Albumin 3.2 G/DL 3.5-5.0 A/G Ratio 1.1 RATIO 1.2-2.2 Bun/Creat 18 RATIO 7-25 Alk Phos 76 U/L 40-150 CO2 33 MMOLL 22-29 Glucose 69 MG/DL 70-99 Globulin 2.9 G/DL 2.4-3.5 Creatinine 0.9 MG/DL 0.6-1.3 TSH - 04/17/16 14:42 TSH 1.65 UIUML 0.35-4.94 Lipid Profile - 04/17/16 14:42 HDL 57 MG/DL 40-60 VLDL 16 MG/DL 0-21 Triglyceride 80 MG/DL 0-149 Cholesterol 180 MG/DL 0-199 LDL Calculated 107 MG/DL 0-130 Folate - 04/19/16 17:03 Folate 16.8 NG/ML 1.5-24.0 Vitamin B12 - 04/19/16 17:03 Vitamin B12 > 2000 PG/ML 200-1000 Ferritin - 04/19/16 17:03 Ferritin 31.01 NG/ML 25-300 Iron Panel (FE/IBC/%Sat) - 04/19/16 17:0 3 TIBC 305 UG/DL 280-380 % Saturation 44 % 15-50 Iron 135 UG/DL 50-175 Transferrin 244 MG/DL 174-382 Complete blood count (CBC) with automate d white blood cell (WBC) differential - 10/09/19 05:55 Blood leukocytes automated count (number/volume) 9.8 10*3/uL 4.3-11.0 Blood erythrocytes automated count (number/volume) 3.47 10*6/uL 4.35-5.85 Venous blood hemoglobin measurement (mass/volume) 11.3 g/dL 11.5-16.0 Blood hematocrit (volume fraction) 34 % 35-52 Automated erythrocyte mean corpuscular volume 98 [ foz_us] 80-99 Automated erythrocyte mean corpuscular h emoglobin (mass per erythrocyte) 33 pg 25-34 Automated erythrocyte mean corpuscular h emoglobin concentration measurement (mass/volume) 33 g/dL 32-36 Automated erythrocyte distribution width ratio 12. 9 % 10.0- 14.5 Automated blood platelet count (count/volume) 319 10*3/uL 130-400 Automated blood platelet mean volume measurement 9.0 [foz_us] 7.4-10.4 Automated blood neutrophils/100 leukocytes 61 % 42-75 Automated blood lymphocytes/100 leukocytes 19 % 12-44 Blood monocytes/100 leukocytes 14 % 0-12 Automated blood eosinophils/100 leukocytes 6 % 0-10 Automated blood basophils/100 leukocytes 1 % 0-10 Blood neutrophils automated count (number/volume) 5.9 10*3 1.8-7.8 Blood lymphocytes automated count (number/volume) 1.8 10*3 1.0-4.0 Blood monocytes automated count (number/volume) 1. 4 10*3 0.0-1.0 Automated eosinophil count 0.6 10*3/uL 0 .0-0.3 Automated blood basophil count (count/volume) 0.1 10*3/uL 0.0-0.1 Comprehensive metabolic panel - 10/09/19 05:55 Serum or plasma sodium measurement (moles/volume) 135 mmol/L 135-145 Serum or plasma potassium measurement (moles/volume) 4.0 mmol/L 3.6-5.0 Serum or plasma chloride measurement (moles/volume) 99 mmol/L 98-107 Carbon dioxide 27 mmol/L 21-32 Serum or plasma anion gap determination (moles/volume) 9 mmol/L 5-14 Serum or plasma urea nitrogen measurement (mass/volume ) 13 mg/dL 7-18 Serum or plasma creatinine measurement (mass/volume) 0.72 mg/dL 0.60-1.30 Serum or plasma urea nitrogen/creatinine mass ratio 18 NRG Serum or plasma creatinine measurement w ith calculation of estimated glomerular filtration rate > NRG Serum or plasma glucose measurement (mass/volume) 83 mg/dL 70-105 Serum or plasma calcium measurement (mass/volume) 8.9 mg/dL 8.5-10.1 Serum or plasma total bilirubin measurement (mass/volu me) 0.4 mg/dL 0.1-1.0 Serum or plasma alkaline phosphatase rosa surement (enzymatic activity/volume) 100 U/L 40-136 Serum or plasma aspartate aminotransfera se measurement (enzymatic activity/volume) 21 U/L 5-34 Serum or plasma alanine aminotransferase measurement (enzymatic activity/volume) 7 U/L 0-55 Serum or plasma protein measurement (mass/volume) 6.2 g/dL 6.4-8.2 Serum or plasma albumin measurement (mass/volume) 3.8 g/dL 3.2-4.5 CALCIUM CORRECTED 9.1 mg/dL 8.5-10.1 Encounters ACCT No. Visit Date/Time Discharge Status Pt. Type Provider Facility Loc./Unit Complaint [id number] 08/16/2019 16:25:11 Document Registration [id number] 07/19/2019 10:17:04 Document Registration [id number] 05/07/2019 17:02:42 Document Registration [id number] 04/08/2019 14:03:11 Document Registration [id number] 03/16/2019 13:24:59 Document Registration [id number] 03/13/2019 11:14:58 Document Registration [id number] 03/13/2019 11:03:45 Document Registration [id number] 03/09/2019 15:06:09 Document Registration [id number] 03/04/2019 13:13:50 Document Registration [id number] 01/04/2019 10:51:02 Document Registration [id number] 11/02/2018 16:35:52 Document Registration [id number] 09/02/2018 16:08:10 Document Registration [id number] 09/02/2018 15:33:26 Document Registration [id number] 08/27/2018 23:50:02 Document Registration [id number] 08/26/2018 15:06:46 Document Registration [id number] 08/24/2018 12:28:00 Document Registration [id number] 08/24/2018 12:04:24 Document Registration [id number] 08/19/2018 16:15:23 Document Registration [id number] 07/29/2018 17:10:51 Document Registration [id number] 06/30/2018 14:25:14 Document Registration [id number] 06/17/2018 12:54:55 Document Registration [id number] 06/10/2018 20:35:11 Document Registration [id number] 06/10/2018 20:29:07 Document Registration [id number] 03/23/2018 15:42:16 Document Registration [id number] 01/21/2018 16:16:19 Document Registration [id number] 01/21/2018 14:45:52 Document Registration [id number] 12/23/2017 09:55:49 Document Registration [id number] 12/14/2017 01:28:20 Document Registration [id number] 10/29/2017 15:12:53 Document Registration [id number] 10/28/2017 15:46:41 Document Registration [id number] 10/09/2017 16:08:53 Document Registration [id number] 10/08/2017 15:34:32 Document Registration [id number] 10/07/2017 16:09:53 Document Registration [id number] 09/23/2017 00:11:23 Document Registration [id number] 08/29/2017 15:37:43 Document Registration [id number] 08/19/2017 07:10:31 Document Registration [id number] 08/19/2017 06:56:40 Document Registration [id number] 06/24/2017 15:43:57 Document Registration [id number] 05/20/2017 15:00:49 Document Registration [id number] 03/19/2017 13:51:27 Document Registration [id number] 09/23/2019 11:29:13 09/23/2019 23:59: 59 CLS Outpatient Jessica Pearce [id number] 09/16/2019 11:10:58 09/16/2019 23:59: 59 CLS Outpatient Jessica Pearce [id number] 08/24/2019 11:44:51 08/24/2019 23:59: 59 CLS Outpatient Matheus Ceron [id number] 08/16/2019 10:58:55 08/16/2019 23:59: 59 CLS Outpatient Jessica Pearce [id number] 07/15/2019 11:46:32 07/15/2019 23:59: 59 CLS Outpatient Jessica Pearce [id number] 06/04/2019 11:48:48 06/04/2019 23:59: 59 CLS Outpatient Jessica Pearce [id number] 05/21/2019 11:53:16 05/21/2019 23:59: 59 CLS Outpatient Jessica Pearce [id number] 05/07/2019 11:47:33 05/07/2019 23:59: 59 CLS Outpatient Jessica Pearce [id number] 04/26/2019 11:08:37 04/26/2019 23:59: 59 CLS Outpatient [place] Matheus [id number] 04/16/2019 11:37:25 04/16/2019 23:59: 59 CLS Outpatient Jessica Pearce [id number] 04/08/2019 10:40:53 04/08/2019 23:59: 59 CLS Outpatient Jessica Pearce [id number] 03/15/2019 14:32:01 03/15/2019 23:59: 59 CLS Outpatient Jessica Pearce [id number] 03/09/2019 15:34:32 03/09/2019 23:59: 59 CLS Outpatient Jessica Pearce [id number] 03/04/2019 09:21:44 03/04/2019 23:59: 59 CLS Outpatient Charlette Pearcesea [id number] 01/21/2019 11:20:54 01/21/2019 23:59: 59 CLS Outpatient Jessica Pearce [id number] 01/01/2019 14:11:41 01/01/2019 23:59: 59 CLS Outpatient Charlette Pearcesea [id number] 12/22/2018 14:26:51 12/22/2018 23:59: 59 CLS Outpatient [place] Matheus [id number] 11/17/2018 15:19:23 11/17/2018 23:59: 59 CLS Outpatient Charlette Pearcesea [id number] 11/02/2018 12:23:51 11/02/2018 23:59: 59 CLS Outpatient Charlette Pearcesea [id number] 09/21/2018 15:25:43 09/21/2018 23:59: 59 CLS Outpatient [place], Matheus [id number] 09/09/2018 12:42:39 09/09/2018 23:59: 59 CLS Outpatient [place], Matheus [id number] 09/04/2018 14:49:07 09/04/2018 23:59: 59 OLYA Outpatient Matheus Ceron [id number] 08/26/2018 14:44:39 08/26/2018 23:59: 59 CLS Outpatient Matheus Ceron [id number] 08/19/2018 12:06:40 08/19/2018 23:59: 59 CLS Outpatient Jessica Pearce [id number] 07/29/2018 14:27:33 07/29/2018 23:59: 59 CLS Outpatient Jessica Pearce [id number] 06/17/2018 13:51:48 06/17/2018 23:59: 59 CLS Outpatient Frederick Ware [id number] 06/17/2018 12:12:22 06/17/2018 23:59: 59 CLS Outpatient Jessica Pearce [id number] 05/29/2018 10:40:18 05/29/2018 23:59: 59 CLS Outpatient Jessica Pearce [id number] 05/15/2018 16:44:08 05/15/2018 23:59: 59 CLS Outpatient Jessica Pearce [id number] 05/01/2018 12:21:09 05/01/2018 23:59: 59 CLS Outpatient Jessica Pearce [id number] 04/11/2018 11:58:00 04/11/2018 23:59: 59 CLS Outpatient Jessica Pearce [id number] 03/23/2018 10:38:53 03/23/2018 23:59: 59 CLS Outpatient RamsesJessica [id number] 02/19/2018 11:33:01 02/19/2018 23:59: 59 CLS Outpatient Rosalinda Sanchez [id number] 2018 10:42:28 2018 23:59: 59 CLS Outpatient Rosalinda Sanchez [id number] 01/27/2018 16:16:06 01/27/2018 23:59: 59 CLS Outpatient Matheus Ceron [id number] 01/22/2018 15:51:35 01/22/2018 23:59: 59 CLS Outpatient Rosalinda Sanchez [id number] 01/21/2018 14:42:39 01/21/2018 23:59: 59 CLS Outpatient RamsesJessica [id number] 11/04/2017 15:26:58 11/04/2017 23:59: 59 CLS Outpatient Matheus Ceron [id number] 10/07/2017 15:45:21 10/07/2017 23:59: 59 CLS Outpatient Jessica Pearce [id number] 09/12/2017 15:39:51 09/12/2017 23:59: 59 CLS Outpatient Jessica Pearce [id number] 09/04/2017 14:27:35 09/04/2017 23:59: 59 CLS Outpatient Dena Rhodes Dae [id number] 08/29/2017 10:43:42 08/29/2017 23:59: 59 CLS Outpatient Jessica Pearce [id number] 08/20/2017 12:08:47 08/20/2017 23:59: 59 CLS Outpatient Matheus Ceron [id number] 06/24/2017 10:51:57 06/24/2017 23:59: 59 CLS Outpatient Jessica Pearce [id number] 06/10/2017 17:55:05 06/10/2017 23:59: 59 CLS Outpatient Charlette Pearcesea [id number] 05/20/2017 12:30:09 05/20/2017 23:59: 59 CLS Outpatient Charlette Pearcesea [id number] 02/18/2017 12:15:58 02/18/2017 23:59: 59 CLS Outpatient Charlette Pearcesea [id number] 01/24/2017 18:19:47 01/24/2017 23:59: 59 CLS Outpatient Charlette Pearcesea [id number] 01/14/2017 11:53:58 01/14/2017 23:59: 59 CLS Outpatient Charlette Pearcesea [id number] 11/25/2016 16:24:51 11/25/2016 23:59: 59 CLS Outpatient Charlette Pearcesea [id number] 10/31/2016 10:51:42 10/31/2016 23:59: 59 CLS Outpatient Charlette Pearcesea [id number] 10/24/2016 18:01:13 10/24/2016 23:59: 59 CLS Outpatient Charlette Pearcesea [id number] 09/10/2016 16:00:33 09/10/2016 23:59: 59 CLS Outpatient Matheus Ceron [id number] 08/06/2016 18:01:29 08/06/2016 23:59: 59 CLS Outpatient Matheus Ceron [id number] 04/24/2016 18:58:31 04/24/2016 23:59: 59 CLS Outpatient Ben Almanza [id number] 10/03/2015 17:12:46 10/03/2015 23:59: 59 CLS Outpatient Matheus Ceron [id number] 03/24/2015 14:00:40 03/24/2015 23:59: 59 CLS Outpatient Dena Rhodes [id number] 03/06/2015 22:25:21 03/06/2015 23:59: 59 CLS Outpatient Matheus Ceron [id number] 03/06/2015 22:25:13 03/06/2015 23:59: 59 CLS Outpatient Matheus Ceron [id number] 03/06/2015 21:57:39 03/06/2015 23:59: 59 CLS Outpatient Matheus Ceron [id number] 11/26/2016 12:24:00 11/26/2016 12:24 :00 DIS Outpatient JESS MCMAHON [facility] LAB [id number] 04/19/2016 12:56:00 04/19/2016 12:56 :00 DIS Outpatient JESS MCMAHON [facility] OTHER [id number] 04/17/2016 13:20:00 04/17/2016 13:20 :00 DIS Outpatient JESS MCMAHON [facility] OTHER [id number] 10/08/2019 13:05:[address] Inpatient CECILIA CONTRERAS DO [facility] IRF LEFT KNEE OA
--- OUTSIDE RECORDS SUMMARY | 2019-10-10 08:50 | XMS REPORT ---
Author Author Mathew Pearce [facility] Address [address] [place], [place] [id number] Care Team Providers Care Territory Manager Name Role Phone Jessica Pearce PCP [...] 12:00 AM Hip Complete Min 2Views - [place] 01/23/2017 12:0 0 AM Medications Active Name [...] route 3 times a day as needed Problem List Description Status Onset [...] Decadron 8mg Injection, [facility] Medicare Rev iewed 01/14/2017 12:00 AM Depo-Medrol 80mg Injection, [facility] Medicare Reviewed Results Summary Date and Description [...] right hip joint Jan 23 2017 11:25AM Payers Insurance Name Company Name Plan Name Plan Number Policy Number [place] Group Number Start Date Medicare RHC Medicare RHC [id number] N/A [id number] N/ A Medicare Part A Medicare Part A [id number] N/A Medicare Part A Medicare - Lab/Xray [id number] N/A Medicare Part B Medicare Of [place] [id number] N/A History of Encounters Visit Date Visit Type Provider 01/14/2017 Office visit Jessica MANDEL RN 10/31/2016 Office visit Jessica MANDEL RN 10/24/2016 Office visit Jessica MANDEL RN 09/10/2016 Office visit Matheus Ceron MD 08/06/2016 Office visit Matheus Ceron MD 04/24/2016 Office visit Ben Almanza APR N 10/03/2015 Office visit Matheus Ceron MD 02/21/2015 Office visit Matheus Ceron MD 02/09/2015 [facility] Matheus Ceron MD 01/10/2015 Office visit Matheus Ceron MD 11/28/2014 [facility] Dena Rhodes MD 07/30/2010 [facility] Dena Rhodes MD 05/28/2010 [facility] Dena Rhodes MD
[2019-10-10] MEDS: polyethylene glycoL POWDER 17 GM (MIRALAX) PACK PO SCH ×2 (08:51→19:41)
[2019-10-10] MEDS: MELOXICAM 7.5 MG (MOBIC) TABLET PO SCH ×2 (08:52→20:28)
[2019-10-10 08:53] VITALS: BP 107/70
--- NOTE | 2019-10-10 12:16 | PM&R Progress Note ---
Subjective HPI/CC On Admission Date Seen by Provider: Oct 10, 2019 Time Seen by Provider: 12:15 Subjective/Events-last exam No major confusion noted Memory loss evident but she seems to be doing well with it Pain is pretty well controlled BM after suppository No agitation noted Bed alarm on Checked meds and labs Conferred with RN Reviewed therapy notes Review of Systems Gastrointestinal: Constipation Musculoskeletal: leg pain Objective Exam Vital Signs Vital Signs Date Time Temp Pulse Resp B/P (MAP) Pulse Ox O2 Delivery O2 Flow Rate FiO2 10/10/19 17:23 36.9 72 16 136/80 (98) 99 Room Air Capillary Refill : Less Than 3 SecondsLess Than 3 Seconds General Appearance: No Apparent Distress, WD/WN, Chronically ill HEENT: PERRL/EOMI, Normal ENT Inspection, Pharynx Normal Neck: Full Range of Motion, Normal Inspection, Non Tender, Supple, Carotid Bruit Respiratory: Chest Non Tender, Lungs Clear, Normal Breath Sounds, No Accessory Muscle Use, No Respiratory Distress Cardiovascular: Regular Rate, Rhythm, No Edema, No Gallop, No JVD, No Murmur, Normal Peripheral Pulses Gastrointestinal: Normal Bowel Sounds, No Organomegaly, No Pulsatile Mass, Non Tender, Soft Back: Normal Inspection, No CVA Tenderness, No Vertebral Tenderness Extremity: Normal Capillary Refill, Normal Inspection, Normal Range of Motion (left leg), Non Tender, No Calf Tenderness, No Pedal Edema Neurologic/Psychiatric: Alert, Oriented x3, No Motor/Sensory Deficits, Normal Mood/Affect, die equipment operator II-XII Norm as Tested, Disoriented (subtle poor recall), Motor Weakness (generalized lower extremities) Skin: Normal Color, Warm/Dry Lymphatic: No Adenopathy Results/Procedures Lab Patient resulted labs reviewed. FIM Transfers Therapy Code Descriptions/Definitions Functional [place] Measure: 0=Not Assessed/NA 4=Minimal Assistance 1=Total Assistance 5=Supervision or Setup 2=Maximal Assistance 6=Modified [place] 3=Moderate Assistance 7=Complete IndependenceSCALE: Activities may be completed with or without assistive devices. 0-Lliphkqfda-itlhqkl completes the activity by him/herself with no assistance from a helper. 5-Set-up or Clean-up Assistance-helper sets up or cleans up; patient completes activity. [place] assists only prior to or following the activity. 4-Supervision or Touching Assistance-helper provides verbal cues and/or touching/steadying and/or contact guard assistance as patient completes activity. Assistance may be provided throughout the activity or intermittently. 3-Partial/Moderate Assistance-helper does LESS THAN HALF the effort. [place] lifts, holds or supports trunk or limbs, but provides less than half the effort. 2-Substantial/Maximal Assistance-helper does MORE THAN HALF the effort. [place] lifts or holds trunk or limbs and provides more than half the effort. 6-Qqlnlziwh-nhbecg does ALL the effort. Patient does none of the effort to complete the activity. Or, the assistance of 2 or more helpers is required for the patient to complete the activity. If activity was not attempted, code reason: 7-Patient Refused. 9-Not Applicable-not attempted and the patient did not perform the activity before the current illness, exacerbation or injury. 10-Not Attempted due to Environmental Limitations-(lack of equipment, weather restraints, etc.). 88-Not Attempted due to Medical Conditions or Safety Concerns. Roll Left to Right (QC): 4 (sba) Sit to Lying (QC): 3 (asisted with less then 50% of help) Sit to Stand (QC): 4 Chair/Fxg-ql-Sfcfz Xfer(QC): 4 (CGA) Car Transfer (QC): 3 Gait Training Does the Patient Walk?: Yes Distance: 200 Walk 10 feet (QC): 4 Walk 50 ft with 2 Turns(QC): 4 Walk 150 ft (QC): 4 Walking 10ft/uneven surface-QC: 4 (CGA) Gait Persons Needed: 1 Gait Assistive Device: FWW Wheelchair Training Does the Pt Use a Wheelchair?: No Stair Training 1 Step (curb) (QC): 4 (CGA) 4 Steps (QC): 88 12 Steps (QC): 88 Balance Picking up an Object (QC): 88 Assessment/Plan Assessment and Plan Assess & Plan/Chief Complaint Assessment: s/p left knee replacement POD # 4 Dementia PD Constipation giving supp now resolving maintained on laxatives HTN Plan: IRF protocol Monitor for sundowning Checked labs per protocol BM regimen (1) Status post left knee replacement (2) Parkinson disease (3) Dementia (4) Hypertension (5) Constipation (6) Advanced age CECILIA CONTRERAS DO Oct 10, 2019 12:16
[2019-10-10 17:23] VITALS: BP 136/80
[2019-10-10] MEDS: DOCUSATE SODIUM 100 MG (COLACE) CAP PO SCH (19:40)
[2019-10-11] MEDS: HYDROcodone/APAP 5 MG/325 MG (LORTAB) TAB PO PRN ×4 (00:48→21:30)
[2019-10-11] MEDS: CALCIUM CARBONATE 500 MG (TUMS) TAB.CHEW PO PRN (00:49)
[2019-10-11 05:51] VITALS: BP 122/70
[2019-10-11] MEDS: VENlafaxine XR 75 MG (EFFEXOR XR) CAP PO SCH ×2 (06:37→18:18)
[2019-10-11 07:27] LABS: BASOPHILS # (AUTO) 0.1 10^3/uL (0.0-0.1); BASOPHILS % (AUTO) 1 % (0-10); EOSINOPHILS # (AUTO) 0.8 10^3/uL (0.0-0.3); EOSINOPHILS % (AUTO) 10 % (0-10); HEMATOCRIT 33 % (35-52); HEMOGLOBIN 10.7 G/DL (11.5-16.0); LYMPHOCYTES # (AUTO) 1.8 X 10^3 (1.0-4.0); LYMPHOCYTES % (AUTO) 23 % (12-44); MEAN CORPUSCULAR HEMOGLOBIN 32 PG (25-34); MEAN CORPUSCULAR HGB CONC 33 G/DL (32-36); MEAN CORPUSCULAR VOLUME 98 FL (80-99); MEAN PLATELET VOLUME 8.9 FL (7.4-10.4); MONOCYTES # (AUTO) 0.8 X 10^3 (0.0-1.0); MONOCYTES % (AUTO) 10 % (0-12); NEUTROPHILS # (AUTO) 4.6 X 10^3 (1.8-7.8); NEUTROPHILS % (AUTO) 57 % (42-75); PLATELET COUNT 368 10^3/uL (130-400); RED CELL DISTRIBUTION WIDTH 12.9 % (10.0-14.5)
[2019-10-11 08:00] LABS: ALANINE AMINOTRANSFERASE 7 U/L (0-55); ALBUMIN 3.4 GM/DL (3.2-4.5); ALKALINE PHOSPHATASE 81 U/L (40-136); BILIRUBIN,TOTAL 0.6 MG/DL (0.1-1.0); BUN/CREATININE RATIO 19; CARBON DIOXIDE 28 MMOL/L (21-32); CHLORIDE 102 MMOL/L (98-107); CREATININE SERUM 0.68 MG/DL (0.60-1.30); GFR ESTIMATED > 60; GLUCOSE 84 MG/DL (70-105); POTASSIUM 4.1 MMOL/L (3.6-5.0); SODIUM 136 MMOL/L (135-145); TOTAL PROTEIN 5.6 GM/DL (6.4-8.2)
[2019-10-11] MEDS: PANTOPRAZOLE 40 MG (PROTONIX) TAB PO SCH (08:17)
[2019-10-11] MEDS: polyethylene glycoL POWDER 17 GM (MIRALAX) PACK PO SCH ×2 (08:17→20:32)
[2019-10-11] MEDS: MELOXICAM 7.5 MG (MOBIC) TABLET PO SCH ×2 (08:17→20:31)
[2019-10-11] MEDS: lisINopril 20 MG (PRINIVIL) TABLET PO SCH (08:17)
[2019-10-11] MEDS: ASPIRIN E.C. 81 MG (ECOTRIN) TAB PO SCH (08:17)
[2019-10-11] MEDS: MEMANTINE 10 MG (NAMENDA) TABLET PO SCH ×2 (08:17→20:31)
[2019-10-11] MEDS: SENNA W/DOCUSATE (SENOKOT S) TABLET PO SCH ×2 (08:17→20:32)
[2019-10-11] MEDS: PROPRANOLOL 20 MG (INDERAL) TABLET PO SCH (08:17)
--- NOTE | 2019-10-11 09:33 | Occupational Ther Daily Note ---
OT Current Status-Daily Note Subjective Pt seen in bed this morning, states moderate pain but lessening since medication. Pt states slept poorly due to pain. Pt agrees to OT tx this morning. Mental Status/Objective Patient Orientation: Person, Place, Situation ADL-Treatment Therapy Code Descriptions/Definitions Functional [place] Measure: 0=Not Assessed/NA 4=Minimal Assistance 1=Total Assistance 5=Supervision or Setup 2=Maximal Assistance 6=Modified [place] 3=Moderate Assistance 7=Complete IndependenceSCALE: Activities may be completed with or without assistive devices. 0-Eizxzhgjvg-elrqxwq completes the activity by him/herself with no assistance from a helper. 5-Set-up or Clean-up Assistance-helper sets up or cleans up; patient completes activity. [place] assists only prior to or following the activity. 4-Supervision or Touching Assistance-helper provides verbal cues and/or touching/steadying and/or contact guard assistance as patient completes activity. Assistance may be provided throughout the activity or intermittently. 3-Partial/Moderate Assistance-helper does LESS THAN HALF the effort. [place] lifts, holds or supports trunk or limbs, but provides less than half the effort. 2-Substantial/Maximal Assistance-helper does MORE THAN HALF the effort. [place] lifts or holds trunk or limbs and provides more than half the effort. 8-Mkslxixzy-sqsfos does ALL the effort. Patient does none of the effort to complete the activity. Or, the assistance of 2 or more helpers is required for the patient to complete the activity. If activity was not attempted, code reason: 7-Patient Refused. 9-Not Applicable-not attempted and the patient did not perform the activity before the current illness, exacerbation or injury. 10-Not Attempted due to Environmental Limitations-(lack of equipment, weather restraints, etc.). 88-Not Attempted due to Medical Conditions or Safety Concerns. Eating (QC): 6 Oral Hygiene (QC): 4 (SBA in stance at sink.) Bathing Location: L Arm, R Arm, L Upper Leg, R Upper Leg, Chest, Abdomen, Buttocks, Perineal Area Shower/Bathe Self (QC): 3 (min A for BLE (feet), SBA in stance in shower- pt completes sponge bath, does not wash over L knee bandages) Upper Body Dressing (QC): 5 (s/u) Lower Body Dressing (QC): 4 (SBA in stance to hike over hips) On/Off Footwear: 4 (SUP in sit) Toileting Hygiene (QC): 4 (SUP) Toilet Transfer (QC): 4 (SBA, use of FWW) Other Treatment Pt agrees to treatment. Pt bed mob with SUP, completes sit to stands with SBA. Pt completes sponge bath/ toileting/ oral hygiene as above. Pt repeats self multiple times during session, pt states her "mental" isn't all there which is why telesitter present- pt educated on use of telesitter and need to utilize call light until ad delmer status reached. Pt acknowledges. Pt ambulates with SBA to coffee bar to complete drink prep with SBA, ambulates to gym with 2WW and completes 10 min min resist arm bike, education for task. Pt completes ~15 min standing activity with 1# wrist weights bilaterally, doffs and dons resistance clothes pins, reaches in different planes with good balance (SBA). Pt ambulates to room with SBA, completes 10 reps bilaterally of yellow theraband exercises (back flies, scaption, int/ ext shoulder rotation. Pt states she donates money to [employer] taoist programs, pt educated on financial safety. Pt states she only gives to trusted programs, states will never give credit card number over the phone to those calling. Pt left in recliner chair with call light in reach, all needs met, chair alarm set, pt educated on use of call light for getting up in room. Pt acknowledges. Education OT Patient Education: Correct positioning, Exercise program, Home exercise program, Modified ADL techniques, Purpose of tx/functional activities, Safety issues Teaching Recipient: Patient Teaching Methods: Demonstration, Discussion Response to Teaching: Verbalize Understanding, Return Demonstration, Reinforcement Needed OT Mcfp Goals Spot Cleaner Goals Time Frame: Oct 29, 2019 Eating (QC): 6 (met) Oral Hygiene (QC): 6 Toileting Hygiene (QC): 6 Shower/Bathe Self (QC): 5 Upper Body Dressing (QC): 6 Lower Body Dressing (QC): 5 On/Off Footwear (QC): 6 Additional Goals: 1-Demonstrate ADL Tasks, 2-Verbalize Understanding, 3- ImproveStrength/Amos 1=Demonstrate adherence to instructed precautions during ADL tasks. 2=Patient will verbalize/demonstrate understanding of assistive devices/modifications for ADL. 3=Patient will improve strength/tolerance for activity to enable patient to perform ADL's. OT Education/Plan Problem List/Assessment Assessment: Decreased Activ Tolerance, Decreased UE Strength, Dependent Transfers, Edema, Impaired I ADL's, Impaired Self-Care Skills Pt s/p left TKA with decreased mobility, ADL functioning, strength, and activity tolerance. Pt to benefit from skilled OT intervention for ADL training, transfers, strengthening, and home safety education to increase level of independence and allow safe discharge plan. Discharge Recommendations Plan/Recommendations: Continue POC Therapy Discharge Recommendati: Intermittent Supervision, Meals on Wheels, Home & Family Treatment Plan/Plan of Care Treatment,Training & Education: Yes Patient would benefit from OT for education, treatment and training to promote independence in ADL's, mobility, safety and/or upper extremity function for ADL's. Plan of Care: ADL Retraining, Functional Mobility, Group Exercise/Act as Ind, UE Funct Exercise/Act Treatment Duration: Oct 29, 2019 Frequency: At least 5 of 7 days/Wk (IRF) Estimated Hrs Per Day: 1.5 hours per day Rehab Potential: Good Time/GCodes Start Time: 08:00 Stop Time: 09:30 Total Time Billed (hr/min): 90 Billed Treatment Time 1, ADL 3 (45), EX 3 (45)= 90 DRU LORD OTR Oct 11, 2019 09:33
--- NOTE | 2019-10-11 10:12 | PM&R Progress Note ---
Subjective HPI/CC On Admission Date Seen by Provider: Oct 11, 2019 Time Seen by Provider: 10:00 Subjective/Events-last exam No major confusion noted Memory loss evident but she seems to be doing well with it Pain is pretty well controlled but she tends to talk about it a lot BM regular now with laxatives No agitation noted Bed alarm on Checked meds and labs Conferred with RN Reviewed therapy notes After rounds at 1650 patient climbed out of bed when alarm was not replaced after PT and sustained a fall and Dr Wray graciously assessed her and ordered CT brain and neck revealing no significant abnl and placed 5 purvi in laceration Review of Systems General: Fatigue Musculoskeletal: leg pain Neurological: Weakness, Incoordination, Confusion Objective Exam Vital Signs Vital Signs Date Time Temp Pulse Resp B/P (MAP) Pulse Ox O2 Delivery O2 Flow Rate FiO2 10/11/19 16:50 36.9 72 16 151/78 (102) 97 Room Air Capillary Refill : Less Than 3 SecondsLess Than 3 Seconds General Appearance: No Apparent Distress, WD/WN, Chronically ill HEENT: PERRL/EOMI, Normal ENT Inspection, Pharynx Normal Neck: Full Range of Motion, Normal Inspection, Non Tender, Supple, Carotid Bruit Respiratory: Chest Non Tender, Lungs Clear, Normal Breath Sounds, No Accessory Muscle Use, No Respiratory Distress Cardiovascular: Regular Rate, Rhythm, No Edema, No Gallop, No JVD, No Murmur, Normal Peripheral Pulses Gastrointestinal: Normal Bowel Sounds, No Organomegaly, No Pulsatile Mass, Non Tender, Soft Back: Normal Inspection, No CVA Tenderness, No Vertebral Tenderness Extremity: Normal Capillary Refill, Normal Inspection, Normal Range of Motion (left leg), Non Tender, No Calf Tenderness, No Pedal Edema Neurologic/Psychiatric: Alert, Oriented x3, No Motor/Sensory Deficits, Normal Mood/Affect, biosecurity officer II-XII Norm as Tested, Disoriented (subtle poor recall), Motor Weakness (generalized lower extremities) Skin: Normal Color, Warm/Dry Lymphatic: No Adenopathy Results/Procedures Lab Laboratory Tests 10/11/19 06:34 Patient resulted labs reviewed. FIM Transfers Therapy Code Descriptions/Definitions Functional [place] Measure: 0=Not Assessed/NA 4=Minimal Assistance 1=Total Assistance 5=Supervision or Setup 2=Maximal Assistance 6=Modified [place] 3=Moderate Assistance 7=Complete IndependenceSCALE: Activities may be completed with or without assistive devices. 1-Elrlemiohv-apfbxug completes the activity by him/herself with no assistance from a helper. 5-Set-up or Clean-up Assistance-helper sets up or cleans up; patient completes activity. [place] assists only prior to or following the activity. 4-Supervision or Touching Assistance-helper provides verbal cues and/or touching/steadying and/or contact guard assistance as patient completes activity. Assistance may be provided throughout the activity or intermittently. 3-Partial/Moderate Assistance-helper does LESS THAN HALF the effort. [place] lifts, holds or supports trunk or limbs, but provides less than half the effort. 2-Substantial/Maximal Assistance-helper does MORE THAN HALF the effort. [place] lifts or holds trunk or limbs and provides more than half the effort. 5-Sadysisuh-viotoq does ALL the effort. Patient does none of the effort to complete the activity. Or, the assistance of 2 or more helpers is required for the patient to complete the activity. If activity was not attempted, code reason: 7-Patient Refused. 9-Not Applicable-not attempted and the patient did not perform the activity before the current illness, exacerbation or injury. 10-Not Attempted due to Environmental Limitations-(lack of equipment, weather restraints, etc.). 88-Not Attempted due to Medical Conditions or Safety Concerns. Roll Left to Right (QC): 4 (sba) Sit to Lying (QC): 3 (asisted with less then 50% of help) Sit to Stand (QC): 4 Chair/Plh-ru-Dbzlq Xfer(QC): 4 (CGA) Car Transfer (QC): 3 Gait Training Does the Patient Walk?: Yes Distance: 200 Walk 10 feet (QC): 4 Walk 50 ft with 2 Turns(QC): 4 Walk 150 ft (QC): 4 Walking 10ft/uneven surface-QC: 4 (CGA) Gait Persons Needed: 1 Gait Assistive Device: FWW Wheelchair Training Does the Pt Use a Wheelchair?: No Stair Training 1 Step (curb) (QC): 4 (CGA) 4 Steps (QC): 88 12 Steps (QC): 88 Balance Picking up an Object (QC): 88 ADL-Treatment Eating (QC): 6 Oral Hygiene (QC): 4 (SBA in stance at sink.) Bathing Location: L Arm, R Arm, L Upper Leg, R Upper Leg, Chest, Abdomen, Buttocks, Perineal Area Shower/Bathe Self (QC): 3 (min A for BLE (feet), SBA in stance in shower- pt completes sponge bath, does not wash over L knee bandages) Upper Body Dressing (QC): 5 (s/u) Lower Body Dressing (QC): 4 (SBA in stance to hike over hips) On/Off Footwear (QC): 4 (SUP in sit) Toileting Hygiene (QC): 4 (SUP) Toilet Transfer (QC): 4 (SBA, use of FWW) Assessment/Plan Assessment and Plan Assess & Plan/Chief Complaint Assessment: s/p left knee replacement POD # 5 Dementia PD Constipation giving supp now resolving maintained on laxatives HTN Fall with closed head injury with laceration prompting surgery consult and CT scan revealing no abnl Plan: IRF protocol Monitor for sunding Checked labs per protocol BM regimen Staple removal per surgery (1) Status post left knee replacement (2) Parkinson disease (3) Dementia (4) Hypertension (5) Constipation (6) Advanced age CECILIA CONTRERAS DO Oct 11, 2019 10:12
--- NOTE | 2019-10-11 12:11 | Progress Note ---
[facility] 10/11/19 1211: Progress Note Rehab Course Mathew is here for rehab after a Left knee replacement. She has some dementia and , her SLUMS was . On talking to her she doesn't seem to be confused. Bowels are moving. She says pain control is ok but today she is experiencing a bit more pain, however was still able to participate in therapy. Therapy is going well, patient is walking 300-400 feet at a time, she is tolerating standing and sitting exercises well, she states she feels good about her progress and is liking the therapy. They are starting to educate her on some home exercises for when her discharge date arrives. If she continues participating and making good progress in therapy and after meeting on Friday, plan for discharge on Friday10/16/19. SAMREEN CONTRERAS DO 10/11/19 1939: Supervisory-Addendum Brief Verification & Attestation Participated in pt care: history, MDM, physical Personally performed: exam, history, MDM, supervision of care Care discussed with: Medical Student Procedures: n/a Results interpretation: Verified all documentation Verification and Attestation of Medical Student E/M Service A medical student performed and documented this service in my presence. I reviewed and verified all information documented by the medical student and made modifications to such information, when appropriate. I personally performed the physical exam and medical decision making. Samreen Contreras, Oct 11, 2019,19:38 [facility] Oct 11, 2019 12:11 SAMREEN CONTRERAS DO Oct 11, 2019 19:39
--- NOTE | 2019-10-11 12:55 | Physical Therapy Daily Note ---
PT Daily Note-Current Subjective Pt agreeable to PT session. States she is having some concern about the CPM machine and also with the pain she is having in her L groin region. Pt requesting pain med from nurse during session. Pt requesting ice be added to polar pack machine to be used after session is over. Pain Numeric Pain Scale: 8 Comment: L knee, nurse aware Appearance Pt sitting up in recliner before and after therapy session, chair alarm activated, call light, phone and bedside table within reach. [employer] filling polar pack machine with ice for pt to be able to use. Mental Status Patient Orientation: Person, Place, Time, Eyes Open, Situation Transfers SCALE: Activities may be completed with or without assistive devices. 2-Vxpinnrjyb-uphuatv completes the activity by him/herself with no assistance from a helper. 5-Set-up or Clean-up Assistance-helper sets up or cleans up; patient completes activity. [place] assists only prior to or following the activity. 4-Supervision or Touching Assistance-helper provides verbal cues and/or touching/steadying and/or contact guard assistance as patient completes activity. Assistance may be provided throughout the activity or intermittently. 3-Partial/Moderate Assistance-helper does LESS THAN HALF the effort. [place] lifts, holds or supports trunk or limbs, but provides less than half the effort. 2-Substantial/Maximal Assistance-helper does MORE THAN HALF the effort. [place] lifts or holds trunk or limbs and provides more than half the effort. 1-Tumumvsik-jmcaru does ALL the effort. Patient does none of the effort to complete the activity. Or, the assistance of 2 or more helpers is required for the patient to complete the activity. If activity was not attempted, code reason: 7-Patient Refused. 9-Not Applicable-not attempted and the patient did not perform the activity b efore the current illness, exacerbation or injury. 10-Not Attempted due to Environmental Limitations-(lack of equipment, weather restraints, etc.). 88-Not Attempted due to Medical Conditions or Safety Concerns. Sit to Stand (QC): 4 Chair/Xfo-xt-Vfcfx Xfer(QC): 4 Toilet Transfer (QC): 4 SBA with all transitions this date, good technique Weight Bearing Right Lower Extremity: Right Full Weight Bearing Left Lower Extremity: Left Full Weight Bearing Gait Training Does the Patient Walk?: Yes Distance: 321, 211 Walk 10 feet (QC): 4 Walk 50 ft with 2 Turns(QC): 4 Walk 150 ft (QC): 4 Gait Persons Needed: 1 Gait Assistive Device: FWW antalgic and slow gait, decreased WB LLE, decreased knee extension, decreased heel strike and toe off. Pt able to slightly correct gait pattern with skilled verb inst and demo Exercises Seated Therapy Exercises: Ankle pumps, Sit to stand, Long arc quads, Hip flexion, Hamstring Curls, Hip abd/add Seated Reps: 10 (including knee flex and ext stretches with 10 sec holds ) Standing: Hamstring curls, Heel/toe raises, Marching, Mini squats, Sit to Stand, Weight shifts Standing Reps: 10 (without UE support. (+) gait without UE support in // bars) Treatments education, safety, transfers, gait, strength, ROM, balance, activity tolerance, functional mobility Assessment Current Status: Good Progress PT Short Term Goals Short Term Goals Time Frame: Oct 15, 2019 Roll Left & Right: 5 Sit to lyin Lying to sitting on side of be: 4 Sit to stand: 4 (SBA) Chair/dqe-yv-fybzb transfer: 4 (SBA) Car transfer: 4 (SBA) Walk 10 feet: 4 (SBA) Walk 50 feet with two turns: 4 (SBA) Walk 150 feet: 4 (SBA) 1 step (curb): 4 (SBA) PT Mcc Goals Operations Architect Goals PT Operations Architect Goals Time Frame: Oct 29, 2019 Roll Left & Right (QC): 5 Sit to Lying (QC): 5 Lying-Sitting on Side/Bed(QC): 5 Sit to Stand (QC): 5 Car Transfer (QC): 5 Does the Patient Walk: Yes Walk 10 feet (QC): 5 Walk 50ft with 2 Turns (QC): 5 Walk 150 ft (QC): 5 Walking 10ft on Uneven Surface: 5 1 Step (curb) (QC): 5 4 Steps (QC): 5 PT Plan Treatment/Plan Treatment Plan: Continue Plan of Care Treatment Plan: Bed Mobility, Education, Functional Activity Amos, Functional Strength, Group Therapy, Gait, Safety, Therapeutic Exercise, Transfers Treatment Duration: Oct 29, 2019 Frequency: At least 5 of 7 days/Wk (IRF) Estimated Hrs Per Day: 1.5 hours per day Patient and/or Family Agrees t: Yes Safety Risks/Education Patient Education: Gait Training, Transfer Techniques, Issued Written HEP, Reviewed Precautions, Reviewed Use of Ice, Correct Positioning, Safety Issues Teaching Recipient: Patient Teaching Methods: Demonstration, Discussion Response to Teaching: Verbalize Understanding, Return Demonstration Time/GCodes Time In: 1130 Time Out: 1200 Total Billed Treatment Time: 30 Total Billed Treatment 1 visit, GT x15 min, EX x15 min JACLYN SOOD PTA Oct 11, 2019 12:55
--- NOTE | 2019-10-11 13:15 | NUR ---
Pastoral care visit.
--- NOTE | 2019-10-11 14:34 | NUR ---
CM/SS ADMISSION Patient was admitted to ARU 10/08/19 from [facility] post op replacement of left knee. Patient exhibits forgetfulness of which she is fully aware, she reports that she began having memory problems 5-7 years ago and that she has been under physician assessment and care for this that period of time. She indicates this has been described as dementia and that recent MRI was negative for any other disease/cause. Met with patient and her spouse Kyaw Alicea. Prior to hospitalization, she resided at home with Gonzalo and maintained all household duties with the exception of routine cooking. There was some indication that patient may have difficulty sequencing re cooking activities and they decided to get Meals on Wheels the past 5-6 months. Patient states her goal is to get her knee healed up and get back home as before. This appears feasible since she does not seem to have other obvious health issues with the exception of the cognition impairment. Gonzalo will be primary caregiver as needed, he is in good health and independent of all. They have a daily routine now at home, this will resume with the added recuperation of patient's knee and precautions. DME: Has FWW, shower chair, handicap accessible bathroom, cane. MOW daily as noted above. PCP: Dr. Jessica Pearce APRN GRAIN ELEVATOR MOTOR STARTER-C, [facility], [address] [place] [address]. PH: [phone] INSURED: Medicare, [employer] [facility] supplement PHARMACY: [facility] PH: [phone] ADVANCED DIRECTIVE: YES, copy in chart. Agent is their eldest daughter, Roxy Dallas. CONTACTS: Kyaw Alicea, Spouse [address] [place] [address] CE: [phone] Roxy Dallas, Daughter, DPOA- [address] [place] [id number] CE: [phone] Elysia Castaneda, Daughter [address] [address] CE: [phone] Visited with DPOA/Daughter Roxy Dallas by phone to update of admission information and provide insurance underwriter contact information. Roxy inquired about post discharge planning for initial Rx monitor and therapy. HHC is proposed through [facility], this was explored through [address] and apparently the only HHC in patient's service area. Patient, spouse, daughter have all indicated understanding about the purpose and process of weekly Patient Care Conference.
--- NOTE | 2019-10-11 15:28 | NUR ---
"RD ASSESSMENT PMHx: HTN; dementia; Parkinson's disease; GERD; chronic constipation; s/p L TKA PT INTERACTION: Pt was awake and pleasant during nutrition assessment. Pt states current appetite is real good, and has been for some time. Note avg PO intake of 100% x3d, per chart review. Pt states following a regular diet at home and has no difficulty chewing/swallowing food, though she is missing some bottom teeth. Pt states no recent issues with n/v/c/d at this time. Note last BM was 10/10 and pt currently on bowel regimen of colace HS; senna BID; and miralax BID, per chart review. Pt states no recent wt changes. Note unable to determine recent wt hx, per chart review. ABNORMAL NUTRITION-RELATED LAB VALUES LOW: Pro 5.6 HIGH: Est. kcal needs: 4200-6893 kcal | 25-30 kcal/kg Est. Pro needs: 53-64 g Pro | 1.0-1.2 g Pro/kg PES STATEMENT: Given PO intake, no nutrition diagnosis at this time (NO-1.1) INTERVENTION: Continue with current diet order of Regular diet. Will continue to follow and reassess as pt needs, intake, and status change. MONITOR/EVALUATE: PO Intake; Plan of Care; Hydration Status; Weight Status; Lab Values Josee Card, MS, RD, LD"
--- NOTE | 2019-10-11 15:30 | Physical Therapy Daily Note ---
PT Daily Note-Current Subjective Pt agreeable to PT. Pt's spouse present and asks about the CPM. Mental Status Patient Orientation: Person, Place, Time, Situation Transfers SCALE: Activities may be completed with or without assistive devices. 3-Bidfytvbyg-dkdzqnu completes the activity by him/herself with no assistance from a helper. 5-Set-up or Clean-up Assistance-helper sets up or cleans up; patient completes activity. [place] assists only prior to or following the activity. 4-Supervision or Touching Assistance-helper provides verbal cues and/or touching/steadying and/or contact guard assistance as patient completes activity. Assistance may be provided throughout the activity or intermittently. 3-Partial/Moderate Assistance-helper does LESS THAN HALF the effort. [place] lifts, holds or supports trunk or limbs, but provides less than half the effort. 2-Substantial/Maximal Assistance-helper does MORE THAN HALF the effort. [place] lifts or holds trunk or limbs and provides more than half the effort. 5-Ajdhcgywa-aqcgdc does ALL the effort. Patient does none of the effort to complete the activity. Or, the assistance of 2 or more helpers is required for the patient to complete the activity. If activity was not attempted, code reason: 7-Patient Refused. 9-Not Applicable-not attempted and the patient did not perform the activity before the current illness, exacerbation or injury. 10-Not Attempted due to Environmental Limitations-(lack of equipment, weather restraints, etc.). 88-Not Attempted due to Medical Conditions or Safety Concerns. Sit to Lying (QC): 4 Lying to Sitting/Side of Bed(Q: 4 Sit to Stand (QC): 4 (skilled cues for hand placement and sequencing. ) Toilet Transfer (QC): 4 Weight Bearing Right Lower Extremity: Right Full Weight Bearing Left Lower Extremity: Left Full Weight Bearing Gait Training Does the Patient Walk?: Yes Distance: 150 ft x 2 and 200 ft x 1 Walk 50 ft with 2 Turns(QC): 4 Walk 150 ft (QC): 4 Gait Assistive Device: FWW step through gait pattern; slightly antalgic gait Stair Training Stair Training: Handrails/: 2 handrails 4 Steps (QC): 3 (min to CGA with skilled cues for sequencing. ) Stairs: Pattern: Step to Exercises Supine Ex: Ankle pumps, Quad Set, Heel Slides, Short Arc Quads, Straight leg raise Supine Reps: 15 (to promote quad strength for terminal extension and ROM to normalize gait pattern) NuStep Minutes: 15 NuStep Workload: 2 (to promote knee ROM and quad strength for stability in gait and transfers. ) Treatments Educated pt and spouse on use of CPM; applied CPM -5 to 75 degrees. Nursing aware that CPM is on and to remove it around 1700/. Assessment Current Status: Good Progress ROM and strength are progressing as is improved gait pattern. Requires cues for safety and sequencing. PT Short Term Goals Short Term Goals Time Frame: Oct 15, 2019 Roll Left & Right: 5 Sit to lyin Lying to sitting on side of be: 4 Sit to stand: 4 (SBA) Chair/lck-yj-bzbcu transfer: 4 (SBA) Car transfer: 4 (SBA) Walk 10 feet: 4 (SBA) Walk 50 feet with two turns: 4 (SBA) Walk 150 feet: 4 (SBA) 1 step (curb): 4 (SBA) PT Credit Administration Officer Goals Credit Administration Officer Goals PT Half-Way Goals Time Frame: Oct 29, 2019 Roll Left & Right (QC): 5 Sit to Lying (QC): 5 Lying-Sitting on Side/Bed(QC): 5 Sit to Stand (QC): 5 Car Transfer (QC): 5 Does the Patient Walk: Yes Walk 10 feet (QC): 5 Walk 50ft with 2 Turns (QC): 5 Walk 150 ft (QC): 5 Walking 10ft on Uneven Surface: 5 1 Step (curb) (QC): 5 4 Steps (QC): 5 PT Plan Problem List Problem List: Activity Tolerance, Functional Strength, Safety, Balance, Gait, Transfer, Bed Mobility Treatment/Plan Treatment Plan: Continue Plan of Care Treatment Plan: Bed Mobility, Education, Functional Activity Amos, Functional Strength, Group Therapy, Gait, Safety, Therapeutic Exercise, Transfers Treatment Duration: Oct 29, 2019 Frequency: At least 5 of 7 days/Wk (IRF) Estimated Hrs Per Day: 1.5 hours per day Patient and/or Family Agrees t: Yes Safety Risks/Education Patient Education: Transfer Techniques, Safety Issues Teaching Recipient: Patient Teaching Methods: Demonstration, Discussion Time/GCodes Time In: 1350 Time Out: 1450 Total Billed Treatment Time: 60 Total Billed Treatment visit EX 45 GT 15 TAYLOR BISHOP PT Oct 11, 2019 15:30
[2019-10-11] MEDS ORDERED: PROP60CA PO (15:43)
[2019-10-11] MEDS ORDERED: DICY10CA12 PO (15:45)
[2019-10-11] MEDS ORDERED: MULT1TAB69 PO (15:45)
[2019-10-11] MEDS ORDERED: SENN-145 PO (15:45)
[2019-10-11] MEDS ORDERED: FISH1CAP15 PO (15:45)
[2019-10-11] MEDS ORDERED: ACET325T38 PO (15:45)
--- NOTE | 2019-10-11 16:45 | NUR ---
Pt found to have laceration on back of head by MI Mo. This RN asked pt what happened and pt stated that she had fallen on the bathroom floor "but was fine". Pt was in CPM machine, climbed out and walked to the bathroom without calling for assistance. Pt has history of dementia and forgetfulness. Dr. Mendiola notified, pt notified and Dr. Wray notified per Dr. Mendiola's request. Addendum: 10/11/19 at 1850 by REGULO DE LEON RN Pt with telesitter in place at the time of fall.
[2019-10-11 16:50] VITALS: BP 151/78
[2019-10-11] MEDS ORDERED: LIDOCAINE 1% INJ 20 ML 20 ML VIAL ONE (16:59)
--- NOTE | 2019-10-11 17:45 | NUR ---
Dr. Wray here to look at laceration. Laceration is 3.5 cm in length and required [address] Wray.
--- NOTE | 2019-10-11 18:23 | Diagnostic Imaging Report ---
PROCEDURE: CT head and CT cervical spine without contrast. TECHNIQUE: Multiple contiguous axial images were obtained through the brain and cervical spine without the use of intravenous contrast. Sagittal and coronal reformations through the cervical spine were then performed. Auto Exposure Controls were utilized during the CT exam to meet ALARA standards for radiation dose reduction. INDICATION: Fall with head and neck injury. CT HEAD: Ventricles and sulci are prominent. There are several small low-density foci within the deep white matter of both cerebral hemispheres. Lucency is also seen along the anterior limb of the left internal capsule. These may represent nonacute infarcts. No intracranial hemorrhage is identified. Calvarium is intact. Right posterior scalp contusion is noted. IMPRESSION: Probable chronic white matter findings without CT evidence of acute intracranial abnormality. CT CERVICAL SPINE: Cervical spinal curvature and alignment are unremarkable. There is mild diffuse degenerative disc and facet disease; however, no acute fracture or malalignment is identified. There is no evidence of paraspinous hematoma. IMPRESSION: Cervical spondylosis without CT evidence of acute cervical spinal abnormality. Dictated by: Dictated on workstation # [id number]
--- NOTE | 2019-10-11 19:13 | Consultation - Surgery ---
History of Present Illness History of Present Illness Patient Consulted On(lorne/time) 10/11/19 19:08 Date Seen by Provider: Oct 11, 2019 Time Seen by Provider: 19:08 History of Present Illness CC: Fall/head laceration Patient is an 84 year old female that had left total knee replacement for OA. Patient was in the restroom and fell. Patient unsure if had any LOC. Had head laceration of back of head. Patient unsure if hit neck. She does have some slight confusion but has some dementia. Patent denies n/v fever sweats chills shortness of breath or chest pain. Allergies and Home Medications Allergies Coded Allergies: Sulfa (Sulfonamide Antibiotics) (Verified Allergy, Unknown, 10/09/19) metoclopramide (Verified Allergy, Unknown, 10/09/19) Home Medications Acetaminophen 325 Mg Tablet, 650 MG PO Q6H PRN for PAIN-MILD (1-4), (Reported) Dicyclomine HCl 10 Mg Capsule, 10 MG PO BID WITH MEALS, (Reported) Fish Oil/Dha/Epa 1 Each Capsule, 1 EACH PO DAILY, (Reported) Lisinopril 20 Mg Tablet, 20 MG PO DAILY, (Reported) Memantine HCl 10 Mg Tablet, 10 MG PO BID, (Reported) Multivitamin 1 Each Tablet, 1 EACH PO DAILY, (Reported) Propranolol HCl 60 Mg Cap.sa.24h, 60 MG PO DAILY, (Reported) Sennosides/Docusate Sodium 1 Each Tablet, 1 EACH PO HS, (Reported) Venlafaxine HCl 150 Mg Tab.er.24, 150 MG PO BID, (Reported) Patient Home Medication List Home Medication List Reviewed: Yes Past Rmutzrk-Qnwjcx-Bsotxx Hx Patient Social History Alcohol Use: Denies Use Recreational Drug Use: No Smoking Status: Never a Smoker Recent Foreign Travel: No Contact w/Someone Who Travel: No Recent Infectious Disease Expo: No Recent Hopitalizations: No Physical Abuse Screen: No Sexual Abuse: No Immunizations Up To Date PED Vaccines UTD: Yes Date of Influenza Vaccine: Apr 27, 2019 Seasonal Allergies Seasonal Allergies: No Surgeries Surgeries: Orthopedic Respiratory Respiratory Disorders: Sleep Apnea Cardiovascular History of Cardiac Disorders: Yes Cardiac Disorders: Hypertension Neurological History of Neurological Disord: Yes Neurological Disorders: Dementia, Parkinson's Disease Reproductive System Sexually Transmitted Disease: No HIV/AIDS: No Female Reproductive Disorders: Denies Genitourinary History of Genitourinary Disor: No Genitourinary Disorders: Bladder Infection Gastrointestinal History of Gastrointestinal Di: Yes (Hernia at end of Colon) Gastrointestinal Disorders: Gastroesophageal Reflux, Chronic Constipation Musculoskeletal History of Musculoskeletal Dis: No Musculoskeletal Disorders: Arthritis, Chronic Back Pain Endocrine History of Endocrine Disorders: No HEENT History of HEENT Disorders: Yes Hearing Impairment: Bilateral Hearing Aide Cancer History of Cancer: No Psychosocial History of Psychiatric Problem: Yes Behavioral Health Disorders: Anxiety, Depression Integumentary History of Skin or Integumenta: No Blood Transfusions History of Blood Disorders: No Adverse Reaction to a Blood Tr: No Reviewed Nursing Assessment Reviewed/Agree w Nursing PMH: Yes Family Medical History Significant Family History: No Pertinent Family Hx Family Medial History: Alzheimer's disease 19 MOTHER, Onset:50's - 60 Cardiovascular disease G8 BROTHER Review of Systems-General Constitutional: no symptoms reported EENTM: No blurred vision, No double vision Respiratory: No cough, No dyspnea on exertion Cardiovascular: no symptoms reported; No chest pain Gastrointestinal: No abdominal pain, No dysphagia Genitourinary: no symptoms reported; No decreased output Musculoskeletal: joint pain Skin: other (scalp laceration/swelling) Psychiatric/Neurological: Denies Anxiety, Denies Depressed Physical Exam-General Problems Physical Exam Vital Signs Vital Signs - First Documented 10/08/19 15:11 Temp 36.6 Pulse 67 Resp 18 B/P (MAP) 124/77 Pulse Ox 98 O2 Delivery Room Air Capillary Refill : Less Than 3 SecondsLess Than 3 Seconds General Appearance: WD/WN, no apparent distress HEENT: PERRL/EOMI, normal ENT inspection Neck: supple, normal inspection, other (no midline tenderness) Respiratory: chest non-tender, no respiratory distress, no accessory muscle use Cardiovascular: regular rate, rhythm Gastrointestinal: non tender, soft, no organomegaly Rectal: deferred Back: normal inspection, no CVA tenderness Extremities: normal inspection, no pedal edema, other Neurologic/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, no motor/sensory deficits, alert, normal mood/affect; No oriented x 3 Skin: normal color (laceration 3.5 cm and swelling, no active bleeding) Lymphatic: no adenopathy Data Review Labs Laboratory Tests 10/11/19 06:34: White Blood Count 8.0, Red Blood Count 3.31L, Hemoglobin 10.7L, Hematocrit 33L, Mean Corpuscular Volume 98, Mean Corpuscular Hemoglobin 32, Mean Corpuscular Hemoglobin Concent 33, Red Cell Distribution Width 12.9, Platelet Count 368, Mean Platelet Volume 8.9, Neutrophils (%) (Auto) 57, Lymphocytes (%) (Auto) 23, Monocytes (%) (Auto) 10, Eosinophils (%) (Auto) 10, Basophils (%) (Auto) 1, Neutrophils # (Auto) 4.6, Lymphocytes # (Auto) 1.8, Monocytes # (Auto) 0.8, Eosinophils # (Auto) 0.8H, Basophils # (Auto) 0.1, Sodium Level 136, Potassium Level 4.1, [place] Level 102, Carbon Dioxide Level 28, Anion Gap 6, Blood Urea Nitrogen 13, Creatinine 0.68, Estimat Glomerular Filtration Rate > 60, BUN/Creatinine Ratio 19, Glucose Level 84, Calcium Level 9.0, Corrected Calcium 9.5, Total Bilirubin 0.6, Aspartate Amino Transf (AST/SGOT) 20, Alanine Aminotransferase (ALT/SGPT) 7, Alkaline Phosphatase 81, Total Protein 5.6L, Albumin 3.4 Assessment/Plan Assessment/Plan Assessment/Plan s/p left total knee replacement for OA fall scalp laceration c-collar placed ct head and cspine no acute traumatic injury removed c-collar at 1915 patient with scalp laceration, wound irrigated with saline and then prepped and draped sterile fashion. 1% lidocaine used to anesthesize 4 mL total. 5 purvi used to close laceration. Clinical Quality Measures DVT/VTE Risk/Contraindication: Risk Factor Score Per Nursin RFS Level Per Nursing on Admit: 4+=Very High JANEE NETTLES DO Oct 11, 2019 19:13
[2019-10-11] MEDS: MELATONIN 3 MG TABLET PO PRN (20:31)
[2019-10-11] MEDS: DOCUSATE SODIUM 100 MG (COLACE) CAP PO SCH (20:31)
[2019-10-12 06:00] VITALS: BP 152/72
[2019-10-12] MEDS: VENlafaxine XR 75 MG (EFFEXOR XR) CAP PO SCH ×2 (06:39→17:02)
[2019-10-12 08:00] VITALS: BP 136/98
[2019-10-12] MEDS: HYDROcodone/APAP 5 MG/325 MG (LORTAB) TAB PO PRN ×3 (08:22→21:42)
[2019-10-12] MEDS: polyethylene glycoL POWDER 17 GM (MIRALAX) PACK PO SCH ×2 (09:00→21:44)
[2019-10-12] MEDS: SENNA W/DOCUSATE (SENOKOT S) TABLET PO SCH ×2 (09:00→21:44)
--- NOTE | 2019-10-12 09:40 | PM&R Progress Note ---
Subjective HPI/CC On Admission Date Seen by Provider: Oct 12, 2019 Time Seen by Provider: 09:45 Subjective/Events-last exam No major confusion noted, telesitter maintained Memory loss evident but she seems to be doing well with it Pain is pretty well controlled today BM regular now with laxatives No agitation noted Bed alarm on and will be diligent in making sure it is on each and every time Checked meds and labs Conferred with RN Reviewed therapy notes After rounds daughter requested spine xrays due to fall and those were obtained and no acute abnl Falls in the past suggest recurrent fall history noted Review of Systems General: Fatigue Musculoskeletal: leg pain Neurological: Confusion Objective Exam Vital Signs Vital Signs Date Time Temp Pulse Resp B/P (MAP) Pulse Ox O2 Delivery O2 Flow Rate FiO2 10/12/19 18:12 Room Air 10/12/19 16:18 36.6 68 16 145/76 (99) 95 Capillary Refill : Less Than 3 SecondsLess Than 3 Seconds General Appearance: No Apparent Distress, WD/WN, Chronically ill HEENT: PERRL/EOMI, Normal ENT Inspection, Pharynx Normal Neck: Full Range of Motion, Normal Inspection, Non Tender, Supple, Carotid Bruit Respiratory: Chest Non Tender, Lungs Clear, Normal Breath Sounds, No Accessory Muscle Use, No Respiratory Distress Cardiovascular: Regular Rate, Rhythm, No Edema, No Gallop, No JVD, No Murmur, Normal Peripheral Pulses Gastrointestinal: Normal Bowel Sounds, No Organomegaly, No Pulsatile Mass, Non Tender, Soft Back: Normal Inspection, No CVA Tenderness, No Vertebral Tenderness Extremity: Normal Capillary Refill, Normal Inspection, Normal Range of Motion (left leg), Non Tender, No Calf Tenderness, No Pedal Edema Neurologic/Psychiatric: Alert, Oriented x3, No Motor/Sensory Deficits, Normal Mood/Affect, 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 FIM Transfers Therapy Code Descriptions/Definitions Functional [place] Measure: 0=Not Assessed/NA 4=Minimal Assistance 1=Total Assistance 5=Supervision or Setup 2=Maximal Assistance 6=Modified [place] 3=Moderate Assistance 7=Complete IndependenceSCALE: Activities may be completed with or without assistive devices. 5-Vlokykykqf-wduvvlh completes the activity by him/herself with no assistance from a helper. 5-Set-up or Clean-up Assistance-helper sets up or cleans up; patient completes activity. [place] assists only prior to or following the activity. 4-Supervision or Touching Assistance-helper provides verbal cues and/or touching/steadying and/or contact guard assistance as patient completes activity. Assistance may be provided throughout the activity or intermittently. 3-Partial/Moderate Assistance-helper does LESS THAN HALF the effort. [place] lifts, holds or supports trunk or limbs, but provides less than half the effort. 2-Substantial/Maximal Assistance-helper does MORE THAN HALF the effort. [place] lifts or holds trunk or limbs and provides more than half the effort. 7-Jybohnips-lvgtbw does ALL the effort. Patient does none of the effort to complete the activity. Or, the assistance of 2 or more helpers is required for the patient to complete the activity. If activity was not attempted, code reason: 7-Patient Refused. 9-Not Applicable-not attempted and the patient did not perform the activity before the current illness, exacerbation or injury. 10-Not Attempted due to Environmental Limitations-(lack of equipment, weather restraints, etc.). 88-Not Attempted due to Medical Conditions or Safety Concerns. Roll Left to Right (QC): 4 (sba) Sit to Lying (QC): 4 Sit to Stand (QC): 4 (skilled cues for hand placement and sequencing. ) Chair/Myy-gm-Yhdme Xfer(QC): 4 Car Transfer (QC): 3 Gait Training Does the Patient Walk?: Yes Distance: 150 ft x 2 and 200 ft x 1 Walk 10 feet (QC): 4 Walk 50 ft with 2 Turns(QC): 4 Walk 150 ft (QC): 4 Walking 10ft/uneven surface-QC: 4 (CGA) Gait Persons Needed: 1 Gait Assistive Device: FWW Wheelchair Training Does the Pt Use a Wheelchair?: No Stair Training Stair Training: Handrails/: 2 handrails 1 Step (curb) (QC): 4 (CGA) 4 Steps (QC): 3 (min to CGA with skilled cues for sequencing. ) 12 Steps (QC): 88 Stairs: Pattern: Step to Balance Picking up an Object (QC): 88 ADL-Treatment Eating (QC): 6 Oral Hygiene (QC): 4 (SBA in stance at sink.) Bathing Location: L Arm, R Arm, L Upper Leg, R Upper Leg, Chest, Abdomen, Buttocks, Perineal Area Shower/Bathe Self (QC): 3 (min A for BLE (feet), SBA in stance in shower- pt completes sponge bath, does not wash over L knee bandages) Upper Body Dressing (QC): 5 (s/u) Lower Body Dressing (QC): 4 (SBA in stance to hike over hips) On/Off Footwear (QC): 4 (SUP in sit) Toileting Hygiene (QC): 4 (SUP) Toilet Transfer (QC): 4 (SBA, use of FWW) Assessment/Plan Assessment and Plan Assess & Plan/Chief Complaint Assessment: s/p left knee replacement POD # 6 Dementia PD Constipation giving supp now resolving maintained on laxatives HTN Fall with closed head injury with laceration prompting surgery consult and CT scan revealing no abnl Plan: IRF protocol Monitor for sundowning Checked labs per protocol BM regimen Staple removal per surgery (1) Status post left knee replacement (2) Parkinson disease (3) Dementia (4) Hypertension (5) Constipation (6) Advanced age CECILIA CONTRERAS DO Oct 12, 2019 09:40
[2019-10-12] MEDS: ASPIRIN E.C. 81 MG (ECOTRIN) TAB PO SCH (09:42)
[2019-10-12] MEDS: MEMANTINE 10 MG (NAMENDA) TABLET PO SCH ×2 (09:43→21:42)
[2019-10-12] MEDS: MELOXICAM 7.5 MG (MOBIC) TABLET PO SCH ×2 (09:43→21:41)
[2019-10-12] MEDS: PANTOPRAZOLE 40 MG (PROTONIX) TAB PO SCH (09:43)
[2019-10-12] MEDS: lisINopril 20 MG (PRINIVIL) TABLET PO SCH (09:43)
[2019-10-12] MEDS: PROPRANOLOL 20 MG (INDERAL) TABLET PO SCH (09:43)
--- NOTE | 2019-10-12 11:12 | Occupational Ther Daily Note ---
OT Current Status-Daily Note Subjective Pt seen in bed, states just woke up and has been eating breakfast. States not hungry (ate all eggs, held banana and oatmeal for later). Pt agrees to OT, states max pain in LLE, though when up minimal complaints. Mental Status/Objective Patient Orientation: Person, Place, Situation ADL-Treatment Therapy Code Descriptions/Definitions Functional [place] Measure: 0=Not Assessed/NA 4=Minimal Assistance 1=Total Assistance 5=Supervision or Setup 2=Maximal Assistance 6=Modified [place] 3=Moderate Assistance 7=Complete IndependenceSCALE: Activities may be completed with or without assistive devices. 4-Yfbfdgsjza-wndevit completes the activity by him/herself with no assistance from a helper. 5-Set-up or Clean-up Assistance-helper sets up or cleans up; patient completes activity. [place] assists only prior to or following the activity. 4-Supervision or Touching Assistance-helper provides verbal cues and/or touching/steadying and/or contact guard assistance as patient completes activity. Assistance may be provided throughout the activity or intermittently. 3-Partial/Moderate Assistance-helper does LESS THAN HALF the effort. [place] lifts, holds or supports trunk or limbs, but provides less than half the effort. 2-Substantial/Maximal Assistance-helper does MORE THAN HALF the effort. [place] lifts or holds trunk or limbs and provides more than half the effort. 4-Ddgivpxop-nqtthm does ALL the effort. Patient does none of the effort to complete the activity. Or, the assistance of 2 or more helpers is required for the patient to complete the activity. If activity was not attempted, code reason: 7-Patient Refused. 9-Not Applicable-not attempted and the patient did not perform the activity before the current illness, exacerbation or injury. 10-Not Attempted due to Environmental Limitations-(lack of equipment, weather restraints, etc.). 88-Not Attempted due to Medical Conditions or Safety Concerns. Eating (QC): 6 Oral Hygiene (QC): 4 (SBA at sink) Bathing Location: L Arm, R Arm, L Upper Leg, R Upper Leg, L Lower Leg (including foot), R Lower Leg (including foot), Chest, Abdomen, Buttocks, Perineal Area Shower/Bathe Self (QC): 4 (SBA in stance for bottom hygieneSUP throughout) Upper Body Dressing (QC): 6 Lower Body Dressing (QC): 4 (SBA to hike over hips in stance.) On/Off Footwear: 6 (IND) Toileting Hygiene (QC): 4 (SBA in stance.) Toilet Transfer (QC): 4 (SBA) Other Treatment Pt states she fell yesterday morning, stating she slipped in BM and fell backwa rds- stating she "gets anxious and doesn't think things through," stating she got out of bed and wanted to use bathroom. Pt educated on completing deep breathing/ slowing thoughts in order to slow down thinking and make safer choices. Pt agrees to shower this am, nursing states L knee bandage waterproof. Pt completes bed mob with SBA, ambulates to bathroom and completes showering w ith SBA/ SUP. Pt completes dressing tasks (above) in shower while seated/ use of gbs. Pt talks throughout shower- many topics from yesterday, pt states she has "slight dementia." While in stand at 2WW post-showering, pt begins to lean toward R side, pt requires mod A to right self; pt states she was light headed. Pt states shower helped with pain in knee, pt educated on use of ice vs heat. Pt acknowledges. Pt ambulates to therapy gym with SBA and use of 2WW, completes standing ex with 1# weights placed bilaterally (pt completes peg dominos with min cues for rules/ purpose of game). Pt completes 2x, completes reaching in different planes (above shoulder, across midline, and below knees), fair balance throughout. Pt returns to room with call light in reach, all needs met, chair alarm on. Education OT Patient Education: Correct positioning, Exercise program, Home exercise program, Purpose of tx/functional activities, Rehab process, Safety issues Teaching Recipient: Patient Teaching Methods: Demonstration, Discussion Response to Teaching: Verbalize Understanding, Return Demonstration, Reinforcement Needed OT Mixer Driver Goals Mixer Driver Goals Time Frame: Oct 29, 2019 Eating (QC): 6 (met) Oral Hygiene (QC): 6 Toileting Hygiene (QC): 6 Shower/Bathe Self (QC): 5 Upper Body Dressing (QC): 6 Lower Body Dressing (QC): 5 On/Off Footwear (QC): 6 Additional Goals: 1-Demonstrate ADL Tasks, 2-Verbalize Understanding, 3- ImproveStrength/Amos 1=Demonstrate adherence to instructed precautions during ADL tasks. 2=Patient will verbalize/demonstrate understanding of assistive devices/modifications for ADL. 3=Patient will improve strength/tolerance for activity to enable patient to perform ADL's. OT Education/Plan Problem List/Assessment Assessment: Decreased Activ Tolerance, Decreased Safety Aware, Edema, Impaired Cognition, Impaired Funct Balance, Impaired I ADL's, Impaired Self-Care Skills Pt s/p left TKA with decreased mobility, ADL functioning, strength, and activity tolerance. Pt to benefit from skilled OT intervention for ADL training, transfers, strengthening, and home safety education to increase level of independence and allow safe discharge plan. Discharge Recommendations Plan/Recommendations: Continue POC Therapy Discharge Recommendati: Intermittent Supervision, Meals on Wheels, Home & Family, Post Acute OT Treatment Plan/Plan of Care Treatment,Training & Education: Yes Patient would benefit from OT for education, treatment and training to promote independence in ADL's, mobility, safety and/or upper extremity function for ADL's. Plan of Care: ADL Retraining, Functional Mobility, Group Exercise/Act as Ind, UE Funct Exercise/Act Treatment Duration: Oct 29, 2019 Frequency: At least 5 of 7 days/Wk (IRF) Estimated Hrs Per Day: 1.5 hours per day Rehab Potential: Good Time/GCodes Start Time: 08:00 Stop Time: 09:30 Total Time Billed (hr/min): 90 Billed Treatment Time 1, ADL 4 (60), EX 2 (30)= 90 DRU LORD OTMiles Oct 12, 2019 11:12
--- NOTE | 2019-10-12 11:43 | Speech Therapy Daily Note ---
Speech Daily Progress Note Subjective Date Seen by Provider: Oct 12, 2019 Time Seen by Provider: 00:30 Patient was resting in her recliner with her ice pack on her knee. Patient's was present for the first few minutes of our session. Objective Patient completed a series of memory tasks with 70% accuracy given mod cues and/or repetitions. Assessment Assessment Current Status: Fair Progress Treatment Plan Continue Plan of Care Speech Short Term Goals Short Term Goals Short Term Goals 1) The patient will complete memory tasks related to her daily needs at 80% or greater with minimal cues. 2) The patient will complete safety awareness tasks related to her daily needs at 80% or greater with minimal cues. 3) The patient will complete problem solving tasks related to her daily needs at 80% or greater with minimal cues. Speech Extension Professor Goals Extension Professor Goals Patient will improve cognitive communication in order to complete daily tasks with minimal assistance. Speech-Plan Patient/Family Goals Patient/Family Goals: Patient plans on returning home with her post rehab. Treatment Plan Speech Therapy Treatment Plan: Continue Plan of Care Treatment Duration: Oct 09, 2019 Frequency: Modified Program (IRF) Estimated Hrs Per Day: Other Rehab Potential: Good Barriers to Learning: Patient has moderate dementia Pt/Family Agrees to Plan: Yes Safety Risks/Education Teaching Recipient: Patient, Significant Other Teaching Methods: Demonstration, Discussion Response to Teaching: Verbalize Understanding, Return Demonstration, Reinforcement Needed Education Topics Provided: Memory strategies, safety within her room Time Speech Therapy Time In: 11:00 Speech Therapy Time Out: 11:30 Total Billed Time: 30 Billed Treatment Time 1, ZHANG Conway Oct 12, 2019 11:43
[2019-10-12] MEDS: DICLOFENAC 1% GEL 100 GM (VOLTAREN) TUBE TOP SCH ×3 (13:26→21:43)
--- NOTE | 2019-10-12 14:11 | Physical Therapy Daily Note ---
PT Daily Note-Current Subjective Pt agreeable to PT both therapy sessions. States she fell in the night after having major trouble with bowels and got out of bed by herself because she could not find her call light and had BM everywhere. Nurse confirms pt did fall after getting out of bed by herself. Pain Numeric Pain Scale: 8 Comment: L knee, requested and received pain med Appearance Upon arrival, pt sitting up in recliner awake and alert. At end of session, pt sitting up in recliner awaiting lunch, call light, phone and bedside table within reach, chair alarm activated. 2nd session: Upon arrival, pt sitting up in recliner with ice on knee, awake and alert. At end of session, pt in bed, alarm activated, call light, phone and bedside table within reach, LLE in CPM. Mental Status Patient Orientation: Person, Place, Time, Eyes Open, Situation Transfers SCALE: Activities may be completed with or without assistive devices. 8-Eminzrvbvn-hubnawn completes the activity by him/herself with no assistance from a helper. 5-Set-up or Clean-up Assistance-helper sets up or cleans up; patient completes activity. [place] assists only prior to or following the activity. 4-Supervision or Touching Assistance-helper provides verbal cues and/or touching/steadying and/or contact guard assistance as patient completes activity. Assistance may be provided throughout the activity or intermittently. 3-Partial/Moderate Assistance-helper does LESS THAN HALF the effort. [place] lifts, holds or supports trunk or limbs, but provides less than half the effort. 2-Substantial/Maximal Assistance-helper does MORE THAN HALF the effort. [place] lifts or holds trunk or limbs and provides more than half the effort. 2-Rutwyfmoq-cyleqi does ALL the effort. Patient does none of the effort to complete the activity. Or, the assistance of 2 or more helpers is required for the patient to complete the activity. If activity was not attempted, code reason: 7-Patient Refused. 9-Not Applicable-not attempted and the patient did not perform the activity before the current illness, exacerbation or injury. 10-Not Attempted due to Environmental Limitations-(lack of equipment, weather restraints, etc.). 88-Not Attempted due to Medical Conditions or Safety Concerns. Roll Left & Right (QC): 6 Sit to Lying (QC): 5 Lying to Sitting/Side of Bed(Q: 5 Sit to Stand (QC): 4 Toilet Transfer (QC): 4 skilled verb inst for occasional impulsivity leaving walker behind before sitting or getting up before having walker present Weight Bearing Right Lower Extremity: Right Full Weight Bearing Left Lower Extremity: Left Full Weight Bearing Gait Training Does the Patient Walk?: Yes Distance: 250 x2, 250 x2 Walk 10 feet (QC): 4 Walk 50 ft with 2 Turns(QC): 4 Walk 150 ft (QC): 4 Gait Persons Needed: 1 Gait Assistive Device: FWW lacking full knee ext LLE, fair pace, step through gait pattern after inst,decreased heel strike and toe off, no LOB, x2 unsteady episodes self corrected Exercises Seated Therapy Exercises: Long arc quads, Hip flexion, Hamstring Curls, Hip abd/add Seated Reps: 20 ((+) L knee flexion and extension strethces x10 each with 10-20 sec holds) Standing: Marching (high knee), Mini squats Standing Reps: 20 (// bars. (+) gait training in // bars without UE support x100 ft total) NuStep Minutes: 15 NuStep Workload: 3 (adjusting seat to encourage and elicit increasing flexion and extension motions of LLE) Treatments education, safety, bed mobility, transfers, gait, activity tolerance, strength, ROM, balance, functional mobility Assessment Current Status: Good Progress PT Short Term Goals Short Term Goals Time Frame: Oct 15, 2019 Roll Left & Right: 5 Sit to lyin Lying to sitting on side of be: 4 Sit to stand: 4 (SBA) Chair/jmr-sc-wpdxg transfer: 4 (SBA) Car transfer: 4 (SBA) Walk 10 feet: 4 (SBA) Walk 50 feet with two turns: 4 (SBA) Walk 150 feet: 4 (SBA) 1 step (curb): 4 (SBA) PT Prospect Manager Goals Fdc Goals PT Fdc Goals Time Frame: Oct 29, 2019 Roll Left & Right (QC): 5 Sit to Lying (QC): 5 Lying-Sitting on Side/Bed(QC): 5 Sit to Stand (QC): 5 Car Transfer (QC): 5 Does the Patient Walk: Yes Walk 10 feet (QC): 5 Walk 50ft with 2 Turns (QC): 5 Walk 150 ft (QC): 5 Walking 10ft on Uneven Surface: 5 1 Step (curb) (QC): 5 4 Steps (QC): 5 PT Plan Treatment/Plan Treatment Plan: Continue Plan of Care Treatment Plan: Bed Mobility, Education, Functional Activity Amos, Functional Strength, Group Therapy, Gait, Safety, Therapeutic Exercise, Transfers Treatment Duration: Oct 29, 2019 Frequency: At least 5 of 7 days/Wk (IRF) Estimated Hrs Per Day: 1.5 hours per day Patient and/or Family Agrees t: Yes Safety Risks/Education Patient Education: Gait Training, Transfer Techniques, Reviewed Precautions, Reviewed Use of Ice, Correct Positioning, Disease Process, Safety Issues Teaching Recipient: Patient Teaching Methods: Demonstration, Discussion Response to Teaching: Verbalize Understanding, Return Demonstration, Reinforcement Needed Time/GCodes Time In: 1130 (2nd session: 1330) Time Out: 1200 (2nd session: 1415) Total Billed Treatment Time: 30 (2nd session: 45) Total Billed Treatment 1st session: 1 visit, GT x15 min, EX x15 min. 2nd session: 1 visit, GT x15 min, EX x30 min JACLYN SOOD PTA Oct 12, 2019 14:11
--- NOTE | 2019-10-12 15:59 | Progress Note - Surgery ---
Subjective Date Seen by a Provider: Oct 12, 2019 Time Seen by a Provider: 15:52 Subjective/Events-last exam Doing well. Not having any pain or issues with back of head. No new complaints. Tolerating diet. Denies n/v fever sweats chills shortness of breath or chest pain Objective Exam Vital Signs Date Time Temp Pulse Resp B/P (MAP) Pulse Ox O2 Delivery O2 Flow Rate FiO2 10/12/19 06:00 36.4 80 18 152/72 (98) 98 Room Air 10/11/19 21:00 Room Air 10/11/19 16:50 36.9 72 16 151/78 (102) 97 Room Air I & O 10/12/19 07:00 Intake Total 600 ml Output Total 640 ml Balance -40 ml Capillary Refill : Less Than 3 SecondsLess Than 3 Seconds General Appearance: No Apparent Distress, WD/WN, Chronically ill HEENT: PERRL/EOMI, Normal ENT Inspection, Pharynx Normal, Other (purvi back of head small swelling no erythema) Neck: Full Range of Motion, Normal Inspection, Non Tender, Supple Respiratory: Chest Non Tender, No Accessory Muscle Use, No Respiratory Distress Cardiovascular: Regular Rate, Rhythm, Normal Peripheral Pulses Gastrointestinal: non tender, soft, no organomegaly Extremity: Normal Capillary Refill, Normal Inspection, Non Tender, No Calf Tenderness, No Pedal Edema Neurologic/Psychiatric: Alert, Oriented x3, No Motor/Sensory Deficits, Normal Mood/Affect, health commissioner II-XII Norm as Tested, Disoriented (subtle poor recall), Motor Weakness (generalized lower extremities) Skin: Normal Color, Warm/Dry Lymphatic: No Adenopathy Assessment/Plan Assessment/Plan Assessment/Plan s/p left total knee replacement for OA fall scalp laceration will need purvi removed in 7-12 days will no general surgical issues at this time will sign off call if needed. Clinical Quality Measures DVT/VTE Risk/Contraindication: Risk Factor Score Per Nursin RFS Level Per Nursing on Admit: 4+=Very High JANEE NETTLES DO Oct 12, 2019 15:59
[2019-10-12 16:18] VITALS: BP 145/76
--- NOTE | 2019-10-12 17:00 | NUR ---
Dr. Mendiola notified of daughters request to have back x-rays. Order obtained. Patient has attempted to get up alone several times today. Bed/Chair exit alarms & tele sitter being utilized.
--- NOTE | 2019-10-12 19:24 | NUR ---
bedside report received from ELISA ARREDONDO, assume care of pt
--- NOTE | 2019-10-12 19:52 | Diagnostic Imaging Report ---
INDICATION: Fall, back pain. 3 views of the lumbar spine show normal height and alignment of the vertebral bodies other than mild dorsal kyphosis. There is no spondylolisthesis. There is some anterior spondylosis. No fracture or other acute abnormality is seen. IMPRESSION: There are degenerative changes present with no acute abnormality seen. Dictated by: Dictated on workstation # [id number]
--- NOTE | 2019-10-12 19:53 | Diagnostic Imaging Report ---
INDICATION: Fall, back pain. 3 views of the lumbar spine show normal height and alignment of the lumbar vertebral bodies. There are changes of prior laminectomy and fusion with bilateral pedicle screws and stabilization rods seen extending from L3 through L5. There has been intervertebral disc surgery at L3-L4 and L4-L5. No abnormal erosions around the fixation hardware is seen. No fracture or other acute abnormality is seen. IMPRESSION: Prior surgery. No acute abnormality is seen. Dictated by: Dictated on workstation # [id number]
--- NOTE | 2019-10-12 21:41 | NUR ---
pt refused miralax, Colace & Senokot, c/o lt knee pain, level 8/10 on numeric scale, Lortab 5 2 tabs given
[2019-10-12] MEDS: MELATONIN 3 MG TABLET PO PRN (21:42)
[2019-10-12] MEDS: DOCUSATE SODIUM 100 MG (COLACE) CAP PO SCH (21:43)
--- NOTE | 2019-10-12 22:15 | NUR ---
resting quietly in bed, pain level 0/10 on CNPI scale, side rails up x4, bed alarm on tele sitter in place
[2019-10-13] MEDS: VENlafaxine XR 75 MG (EFFEXOR XR) CAP PO SCH ×2 (06:34→18:20)
[2019-10-13] MEDS: HYDROcodone/APAP 5 MG/325 MG (LORTAB) TAB PO PRN ×3 (06:35→21:04)
--- NOTE | 2019-10-13 06:35 | NUR ---
c/o lt pain, level 5/10 on numeric scale, Lortab 5 2 tabs given
[2019-10-13 06:41] VITALS: BP 163/80
--- NOTE | 2019-10-13 07:02 | NUR ---
pain level 2/10 on numeric scale
[2019-10-13] MEDS: polyethylene glycoL POWDER 17 GM (MIRALAX) PACK PO SCH ×2 (08:07→21:36)
[2019-10-13] MEDS: lisINopril 20 MG (PRINIVIL) TABLET PO SCH (09:23)
[2019-10-13] MEDS: PANTOPRAZOLE 40 MG (PROTONIX) TAB PO SCH (09:23)
[2019-10-13] MEDS: MEMANTINE 10 MG (NAMENDA) TABLET PO SCH ×2 (09:23→21:04)
[2019-10-13] MEDS: ASPIRIN E.C. 81 MG (ECOTRIN) TAB PO SCH (09:23)
[2019-10-13] MEDS: SENNA W/DOCUSATE (SENOKOT S) TABLET PO SCH ×2 (09:23→21:04)
[2019-10-13] MEDS: MELOXICAM 7.5 MG (MOBIC) TABLET PO SCH ×2 (09:23→21:04)
--- NOTE | 2019-10-13 09:23 | Occupational Ther Daily Note ---
OT Current Status-Daily Note Subjective Pt seen in recliner chair; denies current pain. Pt states slept very well last night. Pt agreeable to ADLs in room this am. Mental Status/Objective Patient Orientation: Person, Place, Situation ADL-Treatment Therapy Code Descriptions/Definitions Functional [place] Measure: 0=Not Assessed/NA 4=Minimal Assistance 1=Total Assistance 5=Supervision or Setup 2=Maximal Assistance 6=Modified [place] 3=Moderate Assistance 7=Complete IndependenceSCALE: Activities may be completed with or without assistive devices. 5-Zfkxxdydom-xpsoodo completes the activity by him/herself with no assistance from a helper. 5-Set-up or Clean-up Assistance-helper sets up or cleans up; patient completes activity. [place] assists only prior to or following the activity. 4-Supervision or Touching Assistance-helper provides verbal cues and/or touching/steadying and/or contact guard assistance as patient completes activity. Assistance may be provided throughout the activity or intermittently. 3-Partial/Moderate Assistance-helper does LESS THAN HALF the effort. [place] lifts, holds or supports trunk or limbs, but provides less than half the effort. 2-Substantial/Maximal Assistance-helper does MORE THAN HALF the effort. [place] lifts or holds trunk or limbs and provides more than half the effort. 8-Dsdvzdiwc-gvbqtx does ALL the effort. Patient does none of the effort to complete the activity. Or, the assistance of 2 or more helpers is required for the patient to complete the activity. If activity was not attempted, code reason: 7-Patient Refused. 9-Not Applicable-not attempted and the patient did not perform the activity before the current illness, exacerbation or injury. 10-Not Attempted due to Environmental Limitations-(lack of equipment, weather restraints, etc.). 88-Not Attempted due to Medical Conditions or Safety Concerns. Eating (QC): 6 Oral Hygiene (QC): 4 (SUP at sink) Bathing Location: L Arm, R Arm, L Upper Leg, R Upper Leg, L Lower Leg (including foot), R Lower Leg (including foot), Chest, Abdomen, Buttocks, Perineal Area Shower/Bathe Self (QC): 4 (SUP) Upper Body Dressing (QC): 6 (IND) Lower Body Dressing (QC): 4 (SUP, use of gb in shower for assist in balance.) On/Off Footwear: 6 Toileting Hygiene (QC): 6 Toilet Transfer (QC): 4 (SUP, use of walker.) Other Treatment Pt agrees to shower/ ADLs this am. Pt sit to stand with safety (use of walker and good pace/ balance). Pt undresses in shower with use of gbs. Pt completes ADLs as above. Pt ambulates to therapy gym and completes 10 reps of following exercises with 3# weighted bar (2 sets sitting, 2 sets sitting): shoulder flexion to 90* and trunkal twists with good balance maintained. 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 Pt states acceptance; pt and OT discuss memory strategies such as utilizes lists and reorganizing routines to include safety features/ reordering thought process to include awareness. Pt educated on completing reading/ physical exercise/ cognitive activities to keep brain healthy/ active. Pt agrees. Pt ambulates with walker to room with SBA, sits in recliner, all needs met, call light in reach, chair alarm on. Education OT Patient Education: Correct positioning, Exercise program, Home exercise program, Purpose of tx/functional activities, Safety issues Teaching Recipient: Patient Teaching Methods: Demonstration, Discussion Response to Teaching: Verbalize Understanding, Return Demonstration OT Senior Controls Technician Goals Senior Controls Technician Goals Time Frame: Oct 29, 2019 Eating (QC): 6 (met) Oral Hygiene (QC): 6 Toileting Hygiene (QC): 6 (met) Shower/Bathe Self (QC): 5 Upper Body Dressing (QC): 6 Lower Body Dressing (QC): 5 On/Off Footwear (QC): 6 (met) Additional Goals: 1-Demonstrate ADL Tasks, 2-Verbalize Understanding, 3- ImproveStrength/Amos 1=Demonstrate adherence to instructed precautions during ADL tasks. 2=Patient will verbalize/demonstrate understanding of assistive devices/modifications for ADL. 3=Patient will improve strength/tolerance for activity to enable patient to perform ADL's. OT Education/Plan Problem List/Assessment Assessment: Decreased Activ Tolerance, Decreased Safety Aware, Decreased UE Strength, Impaired I ADL's, Impaired Self-Care Skills Pt s/p left TKA with decreased mobility, ADL functioning, strength, and activity tolerance. Pt to benefit from skilled OT intervention for ADL training, transfers, strengthening, and home safety education to increase level of independence and allow safe discharge plan. Discharge Recommendations Plan/Recommendations: Continue POC Therapy Discharge Recommendati: Intermittent Supervision, Home & Family Treatment Plan/Plan of Care Treatment,Training & Education: Yes Patient would benefit from OT for education, treatment and training to promote independence in ADL's, mobility, safety and/or upper extremity function for ADL's. Plan of Care: ADL Retraining, Functional Mobility, Group Exercise/Act as Ind, UE Funct Exercise/Act Treatment Duration: Oct 29, 2019 Frequency: At least 5 of 7 days/Wk (IRF) Estimated Hrs Per Day: 1.5 hours per day Rehab Potential: Good Time/GCodes Start Time: 08:15 Stop Time: 09:15 Total Time Billed (hr/min): 60 Billed Treatment Time 1, ADL 2 (30), EX 2 (30)= 60 DRU LORD OTR Oct 13, 2019 09:23
[2019-10-13] MEDS: DICLOFENAC 1% GEL 100 GM (VOLTAREN) TUBE TOP SCH ×4 (09:24→21:05)
[2019-10-13] MEDS: PROPRANOLOL 20 MG (INDERAL) TABLET PO SCH (09:26)
--- NOTE | 2019-10-13 11:10 | Speech Therapy Daily Note ---
Speech Daily Progress Note Subjective Date Seen by Provider: Oct 13, 2019 Time Seen by Provider: 00:30 Patient was resting in her recliner while listening to her CD player. Objective Patient completed a series of problem solving tasks related to her needs at home with 70% given mod verbal cues. Recall of new information at 5 min: 80%, at 15 min: 60% Assessment Assessment Current Status: Fair Progress Treatment Plan Continue Plan of Care Speech Short Term Goals Short Term Goals Short Term Goals 1) The patient will complete memory tasks related to her daily needs at 80% or greater with minimal cues. 2) The patient will complete safety awareness tasks related to her daily needs at 80% or greater with minimal cues. 3) The patient will complete problem solving tasks related to her daily needs at 80% or greater with minimal cues. Speech Surveyor Hydrographic Goals Surveyor Hydrographic Goals Patient will improve cognitive communication in order to complete daily tasks with minimal assistance. Speech-Plan Patient/Family Goals Patient/Family Goals: Patient plans on returning to her home where she lives with her post rehab. Treatment Plan Speech Therapy Treatment Plan: Continue Plan of Care Treatment Duration: Oct 09, 2019 Frequency: Modified Program (IRF) Estimated Hrs Per Day: Other Rehab Potential: Good Barriers to Learning: Patient has dementia, decreased retention of new information. Pt/Family Agrees to Plan: Yes Safety Risks/Education Teaching Recipient: Patient Education Topics Provided: Safety within her room and communication of wants/needs Time Speech Therapy Time In: 09:30 Speech Therapy Time Out: 10:00 Total Billed Time: 30 Billed Treatment Time 1KADIE BETHANIA ST Oct 13, 2019 11:10
--- NOTE | 2019-10-13 11:12 | PM&R Progress Note ---
Subjective HPI/CC On Admission Date Seen by Provider: Oct 13, 2019 Time Seen by Provider: 11:00 Subjective/Events-last exam Doing well Telesitter maintained Pain is pretty well controlled BM regular now with laxatives No agitation noted Bed alarm on and will be diligent in making sure it is on each and every time Checked meds and labs Conferred with RN Reviewed therapy notes Review of Systems General: Fatigue Musculoskeletal: leg pain Objective Exam Vital Signs Vital Signs Date Time Temp Pulse Resp B/P (MAP) Pulse Ox O2 Delivery O2 Flow Rate FiO2 10/13/19 08:15 Room Air 10/13/19 06:41 36.2 79 18 163/80 (107) 99 Capillary Refill : Less Than 3 SecondsLess Than 3 Seconds General Appearance: No Apparent Distress, WD/WN, Chronically ill HEENT: PERRL/EOMI, Normal ENT Inspection, Pharynx Normal Neck: Full Range of Motion, Normal Inspection, Non Tender, Supple, Carotid Bruit Respiratory: Chest Non Tender, Lungs Clear, Normal Breath Sounds, No Accessory Muscle Use, No Respiratory Distress Cardiovascular: Regular Rate, Rhythm, No Edema, No Gallop, No JVD, No Murmur, Normal Peripheral Pulses Gastrointestinal: Normal Bowel Sounds, No Organomegaly, No Pulsatile Mass, Non Tender, Soft Back: Normal Inspection, No CVA Tenderness, No Vertebral Tenderness Extremity: Normal Capillary Refill, Normal Inspection, Normal Range of Motion (left leg), Non Tender, No Calf Tenderness, No Pedal Edema Neurologic/Psychiatric: Alert, Oriented x3, No Motor/Sensory Deficits, Normal Mood/Affect, director merit system II-XII Norm as Tested, Disoriented (subtle poor recall), Motor Weakness (generalized lower extremities) Skin: Normal Color, Warm/Dry Lymphatic: No Adenopathy Results/Procedures Lab Patient resulted labs reviewed. FIM Transfers Therapy Code Descriptions/Definitions Functional [place] Measure: 0=Not Assessed/NA 4=Minimal Assistance 1=Total Assistance 5=Supervision or Setup 2=Maximal Assistance 6=Modified [place] 3=Moderate Assistance 7=Complete IndependenceSCALE: Activities may be completed with or without assistive devices. 4-Rlcqkojxcy-cntjhhv completes the activity by him/herself with no assistance from a helper. 5-Set-up or Clean-up Assistance-helper sets up or cleans up; patient completes activity. [place] assists only prior to or following the activity. 4-Supervision or Touching Assistance-helper provides verbal cues and/or touching/steadying and/or contact guard assistance as patient completes activity. Assistance may be provided throughout the activity or intermittently. 3-Partial/Moderate Assistance-helper does LESS THAN HALF the effort. [place] lifts, holds or supports trunk or limbs, but provides less than half the effort. 2-Substantial/Maximal Assistance-helper does MORE THAN HALF the effort. [place] lifts or holds trunk or limbs and provides more than half the effort. 7-Hfwjvfrus-ayzaow does ALL the effort. Patient does none of the effort to complete the activity. Or, the assistance of 2 or more helpers is required for the patient to complete the activity. If activity was not attempted, code reason: 7-Patient Refused. 9-Not Applicable-not attempted and the patient did not perform the activity before the current illness, exacerbation or injury. 10-Not Attempted due to Environmental Limitations-(lack of equipment, weather restraints, etc.). 88-Not Attempted due to Medical Conditions or Safety Concerns. Roll Left to Right (QC): 6 Sit to Lying (QC): 5 Sit to Stand (QC): 4 Chair/Vbv-qr-Heeef Xfer(QC): 4 Car Transfer (QC): 3 Gait Training Does the Patient Walk?: Yes Distance: 250 x2, 250 x2 Walk 10 feet (QC): 4 Walk 50 ft with 2 Turns(QC): 4 Walk 150 ft (QC): 4 Walking 10ft/uneven surface-QC: 4 (CGA) Gait Persons Needed: 1 Gait Assistive Device: FWW Wheelchair Training Does the Pt Use a Wheelchair?: No Stair Training Stair Training: Handrails/: 2 handrails 1 Step (curb) (QC): 4 (CGA) 4 Steps (QC): 3 (min to CGA with skilled cues for sequencing. ) 12 Steps (QC): 88 Stairs: Pattern: Step to Balance Picking up an Object (QC): 88 ADL-Treatment Eating (QC): 6 Oral Hygiene (QC): 4 (SUP at sink) Bathing Location: L Arm, R Arm, L Upper Leg, R Upper Leg, L Lower Leg (including foot), R Lower Leg (including foot), Chest, Abdomen, Buttocks, Perineal Area Shower/Bathe Self (QC): 4 (SUP) Upper Body Dressing (QC): 6 (IND) Lower Body Dressing (QC): 4 (SUP, use of gb in shower for assist in balance.) On/Off Footwear (QC): 6 Toileting Hygiene (QC): 6 Toilet Transfer (QC): 4 (SUP, use of walker.) Assessment/Plan Assessment and Plan Assess & Plan/Chief Complaint Assessment: s/p left knee replacement POD # 7 Dementia PD Constipation giving supp now resolving maintained on laxatives HTN Fall with closed head injury with laceration prompting surgery consult and CT scan revealing no abnl Plan: IRF protocol Monitor for Checked labs per protocol BM regimen Staple removal per surgery (1) Status post left knee replacement (2) Parkinson disease (3) Dementia (4) Hypertension (5) Constipation (6) Advanced age CECILIA CONTRERAS DO Oct 13, 2019 11:12
--- NOTE | 2019-10-13 13:46 | Physical Therapy Daily Note ---
PT Daily Note-Current Subjective Pt agreeable to PT session. During discussions during treatment, noted pt stating she doesn't remember doing certain activities from yesterday but then when performing them again, she recalls them. Pain Numeric Pain Scale: 5-Moderate Pain Location: Left Location Body Site: Knee Comment: pt requested and was provided with pain med from nursing Appearance Upon arrival, pt sitting up in recliner awake and alert. At end of session, pt sitting up in recliner with call light, phone and bedside table within reach. Chair alarm activated Mental Status Patient Orientation: Person, Place, Time, Eyes Open, Situation Transfers SCALE: Activities may be completed with or without assistive devices. 3-Vsakyffokv-pdwmrco completes the activity by him/herself with no assistance from a helper. 5-Set-up or Clean-up Assistance-helper sets up or cleans up; patient completes activity. [place] assists only prior to or following the activity. 4-Supervision or Touching Assistance-helper provides verbal cues and/or touching/steadying and/or contact guard assistance as patient completes activity. Assistance may be provided throughout the activity or intermittently. 3-Partial/Moderate Assistance-helper does LESS THAN HALF the effort. [place] lifts, holds or supports trunk or limbs, but provides less than half the effort. 2-Substantial/Maximal Assistance-helper does MORE THAN HALF the effort. [place] lifts or holds trunk or limbs and provides more than half the effort. 6-Rakjqawfi-rwydae does ALL the effort. Patient does none of the effort to complete the activity. Or, the assistance of 2 or more helpers is required for the patient to complete the activity. If activity was not attempted, code reason: 7-Patient Refused. 9-Not Applicable-not attempted and the patient did not perform the activity before the current illness, exacerbation or injury. 10-Not Attempted due to Environmental Limitations-(lack of equipment, weather restraints, etc.). 88-Not Attempted due to Medical Conditions or Safety Concerns. Roll Left & Right (QC): 6 Sit to Lying (QC): 6 Lying to Sitting/Side of Bed(Q: 6 Sit to Stand (QC): 5 Chair/Hkg-an-Rayqr Xfer(QC): 5 Toilet Transfer (QC): 6 Car Transfer (QC): 5 occasional instruction required for hand placement although pt has minimal difficulty performing without use of UE's Weight Bearing Right Lower Extremity: Right Full Weight Bearing Left Lower Extremity: Left Full Weight Bearing Gait Training Does the Patient Walk?: Yes Distance: 200 x2, 100 Walk 10 feet (QC): 4 Walk 50 ft with 2 Turns(QC): 4 Walk 150 ft (QC): 4 Walking 10ft/uneven surface-QC: 4 Gait Persons Needed: 1 Gait Assistive Device: FWW improving gait quality with use of FWW no LOB or unsteadiness. GT without AD, CGA, 100', increased antalgic gait, slight path deviation, no LOB, x2 unsteady episodes easily self corrected Wheelchair Training Does the Pt Use a Wheelchair?: No Stair Training Stair Training: Handrails/: 2 handrails #of Steps: 12 1 Step (curb) (QC): 4 4 Steps (QC): 4 12 Steps (QC): 4 Stairs: Pattern: Step to SBA provided, no LOB or unsteadiness, slow pace, able to follow and recall instruction for correct sequencing Exercises Seated Therapy Exercises: Ankle pumps, Sit to stand, Long arc quads, Hip flexion, Kicking activity, Hamstring Curls Seated Reps: 20 ((+) knee flex and ext stretches x10 with 5-10 sec holds) NuStep Minutes: 15 NuStep Workload: 4 (adjusting seat to increased knee flexion and knee extension) Treatments education, safety, transfers, toileting, gait, bed mobility, functional mobility, ROM, strength, activity tolerance, balance Assessment Current Status: Good Progress PT Short Term Goals Short Term Goals Time Frame: Oct 15, 2019 Roll Left & Right: 5 Sit to lyin Lying to sitting on side of be: 4 Sit to stand: 4 (SBA) Chair/tgg-ot-gdoxn transfer: 4 (SBA) Car transfer: 4 (SBA) Walk 10 feet: 4 (SBA) Walk 50 feet with two turns: 4 (SBA) Walk 150 feet: 4 (SBA) 1 step (curb): 4 (SBA) PT Prison Goals Exerciser Goals PT Exerciser Goals Time Frame: Oct 29, 2019 Roll Left & Right (QC): 5 Sit to Lying (QC): 5 Lying-Sitting on Side/Bed(QC): 5 Sit to Stand (QC): 5 Car Transfer (QC): 5 Does the Patient Walk: Yes Walk 10 feet (QC): 5 Walk 50ft with 2 Turns (QC): 5 Walk 150 ft (QC): 5 Walking 10ft on Uneven Surface: 5 1 Step (curb) (QC): 5 4 Steps (QC): 5 PT Plan Treatment/Plan Treatment Plan: Continue Plan of Care Treatment Plan: Bed Mobility, Education, Functional Activity Amos, Functional Strength, Group Therapy, Gait, Safety, Therapeutic Exercise, Transfers Treatment Duration: Oct 29, 2019 Frequency: At least 5 of 7 days/Wk (IRF) Estimated Hrs Per Day: 1.5 hours per day Patient and/or Family Agrees t: Yes Safety Risks/Education Patient Education: Gait Training, Transfer Techniques, Steps, Reviewed Precautions, Reviewed Use of Ice, Disease Process, Safety Issues Teaching Recipient: Patient Teaching Methods: Demonstration, Discussion Response to Teaching: Verbalize Understanding, Return Demonstration Time/GCodes Time In: 1100 Time Out: 1200 Total Billed Treatment Time: 60 Total Billed Treatment 1 visit, GT x30 min, EX x30 min JACLYN SOOD PTA Oct 13, 2019 13:46
--- NOTE | 2019-10-13 14:53 | Therapy Group Daily Note ---
Therapy Daily Group Note Patient Education Topic Other List Below (Social Distancing) Exercises LE Seated Exercise, UE Exercise Session Ratio (pt:therapist): 3:1 Goal of Session: UE/LE Strengthing, Other (list) (Understanding and using Social Distancing appropiately) Goal Met for this Session: Yes Pt Benefit of Group: Contributions to Others, F/U Use of Strategies @Home, Increased Functional Safety, Increased Functional Strength, Improved Cognition, Recognition of Peers, Socialization Other/Notes Pt ambulated using FWW to [facility] for OT/PT group. Group consisted of introductions (name, place living, historical memory), socialization, UE/LE seated exercises and educational topic over social distancing. Pt introduced self appropriately and actively listened to peers. Pt able to lead one exercise and complete other exercises, 1 set 10 reps. Pt acknowledged understanding of educational topic by verbalizing own strategies and opinion. After therapy, pt sitting in recliner with call light/phone in reach. All needs met. Start Time: 13:00 Stop Time: 14:10 Total Billed Treatment Time: 70 Total Billed Treatment 1, MELI SHERIDANMARCELO MANAGER WASTEWATER Oct 13, 2019 14:53
--- NOTE | 2019-10-13 14:54 | NUR ---
Pt is listed a Muslim but is actually Buddhist.
[2019-10-13 18:00] VITALS: BP 126/75
[2019-10-13] MEDS: CALCIUM CARBONATE 500 MG (TUMS) TAB.CHEW PO PRN (21:03)
[2019-10-13] MEDS: MELATONIN 3 MG TABLET PO PRN (21:04)
[2019-10-13] MEDS: DOCUSATE SODIUM 100 MG (COLACE) CAP PO SCH (21:36)
[2019-10-14] MEDS: HYDROcodone/APAP 5 MG/325 MG (LORTAB) TAB PO PRN ×3 (02:07→16:50)
[2019-10-14 06:00] VITALS: BP 154/83
[2019-10-14] MEDS: VENlafaxine XR 75 MG (EFFEXOR XR) CAP PO SCH ×2 (06:25→16:50)
[2019-10-14] MEDS: MELOXICAM 7.5 MG (MOBIC) TABLET PO SCH ×2 (09:16→20:45)
[2019-10-14] MEDS: PANTOPRAZOLE 40 MG (PROTONIX) TAB PO SCH (09:16)
[2019-10-14] MEDS: ASPIRIN E.C. 81 MG (ECOTRIN) TAB PO SCH (09:16)
[2019-10-14] MEDS: lisINopril 20 MG (PRINIVIL) TABLET PO SCH (09:16)
[2019-10-14] MEDS: PROPRANOLOL 20 MG (INDERAL) TABLET PO SCH (09:16)
[2019-10-14] MEDS: MEMANTINE 10 MG (NAMENDA) TABLET PO SCH ×2 (09:16→20:45)
[2019-10-14] MEDS: SENNA W/DOCUSATE (SENOKOT S) TABLET PO SCH ×2 (09:17→21:13)
[2019-10-14] MEDS: DICLOFENAC 1% GEL 100 GM (VOLTAREN) TUBE TOP SCH ×4 (09:17→20:45)
[2019-10-14] MEDS: polyethylene glycoL POWDER 17 GM (MIRALAX) PACK PO SCH ×2 (09:17→21:13)
--- NOTE | 2019-10-14 09:18 | Occupational Ther Daily Note ---
OT Current Status-Daily Note Subjective Pt seen in recliner chair, sleeping. Pt easily wakes, states slept well. Pt states no pain but "stiffness" this am in L knee. Pt agrees to OT tx. Mental Status/Objective Patient Orientation: Person, Place, Situation ADL-Treatment Therapy Code Descriptions/Definitions Functional [place] Measure: 0=Not Assessed/NA 4=Minimal Assistance 1=Total Assistance 5=Supervision or Setup 2=Maximal Assistance 6=Modified [place] 3=Moderate Assistance 7=Complete IndependenceSCALE: Activities may be completed with or without assistive devices. 0-Bwntlplzko-lfhnctt completes the activity by him/herself with no assistance from a helper. 5-Set-up or Clean-up Assistance-helper sets up or cleans up; patient completes activity. [place] assists only prior to or following the activity. 4-Supervision or Touching Assistance-helper provides verbal cues and/or touching/steadying and/or contact guard assistance as patient completes act ivity. Assistance may be provided throughout the activity or intermittently. 3-Partial/Moderate Assistance-helper does LESS THAN HALF the effort. [place] lifts, holds or supports trunk or limbs, but provides less than half the effort. 2-Substantial/Maximal Assistance-helper does MORE THAN HALF the effort. [place] lifts or holds trunk or limbs and provides more than half the effort. 2-Oteuyyuag-cugaot does ALL the effort. Patient does none of the effort to complete the activity. Or, the assistance of 2 or more helpers is required for the patient to complete the activity. If activity was not attempted, code reason: 7-Patient Refused. 9-Not Applicable-not attempted and the patient did not perform the activity before the current illness, exacerbation or injury. 10-Not Attempted due to Environmental Limitations-(lack of equipment, weather restraints, etc.). 88-Not Attempted due to Medical Conditions or Safety Concerns. Eating (QC): 6 Bathing Location: L Arm, R Arm, L Upper Leg, R Upper Leg, L Lower Leg (including foot), R Lower Leg (including foot), Chest, Abdomen, Buttocks, Perineal Area Shower/Bathe Self (QC): 5 (s/u sponge bath in shower.) Upper Body Dressing (QC): 6 (pt gathers and completes on sc) Lower Body Dressing (QC): 4 (SUP, pt gathers and completes in shower.) On/Off Footwear: 6 (IND socks) Other Treatment Pt completes sponge bath/ dressing in shower. Denies toothbrushing, AB hosmiriam donned. Pt gathers dirty clothes and ambulates to washer, completes with min A. Pt has front loading washer at home, demonstrates ability to reach/ bend and utilize washer/ dryer and walker for support while gathering clothes front front perforator loader. Pt ambulates to gym, completes ~10 min standing and arm arc- pt crosses midline, utilizes BUE, good balance in static stance. Pt then completes 15 min mod resist arm bike in stance, requires one rest break after 9 min activity. Pt expresses she does not want to bother and have him stay at home with her, so may need 24 hour care in [place] "as before"- per pt. Pt educated on safety/ thinking tasks through at home, pt agrees. Pt completes washer to dryer clothing with IND, sets dial correctly. Pt ambulates back to room, sits in recliner with all needs met, chair alarm on, call light in lap. Nursing present end of session. Education OT Patient Education: Correct positioning, Exercise program, Home exercise program, Modified ADL techniques, Purpose of tx/functional activities, Safety issues Teaching Recipient: Patient Teaching Methods: Demonstration, Discussion Response to Teaching: Verbalize Understanding, Return Demonstration OT Skilled Nursing Goals Skilled Nursing Goals Time Frame: Oct 29, 2019 Eating (QC): 6 (met) Oral Hygiene (QC): 6 Toileting Hygiene (QC): 6 (met) Shower/Bathe Self (QC): 5 (met) Upper Body Dressing (QC): 6 Lower Body Dressing (QC): 5 On/Off Footwear (QC): 6 (met) Additional Goals: 1-Demonstrate ADL Tasks, 2-Verbalize Understanding, 3- ImproveStrength/Amos 1=Demonstrate adherence to instructed precautions during ADL tasks. 2=Patient will verbalize/demonstrate understanding of assistive devices/modific ations for ADL. 3=Patient will improve strength/tolerance for activity to enable patient to perform ADL's. OT Education/Plan Problem List/Assessment Assessment: Decreased Activ Tolerance, Decreased Safety Aware, Decreased UE Strength, Impaired I ADL's, Impaired Self-Care Skills Pt s/p left TKA with decreased mobility, ADL functioning, strength, and activity tolerance. Pt to benefit from skilled OT intervention for ADL training, transfers, strengthening, and home safety education to increase level of independence and allow safe discharge plan. Discharge Recommendations Plan/Recommendations: Continue POC Therapy Discharge Recommendati: Intermittent Supervision, Home & Family Treatment Plan/Plan of Care Treatment,Training & Education: Yes Patient would benefit from OT for education, treatment and training to promote independence in ADL's, mobility, safety and/or upper extremity function for ADL's. Plan of Care: ADL Retraining, Functional Mobility, Group Exercise/Act as Ind, UE Funct Exercise/Act Treatment Duration: Oct 29, 2019 Frequency: At least 5 of 7 days/Wk (IRF) Estimated Hrs Per Day: 1.5 hours per day Rehab Potential: Good Time/GCodes Start Time: 08:00 Stop Time: 09:15 Total Time Billed (hr/min): 75 Billed Treatment Time 1, ADL 2, FA, EX 2 = 75 DRU LORD OTR Oct 14, 2019 09:18
[2019-10-14 09:19] VITALS: BP 118/77
--- NOTE | 2019-10-14 11:45 | Physical Therapy Daily Note ---
PT Daily Note-Current Subjective Pt sitting in recliner upon arrival. Pt agrees to PT. Pain Numeric Pain Scale: 5-Moderate Pain Location: Left Location Body Site: Knee Pain Description: Ache, Tightness Mental Status Patient Orientation: Person, Confused, Place Attachments: Polar Pack, Other-See Comments (CPM) Transfers SCALE: Activities may be completed with or without assistive devices. 7-Iheucdzhrs-euhivnt completes the activity by him/herself with no assistance from a helper. 5-Set-up or Clean-up Assistance-helper sets up or cleans up; patient completes activity. [place] assists only prior to or following the activity. 4-Supervision or Touching Assistance-helper provides verbal cues and/or touching/steadying and/or contact guard assistance as patient completes activity. Assistance may be provided throughout the activity or intermittently. 3-Partial/Moderate Assistance-helper does LESS THAN HALF the effort. [place] lifts, holds or supports trunk or limbs, but provides less than half the effort. 2-Substantial/Maximal Assistance-helper does MORE THAN HALF the effort. [place] lifts or holds trunk or limbs and provides more than half the effort. 6-Zyspskcas-ukfsvh does ALL the effort. Patient does none of the effort to complete the activity. Or, the assistance of 2 or more helpers is required for the patient to complete the activity. If activity was not attempted, code reason: 7-Patient Refused. 9-Not Applicable-not attempted and the patient did not perform the activity before the current illness, exacerbation or injury. 10-Not Attempted due to Environmental Limitations-(lack of equipment, weather restraints, etc.). 88-Not Attempted due to Medical Conditions or Safety Concerns. Sit to Lying (QC): 5 Lying to Sitting/Side of Bed(Q: 5 Sit to Stand (QC): 5 Toilet Transfer (QC): 5 Weight Bearing Right Lower Extremity: Right Full Weight Bearing Left Lower Extremity: Left Full Weight Bearing Gait Training Does the Patient Walk?: Yes Distance: 175' Walk 10 feet (QC): 5 Walk 50 ft with 2 Turns(QC): 5 Walk 150 ft (QC): 5 Gait Persons Needed: 1 Gait Assistive Device: FWW PT needs VC to keep FWW close. Wheelchair Training Does the Pt Use a Wheelchair?: No Stair Training Stair Training: Handrails/: 2 handrails #of Steps: 8 1 Step (curb) (QC): 5 4 Steps (QC): 5 Stairs: Pattern: Step to Exercises Seated Therapy Exercises: Ankle pumps, Long arc quads, Hip flexion, Kicking activity Seated Reps: 15 NuStep Minutes: 15 NuStep Workload: 4 Treatments Pt transfers from recliner to standing. Pt uses restroom before leaving room. Pt ambulates in hallway. Pt uses NuStep for 15m at WL 4 followed by short RB then Seated EX. PT ambulates 2 sets of 4 steps with VC for sequencing. Pt ambulates in hallway before returning to room at end of Rx with all needs met, call light in hand. Assessment Current Status: Good Progress Pt demonstrates confusion and reports pain during Rx. Pt states this is improving though. PT Short Term Goals Short Term Goals Time Frame: Oct 15, 2019 Roll Left & Right: 5 Sit to lyin Lying to sitting on side of be: 4 Sit to stand: 4 (SBA) Chair/gwk-yd-jkjkq transfer: 4 (SBA) Car transfer: 4 (SBA) Walk 10 feet: 4 (SBA) Walk 50 feet with two turns: 4 (SBA) Walk 150 feet: 4 (SBA) 1 step (curb): 4 (SBA) PT Computerized Mill Recorder Goals Computerized Mill Recorder Goals PT Computerized Mill Recorder Goals Time Frame: Oct 29, 2019 Roll Left & Right (QC): 5 Sit to Lying (QC): 5 Lying-Sitting on Side/Bed(QC): 5 Sit to Stand (QC): 5 Car Transfer (QC): 5 Does the Patient Walk: Yes Walk 10 feet (QC): 5 Walk 50ft with 2 Turns (QC): 5 Walk 150 ft (QC): 5 Walking 10ft on Uneven Surface: 5 1 Step (curb) (QC): 5 4 Steps (QC): 5 PT Plan Problem List Problem List: Activity Tolerance, Functional Strength, Safety Treatment/Plan Treatment Plan: Continue Plan of Care Treatment Plan: Bed Mobility, Education, Functional Activity Amos, Functional Strength, Group Therapy, Gait, Safety, Therapeutic Exercise, Transfers Treatment Duration: Oct 29, 2019 Frequency: At least 5 of 7 days/Wk (IRF) Estimated Hrs Per Day: 1.5 hours per day Patient and/or Family Agrees t: Yes Safety Risks/Education Patient Education: Gait Training, Steps, Correct Positioning, Safety Issues Teaching Recipient: Patient Teaching Methods: Discussion Response to Teaching: Verbalize Understanding Time/GCodes Time In: 1000 Time Out: 1100 Total Billed Treatment Time: 60 Total Billed Treatment 1, GT (15m), EX x2 (30m) & FA (15m) MARCELO SHERIDAN HAND PRESSER Oct 14, 2019 11:45
--- NOTE | 2019-10-14 12:54 | PM&R Progress Note ---
Subjective HPI/CC On Admission Date Seen by Provider: Oct 14, 2019 Time Seen by Provider: 09:00 Subjective/Events-last exam Assisted Living is pending No BM for 3 days and refusing meds so will offer suppository No pain is reported Bed alarm on Checked meds and labs Conferred with RN Reviewed therapy notes Review of Systems Musculoskeletal: leg pain Neurological: Weakness, Confusion Objective Exam Vital Signs Vital Signs Date Time Temp Pulse Resp B/P (MAP) Pulse Ox O2 Delivery O2 Flow Rate FiO2 10/14/19 18:54 36.8 71 18 149/83 (105) 94 Room Air Capillary Refill : Less Than 3 SecondsLess Than 3 Seconds General Appearance: No Apparent Distress, WD/WN, Chronically ill HEENT: PERRL/EOMI, Normal ENT Inspection, Pharynx Normal Neck: Full Range of Motion, Normal Inspection, Non Tender, Supple, Carotid Bruit Respiratory: Chest Non Tender, Lungs Clear, Normal Breath Sounds, No Accessory Muscle Use, No Respiratory Distress Cardiovascular: Regular Rate, Rhythm, No Edema, No Gallop, No JVD, No Murmur, Normal Peripheral Pulses Gastrointestinal: Normal Bowel Sounds, No Organomegaly, No Pulsatile Mass, Non Tender, Soft Back: Normal Inspection, No CVA Tenderness, No Vertebral Tenderness Extremity: Normal Capillary Refill, Normal Inspection, Normal Range of Motion (left leg), Non Tender, No Calf Tenderness, No Pedal Edema Neurologic/Psychiatric: Alert, Oriented x3, No Motor/Sensory Deficits, Normal Mood/Affect, talent acquisition sourcer II-XII Norm as Tested, Disoriented (subtle poor recall), Motor Weakness (generalized lower extremities) Skin: Normal Color, Warm/Dry Lymphatic: No Adenopathy Results/Procedures Lab Patient resulted labs reviewed. FIM Transfers Therapy Code Descriptions/Definitions Functional [place] Measure: 0=Not Assessed/NA 4=Minimal Assistance 1=Total Assistance 5=Supervision or Setup 2=Maximal Assistance 6=Modified [place] 3=Moderate Assistance 7=Complete IndependenceSCALE: Activities may be completed with or without assistive devices. 8-Dmfladibio-cmmvgtm completes the activity by him/herself with no assistance from a helper. 5-Set-up or Clean-up Assistance-helper sets up or cleans up; patient completes activity. [place] assists only prior to or following the activity. 4-Supervision or Touching Assistance-helper provides verbal cues and/or touching/steadying and/or contact guard assistance as patient completes activity. Assistance may be provided throughout the activity or intermittently. 3-Partial/Moderate Assistance-helper does LESS THAN HALF the effort. [place] lifts, holds or supports trunk or limbs, but provides less than half the effort. 2-Substantial/Maximal Assistance-helper does MORE THAN HALF the effort. [place] lifts or holds trunk or limbs and provides more than half the effort. 5-Lcdwpmxrx-jupiwd does ALL the effort. Patient does none of the effort to complete the activity. Or, the assistance of 2 or more helpers is required for the patient to complete the activity. If activity was not attempted, code reason: 7-Patient Refused. 9-Not Applicable-not attempted and the patient did not perform the activity before the current illness, exacerbation or injury. 10-Not Attempted due to Environmental Limitations-(lack of equipment, weather restraints, etc.). 88-Not Attempted due to Medical Conditions or Safety Concerns. Roll Left to Right (QC): 6 Sit to Lying (QC): 5 Sit to Stand (QC): 5 Chair/Avl-hw-Kjwbl Xfer(QC): 5 Car Transfer (QC): 5 Gait Training Does the Patient Walk?: Yes Distance: 175' Walk 10 feet (QC): 5 Walk 50 ft with 2 Turns(QC): 5 Walk 150 ft (QC): 5 Walking 10ft/uneven surface-QC: 4 Gait Persons Needed: 1 Gait Assistive Device: FWW Wheelchair Training Does the Pt Use a Wheelchair?: No Stair Training Stair Training: Handrails/: 2 handrails #of Steps: 8 1 Step (curb) (QC): 5 4 Steps (QC): 5 12 Steps (QC): 4 Stairs: Pattern: Step to Balance Picking up an Object (QC): 88 ADL-Treatment Eating (QC): 6 Oral Hygiene (QC): 4 (SUP at sink) Bathing Location: L Arm, R Arm, L Upper Leg, R Upper Leg, L Lower Leg (including foot), R Lower Leg (including foot), Chest, Abdomen, Buttocks, Perineal Area Shower/Bathe Self (QC): 5 (s/u sponge bath in shower.) Upper Body Dressing (QC): 6 (pt gathers and completes on sc) Lower Body Dressing (QC): 4 (SUP, pt gathers and completes in shower.) On/Off Footwear (QC): 6 (IND socks) Toileting Hygiene (QC): 6 Toilet Transfer (QC): 4 (SUP, use of walker.) Assessment/Plan Assessment and Plan Assess & Plan/Chief Complaint Assessment: s/p left knee replacement POD # 8 Dementia PD Constipation giving supp now resolving maintained on laxatives HTN Fall with closed head injury with laceration prompting surgery consult and CT scan revealing no abnl Plan: IRF protocol Monitor for Checked labs per protocol BM regimen Staple removal per surgery 10/20/19 (1) Status post left knee replacement (2) Parkinson disease (3) Dementia (4) Hypertension (5) Constipation (6) Advanced age CECILIA CONTRERAS DO Oct 14, 2019 12:54
--- NOTE | 2019-10-14 13:45 | Speech Therapy Daily Note ---
Speech Daily Progress Note Subjective Date Seen by Provider: Oct 14, 2019 Time Seen by Provider: 00:30 Patient stated she was going to a [address] in [place] on Friday. Objective Patient completed a series of q/a related to her needs with her change in location on Friday with 85% given min to mod verbal cues and/or redirection. Assessment Assessment Current Status: Fair Progress Treatment Plan Continue Plan of Care Speech Short Term Goals Short Term Goals Short Term Goals 1) The patient will complete memory tasks related to her daily needs at 80% or greater with minimal cues. 2) The patient will complete safety awareness tasks related to her daily needs at 80% or greater with minimal cues. 3) The patient will complete problem solving tasks related to her daily needs at 80% or greater with minimal cues. Speech Mcc Goals Mcc Goals Patient will improve cognitive communication in order to complete daily tasks with minimal assistance. Speech-Plan Patient/Family Goals Patient/Family Goals: Patient will be locating to a SNF in [place] next week. Treatment Plan Speech Therapy Treatment Plan: Continue Plan of Care Treatment Duration: Oct 09, 2019 Frequency: 5 times per week Estimated Hrs Per Day: .5 hour per day Rehab Potential: Good Barriers to Learning: Patient has moderate dementia. Pt/Family Agrees to Plan: Yes Safety Risks/Education Teaching Recipient: Patient, Significant Other Teaching Methods: Demonstration, Discussion Response to Teaching: Verbalize Understanding, Return Demonstration Education Topics Provided: Continued safety awareness. Time Speech Therapy Time In: 13:00 Speech Therapy Time Out: 13:30 Total Billed Time: 30 Billed Treatment Time 1KADIE BETHAN[address] ST Oct 14, 2019 13:45
--- NOTE | 2019-10-14 14:41 | NUR ---
CM/SS PATIENT CARE CONFERENCE SUMMARY and MEET/GREET Patient's daughters were informed of the weekly PCC and followed up with teletypewriter operator regarding recommendations. Met with patient and daughter Elysia Castaneda and on conference call with daughter Roxy Dallas yesterday afternoon. Informed all of the estimated discharge of 10/18/19, proposed home with spouse and [facility] RN and therapy. Daughters expressed concerns about patient being home alone while their dad goes to his shop daily. Answered all of their questions to their satisfaction regarding caregivers private pay and agencies, home health care services, half-way facilities. Patient has LTC insurance, teletypewriter operator advised daughters to speak with agent for details about coverage to assist with option review. Daughters requested extended stay on ARU, discussed Medicare criteria as well as patient's level of functioning as it relates to her positive progress toward not qualifying to continue intensive therapy here. Revisited proposal today that patient's spouse stay home with patient a couple of weeks but daughters indicate when the two parents are left to make those decisions, patient will tell him she doesn't need him staying at home and he will go on as before and be gone all day. Elysia and Roxy have started a search for an assisted living facility, some with memory care units. Patient has LTC insurance as noted, this may provide some financial coverage. At their direction, teletypewriter operator has completed referrals with: [address] [place] [address] PH: [phone] Verbal referral, coordinator is working thru their main office in [place], they are preparing a short video of the facility to send to the girls for review. Coordinator will contact teletypewriter operator in a.m., she is tentatively planning to come to [facility] tomorrow to assess patient. [facility] [address] [place] [address] PH: [phone] FX: [phone] RN/Michelle Tejeda notified teletypewriter operator that family had called requesting information. Updated daughters they need to call [facility] if they wish a referral sent there and update teletypewriter operator re same. They indicate this is closer to their parent's home and would be an easier drive for Mr. Alicea. [facility] discharge remains 10/18/19.
--- NOTE | 2019-10-14 15:10 | Physical Therapy Daily Note ---
PT Daily Note-Current Subjective Pt sitting in recliner visiting with SP upon arrival. Pt agrees to PT. Pain Numeric Pain Scale: 4 Location: Left Location Body Site: Knee Pain Description: Ache, Tightness Mental Status Patient Orientation: Person, Confused, Place Transfers SCALE: Activities may be completed with or without assistive devices. 4-Ptkcbaqtth-ztxogny completes the activity by him/herself with no assistance from a helper. 5-Set-up or Clean-up Assistance-helper sets up or cleans up; patient completes activity. [place] assists only prior to or following the activity. 4-Supervision or Touching Assistance-helper provides verbal cues and/or touching/steadying and/or contact guard assistance as patient completes activity. Assistance may be provided throughout the activity or intermittently. 3-Partial/Moderate Assistance-helper does LESS THAN HALF the effort. [place] lifts, holds or supports trunk or limbs, but provides less than half the effort. 2-Substantial/Maximal Assistance-helper does MORE THAN HALF the effort. [place] lifts or holds trunk or limbs and provides more than half the effort. 0-Lkjhovwye-impvmu does ALL the effort. Patient does none of the effort to complete the activity. Or, the assistance of 2 or more helpers is required for the patient to complete the activity. If activity was not attempted, code reason: 7-Patient Refused. 9-Not Applicable-not attempted and the patient did not perform the activity before the current illness, exacerbation or injury. 10-Not Attempted due to Environmental Limitations-(lack of equipment, weather restraints, etc.). 88-Not Attempted due to Medical Conditions or Safety Concerns. Sit to Stand (QC): 5 Toilet Transfer (QC): 5 Weight Bearing Right Lower Extremity: Right Full Weight Bearing Left Lower Extremity: Left Full Weight Bearing Gait Training Does the Patient Walk?: Yes Distance: 150' x2 Walk 10 feet (QC): 5 Walk 50 ft with 2 Turns(QC): 5 Walk 150 ft (QC): 5 Gait Persons Needed: 1 Gait Assistive Device: FWW Wheelchair Training Does the Pt Use a Wheelchair?: No Exercises Supine Ex: Ankle pumps, Quad Set, Glut sets, Heel Slides, Straight leg raise, Hip abd/add Supine Reps: 15 Treatments Pt transfers to standing and uses restroom. Pt then ambulates in hallway before completing Supine Ex on Therapy Mat. Pt returns to room at end of Rx with all needs met, call light in hand. Assessment Current Status: Good Progress Pt tolerated Rx well, expressed a little pain during some Ex but not untolerable. Pt's CPM was increased from 75 to 80 degrees during earlier Rx and tolerated well but declined using CPM right now. PT Short Term Goals Short Term Goals Time Frame: Oct 15, 2019 Roll Left & Right: 5 Sit to lyin Lying to sitting on side of be: 4 Sit to stand: 4 (SBA) Chair/guq-pg-egbmg transfer: 4 (SBA) Car transfer: 4 (SBA) Walk 10 feet: 4 (SBA) Walk 50 feet with two turns: 4 (SBA) Walk 150 feet: 4 (SBA) 1 step (curb): 4 (SBA) PT Executive Vice President Goals Senior Care Goals PT Senior Care Goals Time Frame: Oct 29, 2019 Roll Left & Right (QC): 5 Sit to Lying (QC): 5 Lying-Sitting on Side/Bed(QC): 5 Sit to Stand (QC): 5 Car Transfer (QC): 5 Does the Patient Walk: Yes Walk 10 feet (QC): 5 Walk 50ft with 2 Turns (QC): 5 Walk 150 ft (QC): 5 Walking 10ft on Uneven Surface: 5 1 Step (curb) (QC): 5 4 Steps (QC): 5 PT Plan Problem List Problem List: Activity Tolerance, Functional Strength, Safety Treatment/Plan Treatment Plan: Continue Plan of Care Treatment Plan: Bed Mobility, Education, Functional Activity Amos, Functional Strength, Group Therapy, Gait, Safety, Therapeutic Exercise, Transfers Treatment Duration: Oct 29, 2019 Frequency: At least 5 of 7 days/Wk (IRF) Estimated Hrs Per Day: 1.5 hours per day Patient and/or Family Agrees t: Yes Safety Risks/Education Patient Education: Gait Training, Transfer Techniques, Correct Positioning, Safety Issues Teaching Recipient: Patient Teaching Methods: Discussion Response to Teaching: Verbalize Understanding Time/GCodes Time In: 1400 Time Out: 1430 Total Billed Treatment Time: 30 Total Billed Treatment 1, GT (10m) & EX (20m) MARCELO SHERIDAN PTA Oct 14, 2019 15:10
[2019-10-14] MEDS: BISACODYL 10 MG SUPP (DULCOLAX) PR PRN (16:58)
[2019-10-14 18:54] VITALS: BP 149/83
--- NOTE | 2019-10-14 19:28 | NUR ---
PATIENT TO F/U WITH DR. NETTLES ON 10/20/19 AT 2:00 PM FOR STAPLE REMOVAL.
[2019-10-14] MEDS: MELATONIN 3 MG TABLET PO PRN (20:45)
[2019-10-14] MEDS: DOCUSATE SODIUM 100 MG (COLACE) CAP PO SCH (21:12)
[2019-10-15] MEDS: HYDROcodone/APAP 5 MG/325 MG (LORTAB) TAB PO PRN ×3 (00:36→16:29)
[2019-10-15 05:07] VITALS: BP 166/94
[2019-10-15] MEDS: VENlafaxine XR 75 MG (EFFEXOR XR) CAP PO SCH ×2 (06:23→17:51)
[2019-10-15] MEDS: polyethylene glycoL POWDER 17 GM (MIRALAX) PACK PO SCH ×2 (08:42→20:47)
[2019-10-15] MEDS: CYCLOBENZAPRINE 10 MG (FLEXERIL) TAB PO PRN (08:56)
--- NOTE | 2019-10-15 11:06 | Physical Therapy Daily Note ---
PT Daily Note-Current Subjective Pt. initially c/o pain in left knee at 7/10 but after Rx states it feels much better and the moving and stretching helped as well as rocking technique Pain Numeric Pain Scale: 4 Location: Left Location Body Site: Knee Pain Description: Ache Mental Status Patient Orientation: Person, Place, Time, Situation Attachments: Pugh Catheter Transfers SCALE: Activities may be completed with or without assistive devices. 8-Wbwomvqtqr-hjnbrsc completes the activity by him/herself with no assistance from a helper. 5-Set-up or Clean-up Assistance-helper sets up or cleans up; patient completes activity. [place] assists only prior to or following the activity. 4-Supervision or Touching Assistance-helper provides verbal cues and/or touching/steadying and/or contact guard assistance as patient completes activity. Assistance may be provided throughout the activity or intermittently. 3-Partial/Moderate Assistance-helper does LESS THAN HALF the effort. [place] lifts, holds or supports trunk or limbs, but provides less than half the effort. 2-Substantial/Maximal Assistance-helper does MORE THAN HALF the effort. [place] lifts or holds trunk or limbs and provides more than half the effort. 0-Vbjhndezt-wuxxfj does ALL the effort. Patient does none of the effort to complete the activity. Or, the assistance of 2 or more helpers is required for the patient to complete the activity. If activity was not attempted, code reason: 7-Patient Refused. 9-Not Applicable-not attempted and the patient did not perform the activity before the current illness, exacerbation or injury. 10-Not Attempted due to Environmental Limitations-(lack of equipment, weather restraints, etc.). 88-Not Attempted due to Medical Conditions or Safety Concerns. Roll Left & Right (QC): 6 Sit to Lying (QC): 6 Lying to Sitting/Side of Bed(Q: 6 Sit to Stand (QC): 6 Chair/Vqa-sr-Ujkgl Xfer(QC): 6 Toilet Transfer (QC): 6 Weight Bearing Right Lower Extremity: Right Full Weight Bearing Left Lower Extremity: Left Full Weight Bearing Gait Training Does the Patient Walk?: Yes Walk 10 feet (QC): 5 Walk 50 ft with 2 Turns(QC): 5 Walk 150 ft (QC): 5 Gait Persons Needed: 1 Gait Assistive Device: FWW slow but with good heel strike and knee flexion and extension, improving Exercises Supine Ex: Ankle pumps, Quad Set, Heel Slides, Short Arc Quads, Scooting, Straight leg raise (x7 bilat), Hip abd/add Supine Reps: 15 NuStep Minutes: 8 NuStep Workload: 3 Neuromuscular nustep with emphasis on pt. controlled flexion and extension with hold Treatments on polar pack and CPM after Rx. pt was educated in int ext hip rotation for quick stretch and relief which pt. states is helpful Assessment Current Status: Good Progress good progress, pt. comments several times about her dementia and states she doesnt remember having this much pain before "but then again I dont remember much" PT Short Term Goals Short Term Goals Time Frame: Oct 15, 2019 Roll Left & Right: 5 Sit to lyin Lying to sitting on side of be: 4 Sit to stand: 4 (SBA) Chair/uut-mf-eztis transfer: 4 (SBA) Car transfer: 4 (SBA) Walk 10 feet: 4 (SBA) Walk 50 feet with two turns: 4 (SBA) Walk 150 feet: 4 (SBA) 1 step (curb): 4 (SBA) PT Mcfp Goals Machine Silver Stripper Goals PT Mcfp Goals Time Frame: Oct 29, 2019 Roll Left & Right (QC): 5 Sit to Lying (QC): 5 Lying-Sitting on Side/Bed(QC): 5 Sit to Stand (QC): 5 Car Transfer (QC): 5 Does the Patient Walk: Yes Walk 10 feet (QC): 5 Walk 50ft with 2 Turns (QC): 5 Walk 150 ft (QC): 5 Walking 10ft on Uneven Surface: 5 1 Step (curb) (QC): 5 4 Steps (QC): 5 PT Plan Treatment/Plan Treatment Plan: Continue Plan of Care Treatment Plan: Bed Mobility, Education, Functional Activity Amos, Functional Strength, Group Therapy, Gait, Safety, Therapeutic Exercise, Transfers Treatment Duration: Oct 29, 2019 Frequency: At least 5 of 7 days/Wk (IRF) Estimated Hrs Per Day: 1.5 hours per day Patient and/or Family Agrees t: Yes Safety Risks/Education Patient Education: Gait Training, Transfer Techniques, Correct Positioning, Disease Process, Safety Issues Teaching Recipient: Patient Teaching Methods: Demonstration, Discussion Response to Teaching: Verbalize Understanding, Return Demonstration, Reinforcement Needed Time/GCodes Time In: 1015 Time Out: 1115 Total Billed Treatment Time: 60 Total Billed Treatment 1,GT20m,EX30m,FA10m LOYDA RIOJAS VIDEO JOURNALIST Oct 15, 2019 11:06
[2019-10-15] MEDS: PROPRANOLOL 20 MG (INDERAL) TABLET PO SCH (11:20)
[2019-10-15] MEDS: SENNA W/DOCUSATE (SENOKOT S) TABLET PO SCH ×2 (11:20→20:46)
[2019-10-15] MEDS: MEMANTINE 10 MG (NAMENDA) TABLET PO SCH ×2 (11:20→20:47)
[2019-10-15] MEDS: PANTOPRAZOLE 40 MG (PROTONIX) TAB PO SCH (11:20)
[2019-10-15] MEDS: MELOXICAM 7.5 MG (MOBIC) TABLET PO SCH ×2 (11:20→20:47)
[2019-10-15] MEDS: lisINopril 20 MG (PRINIVIL) TABLET PO SCH (11:20)
[2019-10-15] MEDS: DICLOFENAC 1% GEL 100 GM (VOLTAREN) TUBE TOP SCH ×4 (11:21→20:55)
[2019-10-15] MEDS: ASPIRIN E.C. 81 MG (ECOTRIN) TAB PO SCH (11:22)
--- NOTE | 2019-10-15 11:28 | PM&R Progress Note ---
Subjective HPI/CC On Admission Date Seen by Provider: Oct 15, 2019 Time Seen by Provider: 10:30 Subjective/Events-last exam Assisted Living is still in planning stages No BM for 4 days and took PO meds so will initiate supp and fleets and SSE Flexeril initiated left leg hip area Dementia causes recurrent pain reports since she is walking very well No pain is reported Bed alarm on Checked meds and labs Conferred with RN Reviewed therapy notes Review of Systems General: Fatigue Musculoskeletal: leg pain Objective Exam Vital Signs Vital Signs Date Time Temp Pulse Resp B/P (MAP) Pulse Ox O2 Delivery O2 Flow Rate FiO2 10/15/19 16:00 36.8 64 16 145/83 (103) 97 Room Air Capillary Refill : Less Than 3 SecondsLess Than 3 Seconds General Appearance: No Apparent Distress, WD/WN, Chronically ill HEENT: PERRL/EOMI, Normal ENT Inspection, Pharynx Normal Neck: Full Range of Motion, Normal Inspection, Non Tender, Supple, Carotid Bruit Respiratory: Chest Non Tender, Lungs Clear, Normal Breath Sounds, No Accessory Muscle Use, No Respiratory Distress Cardiovascular: Regular Rate, Rhythm, No Edema, No Gallop, No JVD, No Murmur, Normal Peripheral Pulses Gastrointestinal: Normal Bowel Sounds, No Organomegaly, No Pulsatile Mass, Non Tender, Soft Back: Normal Inspection, No CVA Tenderness, No Vertebral Tenderness Extremity: Normal Capillary Refill, Normal Inspection, Normal Range of Motion (left leg), Non Tender, No Calf Tenderness, No Pedal Edema Neurologic/Psychiatric: Alert, Oriented x3, No Motor/Sensory Deficits, Normal Mood/Affect, fire pilot II-XII Norm as Tested, Disoriented (subtle poor recall), Motor Weakness (generalized lower extremities) Skin: Normal Color, Warm/Dry Lymphatic: No Adenopathy Results/Procedures Lab Patient resulted labs reviewed. FIM Transfers Therapy Code Descriptions/Definitions Functional [place] Measure: 0=Not Assessed/NA 4=Minimal Assistance 1=Total Assistance 5=Supervision or Setup 2=Maximal Assistance 6=Modified [place] 3=Moderate Assistance 7=Complete IndependenceSCALE: Activities may be completed with or without assistive devices. 9-Pquxfpkvnf-rjftaeo completes the activity by him/herself with no assistance from a helper. 5-Set-up or Clean-up Assistance-helper sets up or cleans up; patient completes activity. [place] assists only prior to or following the activity. 4-Supervision or Touching Assistance-helper provides verbal cues and/or touching/steadying and/or contact guard assistance as patient completes activity. Assistance may be provided throughout the activity or intermittently. 3-Partial/Moderate Assistance-helper does LESS THAN HALF the effort. [place] lifts, holds or supports trunk or limbs, but provides less than half the effort. 2-Substantial/Maximal Assistance-helper does MORE THAN HALF the effort. [place] lifts or holds trunk or limbs and provides more than half the effort. 3-Yxuhniugy-tqhxqx does ALL the effort. Patient does none of the effort to complete the activity. Or, the assistance of 2 or more helpers is required for the patient to complete the activity. If activity was not attempted, code reason: 7-Patient Refused. 9-Not Applicable-not attempted and the patient did not perform the activity before the current illness, exacerbation or injury. 10-Not Attempted due to Environmental Limitations-(lack of equipment, weather restraints, etc.). 88-Not Attempted due to Medical Conditions or Safety Concerns. Roll Left to Right (QC): 6 Sit to Lying (QC): 6 Sit to Stand (QC): 6 Chair/Nii-dk-Omhxd Xfer(QC): 6 Car Transfer (QC): 5 Gait Training Does the Patient Walk?: Yes Distance: 150' x2 Walk 10 feet (QC): 5 Walk 50 ft with 2 Turns(QC): 5 Walk 150 ft (QC): 5 Walking 10ft/uneven surface-QC: 4 Gait Persons Needed: 1 Gait Assistive Device: FWW Wheelchair Training Does the Pt Use a Wheelchair?: No Stair Training Stair Training: Handrails/: 2 handrails #of Steps: 8 1 Step (curb) (QC): 5 4 Steps (QC): 5 12 Steps (QC): 4 Stairs: Pattern: Step to Balance Picking up an Object (QC): 88 ADL-Treatment Eating (QC): 6 Oral Hygiene (QC): 4 (SUP at sink) Bathing Location: L Arm, R Arm, L Upper Leg, R Upper Leg, L Lower Leg (including foot), R Lower Leg (including foot), Chest, Abdomen, Buttocks, Perineal Area Shower/Bathe Self (QC): 5 (s/u sponge bath in shower.) Upper Body Dressing (QC): 6 (pt gathers and completes on sc) Lower Body Dressing (QC): 4 (SUP, pt gathers and completes in shower.) On/Off Footwear (QC): 6 (IND socks) Toileting Hygiene (QC): 6 Toilet Transfer (QC): 4 (SUP, use of walker.) Assessment/Plan Assessment and Plan Assess & Plan/Chief Complaint Assessment: s/p left knee replacement POD # 9 Dementia PD Constipation maintained on laxatives HTN Fall with closed head injury with laceration prompting surgery consult and CT scan revealing no abnl Plan: IRF protocol Monitor for sundowning Checked labs per protocol BM regimen Staple removal per surgery 10/20/19 DC planning (1) Status post left knee replacement (2) Parkinson disease (3) Dementia (4) Hypertension (5) Constipation (6) Advanced age CECILIA CONTRERAS DO Oct 15, 2019 11:28
--- NOTE | 2019-10-15 11:40 | Occupational Ther Daily Note ---
OT Current Status-Daily Note Subjective Pt in shower, took over care from TSE. Pt reports 5/10 pain in left knee. ADL-Treatment Pt in shower with TSE present, took over care of pt. Pt able to dry all areas. Transferred out of shower to chair using grab bar for safety. Pt donned bra and pullover shirt with set up. Pt able to thread bilateral LE into Depends and pants, then stand with good balance during pant hike. Dons bilateral socks with set up. Pt completed oral care with modified independence while standing at sink. Therapy Code Descriptions/Definitions Functional [place] Measure: 0=Not Assessed/NA 4=Minimal Assistance 1=Total Assistance 5=Supervision or Setup 2=Maximal Assistance 6=Modified [place] 3=Moderate Assistance 7=Complete IndependenceSCALE: Activities may be completed with or without assistive devices. 5-Mkixqmcymb-khyczhx completes the activity by him/herself with no assistance from a helper. 5-Set-up or Clean-up Assistance-helper sets up or cleans up; patient completes activity. [place] assists only prior to or following the activity. 4-Supervision or Touching Assistance-helper provides verbal cues and/or touching/steadying and/or contact guard assistance as patient completes activity. Assistance may be provided throughout the activity or intermittently. 3-Partial/Moderate Assistance-helper does LESS THAN HALF the effort. [place] lifts, holds or supports trunk or limbs, but provides less than half the effort. 2-Substantial/Maximal Assistance-helper does MORE THAN HALF the effort. [place] lifts or holds trunk or limbs and provides more than half the effort. 8-Wdwcixedi-oensyh does ALL the effort. Patient does none of the effort to complete the activity. Or, the assistance of 2 or more helpers is required for the patient to complete the activity. If activity was not attempted, code reason: 7-Patient Refused. 9-Not Applicable-not attempted and the patient did not perform the activity before the current illness, exacerbation or injury. 10-Not Attempted due to Environmental Limitations-(lack of equipment, weather restraints, etc.). 88-Not Attempted due to Medical Conditions or Safety Concerns. Oral Hygiene (QC): 6 Upper Body Dressing (QC): 5 Lower Body Dressing (QC): 5 On/Off Footwear: 5 Other Treatment Gait to therapy gyw with FWW, no LOB noted. Arm bike x15 minutes to increase overall strength and activity tolerance needed for functional task completion. Pt performed task with minimal resistance and slow pace. No rest breaks needed. Pt completed fine motor task with bilateral UE while standing to increase UE activity tolerance, coordination, and standing balance. Pt completed task with increased time. No LOB noted. Seated rest break taken upon completion of task. Pt returned to room, sitting in chair with alarm in place after session. OT Prison Goals Service Writer Goals Time Frame: Oct 29, 2019 Eating (QC): 6 (met) Oral Hygiene (QC): 6 Toileting Hygiene (QC): 6 (met) Shower/Bathe Self (QC): 5 (met) Upper Body Dressing (QC): 6 Lower Body Dressing (QC): 5 On/Off Footwear (QC): 6 (met) Additional Goals: 1-Demonstrate ADL Tasks, 2-Verbalize Understanding, 3- ImproveStrength/Am[place] 1=Demonstrate adherence to instructed precautions during ADL tasks. 2=Patient will verbalize/demonstrate understanding of assistive devices/modifications for ADL. 3=Patient will improve strength/tolerance for activity to enable patient to perform ADL's. OT Education/Plan Discharge Recommendations Plan/Recommendations: Continue POC Treatment Plan/Plan of Care Patient would benefit from OT for education, treatment and training to promote independence in ADL's, mobility, safety and/or upper extremity function for ADL's. Plan of Care: ADL Retraining, Functional Mobility, Group Exercise/Act as Ind, UE Funct Exercise/Act Treatment Duration: Oct 29, 2019 Frequency: At least 5 of 7 days/Wk (IRF) Estimated Hrs Per Day: 1.5 hours per day Rehab Potential: Good Time/GCodes Start Time: 09:00 Stop Time: 10:00 Total Time Billed (hr/min): 60 Billed Treatment Time 1 visit, ADL(20minutes), EXx3(40minutes) RY MELGOZA OT Oct 15, 2019 11:39
--- NOTE | 2019-10-15 12:12 | Physical Therapy Daily Note ---
PT Daily Note-Current Subjective Pt. 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 Spoke to Dr Mendiola and T Terrence PT who ok moist hot pack with heavy azeri toweling Pain Numeric Pain Scale: 4 Location: Left Location Body Site: Hip (thigh spasm) Transfers SCALE: Activities may be completed with or without assistive devices. 6-Fhudiyrnoj-mhhdims completes the activity by him/herself with no assistance from a helper. 5-Set-up or Clean-up Assistance-helper sets up or cleans up; patient completes activity. [place] assists only prior to or following the activity. 4-Supervision or Touching Assistance-helper provides verbal cues and/or touching/steadying and/or contact guard assistance as patient completes activity. Assistance may be provided throughout the activity or intermittently. 3-Partial/Moderate Assistance-helper does LESS THAN HALF the effort. [place] lifts, holds or supports trunk or limbs, but provides less than half the effort. 2-Substantial/Maximal Assistance-helper does MORE THAN HALF the effort. [place] lifts or holds trunk or limbs and provides more than half the effort. 9-Azimydhgw-cbwral does ALL the effort. Patient does none of the effort to complete the activity. Or, the assistance of 2 or more helpers is required for the patient to complete the activity. If activity was not attempted, code reason: 7-Patient Refused. 9-Not Applicable-not attempted and the patient did not perform the activity before the current illness, exacerbation or injury. 10-Not Attempted due to Environmental Limitations-(lack of equipment, weather restraints, etc.). 88-Not Attempted due to Medical Conditions or Safety Concerns. rolling and scooting in bed indep Weight Bearing Right Lower Extremity: Right Full Weight Bearing Left Lower Extremity: Left Full Weight Bearing Exercises Supine Ex: Bridging, Ankle pumps, Quad Set, Rolling, Heel Slides, Short Arc Quads, Scooting, Straight leg raise Supine Reps: 10 Treatments MHP monitored for 10m with good relief os spasm noted by pt. and more supple feel of mm with palpation Assessment Current Status: Good Progress PT Short Term Goals Short Term Goals Time Frame: Oct 15, 2019 Roll Left & Right: 5 Sit to lyin Lying to sitting on side of be: 4 Sit to stand: 4 (SBA) Chair/nom-ep-lftjo transfer: 4 (SBA) Car transfer: 4 (SBA) Walk 10 feet: 4 (SBA) Walk 50 feet with two turns: 4 (SBA) Walk 150 feet: 4 (SBA) 1 step (curb): 4 (SBA) PT Retirement Goals Retirement Goals PT Underwriting Specialist Goals Time Frame: Oct 29, 2019 Roll Left & Right (QC): 5 Sit to Lying (QC): 5 Lying-Sitting on Side/Bed(QC): 5 Sit to Stand (QC): 5 Car Transfer (QC): 5 Does the Patient Walk: Yes Walk 10 feet (QC): 5 Walk 50ft with 2 Turns (QC): 5 Walk 150 ft (QC): 5 Walking 10ft on Uneven Surface: 5 1 Step (curb) (QC): 5 4 Steps (QC): 5 PT Plan Treatment/Plan Treatment Plan: Continue Plan of Care Treatment Plan: Bed Mobility, Education, Functional Activity Amos, Functional Strength, Group Therapy, Gait, Safety, Therapeutic Exercise, Transfers Treatment Duration: Oct 29, 2019 Frequency: At least 5 of 7 days/Wk (IRF) Estimated Hrs Per Day: 1.5 hours per day Patient and/or Family Agrees t: Yes Safety Risks/Education Patient Education: Transfer Techniques, Correct Positioning Teaching Recipient: Patient Teaching Methods: Demonstration, Discussion Response to Teaching: Verbalize Understanding, Return Demonstration, Reinforcement Needed Time/GCodes Time In: 1145 Time Out: 1200 Total Billed Treatment Time: 15 Total Billed Treatment 1,EX15m LOYDA RIOJAS [employer]IVER Oct 15, 2019 12:12
--- NOTE | 2019-10-15 13:17 | Speech Therapy Daily Note ---
Speech Daily Progress Note Subjective Date Seen by Provider: Oct 15, 2019 Time Seen by Provider: 00:30 Patient was laying in bed with her CPM on her knee. She was c/o pain in her leg and nursing was administering her pain meds. Objective Patient completed a simple series of q/a related to her needs at 80% with mod cues and/or repetition. Assessment Assessment Current Status: Fair Progress Treatment Plan Continue Plan of Care Speech Short Term Goals Short Term Goals Short Term Goals 1) The patient will complete memory tasks related to her daily needs at 80% or greater with minimal cues. 2) The patient will complete safety awareness tasks related to her daily needs at 80% or greater with minimal cues. 3) The patient will complete problem solving tasks related to her daily needs at 80% or greater with minimal cues. Speech Assisted Goals Door Tender Goals Patient will improve cognitive communication in order to complete daily tasks with minimal assistance. Speech-Plan Patient/Family Goals Patient/Family Goals: The patient will be discharging to a SNF in [place], [place] on Friday. Treatment Plan Speech Therapy Treatment Plan: Continue Plan of Care Treatment Duration: Oct 09, 2019 Frequency: 5 times per week Estimated Hrs Per Day: .5 hour per day Rehab Potential: Good Barriers to Learning: Patient has moderate dementia Pt/Family Agrees to Plan: Yes Safety Risks/Education Teaching Recipient: Patient Teaching Methods: Demonstration, Discussion Response to Teaching: Verbalize Understanding, Return Demonstration Education Topics Provided: Continued safety within her room and utilization of call light as needed. Time Speech Therapy Time In: 11:15 Speech Therapy Time Out: 11:45 Total Billed Time: 30 Billed Treatment Time 1KADIE BETHANIA ST Oct 15, 2019 13:17
--- NOTE | 2019-10-15 14:24 | Occupational Ther Daily Note ---
OT Current Status-Daily Note Subjective Pt alert, lying in bed. Pt c/o cramping in L upper thigh/buttocks area, nrsg aware. Pt agrees to therapy. Mental Status/Objective Patient Orientation: Person, Situation ADL-Treatment Pt agrees to shower. TSE gathered clothing for pt. Pt transported clothing using FWW to bathroom. Pt transferred to shower, mod I. Assist to set up water temperature. OTR/L took over care of pt. All needs met. Therapy Code Descriptions/Definitions Functional [place] Measure: 0=Not Assessed/NA 4=Minimal Assistance 1=Total Assistance 5=Supervision or Setup 2=Maximal Assistance 6=Modified [place] 3=Moderate Assistance 7=Complete IndependenceSCALE: Activities may be completed with or without assistive devices. 7-Xmzzhsgrum-mqewfaj completes the activity by him/herself with no assistance from a helper. 5-Set-up or Clean-up Assistance-helper sets up or cleans up; patient completes activity. [place] assists only prior to or following the activity. 4-Supervision or Touching Assistance-helper provides verbal cues and/or touching/steadying and/or contact guard assistance as patient completes activity. Assistance may be provided throughout the activity or intermittently. 3-Partial/Moderate Assistance-helper does LESS THAN HALF the effort. [place] lifts, holds or supports trunk or limbs, but provides less than half the effort. 2-Substantial/Maximal Assistance-helper does MORE THAN HALF the effort. [place] lifts or holds trunk or limbs and provides more than half the effort. 2-Cygmavjan-estcqz does ALL the effort. Patient does none of the effort to complete the activity. Or, the assistance of 2 or more helpers is required for the patient to complete the activity. If activity was not attempted, code reason: 7-Patient Refused. 9-Not Applicable-not attempted and the patient did not perform the activity before the current illness, exacerbation or injury. 10-Not Attempted due to Environmental Limitations-(lack of equipment, weather restraints, etc.). 88-Not Attempted due to Medical Conditions or Safety Concerns. OT Director Of Vendor Management Goals Care Home Goals Time Frame: Oct 29, 2019 Eating (QC): 6 (met) Oral Hygiene (QC): 6 Toileting Hygiene (QC): 6 (met) Shower/Bathe Self (QC): 5 (met) Upper Body Dressing (QC): 6 Lower Body Dressing (QC): 5 On/Off Footwear (QC): 6 (met) Additional Goals: 1-Demonstrate ADL Tasks, 2-Verbalize Understanding, 3- ImproveStrength/Amos 1=Demonstrate adherence to instructed precautions during ADL tasks. 2=Patient will verbalize/demonstrate understanding of assistive devices/modifications for ADL. 3=Patient will improve strength/tolerance for activity to enable patient to perform ADL's. OT Education/Plan Problem List/Assessment Assessment: Decreased Safety Aware Discharge Recommendations Plan/Recommendations: Continue POC Treatment Plan/Plan of Care Patient would benefit from OT for education, treatment and training to promote independence in ADL's, mobility, safety and/or upper extremity function for ADL's. Plan of Care: ADL Retraining, Functional Mobility, Group Exercise/Act as Ind, UE Funct Exercise/Act Treatment Duration: Oct 29, 2019 Frequency: At least 5 of 7 days/Wk (IRF) Estimated Hrs Per Day: 1.5 hours per day Rehab Potential: Good Time/GCodes Start Time: 08:45 Stop Time: 09:00 Total Time Billed (hr/min): 15 Billed Treatment Time 1 visit-ADL 1 (15 min) TAYLOR DUARTE Oct 15, 2019 14:24
--- NOTE | 2019-10-15 15:30 | NUR ---
CM/SS DISCHARGE PLANNING Multiple calls/contacts this date between patient family, [facility] in [place] and [facility] in [place]. Daughter Elysia and Mr. Alicea have toured both facilities this date, they have committed to residency for patient with [facility]. They are completing paperwork at this time and are on target for patient discharge Friday. They plan to move personal items into the facility this weekend and transport patient from discharge here to the new apartment. This is an Assisted Living Facility with a Memory Care residential. No skilled services and no CARE Assessment necessary. Daughter Roxy Dallas is patient's DPOA-HC. The two daughters and spouse have managed all communication with patient about the post discharge placement and will continue to do so for consistency.
[2019-10-15 16:00] VITALS: BP 145/83
--- NOTE | 2019-10-15 19:10 | NUR ---
bedside report received from JAMES ARREDONDO, assume care of pt
[2019-10-15] MEDS: BISACODYL 10 MG SUPP (DULCOLAX) PR PRN (20:46)
[2019-10-15] MEDS: MELATONIN 3 MG TABLET PO PRN (20:47)
--- NOTE | 2019-10-15 20:47 | NUR ---
all laxatives given & given Dulcolax 10mg suppository given, side rails up x4, bed alarm on & tele sitter in place
[2019-10-15] MEDS: DOCUSATE SODIUM 100 MG (COLACE) CAP PO SCH (20:50)
--- NOTE | 2019-10-15 23:15 | NUR ---
had small hard brown stool
[2019-10-16 05:52] VITALS: BP 159/89
--- NOTE | 2019-10-16 05:54 | NUR ---
given fleet enema with small hard stool
--- NOTE | 2019-10-16 06:31 | NUR ---
given lactulose 10gm
[2019-10-16] MEDS: VENlafaxine XR 75 MG (EFFEXOR XR) CAP PO SCH ×2 (06:32→16:05)
[2019-10-16] MEDS: polyethylene glycoL POWDER 17 GM (MIRALAX) PACK PO SCH ×2 (10:01→20:18)
[2019-10-16] MEDS: PROPRANOLOL 20 MG (INDERAL) TABLET PO SCH (10:02)
[2019-10-16] MEDS: lisINopril 20 MG (PRINIVIL) TABLET PO SCH (10:02)
[2019-10-16] MEDS: PANTOPRAZOLE 40 MG (PROTONIX) TAB PO SCH (10:02)
[2019-10-16] MEDS: SENNA W/DOCUSATE (SENOKOT S) TABLET PO SCH ×2 (10:03→20:16)
[2019-10-16] MEDS: ASPIRIN E.C. 81 MG (ECOTRIN) TAB PO SCH (10:03)
[2019-10-16] MEDS: MELOXICAM 7.5 MG (MOBIC) TABLET PO SCH ×2 (10:03→20:17)
[2019-10-16] MEDS: MEMANTINE 10 MG (NAMENDA) TABLET PO SCH ×2 (10:04→20:17)
[2019-10-16] MEDS: DICLOFENAC 1% GEL 100 GM (VOLTAREN) TUBE TOP SCH ×4 (10:06→20:24)
[2019-10-16] MEDS: HYDROcodone/APAP 5 MG/325 MG (LORTAB) TAB PO PRN ×2 (10:08→20:20)
--- NOTE | 2019-10-16 10:20 | Physical Therapy Daily Note ---
PT Daily Note-Current Subjective Pt agreeable to PT session, states she would really like to work on nustep today as it loosens her leg up the most. States she finally had a really good BM this morning and feels much better, but feels it wore her out some. Pain Numeric Pain Scale: 3 Appearance Pt in bed before and after treatment session call light phone and bedside table within reach cold pack on L knee. Pt requesting to put CPM on later. Mental Status Patient Orientation: Normal For Age Transfers SCALE: Activities may be completed with or without assistive devices. 2-Ibkprupguw-wmywygh completes the activity by him/herself with no assistance from a helper. 5-Set-up or Clean-up Assistance-helper sets up or cleans up; patient completes activity. [place] assists only prior to or following the activity. 4-Supervision or Touching Assistance-helper provides verbal cues and/or touching/steadying and/or contact guard assistance as patient completes activity. Assistance may be provided throughout the activity or intermittently. 3-Partial/Moderate Assistance-helper does LESS THAN HALF the effort. [place] lifts, holds or supports trunk or limbs, but provides less than half the effort. 2-Substantial/Maximal Assistance-helper does MORE THAN HALF the effort. [place] lifts or holds trunk or limbs and provides more than half the effort. 0-Kwmlzkxoj-pvfdtj does ALL the effort. Patient does none of the effort to complete the activity. Or, the assistance of 2 or more helpers is required for the patient to complete the activity. If activity was not attempted, code reason: 7-Patient Refused. 9-Not Applicable-not attempted and the patient did not perform the activity before the current illness, exacerbation or injury. 10-Not Attempted due to Environmental Limitations-(lack of equipment, weather restraints, etc.). 88-Not Attempted due to Medical Conditions or Safety Concerns. Roll Left & Right (QC): 6 Sit to Lying (QC): 6 Lying to Sitting/Side of Bed(Q: 6 Sit to Stand (QC): 4 Weight Bearing Right Lower Extremity: Right Full Weight Bearing Left Lower Extremity: Left Full Weight Bearing Gait Training Does the Patient Walk?: Yes Distance: 200 x2 Walk 10 feet (QC): 4 Walk 50 ft with 2 Turns(QC): 4 Walk 150 ft (QC): 4 Gait Persons Needed: 1 Gait Assistive Device: FWW slow pace, fair heel strike and knee flexion and extension, although lacks full ext LLE Exercises NuStep Minutes: 15 NuStep Workload: 4 (various seat positions to increased ROM flex and ext) Assessment Current Status: Good Progress PT Short Term Goals Short Term Goals Time Frame: Oct 15, 2019 Roll Left & Right: 5 Sit to lyin Lying to sitting on side of be: 4 Sit to stand: 4 (SBA) Chair/jtn-cs-oiqgy transfer: 4 (SBA) Car transfer: 4 (SBA) Walk 10 feet: 4 (SBA) Walk 50 feet with two turns: 4 (SBA) Walk 150 feet: 4 (SBA) 1 step (curb): 4 (SBA) PT Correction Goals Correction Goals PT Correction Goals Time Frame: Oct 29, 2019 Roll Left & Right (QC): 5 Sit to Lying (QC): 5 Lying-Sitting on Side/Bed(QC): 5 Sit to Stand (QC): 5 Car Transfer (QC): 5 Does the Patient Walk: Yes Walk 10 feet (QC): 5 Walk 50ft with 2 Turns (QC): 5 Walk 150 ft (QC): 5 Walking 10ft on Uneven Surface: 5 1 Step (curb) (QC): 5 4 Steps (QC): 5 PT Plan Treatment/Plan Treatment Plan: Continue Plan of Care Treatment Plan: Bed Mobility, Education, Functional Activity Amos, Functional Strength, Group Therapy, Gait, Safety, Therapeutic Exercise, Transfers Treatment Duration: Oct 29, 2019 Frequency: At least 5 of 7 days/Wk (IRF) Estimated Hrs Per Day: 1.5 hours per day Patient and/or Family Agrees t: Yes Safety Risks/Education Patient Education: Gait Training, Transfer Techniques, Reviewed Precautions, Reviewed Use of Ice, Correct Positioning, Disease Process, Safety Issues Teaching Recipient: Patient Teaching Methods: Demonstration, Discussion Response to Teaching: Verbalize Understanding, Return Demonstration Time/GCodes Time In: 918 Time Out: 938 Total Billed Treatment Time: 20 Total Billed Treatment 1 visit, EX x1 unit JACLYN SOOD ELENITA Oct 16, 2019 10:20
--- NOTE | 2019-10-16 11:49 | PM&R Progress Note ---
Subjective HPI/CC On Admission Date Seen by Provider: Oct 16, 2019 Time Seen by Provider: 11:45 Subjective/Events-last exam Large BM this morning Pain in the left hip is muscle pain Dementia leads to pain and somatic issues Home with is planned Bed alarm on Checked meds and labs Conferred with RN Reviewed therapy notes Review of Systems Musculoskeletal: leg pain Objective Exam Vital Signs Vital Signs Date Time Temp Pulse Resp B/P (MAP) Pulse Ox O2 Delivery O2 Flow Rate FiO2 10/16/19 17:22 36.7 71 18 147/81 (103) 97 Room Air Capillary Refill : Less Than 3 SecondsLess Than 3 Seconds General Appearance: No Apparent Distress, WD/WN, Chronically ill HEENT: PERRL/EOMI, Normal ENT Inspection, Pharynx Normal Neck: Full Range of Motion, Normal Inspection, Non Tender, Supple, Carotid Bruit Respiratory: Chest Non Tender, Lungs Clear, Normal Breath Sounds, No Accessory Muscle Use, No Respiratory Distress Cardiovascular: Regular Rate, Rhythm, No Edema, No Gallop, No JVD, No Murmur, Normal Peripheral Pulses Gastrointestinal: Normal Bowel Sounds, No Organomegaly, No Pulsatile Mass, Non Tender, Soft Back: Normal Inspection, No CVA Tenderness, No Vertebral Tenderness Extremity: Normal Capillary Refill, Normal Inspection, Normal Range of Motion (left leg), Non Tender, No Calf Tenderness, No Pedal Edema Neurologic/Psychiatric: Alert, Oriented x3, No Motor/Sensory Deficits, Normal Mood/Affect, engine research engineer II-XII Norm as Tested, Disoriented (subtle poor recall), Motor Weakness (generalized lower extremities) Skin: Normal Color, Warm/Dry Lymphatic: No Adenopathy Results/Procedures Lab Patient resulted labs reviewed. FIM Transfers Therapy Code Descriptions/Definitions Functional [place] Measure: 0=Not Assessed/NA 4=Minimal Assistance 1=Total Assistance 5=Supervision or Setup 2=Maximal Assistance 6=Modified [place] 3=Moderate Assistance 7=Complete IndependenceSCALE: Activities may be completed with or without assistive devices. 5-Nshutwytls-ccchtfg completes the activity by him/herself with no assistance from a helper. 5-Set-up or Clean-up Assistance-helper sets up or cleans up; patient completes activity. [place] assists only prior to or following the activity. 4-Supervision or Touching Assistance-helper provides verbal cues and/or touching/steadying and/or contact guard assistance as patient completes activity. Assistance may be provided throughout the activity or intermittently. 3-Partial/Moderate Assistance-helper does LESS THAN HALF the effort. [place] lifts, holds or supports trunk or limbs, but provides less than half the effort. 2-Substantial/Maximal Assistance-helper does MORE THAN HALF the effort. [place] lifts or holds trunk or limbs and provides more than half the effort. 7-Rhcvcrkte-frjhjk does ALL the effort. Patient does none of the effort to complete the activity. Or, the assistance of 2 or more helpers is required for the patient to complete the activity. If activity was not attempted, code reason: 7-Patient Refused. 9-Not Applicable-not attempted and the patient did not perform the activity before the current illness, exacerbation or injury. 10-Not Attempted due to Environmental Limitations-(lack of equipment, weather restraints, etc.). 88-Not Attempted due to Medical Conditions or Safety Concerns. Roll Left to Right (QC): 6 Sit to Lying (QC): 6 Sit to Stand (QC): 4 Chair/Ica-la-Efxsb Xfer(QC): 6 Car Transfer (QC): 5 Gait Training Does the Patient Walk?: Yes Distance: 200 x2 Walk 10 feet (QC): 4 Walk 50 ft with 2 Turns(QC): 4 Walk 150 ft (QC): 4 Walking 10ft/uneven surface-QC: 4 Gait Persons Needed: 1 Gait Assistive Device: FWW Wheelchair Training Does the Pt Use a Wheelchair?: No Stair Training Stair Training: Handrails/: 2 handrails #of Steps: 8 1 Step (curb) (QC): 5 4 Steps (QC): 5 12 Steps (QC): 4 Stairs: Pattern: Step to Balance Picking up an Object (QC): 88 ADL-Treatment Eating (QC): 6 Oral Hygiene (QC): 6 Bathing Location: L Arm, R Arm, L Upper Leg, R Upper Leg, L Lower Leg (including foot), R Lower Leg (including foot), Chest, Abdomen, Buttocks, Perineal Area Shower/Bathe Self (QC): 5 (s/u sponge bath in shower.) Upper Body Dressing (QC): 5 Lower Body Dressing (QC): 5 On/Off Footwear (QC): 5 Toileting Hygiene (QC): 6 Toilet Transfer (QC): 4 (SUP, use of walker.) Assessment/Plan Assessment and Plan Assess & Plan/Chief Complaint Assessment: s/p left knee replacement POD # 10 Dementia PD Constipation maintained on laxatives HTN Fall with closed head injury with laceration prompting surgery consult and CT scan revealing no abnl Plan: IRF protocol Monitor for Checked labs per protocol BM regimen Staple removal per surgery 10/20/19 DC planning (1) Status post left knee replacement (2) Parkinson disease (3) Dementia (4) Hypertension (5) Constipation (6) Advanced age CECILIA CONTRERAS DO Oct 16, 2019 11:49
--- NOTE | 2019-10-16 14:00 | NUR ---
Pt asking RN about her pain and why it bothered her so much today. RN advised pt that she may wish to take her pain medication prior to PT if medication is due. She had not wished to take pain medication prior to therapy today and had difficulty getting pain under control afterwards. Pt is resting comfortably now.
--- NOTE | 2019-10-16 15:00 | NUR ---
DAUGHTER ALSO REQUESTING THAT [facility]LINE BE REMOVED FRIDAY PRIOR TO DC SO PATIENT WILL NOT HAVE TO GET OUT AGAIN. MERLINE WILL HAVE BEEN IN 7 DAYS AT THAT TIME.
--- NOTE | 2019-10-16 15:00 | NUR ---
DAUGHTER ELIZABETH CALLED WITH MULTIPLE QUESTIONS ABOUT DISCHARGE AND REQUEST TO HAVE PATIENT DISCHARGED TOMORROW. AFTER ANSWERING QUESTIONS, DAUGHTER AGREEABLE TO KEEP DC FOR FRIDAY.
[2019-10-16] MEDS: CALCIUM CARBONATE 500 MG (TUMS) TAB.CHEW PO PRN (16:40)
[2019-10-16 17:22] VITALS: BP 147/81
--- NOTE | 2019-10-16 19:05 | NUR ---
bedside report received from PHAM ARREDONDO, assume care of pt
[2019-10-16] MEDS: MELATONIN 3 MG TABLET PO PRN (20:17)
[2019-10-16] MEDS: DOCUSATE SODIUM 100 MG (COLACE) CAP PO SCH (20:18)
--- NOTE | 2019-10-16 20:30 | NUR ---
c/o lt knee pain, level 5/10 on numeric scale, Lortab 5 2 tabs given
--- NOTE | 2019-10-16 21:10 | NUR ---
resting quietly in bed, pain level 0/10 on CNPI scale
[2019-10-16] MEDS: CYCLOBENZAPRINE 10 MG (FLEXERIL) TAB PO PRN (23:05)
[2019-10-17] MEDS: HYDROcodone/APAP 5 MG/325 MG (LORTAB) TAB PO PRN ×3 (01:58→20:43)
--- NOTE | 2019-10-17 01:58 | NUR ---
c/o pain lt knee level 4/10 on numeric scale, Lortab 5 2 tabs given
--- NOTE | 2019-10-17 02:45 | NUR ---
resting quietly in bed, pain level 0/10 on CNPI scale
[2019-10-17 06:00] VITALS: BP 144/60
[2019-10-17] MEDS: VENlafaxine XR 75 MG (EFFEXOR XR) CAP PO SCH ×2 (06:53→17:43)
[2019-10-17] MEDS: MEMANTINE 10 MG (NAMENDA) TABLET PO SCH ×2 (08:59→20:43)
[2019-10-17] MEDS: PANTOPRAZOLE 40 MG (PROTONIX) TAB PO SCH (08:59)
[2019-10-17] MEDS: SENNA W/DOCUSATE (SENOKOT S) TABLET PO SCH ×2 (08:59→20:43)
[2019-10-17] MEDS: ASPIRIN E.C. 81 MG (ECOTRIN) TAB PO SCH (08:59)
[2019-10-17] MEDS: MELOXICAM 7.5 MG (MOBIC) TABLET PO SCH ×2 (09:00→20:43)
[2019-10-17] MEDS: lisINopril 20 MG (PRINIVIL) TABLET PO SCH (09:00)
[2019-10-17] MEDS: polyethylene glycoL POWDER 17 GM (MIRALAX) PACK PO SCH ×2 (09:04→20:44)
[2019-10-17] MEDS: PROPRANOLOL 20 MG (INDERAL) TABLET PO SCH (09:04)
[2019-10-17] MEDS: DICLOFENAC 1% GEL 100 GM (VOLTAREN) TUBE TOP SCH ×4 (09:04→20:45)
--- NOTE | 2019-10-17 12:26 | PM&R Progress Note ---
Subjective HPI/CC On Admission Date Seen by Provider: Oct 17, 2019 Time Seen by Provider: 12:30 Subjective/Events-last exam Impulsive still DC planned for Friday BM x 2 already today Rectal prolapse is chronic Pain is well controlled Checked meds and labs Conferred with RN Reviewed therapy notes Review of Systems General: Fatigue Musculoskeletal: leg pain Neurological: Confusion Objective Exam Vital Signs Vital Signs Date Time Temp Pulse Resp B/P (MAP) Pulse Ox O2 Delivery O2 Flow Rate FiO2 10/17/19 08:00 Room Air 10/17/19 06:00 36.4 79 16 144/60 (88) 95 Capillary Refill : Less Than 3 SecondsLess Than 3 Seconds General Appearance: No Apparent Distress, WD/WN, Chronically ill HEENT: PERRL/EOMI, Normal ENT Inspection, Pharynx Normal Neck: Full Range of Motion, Normal Inspection, Non Tender, Supple, Carotid Bruit Respiratory: Chest Non Tender, Lungs Clear, Normal Breath Sounds, No Accessory Muscle Use, No Respiratory Distress Cardiovascular: Regular Rate, Rhythm, No Edema, No Gallop, No JVD, No Murmur, Normal Peripheral Pulses Gastrointestinal: Normal Bowel Sounds, No Organomegaly, No Pulsatile Mass, Non Tender, Soft Back: Normal Inspection, No CVA Tenderness, No Vertebral Tenderness Extremity: Normal Capillary Refill, Normal Inspection, Normal Range of Motion (left leg), Non Tender, No Calf Tenderness, No Pedal Edema Neurologic/Psychiatric: Alert, Oriented x3, No Motor/Sensory Deficits, Normal Mood/Affect, general maintenance engineer II-XII Norm as Tested, Disoriented (subtle poor recall), Motor Weakness (generalized lower extremities) Skin: Normal Color, Warm/Dry Lymphatic: No Adenopathy Results/Procedures Lab Patient resulted labs reviewed. FIM Transfers Therapy Code Descriptions/Definitions Functional [place] Measure: 0=Not Assessed/NA 4=Minimal Assistance 1=Total Assistance 5=Supervision or Setup 2=Maximal Assistance 6=Modified [place] 3=Moderate Assistance 7=Complete IndependenceSCALE: Activities may be completed with or without assistive devices. 3-Zzenhuxztx-opqoqhh completes the activity by him/herself with no assistance from a helper. 5-Set-up or Clean-up Assistance-helper sets up or cleans up; patient completes activity. [place] assists only prior to or following the activity. 4-Supervision or Touching Assistance-helper provides verbal cues and/or touching/steadying and/or contact guard assistance as patient completes activity. Assistance may be provided throughout the activity or intermittently. 3-Partial/Moderate Assistance-helper does LESS THAN HALF the effort. [place] lifts, holds or supports trunk or limbs, but provides less than half the effort. 2-Substantial/Maximal Assistance-helper does MORE THAN HALF the effort. [place] lifts or holds trunk or limbs and provides more than half the effort. 4-Fmjtkiulw-nwizhf does ALL the effort. Patient does none of the effort to complete the activity. Or, the assistance of 2 or more helpers is required for the patient to complete the activity. If activity was not attempted, code reason: 7-Patient Refused. 9-Not Applicable-not attempted and the patient did not perform the activity before the current illness, exacerbation or injury. 10-Not Attempted due to Environmental Limitations-(lack of equipment, weather restraints, etc.). 88-Not Attempted due to Medical Conditions or Safety Concerns. Roll Left to Right (QC): 6 Sit to Lying (QC): 6 Sit to Stand (QC): 4 Chair/Tnf-hg-Cijqf Xfer(QC): 6 Car Transfer (QC): 5 Gait Training Does the Patient Walk?: Yes Distance: 200 x2 Walk 10 feet (QC): 4 Walk 50 ft with 2 Turns(QC): 4 Walk 150 ft (QC): 4 Walking 10ft/uneven surface-QC: 4 Gait Persons Needed: 1 Gait Assistive Device: FWW Wheelchair Training Does the Pt Use a Wheelchair?: No Stair Training Stair Training: Handrails/: 2 handrails #of Steps: 8 1 Step (curb) (QC): 5 4 Steps (QC): 5 12 Steps (QC): 4 Stairs: Pattern: Step to Balance Picking up an Object (QC): 88 ADL-Treatment Eating (QC): 6 Oral Hygiene (QC): 6 Bathing Location: L Arm, R Arm, L Upper Leg, R Upper Leg, L Lower Leg (including foot), R Lower Leg (including foot), Chest, Abdomen, Buttocks, Perineal Area Shower/Bathe Self (QC): 5 (s/u sponge bath in shower.) Upper Body Dressing (QC): 5 Lower Body Dressing (QC): 5 On/Off Footwear (QC): 5 Toileting Hygiene (QC): 6 Toilet Transfer (QC): 4 (SUP, use of walker.) Assessment/Plan Assessment and Plan Assess & Plan/Chief Complaint Assessment: s/p left knee replacement POD # 11 Dementia PD Constipation maintained on laxatives HTN Fall with closed head injury with laceration prompting surgery consult and CT scan revealing no abnl Plan: IRF protocol Monitor for sundowning Checked labs per protocol BM regimen Staple removal per surgery 10/20/19 or if possible before DC planning (1) Status post left knee replacement (2) Parkinson disease (3) Dementia (4) Hypertension (5) Constipation (6) Advanced age CECILIA CONTRERAS DO Oct 17, 2019 12:26
[2019-10-17 17:09] VITALS: BP 151/78
[2019-10-17] MEDS: CYCLOBENZAPRINE 10 MG (FLEXERIL) TAB PO PRN (18:08)
[2019-10-17] MEDS: DOCUSATE SODIUM 100 MG (COLACE) CAP PO SCH (20:43)
[2019-10-17] MEDS: MELATONIN 3 MG TABLET PO PRN (20:44)
[2019-10-18 05:00] VITALS: BP 140/78
[2019-10-18] MEDS: VENlafaxine XR 75 MG (EFFEXOR XR) CAP PO SCH (06:09)
[2019-10-18] MEDS: HYDROcodone/APAP 5 MG/325 MG (LORTAB) TAB PO PRN ×2 (06:10→11:06)
[2019-10-18 06:40] LABS: BASOPHILS # (AUTO) 0.1 10^3/uL (0.0-0.1); BASOPHILS % (AUTO) 1 % (0-10); EOSINOPHILS % (AUTO) 11 % (0-10); HEMATOCRIT 34 % (35-52); HEMOGLOBIN 11.4 G/DL (11.5-16.0); LYMPHOCYTES # (AUTO) 1.7 X 10^3 (1.0-4.0); LYMPHOCYTES % (AUTO) 17 % (12-44); MEAN CORPUSCULAR HEMOGLOBIN 33 PG (25-34); MEAN CORPUSCULAR HGB CONC 33 G/DL (32-36); MEAN CORPUSCULAR VOLUME 100 FL (80-99); MEAN PLATELET VOLUME 8.1 FL (7.4-10.4); MONOCYTES # (AUTO) 1.1 X 10^3 (0.0-1.0); MONOCYTES % (AUTO) 12 % (0-12); NEUTROPHILS # (AUTO) 5.7 X 10^3 (1.8-7.8); NEUTROPHILS % (AUTO) 59 % (42-75); PLATELET COUNT 467 10^3/uL (130-400); RED CELL DISTRIBUTION WIDTH 14.3 % (10.0-14.5); WHITE BLOOD COUNT 9.6 10^3/uL (4.3-11.0)
[2019-10-18] MEDS: CYCLOBENZAPRINE 10 MG (FLEXERIL) TAB PO PRN (07:00)
[2019-10-18 07:04] LABS: ALANINE AMINOTRANSFERASE 16 U/L (0-55); ALBUMIN 3.6 GM/DL (3.2-4.5); ALKALINE PHOSPHATASE 95 U/L (40-136); BILIRUBIN,TOTAL 0.4 MG/DL (0.1-1.0); BUN/CREATININE RATIO 21; CALCIUM 9.1 MG/DL (8.5-10.1); CARBON DIOXIDE 25 MMOL/L (21-32); CHLORIDE 103 MMOL/L (98-107); CREATININE SERUM 0.78 MG/DL (0.60-1.30); GFR ESTIMATED > 60; GLUCOSE 84 MG/DL (70-105); POTASSIUM 4.3 MMOL/L (3.6-5.0); SODIUM 138 MMOL/L (135-145); TOTAL PROTEIN 5.9 GM/DL (6.4-8.2)
[2019-10-18] MEDS: lisINopril 20 MG (PRINIVIL) TABLET PO SCH (08:17)
[2019-10-18] MEDS: PANTOPRAZOLE 40 MG (PROTONIX) TAB PO SCH (08:17)
[2019-10-18] MEDS: MELOXICAM 7.5 MG (MOBIC) TABLET PO SCH (08:17)
[2019-10-18] MEDS: MEMANTINE 10 MG (NAMENDA) TABLET PO SCH (08:17)
[2019-10-18] MEDS: ASPIRIN E.C. 81 MG (ECOTRIN) TAB PO SCH (08:17)
[2019-10-18] MEDS: PROPRANOLOL 20 MG (INDERAL) TABLET PO SCH (08:17)
[2019-10-18] MEDS: SENNA W/DOCUSATE (SENOKOT S) TABLET PO SCH (08:17)
[2019-10-18] MEDS: polyethylene glycoL POWDER 17 GM (MIRALAX) PACK PO SCH (08:17)
[2019-10-18] MEDS: DICLOFENAC 1% GEL 100 GM (VOLTAREN) TUBE TOP SCH (08:18)
[2019-10-18 08:19] VITALS: BP 125/79
[2019-10-18] MEDS ORDERED: ASPI-983 PO (09:10)
[2019-10-18] MEDS ORDERED: ACHYD1T PO (09:10)
[2019-10-18] MEDS ORDERED: PANT40TA3 PO (09:10)
[2019-10-18] MEDS ORDERED: MELO7.5T46 PO (09:10)
[2019-10-18] MEDS ORDERED: CYCL10TA9 PO (09:10)
--- NOTE | 2019-10-18 09:12 | D/C HH Face to Face Order ---
D/C Face to Face Orders Reconcile Patient Problems Problems Reviewed?: Yes Instructions for Patient Home Health Patient Instructions/FollowUp: PCP 1 week Physician to follow Patient: PCP Discharge Diet for Home: No Restrictions Patient Problems: Left knee replacement Slow recovery Dementia Goals for Patient: [place] Patient Data-Allergies,Ht & Wt Patient Allergies: Coded Allergies: Sulfa (Sulfonamide Antibiotics) (Verified Allergy, Unknown, 10/09/19) metoclopramide (Verified Allergy, Unknown, 10/09/19) Home Health Need/Face to Face Date of Face to Face: Oct 18, 2019 Clinical Findings: Generalized weakness and fatigue, Instability, Muscle weakness, Unsteady gait I have seen Pt qhrz-dm-haam: Yes Discharged To: Home Diagnosis/Conditions: Left knee replacement Slow recovery Dementia Patient is Homebound due to: CognItive deficits, Beatriz fall risk due to instabilty, Muscle weakness, Pain w/ambulation Homebound Status Due to the above stated illness, injury or surgical procedure (medical condition or diagnosis) and associated clinical findings, the patient is homebound because of his/her inability to leave home except with aid of a supportive device and/or person AND leaving the home requires a considerable and taxing effort or is medically contraindicated. Pt req the following assistanc: Walker Home Health Nursing Orders Home Health Services Order: Nursing Services (Monitor med administration), Tooth Clerk-Evaluate & Treat, Physical Therapy-Evaluate & Treat Certify Stmt I certify that this patient is under my care and that I, a nurse practitioner or a physician; a middle school assistant principal working with me, had a face to face encounter that - meets the physician face to face encounter requirements with this patient as dated. CECILIA CONTRERAS DO Oct 18, 2019 09:12
--- NOTE | 2019-10-18 09:14 | Discharge Summary ---
Diagnosis/Chief Complaint Date of Admission Oct 08, 2019 at 13:05 Date of Discharge Discharge Date: Oct 18, 2019 Discharge Diagnosis Assessment: s/p left knee replacement POD # 12 Dementia PD Constipation maintained on laxatives HTN Fall with closed head injury with laceration prompting surgery consult and CT scan revealing no abnl Plan: IRF protocol Monitor for Checked labs per protocol BM regimen Staple removal per surgery 10/20/19 or if possible before DC planning (1) Status post left knee replacement (2) Parkinson disease (3) Dementia (4) Hypertension (5) Constipation (6) Advanced age Discharge Summary Discharge Physical Examination Allergies: Coded Allergies: Sulfa (Sulfonamide Antibiotics) (Verified Allergy, Unknown, 10/09/19) metoclopramide (Verified Allergy, Unknown, 10/09/19) Vitals & I&Os Vital Signs Date Time Temp Pulse Resp B/P (MAP) Pulse Ox O2 Delivery O2 Flow Rate FiO2 10/18/19 13:15 36.1 94 18 125/79 97 Room Air General Appearance: Alert, Oriented X3, Cooperative Respiratory: Clear to Auscultation Cardiovascular: Regular Rate Neuro: Normal Gait, Normal Speech, Strength at 5/5 X4 Ext Psych/Mental Status: Mental Status NL Hospital Course Was the Problem List Reviewed?: Yes Hospital course: patient had a productive hospital course after she was admitted from [facility] due to slow recovery from left knee replacement complicated with dementia. Patient sustained a fall during the first 2 days of stay prompting Dr Wray consult and purvi placed in scalp and CT neck and Head which were both negative. Patient was able to maintain therapy participation and did very well and was able to regain most ADL ability and ambulation with walker. Family was agreeable for DC on and patient was DC in good condition. Labs (last 24 hrs) Laboratory Tests 10/09/19 05:55: White Blood Count 9.8, Red Blood Count 3.47L, Hemoglobin 11.3L, Hematocrit 34L, Mean Corpuscular Volume 98, Mean Corpuscular Hemoglobin 33, Mean Corpuscular Hemoglobin Concent 33, Red Cell Distribution Width 12.9, Platelet Count 319, Mean Platelet Volume 9.0, Neutrophils (%) (Auto) 61, Lymphocytes (%) (Auto) 19, Monocytes (%) (Auto) 14H, Eosinophils (%) (Auto) 6, Basophils (%) (Auto) 1, Neutrophils # (Auto) 5.9, Lymphocytes # (Auto) 1.8, Monocytes # (Auto) 1.4H, Eosinophils # (Auto) 0.6H, Basophils # (Auto) 0.1, Sodium Level 135, Potassium Level 4.0, Chloride Level 99, Carbon Dioxide Level 27, Anion Gap 9, Blood Urea Nitrogen 13, Creatinine 0.72, Estimat Glomerular Filtration Rate > 60, BUN/Creatinine Ratio 18, Glucose Level 83, Calcium Level 8.9, Corrected Calcium 9.1, Total Bilirubin 0.4, Aspartate Amino Transf (AST/SGOT) 21, Alanine Aminotransferase (ALT/SGPT) 7, Alkaline Phosphatase 100, Total Protein 6.2L, Albumin 3.8 10/11/19 06:34: White Blood Count 8.0, Red Blood Count 3.31L, Hemoglobin 10.7L, Hematocrit 33L, Mean Corpuscular Volume 98, Mean Corpuscular Hemoglobin 32, Mean Corpuscular Hemoglobin Concent 33, Red Cell Distribution Width 12.9, Platelet Count 368, Mean Platelet Volume 8.9, Neutrophils (%) (Auto) 57, Lymphocytes (%) (Auto) 23, Monocytes (%) (Auto) 10, Eosinophils (%) (Auto) 10, Basophils (%) (Auto) 1, Neutrophils # (Auto) 4.6, Lymphocytes # (Auto) 1.8, Monocytes # (Auto) 0.8, Eosinophils # (Auto) 0.8H, Basophils # (Auto) 0.1, Sodium Level 136, Potassium Level 4.1, Chloride Level 102, Carbon Dioxide Level 28, Anion Gap 6, Blood Urea Nitrogen 13, Creatinine 0.68, Estimat Glomerular Filtration Rate > 60, BUN/Cr eatinine Ratio 19, Glucose Level 84, Calcium Level 9.0, Corrected Calcium 9.5, Total Bilirubin 0.6, Aspartate Amino Transf (AST/SGOT) 20, Alanine Aminotransferase (ALT/SGPT) 7, Alkaline Phosphatase 81, Total Protein 5.6L, Albumin 3.4 10/18/19 05:37: White Blood Count 9.6, Red Blood Count 3.42L, Hemoglobin 11.4L, Hematocrit 34L, Mean Corpuscular Volume 100H, Mean Corpuscular Hemoglobin 33, Mean Corpuscular Hemoglobin Concent 33, Red Cell Distribution Width 14.3, Platelet Count 467H, Mean Platelet Volume 8.1, Neutrophils (%) (Auto) 59, Lymphocytes (%) (Auto) 17, Monocytes (%) (Auto) 12, Eosinophils (%) (Auto) 11H, Basophils (%) (Auto) 1, Neutrophils # (Auto) 5.7, Lymphocytes # (Auto) 1.7, Monocytes # (Auto) 1.1H, Eosinophils # (Auto) 1.0H, Basophils # (Auto) 0.1, Sodium Level 138, Potassium Level 4.3, Chloride Level 103, Carbon Dioxide Level 25, Anion Gap 10, Blood Urea Nitrogen 16, Creatinine 0.78, Estimat Glomerular Filtration Rate > 60, BUN/Creatinine Ratio 21, Glucose Level 84, Calcium Level 9.1, Corrected Calcium 9.4, Total Bilirubin 0.4, Aspartate Amino Transf (AST/SGOT) 21, Alanine Aminotransferase (ALT/SGPT) 16, Alkaline Phosphatase 95, Total Protein 5.9L, Albumin 3.6 Pending Labs Laboratory Tests 10/09/19 05:55: White Blood Count 9.8, Red Blood Count 3.47, Hemoglobin 11.3, Hematocrit 34, Mean Corpuscular Volume 98, Mean Corpuscular Hemoglobin 33, Mean Corpuscular Hemoglobin Concent 33, Red Cell Distribution Width 12.9, Platelet Count 319, Mean Platelet Volume 9.0, Neutrophils (%) (Auto) 61, Lymphocytes (%) (Auto) 19, Monocytes (%) (Auto) 14, Eosinophils (%) (Auto) 6, Basophils (%) (Auto) 1, Neutrophils # (Auto) 5.9, Lymphocytes # (Auto) 1.8, Monocytes # (Auto) 1.4, Eosinophils # (Auto) 0.6, Basophils # (Auto) 0.1, Sodium Level 135, Potassium Level 4.0, Chloride Level 99, Carbon Dioxide Level 27, Anion Gap 9, Blood Urea Nitrogen 13, Creatinine 0.72, Estimat Glomerular Filtration Rate > 60, BUN/Creatinine Ratio 18, Glucose Level 83, Calcium Level 8.9, Corrected Calcium 9.1, Total Bilirubin 0.4, Aspartate Amino Transf (AST/SGOT) 21, Alanine Aminotransferase (ALT/SGPT) 7, Alkaline Phosphatase 100, Total Protein 6.2, A lbumin 3.8 10/11/19 06:34: White Blood Count 8.0, Red Blood Count 3.31, Hemoglobin 10.7, Hematocrit 33, [place] n Corpuscular Volume 98, Mean Corpuscular Hemoglobin 32, Mean Corpuscular Hemoglobin Concent 33, Red Cell Distribution Width 12.9, Platelet Count 368, Mean Platelet Volume 8.9, Neutrophils (%) (Auto) 57, Lymphocytes (%) (Auto) 23, Monocytes (%) (Auto) 10, Eosinophils (%) (Auto) 10, Basophils (%) (Auto) 1, Neutrophils # (Auto) 4.6, Lymphocytes # (Auto) 1.8, Monocytes # (Auto) 0.8, E osinophils # (Auto) 0.8, Basophils # (Auto) 0.1, Sodium Level 136, Potassium Level 4.1, Chloride Level 102, Carbon Dioxide Level 28, Anion Gap 6, Blood Urea Nitrogen 13, Creatinine 0.68, Estimat Glomerular Filtration Rate > 60, BUN/Creatinine Ratio 19, Glucose Level 84, Calcium Level 9.0, Corrected Calcium 9.5, Total Bilirubin 0.6, Aspartate Amino Transf (AST/SGOT) 20, Alanine Mendoza otransferase (ALT/SGPT) 7, Alkaline Phosphatase 81, Total Protein 5.6, Albumin 3.4 10/18/19 05:37: White Blood Count 9.6, Red Blood Count 3.42, Hemoglobin 11.4, Hematocrit 34, Mean Corpuscular Volume 100, Mean Corpuscular Hemoglobin 33, Mean Corpuscular Hemoglobin Concent 33, Red Cell Distribution Width 14.3, Platelet Count 467, Mean Platelet Volume 8.1, Neutrophils (%) (Auto) 59, Lymphocytes (%) (Auto) 17, Monocytes (%) (Auto) 12, Eosinophils (%) (Auto) 11, Basophils (%) (Auto) 1, Neut rophils # (Auto) 5.7, Lymphocytes # (Auto) 1.7, Monocytes # (Auto) 1.1, Eosinophils # (Auto) 1.0, Basophils # (Auto) 0.1, Sodium Level 138, Potassium Level 4.3, Chloride Level 103, Carbon Dioxide Level 25, Anion Gap 10, Blood Urea Nitrogen 16, Creatinine 0.78, Estimat Glomerular Filtration Rate > 60, BUN/Creatinine Ratio 21, Glucose Level 84, Calcium Level 9.1, Corrected Calcium 9.4, Total Bilirubin 0.4, Aspartate Amino Transf (AST/SGOT) 21, Alanine Aminotransferase (ALT/SGPT) 16, Alkaline Phosphatase 95, Total Protein 5.9, Albumin 3.6 Discharge Home Medications: Active Scripts Active HYDROcodone/APAP 10/325 TABLET (Acetaminophen/Hydrocodone Bitart) 1 Ea Tab 1 Ea PO Q4H Pantoprazole Sodium 40 Mg Tablet.dr 40 Mg PO DAILY Meloxicam 7.5 Mg Tablet 7.5 Mg PO BID Aspirin EC (Aspirin) 81 Mg Tablet.dr 81 Mg PO DAILY Cyclobenzaprine HCl 10 Mg Tablet 10 Mg PO Q8H PRN Reported Fish Oil 1,200 mg Fish Oil (Fish Oil/Dha/Epa) 1 Each Capsule 1 Each PO DAILY Senna S Tablet (Sennosides/Docusate Sodium) 1 Each Tablet 1 Each PO HS Multivitamins (Multivitamin) 1 Each Tablet 1 Each PO DAILY Tylenol (Acetaminophen) 325 Mg Tablet 650 Mg PO Q6H PRN Dicyclomine HCl 10 Mg Capsule 10 Mg PO BID WITH MEALS Propranolol HCl ER (Propranolol HCl) 60 Mg Cap.sa.24h 60 Mg PO DAILY Venlafaxine HCl ER (Venlafaxine HCl) 150 Mg Tab.er.24 150 Mg PO BID Memantine HCl 10 Mg Tablet 10 Mg PO BID Lisinopril 20 Mg Tablet 20 Mg PO DAILY Instructions to patient/family Please see electronic discharge instructions given to patient. Diagnosis/Problems Diagnosis/Problems (1) Status post left knee replacement (2) Parkinson disease (3) Dementia (4) Hypertension (5) Constipation (6) Advanced age Clinical Quality Measures DVT/VTE Risk/Contraindication: Risk Factor Score Per Nursin RFS Level Per Nursing on Admit: 4+=Very High CECILIA CONTRERAS DO Oct 18, 2019 09:14
--- NOTE | 2019-10-18 10:03 | Occupational Ther Daily Note ---
OT Current Status-Daily Note Subjective Pt seen in recliner chair ([id number], [id number]). Pt agrees to OT tx, states no pain currently. Pt states she has had muscle spasms through night and has been rubbing leg to decrease pain. Mental Status/Objective Patient Orientation: Person, Place, Situation ADL-Treatment Therapy Code Descriptions/Definitions Functional [place] Measure: 0=Not Assessed/NA 4=Minimal Assistance 1=Total Assistance 5=Supervision or Setup 2=Maximal Assistance 6=Modified [place] 3=Moderate Assistance 7=Complete IndependenceSCALE: Activities may be completed with or without assistive devices. 1-Glihzxnwjx-rnminve completes the activity by him/herself with no assistance from a helper. 5-Set-up or Clean-up Assistance-helper sets up or cleans up; patient completes activity. [place] assists only prior to or following the activity. 4-Supervision or Touching Assistance-helper provides verbal cues and/or touching/steadying and/or contact guard assistance as patient completes activity. Assistance may be provided throughout the activity or intermittently. 3-Partial/Moderate Assistance-helper does LESS THAN HALF the effort. [place] lifts, holds or supports trunk or limbs, but provides less than half the effort. 2-Substantial/Maximal Assistance-helper does MORE THAN HALF the effort. [place] lifts or holds trunk or limbs and provides more than half the effort. 2-Emxjumpwb-gjjcvx does ALL the effort. Patient does none of the effort to comp lete the activity. Or, the assistance of 2 or more helpers is required for the patient to complete the activity. If activity was not attempted, code reason: 7-Patient Refused. 9-Not Applicable-not attempted and the patient did not perform the activity before the current illness, exacerbation or injury. 10-Not Attempted due to Environmental Limitations-(lack of equipment, weather restraints, etc.). 88-Not Attempted due to Medical Conditions or Safety Concerns. Eating (QC): 6 Oral Hygiene (QC): 6 Bathing Location: L Arm, R Arm, L Upper Leg, R Upper Leg, L Lower Leg (including foot), R Lower Leg (including foot), Chest, Abdomen, Buttocks, Perineal Area Shower/Bathe Self (QC): 4 (SUP in stance. sponge bath in chair.) Upper Body Dressing (QC): 6 Lower Body Dressing (QC): 4 (SUP in stance.) On/Off Footwear: 6 Toileting Hygiene (QC): 6 Toilet Transfer (QC): 6 Other Treatment Pt completes QCs on this date as above. Pt expresses no expected difficulties at [facility]. Pt completes sit to stands and ambulates through halls with SUP, good balance maintained, pt returns to recliner with call light on, questions answered, all needs met. Education OT Patient Education: Correct positioning, Modified ADL techniques, Purpose of tx/functional activities, Safety issues Teaching Recipient: Patient Teaching Methods: Demonstration Response to Teaching: Verbalize Understanding, Return Demonstration OT Probate Clerk Goals Probate Clerk Goals Time Frame: Oct 29, 2019 Eating (QC): 6 (met) Oral Hygiene (QC): 6 Toileting Hygiene (QC): 6 (met) Shower/Bathe Self (QC): 5 (met) Upper Body Dressing (QC): 6 (met) Lower Body Dressing (QC): 5 On/Off Footwear (QC): 6 (met) Additional Goals: 1-Demonstrate ADL Tasks, 2-Verbalize Understanding, 3- ImproveStrength/[place] 1=Demonstrate adherence to instructed precautions during ADL tasks. 2=Patient will verbalize/demonstrate understanding of assistive devices/m odifications for ADL. 3=Patient will improve strength/tolerance for activity to enable patient to perform ADL's. OT Education/Plan Problem List/Assessment Assessment: Decreased Activ Tolerance, Impaired Cognition, Impaired I ADL's Discharge Recommendations Plan/Recommendations: Continue POC Therapy Discharge Recommendati: Scheduled Assistance Treatment Plan/Plan of Care Treatment,Training & Education: Yes Patient would benefit from OT for education, treatment and training to promote independence in ADL's, mobility, safety and/or upper extremity function for ADL's. Plan of Care: ADL Retraining, Functional Mobility, Group Exercise/Act as Ind, UE Funct Exercise/Act Treatment Duration: Oct 29, 2019 Frequency: At least 5 of 7 days/Wk (IRF) Estimated Hrs Per Day: 1.5 hours per day Rehab Potential: Good Time/GCodes Start Time: 09:00 (0930) Stop Time: 09:15 (1000) Total Time Billed (hr/min): 45 Billed Treatment Time 1, ADL 3 (45) [id number], [id number] DRU LORD OTR Oct 18, 2019 10:03
--- NOTE | 2019-10-18 10:10 | NUR ---
OK TO REMOVE POSTERIOR HEAD MERLINE PER DR. NETTLES. 5 MERLINE REMOVED WITHOUT DIFFICULTY. PATIENT TOLERATED WELL. LACERATION IS WELL APPROXIMATED. NO DRAINAGE NOTED.
--- NOTE | 2019-10-18 10:22 | NUR ---
REPORT TO ANA AT [facility] IN [place], [place].
--- NOTE | 2019-10-18 10:43 | Physical Therapy Daily Note ---
PT Daily Note-Current Subjective Pt agreeable to PT visit. States she is excited about going home and feels she will be more oriented there. Pain Numeric Pain Scale: 3 Location Body Site: Knee Pain Description: Ache, Pressure, Tightness Comment: no pain at rest Appearance Pt sitting up in recliner upon arrival, awake and alert. At end of session, pt sitting up in recliner with call light, phone and bedside table within reach, nurse and FRAME TABLE OPERATOR HELPER present. Chair alarm activated Mental Status Patient Orientation: Person, Place, Time, Eyes Open, Situation Noted some min sx's of STM deficits but very easily reoriented. No difficulty with person/place/time/situation Transfers SCALE: Activities may be completed with or without assistive devices. 6-Wulevzixie-roksluy completes the activity by him/herself with no assistance from a helper. 5-Set-up or Clean-up Assistance-helper sets up or cleans up; patient completes activity. [place] assists only prior to or following the activity. 4-Supervision or Touching Assistance-helper provides verbal cues and/or touching/steadying and/or contact guard assistance as patient completes activity. Assistance may be provided throughout the activity or intermittently. 3-Partial/Moderate Assistance-helper does LESS THAN HALF the effort. [place] lifts, holds or supports trunk or limbs, but provides less than half the effort. 2-Substantial/Maximal Assistance-helper does MORE THAN HALF the effort. [place] lifts or holds trunk or limbs and provides more than half the effort. 0-Gsolgaszq-rkzmtv does ALL the effort. Patient does none of the effort to complete the activity. Or, the assistance of 2 or more helpers is required for the patient to complete the activity. If activity was not attempted, code reason: 7-Patient Refused. 9-Not Applicable-not attempted and the patient did not perform the activity before the current illness, exacerbation or injury. 10-Not Attempted due to Environmental Limitations-(lack of equipment, weather restraints, etc.). 88-Not Attempted due to Medical Conditions or Safety Concerns. Roll Left & Right (QC): 6 Sit to Lying (QC): 6 Lying to Sitting/Side of Bed(Q: 6 Sit to Stand (QC): 5 (occasional verb inst for hand placement for technique and safety) Chair/Stj-fj-Vgwus Xfer(QC): 6 Toilet Transfer (QC): 6 Car Transfer (QC): 5 (min verb inst for technique) Weight Bearing Right Lower Extremity: Right Full Weight Bearing Left Lower Extremity: Left Full Weight Bearing Gait Training Does the Patient Walk?: Yes Distance: 200 x2 Walk 10 feet (QC): 6 Walk 50 ft with 2 Turns(QC): 6 Walk 150 ft (QC): 6 Walking 10ft/uneven surface-QC: 5 Gait Persons Needed: 0 Gait Assistive Device: FWW no LOB or unsteadiness, occasionally requires need for direction Stair Training Stair Training: Handrails/: 2 handrails #of Steps: 4 1 Step (curb) (QC): 5 4 Steps (QC): 5 12 Steps (QC): 5 Stairs: Pattern: Step to no LOB or unsteadiness, pt able to recall correct sequencing Balance Picking up an Object (QC): 5 (in standing with walker and use of education program coordinator) Treatments education, safety, bed mobility, transfers, gait, stairs, balance, toileting, ac tivity tolerance, functional mobility Assessment Current Status: Good Progress PT Short Term Goals Short Term Goals Time Frame: Oct 15, 2019 Roll Left & Right: 5 Sit to lyin Lying to sitting on side of be: 4 Sit to stand: 4 (SBA) Chair/lsh-ni-aboqv transfer: 4 (SBA) Car transfer: 4 (SBA) Walk 10 feet: 4 (SBA) Walk 50 feet with two turns: 4 (SBA) Walk 150 feet: 4 (SBA) 1 step (curb): 4 (SBA) PT Mcc Goals Geophysical Support Specialist Goals PT Geophysical Support Specialist Goals Time Frame: Oct 29, 2019 Roll Left & Right (QC): 5 Sit to Lying (QC): 5 Lying-Sitting on Side/Bed(QC): 5 Sit to Stand (QC): 5 Car Transfer (QC): 5 Does the Patient Walk: Yes Walk 10 feet (QC): 5 Walk 50ft with 2 Turns (QC): 5 Walk 150 ft (QC): 5 Walking 10ft on Uneven Surface: 5 1 Step (curb) (QC): 5 4 Steps (QC): 5 PT Plan Treatment/Plan Treatment Plan: Continue Plan of Care Treatment Plan: Bed Mobility, Education, Functional Activity Amos, Functional Strength, Group Therapy, Gait, Safety, Therapeutic Exercise, Transfers Treatment Duration: Oct 29, 2019 Frequency: At least 5 of 7 days/Wk (IRF) Estimated Hrs Per Day: 1.5 hours per day Patient and/or Family Agrees t: Yes Safety Risks/Education Patient Education: Gait Training, Transfer Techniques, Steps, Reviewed Precautions, Reviewed Use of Ice, Disease Process, Safety Issues Teaching Recipient: Patient Teaching Methods: Demonstration, Discussion Response to Teaching: Verbalize Understanding, Return Demonstration, Reinforc ement Needed Discharge Recommendations Therapy Discharge Recommendati: Home & Family, Post Acute PT Time/GCodes Time In: 1015 Time Out: 1049 Total Billed Treatment Time: 34 Total Billed Treatment 1 visit, GT x12 min, FA x22 JACLYN SOOD DIRECTOR OUTCOMES Oct 18, 2019 10:43
--- NOTE | 2019-10-18 11:38 | NUR ---
CM/SS DISCHARGE Patient discharged as planned to Assisted Living, [facility], Memory Care, [facility]. Daughter(s) have communicated with Unit RN that they will be transporting. IMM2 presented, signed, charted. Faxed continuum of care information, instructions, orders to [facility] and also to patient's PCP, Jessica Pearce APRN, [facility]. Confirmations of transmission received. Partnered with Unit RN regarding final arrangements with Rx and NANI. Physician did order HHC services; however, due to Covid19 protocols the [facility] is not allowing visitors or any outsiders/agencies into their facility at this time. HHC services will not be initiated. Admin/Karmen understands the orders are there and they will revisit them if the visitor ban lifts. They do have a Seniors[employer] class each a.m. for those who want to attend which they will encourage for patient. Patient pharmacy was [facility], the [facility] is working with family about a transfer to [facility] in [place]. Facility will require bubble pack Rx and this is their preferred/contracted pharmacy for their residents. Patient has FWW. No other needs indicated. Unit RN aware of all arrangements.
--- NOTE | 2019-10-18 11:42 | Speech Therapy Daily Note ---
Speech Daily Progress Note Subjective Date Seen by Provider: Oct 18, 2019 Time Seen by Provider: 00:15 Patient is anxious to be discharging to AL today and be closer to her home. Objective Patient completed a series of q/a related to her needs with 85% accuracy. Assessment Assessment Current Status: Good Progress Treatment Plan Discontinue ST Speech Short Term Goals Short Term Goals Short Term Goals 1) The patient will complete memory tasks related to her daily needs at 80% or greater with minimal cues. 2) The patient will complete safety awareness tasks related to her daily needs at 80% or greater with minimal cues. 3) The patient will complete problem solving tasks related to her daily needs at 80% or greater with minimal cues. Speech Orthodontist Assistant Goals Orthodontist Assistant Goals Patient will improve cognitive communication in order to complete daily tasks with minimal assistance. Speech-Plan Patient/Family Goals Patient/Family Goals: Patient is discharging to AL today. Treatment Plan Speech Therapy Treatment Plan: Discontinue ST Treatment Duration: Oct 09, 2019 Frequency: 5 times per week Estimated Hrs Per Day: .5 hour per day Rehab Potential: Good Barriers to Learning: Patient has dementia Pt/Family Agrees to Plan: Yes Safety Risks/Education Teaching Recipient: Patient Teaching Methods: Discussion Response to Teaching: Verbalize Understanding Education Topics Provided: Contiued safety within her new living facility. Time Speech Therapy Time In: 09:15 Speech Therapy Time Out: 09:30 Total Billed Time: 15 Billed Treatment Time 1, SLTS No QUALITY CODES: EXPRESSION OF IDEAS/WANTS: 4 UNDERSTANDING VERBAL CONTENT: 4 BRIEF INTERVIEW MENTAL STATUS: YES REPETITION OF 3 WORDS: 3 TEMPORAL ORIENTATION: YEAR: CORRECT, MONTH: CORRECT, DAY: INCORRECT RECALL: SOCK: YES WITH CUE, COLOR: NO BED: NO MEMORY/RECALL ABILITY: SEASON, THAT SHE IS IN THE HOSPITAL ZHANG GOYAL Oct 18, 2019 11:42
--- NOTE | 2019-10-18 11:50 | NUR ---
RD ASSESSMENT PMHx: HTN; dementia; Parkinson's disease; GERD; chronic constipation; s/p TKA PT INTERACTION: Pt was awake and pleasant during nutrition follow-up. Pt states she has been eating well since last assessment. "I don't eat a lot, but I eat enough to fill up." Note avg PO intake 50-75% meals, per chart review. Pt states no issues with n/v since last assessment, but had some issues with constipation. Note last BM was 10/16, and pt currently on bowel regimen of colace HS; senna BID; and miralax BID, per chart review. ABNORMAL NUTRITION-RELATED LAB VALUES LOW: Pro 5.9 HIGH: Est. kcal needs: 6259-5870 kcal | 25-30 kcal/kg Est. Pro needs: 51-62 g Pro | 1.0-1.2 g Pro/kg PES STATEMENT: Given current PO intake, no nutrition diagnosis at this time (NO-1.1) INTERVENTION: Continue with current diet order of Regular diet. Will continue to follow and reassess as pt needs, intake, and status change. MONITOR/EVALUATE: PO Intake; Plan of Care; Hydration Status; Weight Status; Lab Values Josee Card, MS, RD, LD
[2019-10-18 13:15] VITALS: BP 125/79
--- NOTE | 2019-10-18 15:38 | Therapy Team Discharge Summary ---
Therapy Discharge Summary Discharge Recommendations Date of Discharge Oct 18, 2019 at 13:15 Occupational Therapy Pt admits to ARU with TKA. Pt admits with CGA for showering, toileting, trans fers, and LB dressing. Pt and OT work towards higher functional IND through UE exercises/ endurance training, ADL retraining, safety and memory strategies. Pt limited by cognition/ memory retention and pain/ fatigue. Pt d/c's with all LTGs not attained: IND in UB dress, oral care, toileting tasks/ SUP in showering and LB dressing. Pt d/c's to [facility], d/c OT at this time. Decreased Activ Tolerance, Impaired Cognition, Impaired I ADL's PT Library Acquisitions Technician Goals Shelter Goals PT Library Acquisitions Technician Goals Time Frame: Oct 29, 2019 Roll Left to Right (QC): 5 Sit to Lying (QC): 5 Lying-Sitting on Side/Bed(QC): 5 Sit to Stand (QC): 5 Car Transfer (QC): 5 Does the Patient Walk: Yes Walk 10 feet (QC): 5 Walk 10ft-Uneven Surface(QC): 5 Walk 50ft with 2 Turns (QC): 5 Walk 150 ft (QC): 5 1 Step (curb) (QC): 5 4 Steps (QC): 5 OT Library Acquisitions Technician Goals Shelter Goals Time Frame: Oct 29, 2019 Eating (QC): 6 (met) Oral Hygiene (QC): 6 Shower/Bathe Self (QC): 5 (met) Upper Body Dressing (QC): 6 (met) Lower Body Dressing (QC): 5 On/Off Footwear (QC): 6 (met) Toileting Hygiene (QC): 6 (met) Additional Goals: 1-Demonstrate ADL Tasks, 2-Verbalize Understanding, 3- ImproveStrength/Amos 1=Demonstrate adherence to instructed precautions during ADL tasks. 2=Patient will verbalize/demonstrate understanding of assistive devices/modifications for ADL. 3=Patient will improve strength/tolerance for activity to enable patient to perform ADL's. Speech Shelter Goals Library Acquisitions Technician Goals Patient will improve cognitive communication in order to complete daily tasks with minimal assistance. DRU LORD OTR Oct 18, 2019 15:38
--- NOTE | 2019-10-18 15:45 | Therapy Team Discharge Summary ---
Therapy Discharge Summary Discharge Recommendations Date of Discharge Oct 18, 2019 at 13:15 Physical Therapy Patient came to rehab with a left TKA. Upon evaluation patient performed bed mobility with SBA, supine <-> sit min assist, sit <-> stand CGA, transfers CGA, car transfer min assist, ambulated 150' with a rolling walker with CGA (including 5' with at least 2 turns of 90 degrees and 10' over an uneven surface), and went up and down 1 step using a rolling walker with CGA. Patient has been performing bed mobility and transfer training, balance and endurance training, functional strengthening, stair training, gait training, and education. Patient has made good progress and has met all of her termination clerk goals. Now, patient performs bed mobility with independence, supine <-> sit with independence, sit <-> stand with setup, transfers with independence, car transfer setup, ambulates 200' with a rolling walker with independence (including 50' with at least 2 turns of 90 degrees but ambulates 10' over an uneven surface with setup), can ambulate up and down 12 steps using 2 handrails with setup, and can lemon picker an object from the floor with setup. Patient discharged from this facility today and will be discharged from PT at this time. Occupational Therapy Decreased Activ Tolerance, Impaired Cognition, Impaired I ADL's PT Dough Molder Hand Goals Snf Goals PT Snf Goals Time Frame: Oct 29, 2019 Roll Left to Right (QC): 5 Sit to Lying (QC): 5 Lying-Sitting on Side/Bed(QC): 5 Sit to Stand (QC): 5 Car Transfer (QC): 5 Does the Patient Walk: Yes Walk 10 feet (QC): 5 Walk 10ft-Uneven Surface(QC): 5 Walk 50ft with 2 Turns (QC): 5 Walk 150 ft (QC): 5 1 Step (curb) (QC): 5 4 Steps (QC): 5 OT Snf Goals Snf Goals Time Frame: Oct 29, 2019 Eating (QC): 6 (met) Oral Hygiene (QC): 6 Shower/Bathe Self (QC): 5 (met) Upper Body Dressing (QC): 6 (met) Lower Body Dressing (QC): 5 On/Off Footwear (QC): 6 (met) Toileting Hygiene (QC): 6 (met) Additional Goals: 1-Demonstrate ADL Tasks, 2-Verbalize Understanding, 3- ImproveStrength/Amos 1=Demonstrate adherence to instructed precautions during ADL tasks. 2=Patient will verbalize/demonstrate understanding of assistive phyliica kenrick/modifications for ADL. 3=Patient will improve strength/tolerance for activity to enable patient to perform ADL's. Speech Dough Molder Hand Goals Dough Molder Hand Goals Patient will improve cognitive communication in order to complete daily tasks with minimal assistance. SHANNA GARCÍA PT Oct 18, 2019 15:45
--- NOTE | 2019-10-20 08:14 | Therapy Team Discharge Summary ---
Therapy Discharge Summary Discharge Recommendations Date of Discharge Oct 18, 2019 at 13:15 Occupational Therapy Decreased Activ Tolerance, Impaired Cognition, Impaired I ADL's Speech-Language Pathology Patient was admitted to the ARU s/p knee surgery. Patient received skilled ST services due to moderate dementia level. Patient met her goals at 75-80% accuracy. Patient discharged to AL closer to her home on 10/18/2019. PT Snf Goals Snf Goals PT Snf Goals Time Frame: Oct 29, 2019 Roll Left to Right (QC): 5 Sit to Lying (QC): 5 Lying-Sitting on Side/Bed(QC): 5 Sit to Stand (QC): 5 Car Transfer (QC): 5 Does the Patient Walk: Yes Walk 10 feet (QC): 5 Walk 10ft-Uneven Surface(QC): 5 Walk 50ft with 2 Turns (QC): 5 Walk 150 ft (QC): 5 1 Step (curb) (QC): 5 4 Steps (QC): 5 OT Rope Rider Goals Snf Goals Time Frame: Oct 29, 2019 Eating (QC): 6 (met) Oral Hygiene (QC): 6 Shower/Bathe Self (QC): 5 (met) Upper Body Dressing (QC): 6 (met) Lower Body Dressing (QC): 5 On/Off Footwear (QC): 6 (met) Toileting Hygiene (QC): 6 (met) Additional Goals: 1-Demonstrate ADL Tasks, 2-Verbalize Understanding, 3- ImproveStrength/Amos 1=Demonstrate adherence to instructed precautions during ADL tasks. 2=Patient will verbalize/demonstrate understanding of assistive devices/modifications for ADL. 3=Patient will improve strength/tolerance for activity to enable patient to perform ADL's. Speech Rope Rider Goals Rope Rider Goals Patient will improve cognitive communication in order to complete daily tasks with minimal assistance. ZHANG GOYAL Oct 20, 2019 08:14
== END 2019-10-18 13:15 | DRG 560 ==
PROVIDERS: ADMIT Internal Medicine; ATTEND Internal Medicine
PROC: 0HQ0XZZ Repair Scalp Skin, External Approach (ICD-10-PCS; principal; 2019-10-11)
DX: Z47.1 Aftercare following joint replacement surgery (principal); Z96.652 Presence of left artificial knee joint; G31.83 Neurocognitive disorder with Lewy bodies; F02.81 Dementia in other diseases classified elsewhere, unspecified severity, with behavioral disturbance; S01.01XA Laceration without foreign body of scalp, initial encounter; K59.09 Other constipation; I10 Essential (primary) hypertension; K21.9 Gastro-esophageal reflux disease without esophagitis; F41.9 Anxiety disorder, unspecified; F32.9 Major depressive disorder, single episode, unspecified; K62.3 Rectal prolapse; W19.XXXA Unspecified fall, initial encounter; Y92.231 Patient bathroom in hospital as the place of occurrence of the external cause
CPT/HCPCS: 36415; 70450; 72070; 72100; 72125; 80053; 85025